=== PATIENT | female | born 1970 | race Caucasian/White ===

== ENCOUNTER 2019-04-02 05:35 | Outpatient (CLI) | payer BC ==
[~2019-04-02] VITALS: Ht 170.2 cm; Wt 60.8 kg
[~2019-04-02 05:35] MED LIST: CEFU500T5 PO; CRB200T PO; CYCL10TA9 PO; DULO20CA PO; DULO60CA6 PO; KETO-22 PO; LSNP20T PO; RIZA10TA23 PO; epitol PO; seasonale PO
[2019-04-02] MEDS ORDERED: CARB200T PO (10:40)
[2019-04-02] MEDS ORDERED: RIZA10TA23 PO (10:40)
[2019-04-02] MEDS ORDERED: DULO60CA59 PO (10:40)
[2019-04-02] MEDS ORDERED: LISI-556 PO (10:40)
== END 2019-04-02 10:47 | disposition home or self-care (01) ==
LOC: PREOP 05:35
PROVIDERS: ATTEND Podiatrist Foot & Ankle Surgery
DX: Z01.818 Encounter for other preprocedural examination (principal)

== ENCOUNTER 2019-04-07 06:29 | Day surgery (SDC) | payer BC ==
[~2019-04-07] VITALS: Ht 170.2 cm; Wt 60.8 kg
[2019-04-07] VITALS (11 sets, daily range): BP systolic 103–123; BP diastolic 61–76
[~2019-04-07 06:29] MED LIST changes: +CARB200T PO; +DULO60CA59 PO; +LISI-556 PO
[2019-04-07] MEDS ORDERED: ONDANSETRON 4 MG/2 ML (SDV) Z0FRAN ONE (06:42)
[2019-04-07] MEDS ORDERED: proPOfol 200 MG/20 ML (DIPRIVAN) VIAL IV ONE (06:42)
[2019-04-07] MEDS ORDERED: SEVOFLURANE (ULTANE) 15 ML INHAL SOLN ONE (06:43)
[2019-04-07] MEDS ORDERED: MIDAZOLAM 2 MG/2 ML (VERSED) VIAL ONE (06:43)
[2019-04-07] MEDS ORDERED: fentaNYL INJECTION 100 MCG/2 ML AMP ONE ×2 (06:43→09:21)
[2019-04-07] MEDS ORDERED: LIDOCAINE PF 2% 5 ML (XYLOCAINE) VIAL ONE (06:43)
[2019-04-07] MEDS ORDERED: ceFAZolin INJECTION 1,000 MG in WATER (STERILE) FOR INJECTION 10 ML IV ONE (06:45)
[2019-04-07] MEDS: LACTATED RINGERS 1,000 ML IV PRN ×2 (07:05→08:09)
[2019-04-07] MEDS ORDERED: BUPIVACAINE 0.5% 30 ML (SENSORCAINE) VIAL ONE (07:08)
--- NOTE | 2019-04-07 07:33 | Progress Note-Pre Operative ---
Pre-Operative Progress Note H&P Reviewed The H&P was reviewed, patient examined and no changes noted. Date Seen by Provider: Apr 07, 2019 Time Seen by Provider: 07:33 Date H&P Reviewed: Apr 07, 2019 Time H&P Reviewed: 07:33 Pre-Operative Diagnosis: Hallux Valgus right BRANDON BOLTON DPM Apr 07, 2019 07:33
[2019-04-07] MEDS ORDERED: PHENYLEPHRINE 100 MCG/ML 10 ML (ANESTHESIA) SYR ONE (08:21)
[2019-04-07] MEDS ORDERED: LACTATED RINGERS 1,000 ML IV SCH (10:43)
--- NOTE | 2019-04-07 10:43 | Progress Note-Post Operative ---
Post-Operative Progess Note Surgeon (s)/Pattern Drum Maker (s) Surgeon BRANDON BOLTON DPM Pattern Drum Maker: none Pre-Operative Diagnosis Hallux Valgus right Post-Operative Diagnosis same plus metatarsal primus varus, DJD to 1st metatarsal phalangeal joint, right Procedure & Operative Findings Date of Procedure 04/07/19 Procedure Performed/Findings Arthrodesis of the right 1st metatarsal-cuneiform joint. Modified Tim bunionectomy. All right foot. Anesthesia Type General Estimated Blood Loss Estimated blood loss (mL): minimal Specimens/Packing Specimens Removed none BRANDON BOLTON DPM Apr 07, 2019 10:42
[2019-04-07] MEDS ORDERED: ONDANSETRON 4 MG/2 ML (SDV) Z0FRAN IVP PRN ×2 (10:45)
[2019-04-07] MEDS ORDERED: morphine INJ 10 MG/ML 1ML (SYR OR VIAL) IVP ONE (10:45)
[2019-04-07] MEDS ORDERED: HYDROcodone/APAP 5 MG/325 MG (LORTAB) TAB PO PRN (10:45)
[2019-04-07] MEDS ORDERED: HYDROmorphone 2 MG/ML VIAL (DILAUDID) IV ONE (10:45)
[2019-04-07] MEDS ORDERED: ACHD5005 PO (10:46)
[2019-04-07] MEDS ORDERED: CEPH500C PO (10:46)
--- NOTE | 2019-04-07 11:00 | Diagnostic Imaging Report ---
Indication: Fluoroscopy during right foot surgery. Fluoroscopy was provided in OR during right foot surgery. 19 seconds of fluoroscopic time was utilized. Images demonstrate a plate and screws transfixing the first tarsometatarsal joint. There has been osteotomy and cerclage wire noted involving the proximal findings of the great toe. Alignment appears anatomic. Impression: Fluoroscopy during right foot surgery. Dictated by: Dictated on workstation # [id number]
--- NOTE | 2019-04-07 12:49 | Anesthesia-General Post-Op ---
General Patient Condition Mental Status/LOC: Same as Preop Cardiovascular: Satisfactory Nausea/Vomiting: Absent Respiratory: Satisfactory Pain: Controlled Complications: Absent Post Op Complications Complications None Follow Up Care/Instructions Patient Instructions None needed. Anesthesia/Patient Condition Patient Condition Patient is doing well, no complaints, stable vital signs, no apparent adverse anesthesia problems. No complications reported per nursing. JERAD JARRETT CRNA Apr 07, 2019 12:49
--- NOTE | 2019-04-07 21:32 | OPERATIVE REPORT ---
DATE OF SERVICE: 04/07/2019 SURGEON: Flakita Nuñez DPM. PREOPERATIVE DIAGNOSIS: Hallux abductovalgus metatarsus primus varus, right foot. POSTOPERATIVE DIAGNOSES: 1. Hallux abductovalgus metatarsus primus varus, right foot. 2. Degenerative joint disease, right first metatarsophalangeal joint. PROCEDURES PERFORMED: 1. Arthrodesis of the right first metatarsal cuneiform joint. 2. Modified Tim bunionectomy, right. WOUND CLASS: Clean. ANESTHESIA: General. HEMOSTASIS: Pneumatic thigh tourniquet at 250 mmHg. INDICATIONS: This 49-year-old female presents complaining of a painful right great toe joint as well as painful mid foot. Conservative therapy is met with unsatisfactory results and the patient is agreeable to surgical intervention after risks and complications were discussed. No guarantees were extended, she is willing to proceed. DESCRIPTION OF PROCEDURE: The patient was brought back to the operating table, placed in secure supine position. Appropriate timeout was performed. General anesthetic was then induced. Utilizing aseptic technique, 10 mL of 0.5% Marcaine was injected in a Porter block to the right foot. The right lower extremity had a tourniquet placed over the thigh with several layers of padding. The right foot was then prepped and draped in normal sterile manner. The right foot was then elevated and allowed to exsanguinate after which the tourniquet was inflated to 250 mmHg. First, attention was then directed to the dorsal aspect of the first metatarsal cuneiform joint where a 5.5 cm longitudinal linear incision was created. The incision was deepened in the same plane with great care to identify and retract all vital neurovascular structures. All the necessary blood vessels were cauterized as encountered. The incision was deepened down to the extensor hallucis longus tendon, which was retracted medially. The capsular tissue was then identified and a medial to lateral capsulotomy was performed as well as a subperiosteal dissection. The joint was evaluated and found to be somewhat loose hypermobile. I then decided that correction of the first intermetatarsal angle as well as reduction of the hypermobility would be best suited with the arthrodesis of the first metatarsal cuneiform joint. This was done utilizing a [employer] system. First the joint was prepped by removing the cartilage to the distal medial cuneiform and base of the first metatarsal. The cut at the distal medial cuneiform was perpendicular to the long axis of the second metatarsal and the cut at the base of the first metatarsal was perpendicular to the long axis of the first metatarsal. The articular cartilage was removed and the remaining bone fenestrated. The wound was flushed with copious amounts of normal saline. Some of the lateral eminence to the base of the first metatarsal was also reduced with a power sagittal saw. Reduction of the first intermetatarsal angle was performed and a K-wire driven from medial to lateral from the first metatarsal to the second and third metatarsals was performed at this time. Next, utilizing standard technique, a right standard Lapidus plate was performed with the [employer] system. The PEEK plate was temporarily applied to the medial cuneiform and base of the first metatarsal after which a screw was driven from dorsal and distal to plantar proximal utilizing the [employer] interfrag screw system. A 3.5 screw of 40 mm in length was driven from dorsal distal to plantar proximal, allowing for excellent compression across the arthrodesis site. This is confirmed with intraoperative x-ray. Next, the 2 proximal locking screws were applied. Both were 3.5 mm, one was 24 and the other was 28 mm. Next, the distal screw was applied in an offset manner to allow for more compression of nonlocking 3.5 x 14 mm length Tuffdeck screw. The final screw was a 3.5 x 16 mm locking Tuffdeck screw. Excellent bony apposition and fixation was appreciated at this time. No instability was appreciated. Intraoperative x-ray confirmed placement of the hardware. Also demonstrated excellent reduction of the first intermetatarsal angle to approximately 0 degrees. The wound was flushed with copious amounts of normal saline. Closure was then performed in layers. Deep closure was performed with 3-0 Vicryl, superficial with 4-0 Vicryl, skin closure with 4-0 Prolene in a horizontal mattress type stitch. Attention was then directed to the first metatarsophalangeal joint where a dorsal incision of approximately 5 mm was performed overlying the first metatarsophalangeal joint. The incision was deepened in the same plane with great care to identify and retract all vital neurovascular structures. The incision was deepened down to the capsule tissue where a longitudinal capsulotomy was performed and the capsular tissue reflected medially and laterally exposing a dorsal eminence of the first metatarsal head and the medial eminence to the first metatarsal. Both of these eminences were reduced with a power sagittal saw. Inspection of the first metatarsal head demonstrated full thickness degeneration of the articular cartilage off in a medial to lateral orientation. There is also full thickness degeneration to the plantar aspect of the medial first metatarsal head associated with the medial sesamoid area. The wound was flushed. The loose cartilage was sharply debrided after which flushed once again and fenestration was then performed with a 0.045 K-wire. Some crepitation was noted prior to this procedure and there was a significantly reduced crepitation noted after debridement of the cartilage. The wound was flushed once again. There remained some lateral deviation to the right hallux and it was then decided to do an Tim type procedure. The reason for this was also to realign the hallux and reduce stress overlying the first metatarsophalangeal joint and the issues associated with the medial sesamoid. Subperiosteal dissection was carried out to the diaphysis of the proximal phalanx of the right hallux. Next, a power sagittal saw was utilized to create the osteotomy from medial to lateral. A wedge of bone was resected allowing for the base of the medial and lateral cortices and the diaphysis of the proximal phalanx to be held intact. Once the wedge was removed, two banquet pilot holes were created at the dorsal medial aspect of the osteotomy. A 28-gauge monofilament wire was then passed through the banquet pilot holes securing the osteotomy in a closed position. Excellent alignment of the hallux was then noted with good alignment of the bone and fixation was appreciated at this time. The wound was flushed with copious amounts of normal saline. Closure was then performed in layers. Deep closure was performed with 3-0 Vicryl, superficial with 4-0 Vicryl, skin closure with 4-0 Prolene in a horizontal mattress type stitch. Postoperative injection consisted of 10 mL of 0.5% Marcaine injected in a local infusion to the surgical site. Postoperative dressing consisted of Betadine soaked Adaptic, sterile 4 x 4, sterile Kerlix all secured with a Coban wrap. The patient tolerated the anesthesia and procedure well, was transported from the operating room to the recovery area with vital signs stable and vascular status intact to all digits of the right foot. The patient is to remain nonweightbearing on the right foot for approximately 4 weeks. She can have partial weightbearing with her Cam walker in about two weeks time. The patient is given a prescription for Keflex and Vicodin. Job ID: [id number] DocumentID: [id number] Dictated Date: 04/07/2019 11:00:02 Railroad Car Inspector Date: 04/07/2019 21:30:33 Dictated By: HARPER FALLON
== END 2019-04-07 13:00 | disposition home or self-care (01) ==
LOC: SDC 06:29
PROVIDERS: ATTEND Podiatrist Foot & Ankle Surgery
DX: M20.11 Hallux valgus (acquired), right foot (principal); M19.071 Primary osteoarthritis, right ankle and foot; J45.909 Unspecified asthma, uncomplicated; I10 Essential (primary) hypertension; G43.909 Migraine, unspecified, not intractable, without status migrainosus; G40.909 Epilepsy, unspecified, not intractable, without status epilepticus; Z79.899 Other long term (current) drug therapy; Z88.1 Allergy status to other antibiotic agents; Z82.49 Family history of ischemic heart disease and other diseases of the circulatory system
CPT/HCPCS: 84703; 87081

== ENCOUNTER → 2019-12-24 | Outpatient (CLI) | payer BC ==
[~2019-12-24] MED LIST changes: +ACHD5005 PO; +CEPH500C PO
--- NOTE | 2019-12-24 10:16 | Diagnostic Imaging Report ---
INDICATION: Routine screening. COMPARISON: No prior mammograms are available for comparison. TECHNIQUE: 2D and 3D bilateral screening mammography was performed with CAD. FINDINGS: There are bilateral breast implants. The implant contours appear to be smooth. The breast parenchyma is heterogeneously dense, limiting the sensitivity of mammography. There are benign calcifications in the left breast. No dominant mass or malignant appearing microcalcifications are seen. The axillae are unremarkable. IMPRESSION: No mammographic features suspicious for malignancy are identified. ACR BI-RADS Category 2: Benign findings. Result letter will be mailed to the patient. Note: At least 10% of breast cancer is not imaged by mammography. Dictated by: Dictated on workstation # [id number]
--- NOTE | 2019-12-24 18:03 | HISTORY AND PHYSICAL ---
DATE OF SERVICE: HISTORY OF PRESENT ILLNESS: The patient is a 49-year-old white female referred by Dr. Alvarado for her first screening colonoscopy. She is deemed to be of average risk as she is not aware of any family history for colon cancer or colon polyps. She denies any problems with bright red blood per rectum, abdominal pain, change in bowel habit or change in weight. PAST MEDICAL HISTORY: Significant for mild hypertension, intermittent migraine headaches, history of seizures, but none for many years. She had admission in 2013 for pyelonephritis with full recovery. PAST SURGICAL HISTORY: She has had cervical fusion from C3-C7 several years ago. She has had surgery for tendonitis left lateral epicondylar on the right side. Has had breast augmentation and bunion surgery with the latter being in the last year and distant past history of therapeutic laparoscopy for treatment of endometriosis. FAMILY HISTORY: Father is still living at the age of 81. History of hypertension with transient ischemic attacks and pacemaker placement. Mother of urinary tract infection with sepsis with a history of multiple sclerosis. Has one living sister here with no health problems. He has one maternal grandmother and aunt with breast cancer and one paternal grandfather with gastric cancer. 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 She has no past smoking history with occasional social alcohol intake. She exercises on a regular basis. REVIEW OF SYSTEMS: CONSTITUTIONAL: She denies night sweats, chills, fever or change in weight. GASTROINTESTINAL: As noted in the HPI. CARDIOVASCULAR: She denies any history of cardiovascular procedures. Denies chest discomfort, dyspnea on exertion, syncope or presyncope. PULMONARY: She denies any trouble with cough, wheezing or dyspnea on exertion. PHYSICAL EXAMINATION: GENERAL: Reveals a white female, appears to be in no acute distress. VITAL SIGNS: Blood pressure 110/74, weight 135 pounds, BMI 23. HEENT: Unremarkable. Mallampati 2 oropharyngeal configuration. Sclerae nonicteric. CHEST: Clear to auscultation. CARDIOVASCULAR: Reveals a regular rate and rhythm without murmur, S3 or S4. ABDOMEN: Soft, supple without mass, organomegaly or tenderness. EXTREMITIES: Reveal no cyanosis, clubbing or edema. ASSESSMENT: The patient's electronic medical record was reviewed. Questions were answered and prep instructions with the Suprep kit were given. I thank you for the referral of this pleasant lady. Job ID: [id number] DocumentID: [id number] Dictated Date: 12/24/2019 17:17:08 Manager Hvac Date: 12/24/2019 18:02:17 Dictated By: AMANDA WEBB MD [facility]
== END ==
LOC: RAD 07:24
PROVIDERS: ATTEND Family Medicine
DX: Z12.31 Encounter for screening mammogram for malignant neoplasm of breast (principal)
CPT/HCPCS: 77063; 77067

== ENCOUNTER 2020-01-06 05:39 | Outpatient (RCR) | payer BC ==
[~2020-01-06] VITALS: Ht 170.2 cm; Wt 61.4 kg
[~2020-01-06 05:39] MED LIST changes: +MELO15TA39 PO
== END 2020-01-06 15:39 | disposition home or self-care (01) ==
LOC: PREOP 05:39
PROVIDERS: ATTEND Internal Medicine
DX: Z01.818 Encounter for other preprocedural examination (principal); Z11.59 Encounter for screening for other viral diseases
CPT/HCPCS: 87635

== ENCOUNTER 2020-01-09 09:25 | Day surgery (SDC) | payer BC ==
[2020-01-09] VITALS (15 sets, daily range): BP systolic 88–126; BP diastolic 48–86
[~2020-01-09] VITALS: Ht 170.2 cm; Wt 61.4 kg
[2020-01-09] MEDS ORDERED: D5 LR IV SOLUTION 1,000 ML IV STA (09:32)
--- OUTSIDE RECORDS SUMMARY | 2020-01-09 09:33 | XMS REPORT | CCD ---
Author Author Chiquita Alvarado D.O. Organization [facility] Address [address] [place] [address] Phone Care Team Providers Care Grip Wrapper Name Role Phone Shaye Al[facility] D.O., PP Unavailable CCM Unavailable Summary Purpose Interface Exchange Insurance Providers Payer name Policy type / Coverage type Covered alliance party ID Effective Begin Date Effective End Date Blue Cross Blue Shield Blue Cross/Blue Shield [id number] Unknown Family history Father Diagnosis Age At Onset No Family Disease Entered N/A Mother Diagnosis Age At Onset No Family Disease Entered N/A Side Diagnosis Age At Onset No Family Disease Entered N/A Social History Social History Element Codes Description Effective Dates Marital status Unknown 08/03/2011 Number of children Unknown 2 08/03/2011 Employment Unknown Currently employed [employer] 08/03/[address]: 835715057 Never smoker 08/03/[address]: 197492 Currently drinks alc ohol socially 08/03/2011 Allergies, Adverse Reactions, Alerts Substance Reaction Codes Entered Date Inactivated Date Status * NO KNOWN FOOD ALLERGIES Unknown 08/03/2011 No Inactiv e Date Active * NO KNOWN ENVIRONMENTAL ALLERGIES Unknown 08/03/2011 N o Inactive Date Active * NO KNOWN DRUG ALLERGIES Unknown 08/03/2011 No Inactiv e Date Active Problems Condition Codes Effective Dates Condition Status Encounter for general adult medical examination withou t abnormal findings ICD-9: V70.0 ICD-10: Z00.00 01/05/2014 Active Essential (primary) hypertension ICD-9: 401.9 ICD-10: I10 01/05/2014 Active Mild intermittent asthma ICD-9: 493.90 ICD-10: J45.20 12/22/2019 Active Right rotator cuff tendonitis ICD-9: 726.10 ICD-10: M75.81 12/22/2019 Active 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 04 ICD-10: M65.4 07/24/2018 Active Anemia, unspecified ICD-9: 285.9 ICD-10: D64.9 05/23/2017 Active Other fatigue ICD-9: 780.79 ICD-10: R53.83 06/21/2018 Active Encounter for gynecological examination (general) (routine) without abnormal findings ICD-9: V72.31 ICD-10: Z01.419 07/05/2017 Active Mild intermittent asthma with (acute) exacerbation ICD -9: 466.0 ICD-10: J45.21 07/05/2017 Active Other cervical disc degeneration, unspecified cervical region ICD-9: 722.4 ICD-10: M50.30 05/15/2017 Active Tension-type headache, unspecified, not intractable IC D-9: 307.81 ICD-10: G44.209 05/15/2017 Active Lateral epicondylitis, right elbow ICD-9: 726.32 ICD-10: M77.11 04/26/2016 Active Dysuria ICD-9: 788.1 ICD-10: R30.0 12/19/2015 Active Hematuria, unspecified ICD-9: 599.70 ICD-10: R31.9 08/03/2015 Active COUGH ICD-9: 786.2 10/30/2014 Active HYPERTENSION ICD-9: 401.9 01/05/2014 Active ROUTINE MEDICAL EXAM ICD-9: V70.0 01/05/2014 Active Seizure ICD-9: 780.39 01/05/2014 Active URI, ACUTE ICD-9: 465.9 11/26/2013 Active Pyelonephritis ICD-9: 590.80 02/19/2013 Active OTITIS MEDIA NOS ICD-9: 382.9 07/23/2012 Active SINUSITIS, ACUTE ICD-9: 461.9 07/23/2012 Active Hypertension Unknown 07/17/2012 Active PHARYNGITIS, ACUTE ICD-9: 462 10/30/2011 Active CERVICAL DISC DEGEN ICD-9: 722.4 08/03/2011 Active Neck pain ICD-9: 723.1 08/03/2011 Active Radiculopathy of arm ICD-9: 723.4 08/03/2011 Active Medications Medication Codes Instructions Start Date Stop Date Status Fill Instructions meloxicam 15 mg tablet RxNorm: 271138 1 Tablet(s) Oral QD for pain 12/22/2019 06/19/2020 Active Tegretol 200 mg tablet RxNorm: 930093 TAKE ONE TABLET BY MOUTH MARGARITO Y 12/15/2019 No Stop Date Active Cymbalta 60 mg capsule,delayed release RxNorm: 776129 T FABIO ONE CAPSULE BY MOUTH DAILY 12/15/2019 No Stop Date Active lisinopril 2.5 mg tablet RxNorm: 999146 TAKE ONE TABLET BY MOUT H DAILY 12/10/2019 No Stop Date Active Maxalt 10 mg tablet RxNorm: 069197 TAKE ONE TABLET BY M OUTH AT ONSET OF HEADACHE, MAY REPEAT ONE TABLET IN 2 HOURS IF NEEDED 11/13/2019 No Stop Date Active Cymbalta 60 mg capsule,delayed release RxNorm: 101352 T FABIO ONE CAPSULE BY MOUTH DAILY 08/28/2019 12/14/2019 Inactive lisinopril 2.5 mg tablet RxNorm: 690229 1 Tablet(s) Oral QD 020 11/20/2019 Inactive Tegretol 200 mg tablet RxNorm: 612472 1 Tablet(s) Oral QD 08/22/2019 11/20/2019 Inactive Maxalt 10 mg tablet RxNorm: 792242 TAKE ONE TABLET BY M OUTH AT ONSET OF HEADACHE, MAY REPEAT ONE TABLET IN 2 HOURS IF NEEDED 08/06/2019 020 Inactive Tegretol 200 mg tablet RxNorm: 025592 TAKE ONE TABLET BY MOUTH MARGARITO Y 05/26/2019 08/21/2019 Inactive Maxalt 10 mg tablet RxNorm: 254035 1 Tablet(s) PO AT ON SET OF HEADACHE; MAY REPEAT ONE TABLET IN 2 HOURS IF NEEDED. 03/25/2019 05/23/2019 Inactive Tegretol 200 mg tablet RxNorm: 267589 TAKE ONE TABLET BY MOUTH MARGARITO Y 02/06/2019 05/06/2019 Inactive Cymbalta 60 mg capsule,delayed release RxNorm: 563278 T FABIO ONE CAPSULE BY MOUTH DAILY 02/06/2019 04/06/2019 Inactive lisinopril 2.5 mg tablet RxNorm: 685405 TAKE ONE TABLET BY MOUT H DAILY 01/27/2019 08/21/2019 Inactive Maxalt 10 mg tablet RxNorm: 259005 1 Tablet(s) PO AT ON SET OF HEADACHE; MAY REPEAT ONE TABLET IN 2 HOURS IF NEEDED. 11/22/2018 01/20/2019 Inactive Maxalt 10 mg tablet RxNorm: 957786 TAKE ONE TABLET BY M OUTH AT ONSET OF HEADACHE; MAY REPEAT ONE TABLET IN 2 HOURS IF NEEDED. 11/19/20182018 Inactive lisinopril 2.5 mg tablet RxNorm: 983786 TAKE ONE TABLET BY MOUT H DAILY 10/14/2018 01/11/2019 Inactive Maxalt 10 mg tablet RxNorm: 024411 TAKE ONE TABLET BY M OUTH AT ONSET OF HEADACHE; MAY REPEAT ONE TABLET IN 2 HOURS IF NEEDED. 09/20/20182018 Inactive Medrol (Francisco) 4 mg tablets in a dose pack RxNorm: 411691 6 Tablet(s) PO QD --then as directed 07/24/2018 07/29/2018 Inactive Mobic 15 mg tablet RxNorm: 717415 1 Tablet(s) PO QD 07/24/20182018 Inactive Tegretol 200 mg tablet RxNorm: 495280 TAKE ONE TABLET BY MOUTH MARGARITO Y 07/03/2018 12/29/2018 Inactive Maxalt 10 mg tablet RxNorm: 865796 TAKE ONE TABLET BY M OUTH AT ONSET OF HEADACHE; MAY REPEAT ONE TABLET IN 2 HOURS IF NEEDED. 07/03/20182018 Inactive Bactrim DS 800 mg-160 mg tablet RxNorm: 493400 1 Tablet(s) PO BID 1 08/25/2017 06/23/2018 Inactive Bactrim DS 800 mg-160 mg tablet RxNorm: 100337 1 Tablet(s) PO BID 1 08/25/2017 06/30/2018 Inactive Maxalt 10 mg tablet RxNorm: 810852 TAKE ONE TABLET BY M OUTH AT ONSET OF HEADACHE; MAY REPEAT ONE TABLET IN 2 HOURS IF NEEDED. 05/09/20182017 Inactive Cymbalta 60 mg capsule,delayed release RxNorm: 926008 T FABIO ONE CAPSULE BY MOUTH DAILY 04/09/2018 07/07/2018 Inactive lisinopril 2.5 mg tablet RxNorm: 318049 Tablet(s) TAKE ONE TABLET BY MOUTH DAILY 03/25/2018 09/20/2018 Inactive Maxalt 10 mg tablet RxNorm: 777400 TAKE ONE TABLET BY M OUTH AT ONSET OF HEADACHE; MAY REPEAT ONE TABLET IN 2 HOURS IF NEEDED. 02/26/20182017 Inactive Tegretol 200 mg tablet RxNorm: 564399 TAKE ONE TABLET BY MOUTH MARGARITO Y 12/04/2017 06/01/2018 Inactive Maxalt 10 mg tablet RxNorm: 226776 1 Tablet(s) PO AT ON SET OF HEADACHE. MAY REPEAT IN 2 HOURS 11/12/2017 12/01/2017 Inactive lisinopril 2.5 mg tablet RxNorm: 375461 TAKE ONE TABLET BY MOUT H DAILY 08/28/2017 03/25/2018 Inactive Tegretol 200 mg tablet RxNorm: 679976 TAKE ONE TABLET BY MOUTH MARGARITO Y 08/28/2017 11/25/2017 Inactive Maxalt 10 mg tablet RxNorm: 604825 1 Tablet(s) PO AT ON SET OF HEADACHE. MAY REPEAT IN 2 HOURS 07/05/2017 11/12/2017 Inactive cyclobenzaprine 10 mg tablet RxNorm: 089870 1 Tablet(s) PO QHS as needed for muscle spasm 05/15/2017 No Stop Date Active diclofenac sodium 75 mg tablet,delayed release RxNorm: 23154 6 1 Tablet(s) PO BID as needed for neck pain 05/15/2017 07/13/2017 Inactive Cymbalta 60 mg capsule,delayed release RxNorm: 284658 C apsule(s) TAKE ONE CAPSULE BY MOUTH DAILY 05/07/2017 08/04/2017 Inactive Maxalt 10 mg tablet RxNorm: 719240 1 Tablet(s) PO AT ON SET OF HEADACHE. MAY REPEAT IN 2 HOURS 04/30/2017 05/09/2017 Inactive Maxalt 10 mg tablet RxNorm: 113376 1 Tablet(s) PO AT ON SET OF HEADACHE. MAY REPEAT IN 2 HOURS 02/22/2017 04/30/2017 Inactive Tegretol 200 mg tablet RxNorm: 745079 Tablet(s) TAKE ONE TABLET BY MOUTH DAILY 01/11/2017 07/09/2017 Inactive Maxalt 10 mg tablet RxNorm: 818041 1 Tablet(s) PO AT ON SET OF HEADACHE. MAY REPEAT IN 2 HOURS 01/11/2017 02/22/2017 Inactive Maxalt 10 mg tablet RxNorm: 113003 1 Tablet(s) PO AT ON SET OF HEADACHE. MAY REPEAT IN 2 HOURS 11/30/2016 01/11/2017 Inactive Maxalt 10 mg tablet RxNorm: 769263 TAKE ONE TABLET BY M OUTH AT ONSET OF HEADACHE. MAY REPEAT IN 2 HOURS 07/26/2016 11/30/2016 Inactive lisinopril 2.5 mg tablet RxNorm: 001043 TAKE ONE TABLET BY MOUT H DAILY 07/24/2016 07/23/2016 Inactive lisinopril 2.5 mg tablet RxNorm: 917523 TAKE ONE TABLET BY MOUT H DAILY 07/24/2016 01/19/2017 Inactive Maxalt 10 mg tablet RxNorm: 167988 TAKE ONE TABLET BY M OUTH AT ONSET OF HEADACHE. MAY REPEAT IN 2 HOURS 06/05/2016 06/14/2016 Inactive Tegretol 200 mg tablet RxNorm: 860118 TAKE ONE TABLET BY MOUTH MARGARITO Y 06/05/2016 01/11/2017 Inactive Cymbalta 60 mg capsule,delayed release RxNorm: 830534 T FABIO ONE CAPSULE BY MOUTH DAILY 05/17/2016 05/07/2017 Inactive Medrol (Francisco) 4 mg tablets in a dose pack RxNorm: 616227 6 Tablet(s) PO QD --then as directed 04/27/2016 05/02/2016 Inactive Mobic 15 mg tablet RxNorm: 692793 1 Tablet(s) PO QD for pain 201505/26/2016 Inactive Maxalt 10 mg tablet RxNorm: 541751 TAKE ONE TABLET BY M OUTH AT ONSET OF HEADACHE. MAY REPEAT IN 2 HOURS 02/28/2016 03/25/2016 Inactive Tegretol 200 mg tablet RxNorm: 193124 TAKE ONE TABLET BY MOUTH MARGARITO Y 02/14/2016 05/13/2016 Inactive Maxalt 10 mg tablet RxNorm: 875644 TAKE ONE TABLET BY M OUTH AT ONSET OF HEADACHE. MAY REPEAT IN 2 HOURS 01/10/2016 01/27/2016 Inactive lisinopril 2.5 mg tablet RxNorm: 551209 TAKE ONE TABLET BY MOUT H DAILY 01/03/2016 06/30/2016 Inactive Macrobid 100 mg capsule RxNorm: 975911 1 Capsule(s) PO BID 12/23/19 16 12/29/2015 Inactive Macrobid 100 mg capsule RxNorm: 329665 1 Capsule(s) PO BID 12/23/19 16 12/22/2015 Inactive Bactrim DS 800 mg-160 mg tablet RxNorm: 244884 1 Tablet(s) PO BID 0 12/21/2015 12/27/2015 Inactive Bactrim DS 800 mg-160 mg tablet RxNorm: 879061 1 Tablet(s) PO BID 0 12/21/2015 12/20/2015 Inactive Tegretol 200 mg tablet RxNorm: 587247 1 Tablet(s) PO QD TAKE ONE TABLET BY MOUTH DAILY 10/18/2015 01/15/2016 Inactive Maxalt 10 mg tablet RxNorm: 651451 Tablet(s) TAKE ONE T ABLET BY MOUTH AT ONSET OF HEADACHE. MAY REPEAT IN 2 HOURS. 10/11/2015 10/25/2015 Inactive Bactrim DS 800 mg-160 mg tablet RxNorm: 404684 1 Tablet(s) PO BID 0 08/05/2015 08/04/2015 Inactive Bactrim DS 800 mg-160 mg tablet RxNorm: 528002 1 Tablet(s) PO BID 0 08/05/2015 08/11/2015 Inactive cyclobenzaprine 10 mg tablet RxNorm: 393776 1 Tablet(s) PO QHS as needed for muscle spasm 07/13/2015 09/10/2015 Inactive lisinopril 2.5 mg tablet RxNorm: 367219 1 Tablet(s) PO QD 07/13/2015 01/02/2016 Inactive Tegretol 200 mg tablet RxNorm: 205404 1 Tablet(s) PO QD 07/05/2015 Inactive Maxalt 10 mg tablet RxNorm: 885616 Tablet(s) TAKE ONE T ABLET BY MOUTH AT ONSET OF HEADACHE. MAY REPEAT IN 2 HOURS. 06/23/2015 10/11/2015 Inactive Cymbalta 60 mg capsule,delayed release RxNorm: 701886 1 Capsule (s) PO QD 05/17/2015 05/10/2016 Inactive [AttnRPh: Saving jason ly/adjudicate RxGRP:SG20 RxBIN:[id number] RxPCN: ID#:[id number]] Maxalt 10 mg tablet RxNorm: 668729 Tablet(s) TAKE ONE T ABLET BY MOUTH AT ONSET OF HEADACHE. MAY REPEAT IN 2 HOURS. 04/01/2015 04/15/2015 Inactive Tegretol 200 mg tablet RxNorm: 805669 1 Tablet(s) PO QD 03/09/2015 Inactive lisinopril 10 mg tablet RxNorm: 183616 1 Tablet(s) PO QD 01/18/2015 1 09/12/2014 Inactive [AttnRPh: Saving apply/adjudicate RxGRP: SG20 RxBIN:[id number] RxPCN: ID#:[id number]] Tegretol 200 mg tablet RxNorm: 643560 1 Tablet(s) PO QD 12/03/2014 Inactive Maxalt 10 mg tablet RxNorm: 354585 TAKE ONE TABLET BY M OUTH AT ONSET OF HEADACHE. MAY REPEAT IN 2 HOURS. 11/18/2014 04/01/2015 Inactive benzonatate 100 mg capsule RxNorm: 356092 1 Capsule(s) PO TID a s needed 10/30/2014 07/12/2015 Inactive prednisone 20 mg tablet RxNorm: 867979 1 Tablet(s) PO BID 10/30/2014 11/03/2014 Inactive Maxalt 10 mg tablet RxNorm: 954624 as needed TAKE 1 TAB LET BY MOUTH AT ONSET OF HEADACHE AND MAY REPEAT IN 2 HOURS 09/02/2014 09/13/2014 Inactive Tegretol 200 mg tablet RxNorm: 358583 1 Tablet(s) PO QD 08/17/2014 Inactive Cymbalta 60 mg capsule,delayed release RxNorm: 761324 1 Capsule (s) PO QD 06/29/2014 05/17/2015 Inactive [AttnRPh: Saving jason ly/adjudicate RxGRP:SG20 RxBIN:[id number] RxPCN: ID#:[id number]] lisinopril 10 mg tablet RxNorm: 631809 1 Tablet(s) PO QD 06/10/2014 0 12/06/2014 Inactive [AttnRPh: Saving apply/adjudicate RxGRP: SG20 RxBIN:[id number] RxPCN: ID#:[id number]] Maxalt 10 mg tablet RxNorm: 902527 TAKE ONE TABLET BY M OUTH AT HEADACHE ONSET AND MAY REPEAT IN 2 HOURS IF HEADACHE REMAINS 04/20/2014 09/02/2014 In active albuterol sulfate HFA 90 mcg/actuation aerosol inhaler RxNor m: 0649921 2 Puff(s) INH Q4H 11/26/2013 No Stop Date Active doxycycline hyclate 100 mg tablet RxNorm: 544449 1 Tablet(s) PO BID 11/26/2013 12/05/2013 Inactive Maxalt 10 mg tablet RxNorm: 717206 Tablet(s) PO Take 1 at headache onset and may repeat in 2 hours if headache remains 11/21/2013 04/19/2014 Inactive [SAVINGS FOR UNINSURED PATIENTS -- BIN:[id number], PCN: [id number], Group: [id number], ID# [id number], Process claim through [employer], for questions: . THIS IS NOT INSURANCE.] Tegretol 200 mg tablet RxNorm: 159228 1 Tablet(s) PO QD 06/10/2013 Inactive lisinopril 10 mg tablet RxNorm: 521473 1 Tablet(s) PO QD 06/10/2013 1 08/10/2013 Inactive Cymbalta 60 mg capsule,delayed release RxNorm: 620851 1 Capsule (s) PO QD 06/10/2013 06/29/2014 Inactive lisinopril 20 mg tablet RxNorm: 992423 1 Tablet(s) PO QAM for BP 06/09/2013 Inactive lisinopril 20 mg tablet RxNorm: 627947 1 Tablet(s) PO QAM for BP 11/07/2012 Inactive cefdinir 300 mg capsule RxNorm: 470948 1 Capsule(s) PO BID 07/23/19 13 08/01/2012 Inactive lisinopril 20 mg tablet RxNorm: 834771 1 Tablet(s) PO QAM for BP 09/09/2012 Inactive doxycycline hyclate 100 mg Tab RxNorm: 002105 1 Tablet(s) PO BID 11/08/2011 Inactive Mirena 20 mcg/24 hr (5 years) intrauterine device RxNorm: 408022 IU No Start Date Active Seasonique 0.15 mg-30 mcg (84)/10 mcg(7) Tabs,3 month dose p ack RxNorm: 845848 1 Tablet(s) PO QD No Start Date 07/12/2015 Inactive Tegretol 200 mg tablet RxNorm: 566035 1 Tablet(s) PO QD No Start Da te 06/09/2013 Inactive lisinopril 20 mg tablet RxNorm: 359738 1 Tablet(s) PO QD No Start D ate 06/09/2013 Inactive Maxalt 10 mg tablet RxNorm: 218672 Tablet(s) PO Take 1 at headache onset and may repeat in 2 hours if headache remains No Start Date 11/20/2013 Inactive Cymbalta 60 mg capsule,delayed release RxNorm: 105402 1 Capsule (s) PO QD No Start Date 06/09/2013 Inactive Medrol (Francisco) 4 mg Tabs in a Dose Pack RxNorm: 147592 Tablet(s) PO as directed No Start Date 07/16/2012 Inactive Medication Administered No Medication Administered data Immunizations No Immunization data Results Observation Observation Code Item Item Code Result Date S ervice Location TEGRETOL 7880455 TEGRETOL 5.2 MG/L 01/07/2014 Unknown COMPREHENSIVE METABOLIC 92425 AST 16 U/L 2013 Unknown COMPREHENSIVE METABOLIC 85896 ALT 10 IU/L 2013 Unknown COMPREHENSIVE METABOLIC 44503 BUN 17 MG/DL 2013 Unknown COMPREHENSIVE METABOLIC 41302 ALBUMIN 4.3 GM/DL 2013 Unknown COMPREHENSIVE METABOLIC 36845 CHLORIDE 105 MMOL/L 01/05 Unknown COMPREHENSIVE METABOLIC 23445 BILI TOT 0.2 MG/DL 2013 Unknown COMPREHENSIVE METABOLIC 96199 ALK PHOS 37 U/L 2013 Unknown COMPREHENSIVE METABOLIC 13888 SODIUM 137 MMOL/L 01/05 Unknown COMPREHENSIVE METABOLIC 91593 CREATININE 0.86 MG/DL 12/15 Unknown COMPREHENSIVE METABOLIC 47555 CALCIUM 9.4 MG/DL 2013 Unknown COMPREHENSIVE METABOLIC 19465 POTASSIUM 5.0 MMOL/L 01/05 Unknown COMPREHENSIVE METABOLIC 77277 PROT TOT 6.3 GM/DL 2013 Unknown COMPREHENSIVE METABOLIC 53153 Glucose 104 MG/DL 2013 Unknown COMPREHENSIVE METABOLIC 91193 BICARB 27 MMOL/L 2013 Unknown COMPREHENSIVE METABOLIC 83952 ANION GAP 5 MEQ/L 2013 Unknown THYROID STIMULATING HORMONE 38500 TSH 0.822 uIU/ML 01/05/2014 Unknown GFR CALC 5718063 GFR AA >60 ML/MIN 01/05/2014 Unknown GFR CALC 1080796 GFR NON-AA >60 ML/MIN 01/05/2014 Unknown COMPLETE BLOOD COUNT 2730362 WBC 5.5 10e9/L 01/06/20 14 Unknown COMPLETE BLOOD COUNT [id number] RBC 4.17 10e12/L 2013 Unknown COMPLETE BLOOD COUNT 6074971 HGB 13.0 g/dL 4 Unknown COMPLETE BLOOD COUNT 2842429 HCT DET 39.0 % 4 Unknown COMPLETE BLOOD COUNT [id number] MCV 93.5 fL 4 Unknown COMPLETE BLOOD COUNT [id number] MCH 31.2 pg 4 Unknown COMPLETE BLOOD COUNT 0833917 MCHC 33.3 g/dL 4 Unknown COMPLETE BLOOD COUNT [id number] PLT 294 10e9/L 01/06/20 14 Unknown COMPLETE BLOOD COUNT [id number] MPV 11.4 fL 4 Unknown COMPLETE BLOOD COUNT [id number] NIKKY % 59.4 % 4 Unknown COMPLETE BLOOD COUNT 3468985 LY % 27.7 % 4 Unknown COMPLETE BLOOD COUNT 3302110 MON % 10.3 % 4 Unknown COMPLETE BLOOD COUNT [id number] EOS % 1.5 % 4 Unknown COMPLETE BLOOD COUNT 6839943 BASO % 1.1 % 4 Unknown COMPLETE BLOOD COUNT 3258964 RDW 12.7 % 4 Unknown COMPLETE BLOOD COUNT [id number] ABS NIKKY 3.27 10e9/L 014 Unknown COMPLETE BLOOD COUNT [id number] ABS LYMPH 1.52 10e9/L 014 Unknown COMPLETE BLOOD COUNT [id number] ABS MONO 0.57 10e9/L 014 Unknown COMPLETE BLOOD COUNT [id number] ABS EOS 0.08 10e9/L 014 Unknown COMPLETE BLOOD COUNT [id number] ABS BASO 0.06 10e9/L 014 Unknown COMPLETE BLOOD COUNT [id number] RDW-SD 42.1 fL 4 Unknown LIPID GROUP 07912 HDL TEST 60 MG/DL 01/05/2014 Unknown LIPID GROUP 41533 TRIG 63 MG/DL 01/05/2014 Unknown LIPID GROUP 23306 TEST LDL 83 MG/DL 01/05/2014 Unknown LIPID GROUP 86022 CHOL 156 MG/DL 01/05/2014 Unknown LIPID GROUP 87582 RCHOL/HDL 2.60 RATIO 01/05/2014 Unknow n FREE T4 63491 FREE T4 0.87 NG/DL 01/05/2014 Unknown Procedures Procedure Codes Date URINALYSIS NONAUTO W/O SCOPE CPT-4: 80004 06/21/2018 URINE TEST CPT-4: 93980 06/21/2018 URINE CULTURE/ COLONY COUNT CPT-4: 69498 06/21/2018 SPECIMEN HANDLING OFFICE-LAB CPT-4: 08234 07/05/2017 DRAIN/INJECT JOINT/BURSA CPT-4: 85532 03/17/2016 URINALYSIS NONAUTO W/O SCOPE CPT-4: 12493 12/20/2015 URINE CULTURE/ COLONY COUNT CPT-4: 11335 12/20/2015 URINALYSIS NONAUTO W/O SCOPE CPT-4: 07248 08/04/2015 URINE CULTURE/ COLONY COUNT CPT-4: 25540 08/04/2015 ROUTINE VENIPUNCTURE CPT-4: 38809 01/05/2014 ASSAY OF FREE THYROXINE CPT-4: 58295 01/05/2014 ASSAY THYROID STIM HORMONE CPT-4: 87103 01/05/2014 COMPREHEN METABOLIC PANEL CPT-4: 88466 01/05/2014 COMPLETE CBC W/AUTO DIFF WBC CPT-4: 45497 01/05/2014 LIPID PANEL CPT-4: 65383 01/05/2014 CEFTRIAXONE SODIUM INJECTION CPT-4: J0696 07/23/2012 THER/PROPH/DIAG INJ SC/IM CPT-4: 28117 07/23/2012 Vital Signs Date Vital 12/22/2019 Blood Pressure 1: 114/80 Code: 8480-6 BMI: 20.7 Code: 00201-2 Heart Rate 1: 68 bpm Height: 5'7" Respiratory Rate: 20 bpm SpO2: 97% Tempera ture: 37.1 (C) / 98.7 (F) Weight: 132 lbs 03/25/2019 Blood Pressure 1: 104/62 Code: 8480-6 Heart Rate 1: 72 bpm Respiratory Rate: 18 bpm SpO2: 97% Temperature: 36.9 (C) / 98.5 (F) We ight: 134 lbs 07/24/2018 Blood Pressure 1: 122/80 Code: 8480-6 BMI: 21.3 Code: 36868-5 Heart Rate 1: 76 bpm Height: 5'7" Respiratory Rate: 20 bpm Temperature: 36 .9 (C) / 98.4 (F) Weight: 136 lbs 06/21/2018 Blood Pressure 1: 100/78 Code: 8480-6 Heart Rate 1: 82 bpm Respiratory Rate: 18 bpm SpO2: 100% Temperature: 36.7 (C) / 98.0 (F) We ight: 130 lbs 07/05/2017 Blood Pressure 1: 94/58 Code: 8480-6 BMI: 20.4 C ode: 96683-3 Heart Rate 1: 72 bpm Height: 5'7" SpO2: 96% Temperature: 37.2 (C) / 99.0 (F) Weight: 130 lbs 05/15/2017 Blood Pressure 1: 104/64 Code: 8480-6 BMI: 20.8 Code: 00765-9 Heart Rate 1: 80 bpm Height: 5'7" Respiratory Rate: 20 bpm Temperature: 36 .7 (C) / 98.1 (F) Weight: 133 lbs 04/27/2016 Blood Pressure 1: 112/70 Code: 8480-6 BMI: 20.8 Code: 94809-6 Heart Rate 1: 80 bpm Height: 5'7" Respiratory Rate: 20 bpm Temperature: 37 .2 (C) / 99.0 (F) Weight: 133 lbs 03/17/2016 Blood Pressure 1: 122/76 Code: 8480-6 He art Rate 1: 80 bpm 07/13/2015 Blood Pressure 1: 98/60 Code: 8480-6 BMI: 20.5 C ode: 68924-0 Heart Rate 1: 76 bpm Height: 5'7" Respiratory Rate: 20 bpm Temperature: 36 .9 (C) / 98.4 (F) Weight: 131 lbs 10/30/2014 Blood Pressure 1: 124/80 Code: 8480-6 BMI: 19.4 Code: 04717-0 Heart Rate 1: 94 bpm Height: 5'7" Respiratory Rate: 24 bpm SpO2: 98% Tempera ture: 36.6 (C) / 97.8 (F) Weight: 124 lbs 01/05/2014 Blood Pressure 1: 98/68 Code: 8480-6 BMI: 19.3 C ode: 88791-3 Heart Rate 1: 76 bpm Height: 5'7" Respiratory Rate: 20 bpm Temperature: 36 .8 (C) / 98.2 (F) Weight: 123 lbs 11/26/2013 Blood Pressure 1: 104/64 Code: 8480-6 BMI: 20.4 Code: 33069-2 Heart Rate 1: 84 bpm Height: 5'7" Respiratory Rate: 18 bpm Temperature: 36 .7 (C) / 98.0 (F) Weight: 130 lbs 06/10/2013 Blood Pressure 1: 132/90 Code: 8480-6 BMI: 19.4 Code: 92132-7 Heart Rate 1: 80 bpm Height: 5'7" Respiratory Rate: 20 bpm Temperature: 36 .6 (C) / 97.8 (F) Weight: 124 lbs 02/19/2013 Blood Pressure 1: 114/80 Code: 8480-6 BMI: 19.7 Code: 44830-7 Heart Rate 1: 84 bpm Height: 5'7" Respiratory Rate: 20 bpm Temperature: 36 .9 (C) / 98.5 (F) Weight: 126 lbs 07/23/2012 Blood Pressure 1: 106/64 Code: 8480-6 BMI: 20.8 Code: 52740-4 Heart Rate 1: 60 bpm Height: 5'7" Temperature: 37.8 (C) / 100.0 (F) Weight : 133 lbs 07/17/2012 Blood Pressure 1: 162/110 Code: 8480-6 BMI: 21.0 Code: 12078-6 Heart Rate 1: 92 bpm Height: 5'7" Respiratory Rate: 20 bpm Temperature: 36 .8 (C) / 98.2 (F) Weight: 134 lbs 10/30/2011 Blood Pressure 1: 138/80 Code: 8480-6 BMI: 21.0 Code: 78992-3 Heart Rate 1: 84 bpm Height: 5'7" Temperature: 37.1 (C) / 98.7 (F) Weight: 134 lbs 08/03/2011 Blood Pressure 1: 114/72 Code: 8480-6 BMI: 21.0 Code: 98302-2 Heart Rate 1: 64 bpm Height: 5'7" Respiratory Rate: 20 bpm Temperature: 36 .9 (C) / 98.4 (F) Weight: 134 lbs Functional Status No Functional Status data Reason For Visit Reason For Visit Effective Dates Notes well woman exam (40-65 years) 12/22/2019 Pre-op Physical 03/25/2019 neck pain 07/24/2018 fatigue 06/21/2018 well woman exam (40-65 years) 07/05/2017 Last sujatha l mammogram was at least 3 years ago neck pain 05/15/2017 Discuss trying anti- inflammatory follow up 04/27/2016 elbow pain 03/17/2016 painful urination 12/20/2015 flank pain 08/04/2015 well woman exam (40-65 years) 07/13/2015 cough 10/30/2014 Annual Checkup 01/05/2014 Wellness Physical--- no complaints sore throat 11/26/2013 high blood pressure 06/10/2013 Discuss lisinopril d ose follow up 02/19/2013 UTI/sepsis, still ta rayo antibiotics otalgia 07/23/2012 high blood pressure 07/17/2012 cough 10/30/2011 ~generic 08/03/2011 Establishing Visit Encounters Encounter Performer Location Codes Date ([id number]) PREV VISIT EST AGE 40-64 Diagnosis: Encounter for general adult medical examination without abnormal findings[ICD10: Z00.00] Diagnosis: Essential (primary) hypertension[ICD10: I10] Diagnosis: Mild intermittent asthma[ICD10: J45.20] Diagnosis: Right rotator cuff tendonitis[ICD10: M75.81] Shaye ALVARADO DO [facility] CPT-4: 16905 12/22/2019 ([id number]) OFFICE/OUTPATIENT VISIT EST Diagnosis: Hallux valgus (acquired), right foot[ICD10: M20.11] Diagnosis: Encounter for other preprocedural examination[ICD10: Z01.818] Shaye MATHUR MiguelWang [facility] CPT-4: 86638 03/25/2019 ([id number]) OFFICE/OUTPATIENT VISIT EST Diagnosis: Radial styloid tenosynovitis [de Quervain][ICD10: M65.4] Shaye MATHUR MiguelWang [facility] CPT-4: 81070 07/24/2018 ([id number]) OFFICE/OUTPATIENT VISIT EST Diagnosis: Other fatigue[ICD10: R53.83] Diagnosis: Anemia, unspecified[ICD10: D64.9] Mara Echevarria INOCENCIA Orozco MiguelWang [facility] CPT-4: 45362 06/21/2018 ([id number]) PREV VISIT EST AGE 40-64 Diagnosis: Mild intermittent asthma with (acute) exacerbation[ICD10: J45.21] Diagnosis: Encounter for general adult medical examination without abnormal findings[ICD10: Z00.00] Diagnosis: Encounter for gynecological examination (general) (routine) without abnormal findings[ICD10: Z01.419] Shaye MATHUR MiguelWang [place] [facility] CPT-4: 95968 07/05/2017 ([id number]) OFFICE/OUTPATIENT VISIT EST Diagnosis: Essential (primary) hypertension[ICD10: I10] Diagnosis: Other cervical disc degeneration, unspecified cervical region[ICD10: M50.30] Diagnosis: Tension-type headache, unspecified, not intractable[ICD10: G44.209] Shaye MATHUR MiguelWang [facility] CPT-4: 59131 05/15/2017 ([id number]) OFFICE/OUTPATIENT VISIT EST Diagnosis: Lateral epicondylitis, right elbow[ICD10: M77.11] Shaye MATHUR MiguelWang [facility] CPT-4: 49486 04/27/2016 ([id number]) OFFICE/OUTPATIENT VISIT EST Diagnosis: Hematuria, unspecified[ICD10: R31.9] Shaye HAMMER MiguelWang 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] Shaye ALVARADO [facility] CPT-4: 15450 07/13/2015 ([id number]) OFFICE/OUTPATIENT VISIT EST Diagnosis: COUGH[ICD9: 786.2] Sarika ALVARADO DO [facility] CPT-4: 10372 10/30/2014 ([id number]) PREV VISIT EST AGE 40-64 Diagnosis: ROUTINE MEDICAL EXAM[ICD9: V70.0] Diagnosis: HYPERTENSION[ICD9: 401.9] Diagnosis: Seizure[ICD9: 780.39] Shaye ALVARADO [facility] CPT-4: 21618 01/05/2014 OFFICE/OUTPATIENT VISIT EST Diagnosis: URI, ACUTE[ICD9: 465.9] Sarika MCDONALD [facility] CPT-4: 95457 11/26/2013 ([id number]) OFFICE/OUTPATIENT VISIT EST Diagnosis: HYPERTENSION[ICD9: 401.9] Diagnosis: SINUSITIS, ACUTE[ICD9: 461.9] Diagnosis: CONVULSIONS[ICD9: 780.39] Shaye MANCINI [facility] CPT-4: 64653 06/10/2013 OFFICE/OUTPATIENT VISIT EST Diagnosis: Pyelonephritis[ICD9: 590.80] Diagnosis: HYPERTENSION[ICD9: 401.9] Shaye RiveraWang JULIO MANCINI [facility] CPT-4: 51184 02/19/2013 OFFICE/OUTPATIENT VISIT EST Diagnosis: OTITIS MEDIA NOS[ICD9: 382.9] Diagnosis: COUGH[ICD9: 786.2] Diagnosis: SINUSITIS, ACUTE[ICD9: 461.9] Shaye RiveraWang [facility] CPT-4: 28926 07/23/2012 ([id number]) OFFICE/OUTPATIENT VISIT EST Diagnosis: HYPERTENSION[ICD9: 401.9] Diagnosis: CONVULSIONS[ICD9: 780.39] Shaye MANCINI [facility] CPT-4: 74437 07/17/2012 OFFICE/OUTPATIENT VISIT EST Diagnosis: COUGH[ICD9: 786.2] Diagnosis: PHARYNGITIS, ACUTE[ICD9: 462] Shaye ALVARADO DO [facility] CPT-4: 60140 10/30/2011 OFFICE/OUTPATIENT VISIT NEW Diagnosis: CERVICAL DISC DEGEN[ICD9: 722.4] Diagnosis: Neck pain[ICD9: 723.1] Diagnosis: Radiculopathy of arm[ICD9: 723.4] Diagnosis: Seizure[ICD9: 780.39] Shaye ALVARADO DO [facility] CPT-4: 27453 08/03/2011 Plan of Care Planned Activity Notes Codes Status Date Visit Diagnosis Plan: Essential (primary) hypertension Discussion: Stable ICD-9 : 401.9 ICD-10 : I10 12/22/2019 Visit Diagnosis Plan: Encounter for [facility] adult medical examination without abnormal findings Discussion: Mediterranean diet Combinati on of cardio and weight bearing exercise Fasting lab done this morning Mammogram ordered Needs screening colonoscopy Due for Pap ICD-9 : V70.0 ICD-10 : Z00.00 12/22/2019 Visit Diagnosis Plan: Right rotator cuff tendonitis Di scussion: Daily stretches for gentle ROM Moist heat Topical muscle rub Mobic Notify if worsening or persists ICD-9 : 726.10 ICD-10 : M75.81 12/22/2019 Patient Education: meloxicam- [employer] Coupon [id number] [email or web address] Completed 12/22/2019 Care Plan: MAMMOGRAM SCREENING LOINC : 2 6347-5 Pending 12/22/2019 Care Plan: Referral Order SNOMED-CT : 30 [id number] Pending 12/22/2019 Care Plan: COMPREHEN METABOLIC PANEL IGGY NC : 11350-4 Pending 12/18/2019 Care Plan: ASSAY THYROID STIM HORMONE Pen ding 12/18/2019 Care Plan: LIPID PANEL LOINC : 88774-0 Pending 12/18/2019 Care Plan: ASSAY OF FREE THYROXINE Pendin g 12/18/2019 Care Plan: COMPLETE CBC W/AUTO DIFF WBC LOINC : 69892-3 Pending 12/18/2019 Visit Diagnosis Plan: Hallux valgus (acquired), right foot Discussion: Update lab for upcoming surgery Okay to proceed with planned surgery by Dr. Nuñez ICD-9 : 735.0 ICD-10 : M20.11 03/25/2019 Appointment: Shaye Alvarado WPtel: [address] [place] [address] US FOLLOW UP 03/25/2019 Visit Diagnosis Plan: Radial styloid tenosynovitis [de Quervain] Discussion: Spica thumb wrist splint Medrol Dose Pack followed by mobic Notify if worsens or persists ICD-9 : 727.04 ICD-10 : M65.4 07/24/2018 Appointment: Shaye Alvarado WPtel: [address] [place] [address] ACUTE ILLNESS 07/24/2018 Patient Education: Medrol (Francisco)- [employer] Coupon [phone] [email or web address]/[email or web address] Completed 07/24/2018 Visit Diagnosis Plan: Other fatigue Discussion: urine test neg. when urine was tested, noted dark, cloudy urine and dipstick was obtained. showed protein and blood in urine so will send off for urine culture. multiple labs or dered to be completed at [facility]. cbc, cmp, tsh, t4, tt3, b12, iron, ferritin obtained. will review labs and culture and order additional meds/labs as needed. ICD-9 : 780.79 ICD-10 : R53.83 06/21/2018 Appointment: Mara Echevarria [address] [place], [place] [id number] ACUTE ILLNESS 06/21/2018 Appointment: Shaye Alvarado WPtel: [address] [place] [address] Scheduled in ERROR 06/10/2018 Visit Diagnosis Plan: Encounter for gyne cological examination (general) (routine) without abnormal findings Discussion: Pap done Mammogram ordered ICD-9 : V72.31 ICD-10 : Z01.419 07/05/2017 Visit Diagnosis Plan: Mild intermittent asthma with (a cute) exacerbation Discussion: Breo 100mcg 1 p daily for 2 weeks Incruse 1 p daily for 1 week Use proair prn Notify if worsening or persists ICD-9 : 466.0 ICD-10 : J45.21 07/05/2017 Appointment: Shaye Alvarado WPtel: [address] [place], [place] [id number] PAP 07/05/2017 Patient Education: Patient Medication Summary Completed 07/05/2017 Care Plan: MAMMOGRAM SCREENING LOINC : 2 6347-5 Pending 07/05/2017 Patient Education: Patient Medication Summary Completed 05/23/2017 Care Plan: ASSAY OF IRON Pending 02/2017 Care Plan: VITAMIN B-12 Pending 02/2017 Visit Diagnosis Plan: Other cervical dis c degeneration, unspecified cervical region Discussion: Daily neck stretches Flexeri l and diclofenac to use prn Discussed routine massage ICD-9 : 722.4 ICD-10 : M50.30 05/15/2017 Visit Diagnosis Plan: Essential (primary) hypertension Discussion: Stable Update lab ICD-9 : 401.9 ICD-10 : I10 05/15/2017 Appointment: Shaye Alvarado WPtel: [address] [place], [place] [phone] ACUTE ILLNESS 05/15/2017 Patient Education: Patient Medication Summary Completed 05/15/2017 Referral: Armin Arzate WPtel: [facility] [id number] Referral Appointment Confirmed 05/10/2016 Visit Plan: Medrol Dose Pack then start mobic Continue brace See Dr. Arzate Discussed iontophoresis May need surgery as has tried all conservative measures at this point 04/27/2016 Appointment: Shaye Alvarado WPtel: [address] [place] [address] 04/26 lm~sl...confirmed-sp FOLLOW UP 04/27 Patient Education: Patient Medication Summary Completed 04/27/2016 Care Plan: Referral Order SNOMED-CT : 30 [id number] Pending 04/27/2016 Visit Plan: Injection as above Howard tuttle Vivlodex 10mg daily Notify if worsens or persists 03/17/2016 Appointment: Shaye Alvarado WPtel: [address] [place] [address] OFFICE SURGERY 03/17/2016 Patient Education: Patient Medication Summary Completed 03/17/2016 Appointment: Yolis Membreno [address] [place] [address] 12/19- patient misunderstood why appointment was scheduled. CANCELED 12/21/2015 Appointment: Shaye Alvarado WPtel: [address] [place] [address] ACUTE ILLNESS 12/20/2015 Patient Education: Patient Medication Summary Completed 12/20/2015 Appointment: Shaye Alvarado WPtel: [address] [place] [address] 08/04/2015 Patient Education: Patient Medication Summary Completed 08/04/2015 Visit Plan: Updated MRI of cervical spin e Decrease lisinopril to 2.5mg daily Update lab Add cyclobenzaprine at 10mg q HS 07/13/2015 Appointment: Shaye Alvarado WPtel: [address] [place] [address] 07/12/15 appt confirmed cn Annual Well Visit Patient Education: Patient Medication Summary Completed 07/13/2015 Patient Education: [facility] - Saving [employer] - Lisinopril - 18-64 - Dynamic Portal ID Completed 07/13/2015 Patient Education: Neck Pain Completed 07/13/2015 Appointment: Sarika Diallo WPtel: [address] [place] [address] ACUTE ILLNESS 10/30/2014 Patient Education: Patient Medication Summary Completed 10/30/2014 Visit Plan: Fasting lab drawn including tegretol level Decrease lisinopril to 5mg daily and observe BP 01/05/2014 Appointment: Shaye Alvarado WPtel: [address] [place] [address] 01/02 Annual Well Visit 01/05/2014 Patient Education: Patient Medication Summary Completed 01/05/2014 Appointment: Sarika Diallo WPtel: [address] [place] [address] ACUTE ILLNESS 11/26/2013 Patient Education: Patient Medication Summary Completed 11/26/2013 Visit Plan: Saline nasal flushes prn. Ty lenol/Motrin prn headache. Notify if persists/symptoms worsening. Decrease Lisinopril to 10mg daily 06/10/2013 Appointment: Shaye Alvarado WPtel: [address] [place] [address] 06/09 FOLLOW UP 06/10/2013 Patient Education: Patient Medication Summary Completed 06/10/2013 Visit Plan: Finish abx and observe Stay off lisinopril and observe 02/19/2013 Appointment: Shaye Alvarado WPtel: [address] [place] [address] Follow Up 02/19/2013 Patient Education: Patient Medication Summary Completed 02/19/2013 Visit Plan: rocephin IM and Cefdinir. Wi ll notify if no improvement. Tylenol #3 #20 dispensed. Pt. has made contact with Dr. Frias's office and has follow up appnt. Pt. will notify if fever continues into tomorrow. 07/23/2012 Appointment: Penelope Golden WPtel: [address] [place] [address] ACUTE ILLNESS 07/23/2012 Patient Education: Patient Medication Summary Completed 07/23/2012 Visit Plan: Check fasting lab Start Belinda nopril Moniter BP 07/17/2012 Appointment: Shaye Alvarado WPtel: [address] [place], [place] [phone] 07/15 Home phone no longer working kandis r; works for [employer] and is off work on break ACUTE ILLNESS 07/17/2012 Patient Education: Patient Medication Summary Completed 07/17/2012 Visit Plan: doxycycline and medrol dose pack. Discussed that could be walking pneumonia. Encouraged fluids and rest. Pt. will notify if symptoms persist or worsen. Note for work. 2-3 days. 10/30/2011 Appointment: Penelope Golden WPtel: [address] [place], [place] [id number] ACUTE ILLNESS 10/30/2011 Patient Education: Patient Medication Summary Completed 10/30/2011 Visit Plan: Proceed with Cervical Spine MRI Percocet 5/500 1 po q HS prn pain--#30 Tramadol 50mg 1-2 po BID prn pain--#60 See Ortho for surgical opinion 08/03/2011 Appointment: Shaye Alvarado WPtel: [address] [place], [place] [id number] NEW PATIENT 08/03/2011 Patient Education: Patient Medication Summary Completed 08/03/2011 Referral: Armin Arzate WPtel: [facility] [address] Referral Appointment Requested Referral: Armin Fajardo WPtel: [address] Referral Appointment Requested Instructions Comment . Medrol Dose Pack then start mobic Continue brace See Dr. Arzate Discussed iontophoresis May need surgery as has tried all conservative measures at this point . Injection as above Tennis elbow strap Vivlodex 10mg daily Notify if worsens or persists . Updated MRI of cervical spine Decrease lisinopril to 2.5mg daily Update lab Add cyclobenzaprine at 10mg q HS . Fasting lab drawn including tegretol l evel Decrease lisinopril to 5mg daily and observe BP . Saline nasal flushes prn. Tylenol/Motr in prn headache. Notify if persists/symptoms worsening. Decrease Lisinopril to 10mg daily . Finish abx and observe Stay off lisinopril and observe . rocephin IM and Cefdinir. Will notify if no improvement. Tylenol #3 #20 dispensed. Pt. has made contact with Dr. Frias's office and has follow up appnt. Pt. will notify if fever continues into tomorrow. . Check fasting lab Start Lisinopril Moniter BP . doxycycline and medrol dose pack. Dis cussed that could be walking pneumonia. Encouraged fluids and rest. Pt. will notify if symptoms persist or worsen. Note for work. 2-3 days. . Proceed with Cervical Spine MRI Percocet 5/500 1 po q HS prn pain--#30 Tramadol 50mg 1-2 po BID prn pain--#60 See Ortho for surgical opinion Medical Equipment No Medical Equipment data Health Concerns Section Health Concerns data not found Goals Section Goals data not found Interventions Section Interventions data not found Health Status Evaluations/Outcomes Section Health Status Evaluations/Outcomes data not found Advance Directives No Advance Directive data
--- OUTSIDE RECORDS SUMMARY | 2020-01-09 09:34 | XMS REPORT | CCD ---
Author Author Chiquita Alvarado D.O. Organization SHAYE ALVARADO DO [facility] Address [address] [place] [address] Phone Care Team Providers Care Percussion Teacher Name Role Phone Shaye Alvarado D.O., PP Unavailable CCM Unavailable Summary Purpose Interface Exchange Insurance Providers Payer name Policy type / Coverage type Covered democrat ID Effective Begin Date Effective End Date Blue Cross Blue Shield Blue Cross/Blue Shield [id number] Unknown Family history Father Diagnosis Age At Onset No Family Disease Entered N/A Mother Diagnosis Age At Onset No Family Disease Entered N/A Side Diagnosis Age At Onset No Family Disease Entered N/A Social History Social History Element Codes Description Effective Dates Marital status Unknown 08/03/2011 Number of children Unknown 2 08/03/2011 Employment Unknown Currently employed [place] 08/03/[address]: 551618532 Never smoker 08/03/[address]: 338146 Currently drinks alc ohol socially 08/03/2011 Allergies, Adverse Reactions, Alerts Substance Reaction Codes Entered Date Inactivated Date Status * NO KNOWN FOOD ALLERGIES Unknown 08/03/2011 No Inactiv e Date Active * NO KNOWN ENVIRONMENTAL ALLERGIES Unknown 08/03/2011 N o Inactive Date Active * NO KNOWN DRUG ALLERGIES Unknown 08/03/2011 No Inactiv e Date Active Problems Condition Codes Effective Dates Condition Status 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 01/05/2014 Active Encounter for general adult medical examination withou t abnormal findings ICD-9: V70.0 ICD-10: Z00.00 01/05/2014 Active Encounter for screening for cardiovascular disorders I CD-9: V81.2 ICD-10: Z13.6 12/18/2019 Active Essential (primary) hypertension ICD-9: 401.9 ICD-10: I10 01/05/2014 Active Encounter for other preprocedural examination ICD-9: [...] Start Date Stop Date Status Fill Instructions Tegretol 200 mg tablet RxNorm: 846837 TAKE ONE TABLET BY MOUTH MARGARITO Y 12/15/2019 No Stop Date Active Cymbalta 60 mg capsule,delayed release RxNorm: 212472 T FABIO ONE CAPSULE BY MOUTH DAILY 12/15/2019 No Stop Date Active lisinopril 2.5 mg tablet RxNorm: 574343 TAKE ONE TABLET BY MOUT H DAILY 12/10/2019 No Stop Date Active Maxalt 10 mg tablet RxNorm: 109791 TAKE ONE TABLET BY M OUTH AT ONSET OF HEADACHE, MAY REPEAT ONE TABLET IN 2 HOURS IF NEEDED 11/13/2019 No Stop Date Active Cymbalta 60 mg capsule,delayed release RxNorm: 785387 T FABIO ONE CAPSULE BY MOUTH DAILY 08/28/2019 12/14/2019 Inactive lisinopril 2.5 mg tablet RxNorm: 895484 1 Tablet(s) Oral QD 020 11/20/2019 Inactive Tegretol 200 mg tablet RxNorm: 086721 1 Tablet(s) Oral QD 08/22/2019 11/20/2019 Inactive Maxalt 10 mg tablet RxNorm: 140166 TAKE ONE TABLET BY M OUTH AT ONSET OF HEADACHE, MAY REPEAT ONE TABLET IN 2 HOURS IF NEEDED 08/06/2019 020 Inactive Tegretol 200 mg tablet RxNorm: 465748 TAKE ONE TABLET BY MOUTH MARGARITO Y 05/26/2019 08/21/2019 Inactive Maxalt 10 mg tablet RxNorm: 284095 1 Tablet(s) PO AT ON SET OF HEADACHE; MAY REPEAT ONE TABLET IN 2 HOURS IF NEEDED. 03/25/2019 05/23/2019 Inactive Tegretol 200 mg tablet RxNorm: 123201 TAKE ONE TABLET BY MOUTH MARGARITO Y 02/06/2019 05/06/2019 Inactive Cymbalta 60 mg capsule,delayed release RxNorm: 823724 T FABIO ONE CAPSULE BY MOUTH DAILY 02/06/2019 04/06/2019 Inactive lisinopril 2.5 mg tablet RxNorm: 949705 TAKE ONE TABLET BY MOUT H DAILY 01/27/2019 08/21/2019 Inactive Maxalt 10 mg tablet RxNorm: 165316 1 Tablet(s) PO AT ON SET OF HEADACHE; MAY REPEAT ONE TABLET IN 2 HOURS IF NEEDED. 11/22/2018 01/20/2019 Inactive Maxalt 10 mg tablet RxNorm: 630947 TAKE ONE TABLET BY M OUTH AT ONSET OF HEADACHE; MAY REPEAT ONE TABLET IN 2 HOURS IF NEEDED. 11/19/20182018 Inactive lisinopril 2.5 mg tablet RxNorm: 641350 TAKE ONE TABLET BY MOUT H DAILY 10/14/2018 01/11/2019 Inactive Maxalt 10 mg tablet RxNorm: 445916 TAKE ONE TABLET BY M OUTH AT ONSET OF HEADACHE; MAY REPEAT ONE TABLET IN 2 HOURS IF NEEDED. 09/20/20182018 Inactive Medrol (Francisco) 4 mg tablets in a dose pack RxNorm: 114884 6 Tablet(s) PO QD --then as directed 07/24/2018 07/29/2018 Inactive Mobic 15 mg tablet RxNorm: 995230 1 Tablet(s) PO QD 07/24/20182018 Inactive Tegretol 200 mg tablet RxNorm: 829500 TAKE ONE TABLET BY MOUTH MARGARITO Y 07/03/2018 12/29/2018 Inactive Maxalt 10 mg tablet RxNorm: 232339 TAKE ONE TABLET BY M OUTH AT ONSET OF HEADACHE; MAY REPEAT ONE TABLET IN 2 HOURS IF NEEDED. 07/03/20182018 Inactive Bactrim DS 800 mg-160 mg tablet RxNorm: 955471 1 Tablet(s) PO BID 1 08/25/2017 06/23/2018 Inactive Bactrim DS 800 mg-160 mg tablet RxNorm: 198269 1 Tablet(s) PO BID 1 08/25/2017 06/30/2018 Inactive Maxalt 10 mg tablet RxNorm: 008167 TAKE ONE TABLET BY M OUTH AT ONSET OF HEADACHE; MAY REPEAT ONE TABLET IN 2 HOURS IF NEEDED. 05/09/20182017 Inactive Cymbalta 60 mg capsule,delayed release RxNorm: 955942 T FABIO ONE CAPSULE BY MOUTH DAILY 04/09/2018 07/07/2018 Inactive lisinopril 2.5 mg tablet RxNorm: 875125 Tablet(s) TAKE ONE TABLET BY MOUTH DAILY 03/25/2018 09/20/2018 Inactive Maxalt 10 mg tablet RxNorm: 124650 TAKE ONE TABLET BY M OUTH AT ONSET OF HEADACHE; MAY REPEAT ONE TABLET IN 2 HOURS IF NEEDED. 02/26/20182017 Inactive Tegretol 200 mg tablet RxNorm: 434595 TAKE ONE TABLET BY MOUTH MARGARITO Y 12/04/2017 06/01/2018 Inactive Maxalt 10 mg tablet RxNorm: 161332 1 Tablet(s) PO AT ON SET OF HEADACHE. MAY REPEAT IN 2 HOURS 11/12/2017 12/01/2017 Inactive lisinopril 2.5 mg tablet RxNorm: 894283 TAKE ONE TABLET BY MOUT H DAILY 08/28/2017 03/25/2018 Inactive Tegretol 200 mg tablet RxNorm: 196841 TAKE ONE TABLET BY MOUTH MARGARITO Y 08/28/2017 11/25/2017 Inactive Maxalt 10 mg tablet RxNorm: 506246 1 Tablet(s) PO AT ON SET OF HEADACHE. MAY REPEAT IN 2 HOURS 07/05/2017 11/12/2017 Inactive cyclobenzaprine 10 mg tablet RxNorm: 513399 1 Tablet(s) PO QHS as needed for muscle spasm 05/15/2017 No Stop Date Active diclofenac sodium 75 mg tablet,delayed release RxNorm: 02282 6 1 Tablet(s) PO BID as needed for neck pain 05/15/2017 07/13/2017 Inactive Cymbalta 60 mg capsule,delayed release RxNorm: 427746 C apsule(s) TAKE ONE CAPSULE BY MOUTH DAILY 05/07/2017 08/04/2017 Inactive Maxalt 10 mg tablet RxNorm: 475247 1 Tablet(s) PO AT ON SET OF HEADACHE. MAY REPEAT IN 2 HOURS 04/30/2017 05/09/2017 Inactive Maxalt 10 mg tablet RxNorm: 575716 1 Tablet(s) PO AT ON SET OF HEADACHE. MAY REPEAT IN 2 HOURS 02/22/2017 04/30/2017 Inactive Tegretol 200 mg tablet RxNorm: 980916 Tablet(s) TAKE ONE TABLET BY MOUTH DAILY 01/11/2017 07/09/2017 Inactive Maxalt 10 mg tablet RxNorm: 620556 1 Tablet(s) PO AT ON SET OF HEADACHE. MAY REPEAT IN 2 HOURS 01/11/2017 02/22/2017 Inactive Maxalt 10 mg tablet RxNorm: 329086 1 Tablet(s) PO AT ON SET OF HEADACHE. MAY REPEAT IN 2 HOURS 11/30/2016 01/11/2017 Inactive Maxalt 10 mg tablet RxNorm: 625670 TAKE ONE TABLET BY M OUTH AT ONSET OF HEADACHE. MAY REPEAT IN 2 HOURS 07/26/2016 11/30/2016 Inactive lisinopril 2.5 mg tablet RxNorm: 818166 TAKE ONE TABLET BY MOUT H DAILY 07/24/2016 07/23/2016 Inactive lisinopril 2.5 mg tablet RxNorm: 833066 TAKE ONE TABLET BY MOUT H DAILY 07/24/2016 01/19/2017 Inactive Maxalt 10 mg tablet RxNorm: 590912 TAKE ONE TABLET BY M OUTH AT ONSET OF HEADACHE. MAY REPEAT IN 2 HOURS 06/05/2016 06/14/2016 Inactive Tegretol 200 mg tablet RxNorm: 677276 TAKE ONE TABLET BY MOUTH MARGARITO Y 06/05/2016 01/11/2017 Inactive Cymbalta 60 mg capsule,delayed release RxNorm: 580562 T FABIO ONE CAPSULE BY MOUTH DAILY 05/17/2016 05/07/2017 Inactive Medrol (Francisco) 4 mg tablets in a dose pack RxNorm: 966742 6 Tablet(s) PO QD --then as directed 04/27/2016 05/02/2016 Inactive Mobic 15 mg tablet RxNorm: 765442 1 Tablet(s) PO QD for pain 201505/26/2016 Inactive Maxalt 10 mg tablet RxNorm: 690123 TAKE ONE TABLET BY M OUTH AT ONSET OF HEADACHE. MAY REPEAT IN 2 HOURS 02/28/2016 03/25/2016 Inactive Tegretol 200 mg tablet RxNorm: 272243 TAKE ONE TABLET BY MOUTH MARGARITO Y 02/14/2016 05/13/2016 Inactive Maxalt 10 mg tablet RxNorm: 303120 TAKE ONE TABLET BY M OUTH AT ONSET OF HEADACHE. MAY REPEAT IN 2 HOURS 01/10/2016 01/27/2016 Inactive lisinopril 2.5 mg tablet RxNorm: 363083 TAKE ONE TABLET BY MOUT H DAILY 01/03/2016 06/30/2016 Inactive Macrobid 100 mg capsule RxNorm: 465098 1 Capsule(s) PO BID 12/23/19 16 12/29/2015 Inactive Macrobid 100 mg capsule RxNorm: 061450 1 Capsule(s) PO BID 12/23/19 16 12/22/2015 Inactive Bactrim DS 800 mg-160 mg tablet RxNorm: 580412 1 Tablet(s) PO BID 0 12/21/2015 12/27/2015 Inactive Bactrim DS 800 mg-160 mg tablet RxNorm: 332112 1 Tablet(s) PO BID 0 12/21/2015 12/20/2015 Inactive Tegretol 200 mg tablet RxNorm: 765835 1 Tablet(s) PO QD TAKE ONE TABLET BY MOUTH DAILY 10/18/2015 01/15/2016 Inactive Maxalt 10 mg tablet RxNorm: 792831 Tablet(s) TAKE ONE T ABLET BY MOUTH AT ONSET OF HEADACHE. MAY REPEAT IN 2 HOURS. 10/11/2015 10/25/2015 Inactive Bactrim DS 800 mg-160 mg tablet RxNorm: 705181 1 Tablet(s) PO BID 0 08/05/2015 08/04/2015 Inactive Bactrim DS 800 mg-160 mg tablet RxNorm: 063268 1 Tablet(s) PO BID 0 08/05/2015 08/11/2015 Inactive cyclobenzaprine 10 mg tablet RxNorm: 413335 1 Tablet(s) PO QHS as needed for muscle spasm 07/13/2015 09/10/2015 Inactive lisinopril 2.5 mg tablet RxNorm: 830902 1 Tablet(s) PO QD 07/13/2015 01/02/2016 Inactive Tegretol 200 mg tablet RxNorm: 988604 1 Tablet(s) PO QD 07/05/2015 Inactive Maxalt 10 mg tablet RxNorm: 404815 Tablet(s) TAKE ONE T ABLET BY MOUTH AT ONSET OF HEADACHE. MAY REPEAT IN 2 HOURS. 06/23/2015 10/11/2015 Inactive Cymbalta 60 mg capsule,delayed release RxNorm: 717118 1 Capsule (s) PO QD 05/17/2015 05/10/2016 Inactive [AttnRPh: Saving jason ly/adjudicate RxGRP:SG20 RxBIN:[id number] RxPCN:HT ID#:[id number]] Maxalt 10 mg tablet RxNorm: 031990 Tablet(s) TAKE ONE T ABLET BY MOUTH AT ONSET OF HEADACHE. MAY REPEAT IN 2 HOURS. 04/01/2015 04/15/2015 Inactive Tegretol 200 mg tablet RxNorm: 199739 1 Tablet(s) PO QD 03/09/2015 Inactive lisinopril 10 mg tablet RxNorm: 004829 1 Tablet(s) PO QD 01/18/2015 1 09/12/2014 Inactive [AttnRPh: Saving apply/adjudicate RxGRP: SG20 RxBIN:[id number] RxPCN:HT ID#:[id number]] Tegretol 200 mg tablet RxNorm: 744482 1 Tablet(s) PO QD 12/03/2014 Inactive Maxalt 10 mg tablet RxNorm: 493276 TAKE ONE TABLET BY M OUTH AT ONSET OF HEADACHE. MAY REPEAT IN 2 HOURS. 11/18/2014 04/01/2015 Inactive benzonatate 100 mg capsule RxNorm: 458777 1 Capsule(s) PO TID a s needed 10/30/2014 07/12/2015 Inactive prednisone 20 mg tablet RxNorm: 335387 1 Tablet(s) PO BID 10/30/2014 11/03/2014 Inactive Maxalt 10 mg tablet RxNorm: 591581 as needed TAKE 1 TAB LET BY MOUTH AT ONSET OF HEADACHE AND MAY REPEAT IN 2 HOURS 09/02/2014 09/13/2014 Inactive Tegretol 200 mg tablet RxNorm: 484230 1 Tablet(s) PO QD 08/17/2014 Inactive Cymbalta 60 mg capsule,delayed release RxNorm: 029499 1 Capsule (s) PO QD 06/29/2014 05/17/2015 Inactive [AttnRPh: Saving jason ly/adjudicate RxGRP:SG20 RxBIN:[id number] RxPCN:HT ID#:[id number]] lisinopril 10 mg tablet RxNorm: 041870 1 Tablet(s) PO QD 06/10/2014 0 12/06/2014 Inactive [AttnRPh: Saving apply/adjudicate RxGRP: SG20 RxBIN:[id number] RxPCN: ID#:[id number]] Maxalt 10 mg tablet RxNorm: 274445 TAKE ONE TABLET BY M OUTH AT HEADACHE ONSET AND MAY REPEAT IN 2 HOURS IF HEADACHE REMAINS 04/20/2014 09/02/2014 In active albuterol sulfate HFA 90 mcg/actuation aerosol inhaler RxNor m: 2447768 2 Puff(s) INH Q4H 11/26/2013 No Stop Date Active doxycycline hyclate 100 mg tablet RxNorm: 017606 1 Tablet(s) PO BID 11/26/2013 12/05/2013 Inactive Maxalt 10 mg tablet RxNorm: 788195 Tablet(s) PO Take 1 at headache onset and may repeat in 2 hours if headache remains 11/21/2013 04/19/2014 Inactive [SAVINGS FOR UNINSURED PATIENTS -- BIN:[id number], PCN: [id number], Group: [id number], ID# [id number], Process claim through [employer], for questions: . THIS IS NOT INSURANCE.] Tegretol 200 mg tablet RxNorm: 878948 1 Tablet(s) PO QD 06/10/2013 Inactive lisinopril 10 mg tablet RxNorm: 185366 1 Tablet(s) PO QD 06/10/2013 1 08/10/2013 Inactive Cymbalta 60 mg capsule,delayed release RxNorm: 081644 1 Capsule (s) PO QD 06/10/2013 06/29/2014 Inactive lisinopril 20 mg tablet RxNorm: 941521 1 Tablet(s) PO QAM for BP 06/09/2013 Inactive lisinopril 20 mg tablet RxNorm: 621919 1 Tablet(s) PO QAM for BP 11/07/2012 Inactive cefdinir 300 mg capsule RxNorm: 220004 1 Capsule(s) PO BID 07/23/19 13 08/01/2012 Inactive lisinopril 20 mg tablet RxNorm: 437582 1 Tablet(s) PO QAM for BP 09/09/2012 Inactive doxycycline hyclate 100 mg Tab RxNorm: 687987 1 Tablet(s) PO BID 11/08/2011 Inactive Mirena 20 mcg/24 hr (5 years) intrauterine device RxNorm: 176364 IU No Start Date Active Seasonique 0.15 mg-30 mcg (84)/10 mcg(7) Tabs,3 month dose p ack RxNorm: 674213 1 Tablet(s) PO QD No Start Date 07/12/2015 Inactive Tegretol 200 mg tablet RxNorm: 333300 1 Tablet(s) PO QD No Start Da te 06/09/2013 Inactive lisinopril 20 mg tablet RxNorm: 453766 1 Tablet(s) PO QD No Start D ate 06/09/2013 Inactive Maxalt 10 mg tablet RxNorm: 077251 Tablet(s) PO Take 1 at headache onset and may repeat in 2 hours if headache remains No Start Date 11/20/2013 Inactive Cymbalta 60 mg capsule,delayed release RxNorm: 388419 1 Capsule (s) PO QD No Start Date 06/09/2013 Inactive Medrol (Francisco) 4 mg Tabs in a Dose Pack RxNorm: 840849 Tablet(s) PO as directed No Start Date 07/16/2012 Inactive Medication Administered No Medication Administered data Immunizations No Immunization data Results Observation Observation Code Item Item Code Result Date S [facility] Location TEGRETOL 4696731 TEGRETOL 5.2 MG/L 01/07/2014 Unknown COMPREHENSIVE METABOLIC 23453 AST 16 U/L 2013 Unknown COMPREHENSIVE METABOLIC 62317 ALT 10 IU/L 2013 Unknown COMPREHENSIVE METABOLIC 60895 BUN 17 MG/DL 2013 Unknown COMPREHENSIVE METABOLIC 82424 ALBUMIN 4.3 GM/DL 2013 Unknown COMPREHENSIVE METABOLIC 00869 CHLORIDE 105 MMOL/L 01/05 Unknown COMPREHENSIVE METABOLIC 63561 BILI TOT 0.2 MG/DL 2013 Unknown COMPREHENSIVE METABOLIC 19770 ALK PHOS 37 U/L 2013 Unknown COMPREHENSIVE METABOLIC 07752 SODIUM 137 MMOL/L 01/05 Unknown COMPREHENSIVE METABOLIC 68930 CREATININE 0.86 MG/DL 12/15 Unknown COMPREHENSIVE METABOLIC 87633 CALCIUM 9.4 MG/DL 2013 Unknown COMPREHENSIVE METABOLIC 67472 POTASSIUM 5.0 MMOL/L 01/05 Unknown COMPREHENSIVE METABOLIC 00798 PROT TOT 6.3 GM/DL 2013 Unknown COMPREHENSIVE METABOLIC 39039 Glucose 104 MG/DL 2013 Unknown COMPREHENSIVE METABOLIC 55161 BICARB 27 MMOL/L 2013 Unknown COMPREHENSIVE METABOLIC 72628 ANION GAP 5 MEQ/L 2013 Unknown THYROID STIMULATING HORMONE 05007 TSH 0.822 uIU/ML 01/05/2014 Unknown GFR CALC 9714716 GFR AA >60 ML/MIN 01/05/2014 Unknown GFR CALC 8840395 GFR NON-AA >60 ML/MIN 01/05/2014 Unknown COMPLETE BLOOD COUNT [id number] WBC 5.5 10e9/L 01/06/20 14 Unknown COMPLETE BLOOD COUNT [id number] RBC 4.17 10e12/L 2013 Unknown COMPLETE BLOOD COUNT 9076765 HGB 13.0 g/dL 4 Unknown COMPLETE BLOOD COUNT 4008403 HCT DET 39.0 % 4 Unknown COMPLETE BLOOD COUNT 3657518 MCV 93.5 fL 4 Unknown COMPLETE BLOOD COUNT [id number] MCH 31.2 pg 4 Unknown COMPLETE BLOOD COUNT 0411821 MCHC 33.3 g/dL 4 Unknown COMPLETE BLOOD COUNT [id number] PLT 294 10e9/L 01/06/20 14 Unknown COMPLETE BLOOD COUNT 5383752 MPV 11.4 fL 4 Unknown COMPLETE BLOOD COUNT [id number] NIKKY % 59.4 % 4 Unknown COMPLETE BLOOD COUNT 4432951 LY % 27.7 % 4 Unknown COMPLETE BLOOD COUNT [id number] MON % 10.3 % 4 Unknown COMPLETE BLOOD COUNT 2786951 EOS % 1.5 % 4 Unknown COMPLETE BLOOD COUNT [id number] BASO % 1.1 % 4 Unknown COMPLETE BLOOD COUNT 5274889 RDW 12.7 % 4 Unknown COMPLETE BLOOD COUNT 1241614 ABS NIKKY 3.27 10e9/L 014 Unknown COMPLETE BLOOD COUNT 1026351 ABS LYMPH 1.52 10e9/L 014 Unknown COMPLETE BLOOD COUNT 5018754 ABS MONO 0.57 10e9/L 014 Unknown COMPLETE BLOOD COUNT [id number] ABS EOS 0.08 10e9/L 014 Unknown COMPLETE BLOOD COUNT [id number] ABS BASO 0.06 10e9/L 014 Unknown COMPLETE BLOOD COUNT [id number] RDW-SD 42.1 fL 4 Unknown LIPID GROUP 19933 HDL TEST 60 MG/DL 01/05/2014 Unknown LIPID GROUP 07222 TRIG 63 MG/DL 01/05/2014 Unknown LIPID GROUP 89490 TEST LDL 83 MG/DL 01/05/2014 Unknown LIPID GROUP 41248 CHOL 156 MG/DL 01/05/2014 Unknown LIPID GROUP 82021 RCHOL/HDL 2.60 RATIO 01/05/2014 Unknow n FREE T4 12973 FREE T4 0.87 NG/DL 01/05/2014 Unknown Procedures Procedure Codes Date URINALYSIS NONAUTO W/O SCOPE CPT-4: 63934 06/21/2018 URINE TEST CPT-4: 67722 06/21/2018 URINE CULTURE/ COLONY COUNT CPT-4: 63343 06/21/2018 SPECIMEN HANDLING OFFICE-LAB CPT-4: 32631 07/05/2017 DRAIN/INJECT JOINT/BURSA CPT-4: 82513 03/17/2016 URINALYSIS NONAUTO W/O SCOPE CPT-4: 48851 12/20/2015 URINE CULTURE/ COLONY COUNT CPT-4: 16325 12/20/2015 URINALYSIS NONAUTO W/O SCOPE CPT-4: 24046 08/04/2015 URINE CULTURE/ COLONY COUNT CPT-4: 27347 08/04/2015 ROUTINE VENIPUNCTURE CPT-4: 72825 01/05/2014 ASSAY OF FREE THYROXINE CPT-4: 33246 01/05/2014 ASSAY THYROID STIM HORMONE CPT-4: 64103 01/05/2014 COMPREHEN METABOLIC PANEL CPT-4: 30831 01/05/2014 COMPLETE CBC W/AUTO DIFF WBC CPT-4: 01721 01/05/2014 LIPID PANEL CPT-4: 01223 01/05/2014 CEFTRIAXONE SODIUM INJECTION CPT-4: J0696 07/23/2012 THER/PROPH/DIAG INJ SC/IM CPT-4: 14000 07/23/2012 Vital Signs Date Vital 03/25/2019 Blood Pressure 1: 104/62 Code: 8480-6 Heart Rate 1: 72 bpm Respiratory Rate: 18 bpm SpO2: 97% Temperature: 36.9 (C) / 98.5 (F) We ight: 134 lbs 07/24/2018 Blood Pressure 1: 122/80 Code: 8480-6 BMI: 21.3 Code: 25709-6 Heart Rate 1: 76 bpm Height: 5'7" Respiratory Rate: 20 bpm Temperature: 36 .9 (C) / 98.4 (F) Weight: 136 lbs 06/21/2018 Blood Pressure 1: 100/78 Code: 8480-6 Heart Rate 1: 82 bpm Respiratory Rate: 18 bpm SpO2: 100% Temperature: 36.7 (C) / 98.0 (F) We ight: 130 lbs 07/05/2017 Blood Pressure 1: 94/58 Code: 8480-6 BMI: 20.4 C ode: 65116-1 Heart Rate 1: 72 bpm Height: 5'7" SpO2: 96% Temperature: 37.2 (C) / 99.0 (F) Weight: 130 lbs 05/15/2017 Blood Pressure 1: 104/64 Code: 8480-6 BMI: 20.8 Code: 29503-3 Heart Rate 1: 80 bpm Height: 5'7" Respiratory Rate: 20 bpm Temperature: 36 .7 (C) / 98.1 (F) Weight: 133 lbs 04/27/2016 Blood Pressure 1: 112/70 Code: 8480-6 BMI: 20.8 Code: 89938-2 Heart Rate 1: 80 bpm Height: 5'7" Respiratory Rate: 20 bpm Temperature: 37 .2 (C) / 99.0 (F) Weight: 133 lbs 03/17/2016 Blood Pressure 1: 122/76 Code: 8480-6 art Rate 1: 80 bpm 07/13/2015 Blood Pressure 1: 98/60 Code: 8480-6 BMI: 20.5 C ode: 66285-5 Heart Rate 1: 76 bpm Height: 5'7" Respiratory Rate: 20 bpm Temperature: 36 .9 (C) / 98.4 (F) Weight: 131 lbs 10/30/2014 Blood Pressure 1: 124/80 Code: 8480-6 BMI: 19.4 Code: 31650-6 Heart Rate 1: 94 bpm Height: 5'7" Respiratory Rate: 24 bpm SpO2: 98% Tempera ture: 36.6 (C) / 97.8 (F) Weight: 124 lbs 01/05/2014 Blood Pressure 1: 98/68 Code: 8480-6 BMI: 19.3 C ode: 65082-3 Heart Rate 1: 76 bpm Height: 5'7" Respiratory Rate: 20 bpm Temperature: 36 .8 (C) / 98.2 (F) Weight: 123 lbs 11/26/2013 Blood Pressure 1: 104/64 Code: 8480-6 BMI: 20.4 Code: 28166-4 Heart Rate 1: 84 bpm Height: 5'7" Respiratory Rate: 18 bpm Temperature: 36 .7 (C) / 98.0 (F) Weight: 130 lbs 06/10/2013 Blood Pressure 1: 132/90 Code: 8480-6 BMI: 19.4 Code: 88384-1 Heart Rate 1: 80 bpm Height: 5'7" Respiratory Rate: 20 bpm Temperature: 36 .6 (C) / 97.8 (F) Weight: 124 lbs 02/19/2013 Blood Pressure 1: 114/80 Code: 8480-6 BMI: 19.7 Code: 53272-2 Heart Rate 1: 84 bpm Height: 5'7" Respiratory Rate: 20 bpm Temperature: 36 .9 (C) / 98.5 (F) Weight: 126 lbs 07/23/2012 Blood Pressure 1: 106/64 Code: 8480-6 BMI: 20.8 Code: 56809-2 Heart Rate 1: 60 bpm Height: 5'7" Temperature: 37.8 (C) / 100.0 (F) Weight : 133 lbs 07/17/2012 Blood Pressure 1: 162/110 Code: 8480-6 BMI: 21.0 Code: 40399-2 Heart Rate 1: 92 bpm Height: 5'7" Respiratory Rate: 20 bpm Temperature: 36 .8 (C) / 98.2 (F) Weight: 134 lbs 10/30/2011 Blood Pressure 1: 138/80 Code: 8480-6 BMI: 21.0 Code: 31020-7 Heart Rate 1: 84 bpm Height: 5'7" Temperature: 37.1 (C) / 98.7 (F) Weight: 134 lbs 08/03/2011 Blood Pressure 1: 114/72 Code: 8480-6 BMI: 21.0 Code: 40714-7 Heart Rate 1: 64 bpm Height: 5'7" Respiratory Rate: 20 bpm Temperature: 36 .9 (C) / 98.4 (F) Weight: 134 lbs Functional Status No Functional Status data Reason For Visit Reason For Visit Effective Dates Notes Pre-op Physical 03/25/2019 neck pain 07/24/2018 fatigue [...] Visit Encounters Encounter Performer Location Codes Date ([id number]) OFFICE/OUTPATIENT VISIT EST Diagnosis: Hallux valgus (acquired), right foot[ICD10: M20.11] Diagnosis: Encounter for other preprocedural examination[ICD10: Z01.818] Shaye MATHUR [facility] [employer] CPT-4: 76063 03/25/2019 ([id number]) OFFICE/OUTPATIENT VISIT EST Diagnosis: Radial styloid tenosynovitis [de Quervain][ICD10: M65.4] Shaye MATHUR [facility] [employer] CPT-4: 91518 07/24/2018 ([id number]) OFFICE/OUTPATIENT VISIT EST Diagnosis: Other fatigue[ICD10: R53.83] Diagnosis: Anemia, unspecified[ICD10: D64.9] Mara Orozco [facility] [employer] CPT-4: 63258 06/21/2018 ([id number]) PREV VISIT EST AGE 40-64 Diagnosis: Mild intermittent asthma with (acute) exacerbation[ICD10: J45.21] Diagnosis: Encounter for general adult medical examination without abnormal findings[ICD10: Z00.00] Diagnosis: Encounter for gynecological examination (general) (routine) without abnormal findings[ICD10: Z01.419] Shaye Swanson [facility] CPT-4: 72905 07/05/2017 ([id number]) OFFICE/OUTPATIENT VISIT EST Diagnosis: Essential (primary) hypertension[ICD10: I10] Diagnosis: Other cervical disc degeneration, unspecified cervical region[ICD10: M50.30] Diagnosis: Tension-type headache, unspecified, not intractable[ICD10: G44.209] Shaye ALVARADO DO [facility] CPT-4: 82293 05/15/2017 ([id number]) OFFICE/OUTPATIENT VISIT EST Diagnosis: Lateral epicondylitis, right elbow[ICD10: M77.11] Shaye ALVARADO DO [facility] CPT-4: 78074 04/27/2016 ([id number]) OFFICE/OUTPATIENT VISIT EST Diagnosis: Hematuria, unspecified[ICD10: R31.9] Shaye ALVARADO DO [facility] CPT-4: 91503 08/04/2015 ([id number]) PREV VISIT EST AGE 40-64 Diagnosis: Encounter for general adult medical examination without abnormal findings[ICD10: Z00.00] Diagnosis: Essential (primary) hypertension[ICD10: I10] Diagnosis: Other cervical disc degeneration, unspecified cervical region[ICD10: M50.30] 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] Shaye ALVARADO DO [facility] CPT-4: 61252 07/13/2015 ([id number]) OFFICE/OUTPATIENT VISIT EST Diagnosis: COUGH[ICD9: 786.2] Sarika ALVARADO DO [facility] CPT-4: 78251 10/30/2014 ([id number]) PREV VISIT EST AGE 40-64 Diagnosis: ROUTINE MEDICAL EXAM[ICD9: V70.0] Diagnosis: HYPERTENSION[ICD9: 401.9] Diagnosis: Seizure[ICD9: 780.39] Shaye ALVARADO DO [facility] CPT-4: 13590 01/05/2014 OFFICE/OUTPATIENT VISIT EST Diagnosis: URI, ACUTE[ICD9: 465.9] Sarika VanBeckeesha KIMND [facility] CPT-4: 53698 11/26/2013 ([id number]) OFFICE/OUTPATIENT VISIT EST Diagnosis: HYPERTENSION[ICD9: 401.9] Diagnosis: SINUSITIS, ACUTE[ICD9: 461.9] Diagnosis: CONVULSIONS[ICD9: 780.39] Shaye KIM NDER [facility] CPT-4: 18008 06/10/2013 OFFICE/OUTPATIENT VISIT EST Diagnosis: Pyelonephritis[ICD9: 590.80] Diagnosis: HYPERTENSION[ICD9: 401.9] Shaye MANCINI [facility] CPT-4: 97066 02/19/2013 OFFICE/OUTPATIENT VISIT EST Diagnosis: OTITIS MEDIA NOS[ICD9: 382.9] Diagnosis: COUGH[ICD9: 786.2] Diagnosis: SINUSITIS, ACUTE[ICD9: 461.9] Shaye ALVARADO [facility] CPT-4: 49898 07/23/2012 ([id number]) OFFICE/OUTPATIENT VISIT EST Diagnosis: HYPERTENSION[ICD9: 401.9] Diagnosis: CONVULSIONS[ICD9: 780.39] Shaye MANCINI [facility] CPT-4: 33717 07/17/2012 OFFICE/OUTPATIENT VISIT EST Diagnosis: COUGH[ICD9: 786.2] Diagnosis: PHARYNGITIS, ACUTE[ICD9: 462] Shaye ALVARADO [facility] CPT-4: 13488 10/30/2011 OFFICE/OUTPATIENT VISIT NEW Diagnosis: CERVICAL DISC DEGEN[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.4] Diagnosis: Neck pain[ICD9: 723.1] Diagnosis: Radiculopathy of arm[ICD9: 723.4] Diagnosis: Seizure[ICD9: 780.39] Shaye ALVARADO [facility] CPT-4: 37055 08/03/2011 Plan of Care Planned Activity Notes Codes Status Date Care Plan: COMPREHEN METABOLIC PANEL IGGY NC : 38101-4 Pending 12/18/2019 Care Plan: ASSAY THYROID STIM HORMONE Pen ding 12/18/2019 Care Plan: LIPID PANEL LOINC : 33888-9 Pending 12/18/2019 Care Plan: ASSAY OF FREE THYROXINE Pendin g 12/18/2019 Care Plan: COMPLETE CBC W/AUTO DIFF WBC LOINC : 41372-2 Pending 12/18/2019 Visit Diagnosis Plan: Hallux valgus (acquired), right foot Discussion: Update lab for upcoming surgery Okay to proceed with planned surgery by Dr. Nuñez ICD-9 : 735.0 ICD-10 : M20.11 03/25/2019 Appointment: Shaye Alvarado WPtel: [address] [place] [address] FOLLOW UP 03/25/2019 Visit Diagnosis Plan: Radial styloid tenosynovitis [de Quervain] Discussion: Spica thumb wrist splint Medrol Dose Pack followed by mobic Notify if worsens or persists ICD-9 : 727.04 ICD-10 : M65.4 07/24/2018 Appointment: Shaye Alvarado WPtel: [address] [place] [address] ACUTE ILLNESS 07/24/2018 Patient Education: Medrol (Francisco)- Optimize[employer] Coupon [phone] [email or web address] Completed 07/24/2018 Visit Diagnosis Plan: Other fatigue Discussion: urine test neg. when urine was tested, noted dark, cloudy urine and dipstick was obtained. showed protein and blood in urine so will send off for urine culture. multiple labs or dered to be completed at [facility]. cbc, cmp, tsh, t4, tt3, b12, iron, ferritin obtained. will review labs and culture and order additional meds/labs as needed. ICD-9 : 780.79 ICD-10 : R53.83 06/21/2018 Appointment: Mara Echevarria [address] [place] [address] ACUTE ILLNESS 06/21/2018 Appointment: Shaye Alvarado WPtel: [address] [place] [address] Scheduled in ERROR 06/10/2018 Visit Diagnosis Plan: [...] : J45.21 07/05/2017 Appointment: Shaye Alvarado WPtel: [address] [place], [place] [id number] PAP 07/05/2017 Patient Education: Patient Medication Summary Completed 07/05/2017 Care Plan: [employer] : 2 6347-5 Pending 07/05/2017 Patient Education: [...] : I10 05/15/2017 Appointment: Shaye Alvarado WPtel: [address] [place], [place] [phone] ACUTE ILLNESS 05/15/2017 Patient Education: Patient Medication Summary Completed 05/15/2017 Referral: Armin Arzate WPtel: [facility] [address] Referral Appointment Confirmed 05/10/2016 Visit Plan: Medrol Dose Pack then start mobic Continue brace See Dr. Arzate Discussed iontophoresis May need surgery as has tried all conservative measures at this point 04/27/2016 Appointment: Shaye Alvarado WPtel: [address] [place], [place] [phone] 04/26 lm~sl...confirmed-sp FOLLOW UP 04/27 Patient Education: Patient Medication Summary Completed 04/27/2016 Care Plan: Referral Order SNOMED-CT : [id number] Pending 04/27/2016 Visit Plan: Injection as above Howard tuttle Vivlodex 10mg daily Notify if worsens or persists 03/17/2016 Appointment: Shaye Alvarado WPtel: [address] [place] [address] OFFICE SURGERY 03/17/2016 Patient Education: Patient Medication Summary Completed 03/17/2016 Appointment: Yolis Membreno [address] [place] [address] 12/19- patient misunderstood why appointment was scheduled. CANCELED 12/21/2015 Appointment: Shaye Alvarado WPtel: [address] [place] [address] ACUTE ILLNESS 12/20/2015 Patient Education: Patient Medication Summary Completed 12/20/2015 Appointment: Shaye Alvarado WPtel: [address] [place], [place] [phone] [place] [address] 08/04/2015 Patient Education: Patient Medication Summary Completed 08/04/2015 Visit Plan: Updated MRI of cervical spin e Decrease lisinopril to 2.5mg daily Update lab Add cyclobenzaprine at 10mg q HS 07/13/2015 Appointment: Shaye Alvarado WPtel: [address] [place], [place] [phone] 07/12/15 appt confirmed cn Annual Well Visit Patient Education: Patient Medication Summary Completed 07/13/2015 Patient Education: [facility] - Saving AutoInj - Lisinopril - 18-64 - Dynamic Portal ID Completed 07/13/2015 Patient Education: Neck Pain Completed 07/13/2015 Appointment: Sarika Diallo WPtel: [address] [place], [place] [phone] ACUTE ILLNESS 10/30/2014 Patient Education: Patient Medication Summary Completed 10/30/2014 Visit Plan: Fasting lab drawn including tegretol level Decrease lisinopril to 5mg daily and observe BP 01/05/2014 Appointment: Shaye Alvarado WPtel: [address] [place], [place] [phone] 01/02 Annual Well Visit 01/05/2014 Patient Education: Patient Medication Summary Completed 01/05/2014 Appointment: Sarika Diallo WPtel: [address] [place] [address] ACUTE ILLNESS 11/26/2013 Patient Education: Patient Medication Summary Completed 11/26/2013 Visit Plan: Saline nasal flushes prn. Ty lenol/Motrin prn headache. Notify if persists/symptoms worsening. Decrease Lisinopril to 10mg daily 06/10/2013 Appointment: Shaye Alvarado WPtel: [address] [place] [address] 06/09 FOLLOW UP 06/10/2013 Patient Education: Patient Medication Summary Completed 06/10/2013 Visit Plan: Finish abx and observe Stay off lisinopril and observe 02/19/2013 Appointment: Shaye Alvarado WPtel: [address] [place] [address] Follow Up 02/19/2013 Patient Education: Patient Medication Summary Completed 02/19/2013 Visit Plan: rocephin IM and Cefdinir. Wi ll notify if no improvement. Tylenol #3 #20 dispensed. Pt. has made contact with Dr. Frias's office and has follow up appnt. Pt. will notify if fever continues into tomorrow. 07/23/2012 Appointment: Penelope Golden WPtel: [address] [place] [address] ACUTE ILLNESS 07/23/2012 Patient Education: Patient Medication Summary Completed 07/23/2012 Visit Plan: Check fasting lab Start Belinda nopril Moniter BP 07/17/2012 Appointment: Shaye Alvarado WPtel: [address] [place] [address] 07/15 Home phone no longer working tanmaye r; works for [employer] and is off work on break ACUTE ILLNESS 07/17/2012 Patient Education: Patient Medication Summary Completed 07/17/2012 Visit Plan: doxycycline and medrol dose pack. Discussed that could be walking pneumonia. Encouraged fluids and rest. Pt. will notify if symptoms persist or worsen. Note for work. 2-3 days. 10/30/2011 Appointment: Penelope Golden WPtel: [address] [facility] ACUTE ILLNESS 10/30/2011 Patient Education: Patient Medication Summary Completed 10/30/2011 Visit Plan: Proceed with Cervical Spine MRI Percocet 5/500 1 po q HS prn pain--#30 Tramadol 50mg 1-2 po BID prn pain--#60 See Ortho for surgical opinion 08/03/2011 Appointment: Shaye Alvarado WPtel: [address] [facility] NEW PATIENT 08/03/2011 Patient Education: Patient Medication Summary Completed 08/03/2011 Referral: Armin Arzate WPtel: [facility] [place] [phone] Referral Appointment Requested Instructions Comment . Medrol [...]
--- OUTSIDE RECORDS SUMMARY | 2020-01-09 09:34 | XMS REPORT | CCD ---
Author Author Chiquita Alvarado D.O. Organization SHAYE ALVARADO DO [facility] Address [address] [place] [address] Phone Care Team Providers Care Java Solutions Architect Name Role Phone Shaye Alvarado D.O., PP Unavailable CCM Unavailable Summary Purpose Interface Exchange Insurance Providers Payer name Policy type / Coverage type Covered libertarian ID Effective Begin Date Effective End Date Blue Cross Blue Shield Blue Cross/Blue Shield [id number] Unknown Family history Father Diagnosis Age At Onset No Family Disease Entered N/A Mother Diagnosis Age At Onset No Family Disease Entered N/A Side Diagnosis Age At Onset No Family Disease Entered N/A Social History Social History Element Codes Description Effective Dates Marital status Unknown 08/03/2011 Number of children Unknown 2 08/03/2011 Employment Unknown Currently employed [employer] 08/03/[address]: 221226195 Never smoker 08/03/[address]: 034140 Currently drinks alc ohol socially 08/03/2011 Allergies, [...] Fill Instructions meloxicam 15 mg tablet RxNorm: 886055 1 Tablet(s) Oral QD for pain 12/22/2019 06/19/2020 Active Tegretol 200 mg tablet RxNorm: 532439 TAKE ONE TABLET BY MOUTH MARGARITO Y 12/15/2019 No Stop Date Active Cymbalta 60 mg capsule,delayed release RxNorm: 410962 T FBAIO ONE CAPSULE BY MOUTH DAILY 12/15/2019 No Stop Date Active lisinopril 2.5 mg tablet RxNorm: 964574 TAKE ONE TABLET BY MOUT H DAILY 12/10/2019 No Stop Date Active Maxalt 10 mg tablet RxNorm: 231323 TAKE ONE TABLET BY M OUTH AT ONSET OF HEADACHE, MAY REPEAT ONE TABLET IN 2 HOURS IF NEEDED 11/13/2019 No Stop Date Active Cymbalta 60 mg capsule,delayed release RxNorm: 311085 T FABIO ONE CAPSULE BY MOUTH DAILY 08/28/2019 12/14/2019 Inactive lisinopril 2.5 mg tablet RxNorm: 964922 1 Tablet(s) Oral QD 020 11/20/2019 Inactive Tegretol 200 mg tablet RxNorm: 032339 1 Tablet(s) Oral QD 08/22/2019 11/20/2019 Inactive Maxalt 10 mg tablet RxNorm: 626262 TAKE ONE TABLET BY M OUTH AT ONSET OF HEADACHE, MAY REPEAT ONE TABLET IN 2 HOURS IF NEEDED 08/06/2019 020 Inactive Tegretol 200 mg tablet RxNorm: 751215 TAKE ONE TABLET BY MOUTH MARGARITO Y 05/26/2019 08/21/2019 Inactive Maxalt 10 mg tablet RxNorm: 080050 1 Tablet(s) PO AT ON SET OF HEADACHE; MAY REPEAT ONE TABLET IN 2 HOURS IF NEEDED. 03/25/2019 05/23/2019 Inactive Tegretol 200 mg tablet RxNorm: 274071 TAKE ONE TABLET BY MOUTH MARGARITO Y 02/06/2019 05/06/2019 Inactive Cymbalta 60 mg capsule,delayed release RxNorm: 313409 T FABIO ONE CAPSULE BY MOUTH DAILY 02/06/2019 04/06/2019 Inactive lisinopril 2.5 mg tablet RxNorm: 264573 TAKE ONE TABLET BY MOUT H DAILY 01/27/2019 08/21/2019 Inactive Maxalt 10 mg tablet RxNorm: 089068 1 Tablet(s) PO AT ON SET OF HEADACHE; MAY REPEAT ONE TABLET IN 2 HOURS IF NEEDED. 11/22/2018 01/20/2019 Inactive Maxalt 10 mg tablet RxNorm: 979145 TAKE ONE TABLET BY M OUTH AT ONSET OF HEADACHE; MAY REPEAT ONE TABLET IN 2 HOURS IF NEEDED. 11/19/20182018 Inactive lisinopril 2.5 mg tablet RxNorm: 936618 TAKE ONE TABLET BY MOUT H DAILY 10/14/2018 01/11/2019 Inactive Maxalt 10 mg tablet RxNorm: 658695 TAKE ONE TABLET BY M OUTH AT ONSET OF HEADACHE; MAY REPEAT ONE TABLET IN 2 HOURS IF NEEDED. 09/20/20182018 Inactive Medrol (Francisco) 4 mg tablets in a dose pack RxNorm: 829677 6 Tablet(s) PO QD --then as directed 07/24/2018 07/29/2018 Inactive Mobic 15 mg tablet RxNorm: 457636 1 Tablet(s) PO QD 07/24/20182018 Inactive Tegretol 200 mg tablet RxNorm: 489742 TAKE ONE TABLET BY MOUTH MARGARITO Y 07/03/2018 12/29/2018 Inactive Maxalt 10 mg tablet RxNorm: 396676 TAKE ONE TABLET BY M OUTH AT ONSET OF HEADACHE; MAY REPEAT ONE TABLET IN 2 HOURS IF NEEDED. 07/03/20182018 Inactive Bactrim DS 800 mg-160 mg tablet RxNorm: 371266 1 Tablet(s) PO BID 1 08/25/2017 06/23/2018 Inactive Bactrim DS 800 mg-160 mg tablet RxNorm: 141496 1 Tablet(s) PO BID 1 08/25/2017 06/30/2018 Inactive Maxalt 10 mg tablet RxNorm: 880178 TAKE ONE TABLET BY M OUTH AT ONSET OF HEADACHE; MAY REPEAT ONE TABLET IN 2 HOURS IF NEEDED. 05/09/20182017 Inactive Cymbalta 60 mg capsule,delayed release RxNorm: 307339 T FABIO ONE CAPSULE BY MOUTH DAILY 04/09/2018 07/07/2018 Inactive lisinopril 2.5 mg tablet RxNorm: 899685 Tablet(s) TAKE ONE TABLET BY MOUTH DAILY 03/25/2018 09/20/2018 Inactive Maxalt 10 mg tablet RxNorm: 422817 TAKE ONE TABLET BY M OUTH AT ONSET OF HEADACHE; MAY REPEAT ONE TABLET IN 2 HOURS IF NEEDED. 02/26/20182017 Inactive Tegretol 200 mg tablet RxNorm: 467107 TAKE ONE TABLET BY MOUTH MARGARITO Y 12/04/2017 06/01/2018 Inactive Maxalt 10 mg tablet RxNorm: 974292 1 Tablet(s) PO AT ON SET OF HEADACHE. MAY REPEAT IN 2 HOURS 11/12/2017 12/01/2017 Inactive lisinopril 2.5 mg tablet RxNorm: 309772 TAKE ONE TABLET BY MOUT H DAILY 08/28/2017 03/25/2018 Inactive Tegretol 200 mg tablet RxNorm: 983120 TAKE ONE TABLET BY MOUTH MARGARITO Y 08/28/2017 11/25/2017 Inactive Maxalt 10 mg tablet RxNorm: 110111 1 Tablet(s) PO AT ON SET OF HEADACHE. MAY REPEAT IN 2 HOURS 07/05/2017 11/12/2017 Inactive cyclobenzaprine 10 mg tablet RxNorm: 439157 1 Tablet(s) PO QHS as needed for muscle spasm 05/15/2017 No Stop Date Active diclofenac sodium 75 mg tablet,delayed release RxNorm: 87372 6 1 Tablet(s) PO BID as needed for neck pain 05/15/2017 07/13/2017 Inactive Cymbalta 60 mg capsule,delayed release RxNorm: 687712 C apsule(s) TAKE ONE CAPSULE BY MOUTH DAILY 05/07/2017 08/04/2017 Inactive Maxalt 10 mg tablet RxNorm: 438133 1 Tablet(s) PO AT ON SET OF HEADACHE. MAY REPEAT IN 2 HOURS 04/30/2017 05/09/2017 Inactive Maxalt 10 mg tablet RxNorm: 401655 1 Tablet(s) PO AT ON SET OF HEADACHE. MAY REPEAT IN 2 HOURS 02/22/2017 04/30/2017 Inactive Tegretol 200 mg tablet RxNorm: 000367 Tablet(s) TAKE ONE TABLET BY MOUTH DAILY 01/11/2017 07/09/2017 Inactive Maxalt 10 mg tablet RxNorm: 143519 1 Tablet(s) PO AT ON SET OF HEADACHE. MAY REPEAT IN 2 HOURS 01/11/2017 02/22/2017 Inactive Maxalt 10 mg tablet RxNorm: 247203 1 Tablet(s) PO AT ON SET OF HEADACHE. MAY REPEAT IN 2 HOURS 11/30/2016 01/11/2017 Inactive Maxalt 10 mg tablet RxNorm: 610024 TAKE ONE TABLET BY M OUTH AT ONSET OF HEADACHE. MAY REPEAT IN 2 HOURS 07/26/2016 11/30/2016 Inactive lisinopril 2.5 mg tablet RxNorm: 621996 TAKE ONE TABLET BY MOUT H DAILY 07/24/2016 07/23/2016 Inactive lisinopril 2.5 mg tablet RxNorm: 834235 TAKE ONE TABLET BY MOUT H DAILY 07/24/2016 01/19/2017 Inactive Maxalt 10 mg tablet RxNorm: 321118 TAKE ONE TABLET BY M OUTH AT ONSET OF HEADACHE. MAY REPEAT IN 2 HOURS 06/05/2016 06/14/2016 Inactive Tegretol 200 mg tablet RxNorm: 723903 TAKE ONE TABLET BY MOUTH MARGARITO Y 06/05/2016 01/11/2017 Inactive Cymbalta 60 mg capsule,delayed release RxNorm: 080998 T FABIO ONE CAPSULE BY MOUTH DAILY 05/17/2016 05/07/2017 Inactive Medrol (Francisco) 4 mg tablets in a dose pack RxNorm: 388321 6 Tablet(s) PO QD --then as directed 04/27/2016 05/02/2016 Inactive Mobic 15 mg tablet RxNorm: 994308 1 Tablet(s) PO QD for pain 201505/26/2016 Inactive Maxalt 10 mg tablet RxNorm: 448180 TAKE ONE TABLET BY M OUTH AT ONSET OF HEADACHE. MAY REPEAT IN 2 HOURS 02/28/2016 03/25/2016 Inactive Tegretol 200 mg tablet RxNorm: 865157 TAKE ONE TABLET BY MOUTH MARGARITO Y 02/14/2016 05/13/2016 Inactive Maxalt 10 mg tablet RxNorm: 006493 TAKE ONE TABLET BY M OUTH AT ONSET OF HEADACHE. MAY REPEAT IN 2 HOURS 01/10/2016 01/27/2016 Inactive lisinopril 2.5 mg tablet RxNorm: 290832 TAKE ONE TABLET BY MOUT H DAILY 01/03/2016 06/30/2016 Inactive Macrobid 100 mg capsule RxNorm: 062638 1 Capsule(s) PO BID 12/23/19 16 12/29/2015 Inactive Macrobid 100 mg capsule RxNorm: 902099 1 Capsule(s) PO BID 12/23/19 16 12/22/2015 Inactive Bactrim DS 800 mg-160 mg tablet RxNorm: 815069 1 Tablet(s) PO BID 0 12/21/2015 12/27/2015 Inactive Bactrim DS 800 mg-160 mg tablet RxNorm: 371091 1 Tablet(s) PO BID 0 12/21/2015 12/20/2015 Inactive Tegretol 200 mg tablet RxNorm: 270265 1 Tablet(s) PO QD TAKE ONE TABLET BY MOUTH DAILY 10/18/2015 01/15/2016 Inactive Maxalt 10 mg tablet RxNorm: 557305 Tablet(s) TAKE ONE T ABLET BY MOUTH AT ONSET OF HEADACHE. MAY REPEAT IN 2 HOURS. 10/11/2015 10/25/2015 Inactive Bactrim DS 800 mg-160 mg tablet RxNorm: 161005 1 Tablet(s) PO BID 0 08/05/2015 08/04/2015 Inactive Bactrim DS 800 mg-160 mg tablet RxNorm: 077642 1 Tablet(s) PO BID 0 08/05/2015 08/11/2015 Inactive cyclobenzaprine 10 mg tablet RxNorm: 591731 1 Tablet(s) PO QHS as needed for muscle spasm 07/13/2015 09/10/2015 Inactive lisinopril 2.5 mg tablet RxNorm: 996243 1 Tablet(s) PO QD 07/13/2015 01/02/2016 Inactive Tegretol 200 mg tablet RxNorm: 997599 1 Tablet(s) PO QD 07/05/2015 Inactive Maxalt 10 mg tablet RxNorm: 298194 Tablet(s) TAKE ONE T ABLET BY MOUTH AT ONSET OF HEADACHE. MAY REPEAT IN 2 HOURS. 06/23/2015 10/11/2015 Inactive Cymbalta 60 mg capsule,delayed release RxNorm: 289431 1 Capsule (s) PO QD 05/17/2015 05/10/2016 Inactive [AttnRPh: Saving jason ly/adjudicate RxGRP:SG20 RxBIN:[id number] RxPCN: ID#:[id number]] Maxalt 10 mg tablet RxNorm: 803169 Tablet(s) TAKE ONE T ABLET BY MOUTH AT ONSET OF HEADACHE. MAY REPEAT IN 2 HOURS. 04/01/2015 04/15/2015 Inactive Tegretol 200 mg tablet RxNorm: 262101 1 Tablet(s) PO QD 03/09/2015 Inactive lisinopril 10 mg tablet RxNorm: 417041 1 Tablet(s) PO QD 01/18/2015 1 09/12/2014 Inactive [AttnRPh: Saving apply/adjudicate RxGRP: SG20 RxBIN:[id number] RxPCN: ID#:[id number]] Tegretol 200 mg tablet RxNorm: 143885 1 Tablet(s) PO QD 12/03/2014 Inactive Maxalt 10 mg tablet RxNorm: 283518 TAKE ONE TABLET BY M OUTH AT ONSET OF HEADACHE. MAY REPEAT IN 2 HOURS. 11/18/2014 04/01/2015 Inactive benzonatate 100 mg capsule RxNorm: 470727 1 Capsule(s) PO TID a s needed 10/30/2014 07/12/2015 Inactive prednisone 20 mg tablet RxNorm: 429911 1 Tablet(s) PO BID 10/30/2014 11/03/2014 Inactive Maxalt 10 mg tablet RxNorm: 366593 as needed TAKE 1 TAB LET BY MOUTH AT ONSET OF HEADACHE AND MAY REPEAT IN 2 HOURS 09/02/2014 09/13/2014 Inactive Tegretol 200 mg tablet RxNorm: 056765 1 Tablet(s) PO QD 08/17/2014 Inactive Cymbalta 60 mg capsule,delayed release RxNorm: 645874 1 Capsule (s) PO QD 06/29/2014 05/17/2015 Inactive [AttnRPh: Saving jason ly/adjudicate RxGRP:SG20 RxBIN:[id number] RxPCN: ID#:[id number]] lisinopril 10 mg tablet RxNorm: 607919 1 Tablet(s) PO QD 06/10/2014 0 12/06/2014 Inactive [AttnRPh: Saving apply/adjudicate RxGRP: SG20 RxBIN:[id number] RxPCN: ID#:[id number]] Maxalt 10 mg tablet RxNorm: 512521 TAKE ONE TABLET BY M OUTH AT HEADACHE ONSET AND MAY REPEAT IN 2 HOURS IF HEADACHE REMAINS 04/20/2014 09/02/2014 In active albuterol sulfate HFA 90 mcg/actuation aerosol inhaler RxNor m: 0827723 2 Puff(s) INH Q4H 11/26/2013 No Stop Date Active doxycycline hyclate 100 mg tablet RxNorm: 602696 1 Tablet(s) PO BID 11/26/2013 12/05/2013 Inactive Maxalt 10 mg tablet RxNorm: 603177 Tablet(s) PO Take 1 at headache onset and may repeat in 2 hours if headache remains 11/21/2013 04/19/2014 Inactive [SAVINGS FOR UNINSURED PATIENTS -- BIN:[id number], PCN: [id number], Group: [id number], ID# [id number], Process claim through [employer], for questions: . THIS IS NOT INSURANCE.] Tegretol 200 mg tablet RxNorm: 592643 1 Tablet(s) PO QD 06/10/2013 Inactive lisinopril 10 mg tablet RxNorm: 093665 1 Tablet(s) PO QD 06/10/2013 1 08/10/2013 Inactive Cymbalta 60 mg capsule,delayed release RxNorm: 228586 1 Capsule (s) PO QD 06/10/2013 06/29/2014 Inactive lisinopril 20 mg tablet RxNorm: 855076 1 Tablet(s) PO QAM for BP 06/09/2013 Inactive lisinopril 20 mg tablet RxNorm: 963565 1 Tablet(s) PO QAM for BP 11/07/2012 Inactive cefdinir 300 mg capsule RxNorm: 719660 1 Capsule(s) PO BID 07/23/19 13 08/01/2012 Inactive lisinopril 20 mg tablet RxNorm: 741210 1 Tablet(s) PO QAM for BP 09/09/2012 Inactive doxycycline hyclate 100 mg Tab RxNorm: 920690 1 Tablet(s) PO BID 11/08/2011 Inactive Mirena 20 mcg/24 hr (5 years) intrauterine device RxNorm: 047165 IU No Start Date Active Seasonique 0.15 mg-30 mcg (84)/10 mcg(7) Tabs,3 month dose p ack RxNorm: 506645 1 Tablet(s) PO QD No Start Date 07/12/2015 Inactive Tegretol 200 mg tablet RxNorm: 803135 1 Tablet(s) PO QD No Start Da te 06/09/2013 Inactive lisinopril 20 mg tablet RxNorm: 262515 1 Tablet(s) PO QD No Start D ate 06/09/2013 Inactive Maxalt 10 mg tablet RxNorm: 140826 Tablet(s) PO Take 1 at headache onset and may repeat in 2 hours if headache remains No Start Date 11/20/2013 Inactive Cymbalta 60 mg capsule,delayed release RxNorm: 724398 1 Capsule (s) PO QD No Start Date 06/09/2013 Inactive Medrol (Francisco) 4 mg Tabs in a Dose Pack RxNorm: 821058 Tablet(s) PO as directed No Start Date 07/16/2012 Inactive Medication Administered No Medication Administered data Immunizations No Immunization data Results Observation Observation Code Item Item Code Result Date S ervice Location TEGRETOL 9117972 TEGRETOL 5.2 MG/L 01/07/2014 Unknown COMPREHENSIVE METABOLIC 83401 AST 16 U/L 2013 Unknown COMPREHENSIVE METABOLIC 05728 ALT 10 IU/L 2013 Unknown COMPREHENSIVE METABOLIC 08117 BUN 17 MG/DL 2013 Unknown COMPREHENSIVE METABOLIC 52193 ALBUMIN 4.3 GM/DL 2013 Unknown COMPREHENSIVE METABOLIC 81715 CHLORIDE 105 MMOL/L 01/05 Unknown COMPREHENSIVE METABOLIC 20158 BILI TOT 0.2 MG/DL 2013 Unknown COMPREHENSIVE METABOLIC 19244 ALK PHOS 37 U/L 2013 Unknown COMPREHENSIVE METABOLIC 85532 SODIUM 137 MMOL/L 01/05 Unknown COMPREHENSIVE METABOLIC 03694 CREATININE 0.86 MG/DL 12/15 Unknown COMPREHENSIVE METABOLIC 87842 CALCIUM 9.4 MG/DL 2013 Unknown COMPREHENSIVE METABOLIC 36396 POTASSIUM 5.0 MMOL/L 01/05 Unknown COMPREHENSIVE METABOLIC 87544 PROT TOT 6.3 GM/DL 2013 Unknown COMPREHENSIVE METABOLIC 24748 Glucose 104 MG/DL 2013 Unknown COMPREHENSIVE METABOLIC 55702 BICARB 27 MMOL/L 2013 Unknown COMPREHENSIVE METABOLIC 98017 ANION GAP 5 MEQ/L 2013 Unknown THYROID STIMULATING HORMONE 97209 TSH 0.822 uIU/ML 01/05/2014 Unknown GFR CALC 3430146 GFR AA >60 ML/MIN 01/05/2014 Unknown GFR CALC 0448500 GFR NON-AA >60 ML/MIN 01/05/2014 Unknown COMPLETE BLOOD COUNT [id number] WBC 5.5 10e9/L 01/06/20 14 Unknown COMPLETE BLOOD COUNT 0157199 RBC 4.17 10e12/L 2013 Unknown COMPLETE BLOOD COUNT 5645686 HGB 13.0 g/dL 4 Unknown COMPLETE BLOOD COUNT 3650332 HCT DET 39.0 % 4 Unknown COMPLETE BLOOD COUNT 3678128 MCV 93.5 fL 4 Unknown COMPLETE BLOOD COUNT 9587400 MCH 31.2 pg 4 Unknown COMPLETE BLOOD COUNT 5461895 MCHC 33.3 g/dL 4 Unknown COMPLETE BLOOD COUNT 9630567 PLT 294 10e9/L 01/06/20 14 Unknown COMPLETE BLOOD COUNT 2693517 MPV 11.4 fL 4 Unknown COMPLETE BLOOD COUNT 1788476 NIKKY % 59.4 % 4 Unknown COMPLETE BLOOD COUNT 4549084 LY % 27.7 % 4 Unknown COMPLETE BLOOD COUNT 5234511 MON % 10.3 % 4 Unknown COMPLETE BLOOD COUNT 4186134 EOS % 1.5 % 4 Unknown COMPLETE BLOOD COUNT 6601950 BASO % 1.1 % 4 Unknown COMPLETE BLOOD COUNT 7400917 RDW 12.7 % 4 Unknown COMPLETE BLOOD COUNT 6857149 ABS NIKKY 3.27 10e9/L 014 Unknown COMPLETE BLOOD COUNT 5998490 ABS LYMPH 1.52 10e9/L 014 Unknown COMPLETE BLOOD COUNT 5849985 ABS MONO 0.57 10e9/L 014 Unknown COMPLETE BLOOD COUNT 5351913 ABS EOS 0.08 10e9/L 014 Unknown COMPLETE BLOOD COUNT [id number] ABS BASO 0.06 10e9/L 014 Unknown COMPLETE BLOOD COUNT 7838893 RDW-SD 42.1 fL 4 Unknown LIPID GROUP 07404 HDL TEST 60 MG/DL 01/05/2014 Unknown LIPID GROUP 36647 TRIG 63 MG/DL 01/05/2014 Unknown LIPID GROUP 21002 TEST LDL 83 MG/DL 01/05/2014 Unknown LIPID GROUP 24484 CHOL 156 MG/DL 01/05/2014 Unknown LIPID GROUP 42378 RCHOL/HDL 2.60 RATIO 01/05/2014 Unknow n FREE T4 53210 FREE T4 0.87 NG/DL 01/05/2014 Unknown Procedures Procedure Codes Date URINALYSIS NONAUTO W/O SCOPE CPT-4: 86058 06/21/2018 URINE TEST CPT-4: 75603 06/21/2018 URINE CULTURE/ COLONY COUNT CPT-4: 75910 06/21/2018 SPECIMEN HANDLING OFFICE-LAB CPT-4: 12992 07/05/2017 DRAIN/INJECT JOINT/BURSA CPT-4: 78158 03/17/2016 URINALYSIS NONAUTO W/O SCOPE CPT-4: 48481 12/20/2015 URINE CULTURE/ COLONY COUNT CPT-4: 73915 12/20/2015 URINALYSIS NONAUTO W/O SCOPE CPT-4: 06280 08/04/2015 URINE CULTURE/ COLONY COUNT CPT-4: 94080 08/04/2015 ROUTINE VENIPUNCTURE CPT-4: 45022 01/05/2014 ASSAY OF FREE THYROXINE CPT-4: 50940 01/05/2014 ASSAY THYROID STIM HORMONE CPT-4: 88003 01/05/2014 COMPREHEN METABOLIC PANEL CPT-4: 59064 01/05/2014 COMPLETE CBC W/AUTO DIFF WBC CPT-4: 08381 01/05/2014 LIPID PANEL CPT-4: 16802 01/05/2014 CEFTRIAXONE SODIUM INJECTION CPT-4: J0696 07/23/2012 THER/PROPH/DIAG INJ SC/IM CPT-4: 92266 07/23/2012 Vital Signs Date Vital 12/22/2019 Blood Pressure 1: 114/80 Code: 8480-6 BMI: 20.7 Code: 32221-9 Heart Rate 1: 68 bpm Height: 5'7" Respiratory Rate: 20 bpm SpO2: 97% Tempera ture: 37.1 (C) / 98.7 (F) Weight: 132 lbs 03/25/2019 Blood Pressure 1: 104/62 Code: 8480-6 Heart Rate 1: 72 bpm Respiratory Rate: 18 bpm SpO2: 97% Temperature: 36.9 (C) / 98.5 (F) We ight: 134 lbs 07/24/2018 Blood Pressure 1: 122/80 Code: 8480-6 BMI: 21.3 Code: 34759-9 Heart Rate 1: 76 bpm Height: 5'7" Respiratory Rate: 20 bpm Temperature: 36 .9 (C) / 98.4 (F) Weight: 136 lbs 06/21/2018 Blood Pressure 1: 100/78 Code: 8480-6 Heart Rate 1: 82 bpm Respiratory Rate: 18 bpm SpO2: 100% Temperature: 36.7 (C) / 98.0 (F) We ight: 130 lbs 07/05/2017 Blood Pressure 1: 94/58 Code: 8480-6 BMI: 20.4 C ode: 68142-7 Heart Rate 1: 72 bpm Height: 5'7" SpO2: 96% Temperature: 37.2 (C) / 99.0 (F) Weight: 130 lbs 05/15/2017 Blood Pressure 1: 104/64 Code: 8480-6 BMI: 20.8 Code: 36993-1 Heart Rate 1: 80 bpm Height: 5'7" Respiratory Rate: 20 bpm Temperature: 36 .7 (C) / 98.1 (F) Weight: 133 lbs 04/27/2016 Blood Pressure 1: 112/70 Code: 8480-6 BMI: 20.8 Code: 72451-1 Heart Rate 1: 80 bpm Height: 5'7" Respiratory Rate: 20 bpm Temperature: 37 .2 (C) / 99.0 (F) Weight: 133 lbs 03/17/2016 Blood Pressure 1: 122/76 Code: 8480-6 He art Rate 1: 80 bpm 07/13/2015 Blood Pressure 1: 98/60 Code: 8480-6 BMI: 20.5 C ode: 68847-6 Heart Rate 1: 76 bpm Height: 5'7" Respiratory Rate: 20 bpm Temperature: 36 .9 (C) / 98.4 (F) Weight: 131 lbs 10/30/2014 Blood Pressure 1: 124/80 Code: 8480-6 BMI: 19.4 Code: 22002-3 Heart Rate 1: 94 bpm Height: 5'7" Respiratory Rate: 24 bpm SpO2: 98% Tempera ture: 36.6 (C) / 97.8 (F) Weight: 124 lbs 01/05/2014 Blood Pressure 1: 98/68 Code: 8480-6 BMI: 19.3 C ode: 90866-5 Heart Rate 1: 76 bpm Height: 5'7" Respiratory Rate: 20 bpm Temperature: 36 .8 (C) / 98.2 (F) Weight: 123 lbs 11/26/2013 Blood Pressure 1: 104/64 Code: 8480-6 BMI: 20.4 Code: 52756-4 Heart Rate 1: 84 bpm Height: 5'7" Respiratory Rate: 18 bpm Temperature: 36 .7 (C) / 98.0 (F) Weight: 130 lbs 06/10/2013 Blood Pressure 1: 132/90 Code: 8480-6 BMI: 19.4 Code: 04338-7 Heart Rate 1: 80 bpm Height: 5'7" Respiratory Rate: 20 bpm Temperature: 36 .6 (C) / 97.8 (F) Weight: 124 lbs 02/19/2013 Blood Pressure 1: 114/80 Code: 8480-6 BMI: 19.7 Code: 13048-5 Heart Rate 1: 84 bpm Height: 5'7" Respiratory Rate: 20 bpm Temperature: 36 .9 (C) / 98.5 (F) Weight: 126 lbs 07/23/2012 Blood Pressure 1: 106/64 Code: 8480-6 BMI: 20.8 Code: 33877-0 Heart Rate 1: 60 bpm Height: 5'7" Temperature: 37.8 (C) / 100.0 (F) Weight : 133 lbs 07/17/2012 Blood Pressure 1: 162/110 Code: 8480-6 BMI: 21.0 Code: 12650-4 Heart Rate 1: 92 bpm Height: 5'7" Respiratory Rate: 20 bpm Temperature: 36 .8 (C) / 98.2 (F) Weight: 134 lbs 10/30/2011 Blood Pressure 1: 138/80 Code: 8480-6 BMI: 21.0 Code: 28509-1 Heart Rate 1: 84 bpm Height: 5'7" Temperature: 37.1 (C) / 98.7 (F) Weight: 134 lbs 08/03/2011 Blood Pressure 1: 114/72 Code: 8480-6 BMI: 21.0 Code: 82877-4 Heart Rate 1: 64 bpm Height: 5'7" [...] Visit Encounters Encounter Performer Location Codes Date ([id number]) PREV VISIT EST AGE 40-64 Diagnosis: Encounter for general adult medical examination without abnormal findings[ICD10: Z00.00] Diagnosis: Essential (primary) hypertension[ICD10: I10] Diagnosis: Mild intermittent asthma[ICD10: J45.20] Diagnosis: Right rotator cuff tendonitis[ICD10: M75.81] Shaye ALVARADO DO [facility] CPT-4: 32964 12/22/2019 ([id number]) OFFICE/OUTPATIENT VISIT EST Diagnosis: Hallux valgus (acquired), right foot[ICD10: M20.11] Diagnosis: Encounter for other preprocedural examination[ICD10: Z01.818] Shaye MATHUR MiguelWang CHAZ HESIODO [facility] CPT-4: 34998 03/25/2019 ([id number]) OFFICE/OUTPATIENT VISIT EST Diagnosis: Radial styloid tenosynovitis [de Quervain][ICD10: M65.4] Shaye MATHUR MiguelWang CHAZ HESIODO [facility] CPT-4: 69834 07/24/2018 ([id number]) OFFICE/OUTPATIENT VISIT EST Diagnosis: Other fatigue[ICD10: R53.83] Diagnosis: Anemia, unspecified[ICD10: D64.9] Mara Echevarria INOCENCIA Orozco MiguelWang CHAZ HESIODO [facility] CPT-4: 79469 06/21/2018 ([id number]) PREV VISIT EST AGE 40-64 Diagnosis: Mild intermittent asthma with (acute) exacerbation[ICD10: J45.21] Diagnosis: Encounter for general adult medical examination without abnormal findings[ICD10: Z00.00] Diagnosis: Encounter for gynecological examination (general) (routine) without abnormal findings[ICD10: Z01.419] Shaye MATHUR MiguelWang [facility] [employer] CPT-4: 68299 07/05/2017 ([id number]) OFFICE/OUTPATIENT VISIT EST Diagnosis: Essential (primary) hypertension[ICD10: I10] Diagnosis: Other cervical disc degeneration, unspecified cervical region[ICD10: M50.30] Diagnosis: Tension-type headache, unspecified, not intractable[ICD10: G44.209] Shaye MATHUR MiguelWang CHAZ HESIODO [facility] CPT-4: 60341 05/15/2017 ([id number]) OFFICE/OUTPATIENT VISIT EST Diagnosis: Lateral epicondylitis, right elbow[ICD10: M77.11] Shaye MATHUR MiguelWang CHAZ HESIODO [facility] CPT-4: 24151 04/27/2016 ([id number]) OFFICE/OUTPATIENT VISIT EST Diagnosis: Hematuria, unspecified[ICD10: R31.9] Shaye HAMMER MiguelWang CHAZ HESIODO [facility] CPT-4: 95071 08/04/2015 ([id number]) PREV VISIT EST AGE 40-64 Diagnosis: Encounter for general adult medical examination without abnormal findings[ICD10: Z00.00] Diagnosis: Essential (primary) hypertension[ICD10: I10] Diagnosis: Other cervical disc degeneration, unspecified cervical region[ICD10: M50.30] 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] Shaye ALVARADO [facility] CPT-4: 47944 07/13/2015 ([id number]) OFFICE/OUTPATIENT VISIT EST Diagnosis: COUGH[ICD9: 786.2] Sarika ALVARADO DO [facility] CPT-4: 18907 10/30/2014 ([id number]) PREV VISIT EST AGE 40-64 Diagnosis: ROUTINE MEDICAL EXAM[ICD9: V70.0] Diagnosis: HYPERTENSION[ICD9: 401.9] Diagnosis: Seizure[ICD9: 780.39] Shaye ALVARADO [facility] CPT-4: 23197 01/05/2014 OFFICE/OUTPATIENT VISIT EST Diagnosis: URI, ACUTE[ICD9: 465.9] Sarika MCDONALD [facility] CPT-4: 07315 11/26/2013 ([id number]) OFFICE/OUTPATIENT VISIT EST Diagnosis: HYPERTENSION[ICD9: 401.9] Diagnosis: SINUSITIS, ACUTE[ICD9: 461.9] Diagnosis: CONVULSIONS[ICD9: 780.39] Shaye MANCINI [facility] CPT-4: 50262 06/10/2013 OFFICE/OUTPATIENT VISIT EST Diagnosis: Pyelonephritis[ICD9: 590.80] Diagnosis: HYPERTENSION[ICD9: 401.9] Shaye RiveraWang JULIO MANCINI [facility] CPT-4: 55488 02/19/2013 OFFICE/OUTPATIENT VISIT EST Diagnosis: OTITIS MEDIA NOS[ICD9: 382.9] Diagnosis: COUGH[ICD9: 786.2] Diagnosis: SINUSITIS, ACUTE[ICD9: 461.9] Shaye RiveraWang [facility] CPT-4: 40192 07/23/2012 ([id number]) OFFICE/OUTPATIENT VISIT EST Diagnosis: HYPERTENSION[ICD9: 401.9] Diagnosis: CONVULSIONS[ICD9: 780.39] Shaye MANCINI [employer] CPT-4: 26318 07/17/2012 OFFICE/OUTPATIENT VISIT EST Diagnosis: COUGH[ICD9: 786.2] Diagnosis: PHARYNGITIS, ACUTE[ICD9: 462] Shaye ALVARADO DO [employer] CPT-4: 40611 10/30/2011 OFFICE/OUTPATIENT VISIT NEW Diagnosis: CERVICAL DISC DEGEN[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.4] Diagnosis: Neck pain[ICD9: 723.1] Diagnosis: Radiculopathy of arm[ICD9: 723.4] Diagnosis: Seizure[ICD9: 780.39] Shaye ALVARADO [employer] CPT-4: 11802 08/03/2011 Plan of Care Planned Activity Notes Codes Status Date Visit Diagnosis Plan: Right rotator cuff tendonitis Di scussion: Daily stretches for gentle ROM Moist heat Topical muscle rub Mobic Notify if worsening or persists ICD-9 : 726.10 ICD-10 : M75.81 12/22/2019 Visit Diagnosis Plan: Essential (primary) hypertension Discussion: Stable ICD-9 : 401.9 ICD-10 : I10 12/22/2019 Visit Diagnosis Plan: Encounter for gene [facility] adult medical examination without abnormal findings Discussion: Mediterranean diet Combinati on of cardio and weight bearing exercise Fasting lab done this morning Mammogram ordered Needs screening colonoscopy Due for Pap ICD-9 : V70.0 ICD-10 : Z00.00 12/22/2019 Patient Education: meloxicam- [employer] Coupon [id number] [email or web address]/samplemd/resources/getResource/[email or web address] Completed 12/22/2019 Care Plan: MAMMOGRAM SCREENING LOINC : 2 6347-5 Pending 12/22/2019 Care Plan: Referral Order SNOMED-CT : 30 [id number] Pending 12/22/2019 Care Plan: COMPREHEN METABOLIC PANEL IGGY NC : 55483-2 Pending 12/18/2019 Care Plan: ASSAY THYROID STIM HORMONE Pen ding 12/18/2019 Care Plan: LIPID PANEL LOINC : 90706-8 Pending 12/18/2019 Care Plan: ASSAY OF FREE THYROXINE Pendin g 12/18/2019 Care Plan: COMPLETE CBC W/AUTO DIFF WBC LOINC : 07219-3 Pending 12/18/2019 Visit Diagnosis Plan: Hallux valgus (acquired), right foot Discussion: Update lab for upcoming surgery Okay to proceed with planned surgery by Dr. Nuñez ICD-9 : 735.0 ICD-10 : M20.11 03/25/2019 Appointment: Shaye Alvarado WPtel: [address] [place] [address] US FOLLOW UP 03/25/2019 Visit Diagnosis Plan: Radial styloid tenosynovitis [de Quervain] Discussion: Spica thumb wrist splint Medrol Dose Pack followed by mobic Notify if worsens or persists ICD-9 : 727.04 ICD-10 : M65.4 07/24/2018 Appointment: Shaye Alvarado WPtel: [address] [place] [address] ACUTE ILLNESS 07/24/2018 Patient Education: Medrol (Francisco)- [employer] Coupon [phone] https://[email or web address]/samplemd/resources/getResource/61/[email or web address] Completed 07/24/2018 Visit Diagnosis Plan: Other fatigue Discussion: urine test neg. when urine was tested, noted dark, cloudy urine and dipstick was obtained. showed protein and blood in urine so will send off for urine culture. multiple labs or dered to be completed at [facility] lab. cbc, cmp, tsh, t4, tt3, b12, iron, ferritin obtained. will review labs and culture and order additional meds/labs as needed. ICD-9 : 780.79 ICD-10 : R53.83 06/21/2018 Appointment: Mara Echevarria [address] [place], [place] [id number] ACUTE ILLNESS 06/21/2018 Appointment: Shaye Alvarado WPtel: [address] [place] [address] Scheduled in ERROR 06/10/2018 Visit Diagnosis Plan: [...] : J45.21 07/05/2017 Appointment: Shaye Alvarado WPtel: [address] [place], [place] [id number] PAP 07/05/2017 Patient Education: Patient Medication Summary [...] : I10 05/15/2017 Appointment: Shaye Alvarado WPtel: [address] [place], [place] [phone] ACUTE ILLNESS 05/15/2017 Patient Education: Patient Medication Summary Completed 05/15/2017 Referral: Armin Arzate WPtel: [facility] [address] Referral Appointment Confirmed 05/10/2016 Visit Plan: Medrol Dose Pack then start mobic Continue brace See Dr. Arzate Discussed iontophoresis May need surgery as has tried all conservative measures at this point 04/27/2016 Appointment: Shaye Alvarado WPtel: [address] [place] [address] 04/26 lm~sl...confirmed-sp FOLLOW UP 04/27 Patient Education: Patient Medication Summary Completed 04/27/2016 Care Plan: Referral Order SNOMED-CT : 30 [id number] Pending 04/27/2016 Visit Plan: Injection as above Howard tuttle Vivlodex 10mg daily Notify if worsens or persists 03/17/2016 Appointment: Shaye Alvarado WPtel: [address] [place] [address] OFFICE SURGERY 03/17/2016 Patient Education: Patient Medication Summary Completed 03/17/2016 Appointment: Yolis Membreno [address] [place] [address] 12/19- patient misunderstood why appointment was scheduled. CANCELED 12/21/2015 Appointment: Shaye Alvarado WPtel: [address] [place] [address] ACUTE ILLNESS 12/20/2015 Patient Education: Patient Medication Summary Completed 12/20/2015 Appointment: Shaye Alvarado WPtel: [address] [place] [address] 08/04/2015 Patient Education: Patient Medication Summary Completed 08/04/2015 Visit Plan: Updated MRI of cervical spin e Decrease lisinopril to 2.5mg daily Update lab Add cyclobenzaprine at 10mg q HS 07/13/2015 Appointment: Shaye Alvarado WPtel: [address] [place] [address] 07/12/15 appt confirmed cn Annual Well Visit Patient Education: Patient Medication Summary Completed 07/13/2015 Patient Education: [facility] - Saving [employer] - Lisinopril - 18-64 - Dynamic Portal ID Completed 07/13/2015 Patient Education: Neck Pain Completed 07/13/2015 Appointment: Sarika Diallo WPtel: [address] [place] [address] ACUTE ILLNESS 10/30/2014 Patient Education: Patient Medication Summary Completed 10/30/2014 Visit Plan: Fasting lab drawn including tegretol level Decrease lisinopril to 5mg daily and observe BP 01/05/2014 Appointment: Shaye Alvarado WPtel: [address] [place] [address] 01/02 Annual Well Visit 01/05/2014 Patient Education: Patient Medication Summary Completed 01/05/2014 Appointment: Sarika Diallo WPtel: [address] [place] [address] ACUTE ILLNESS 11/26/2013 Patient Education: Patient Medication Summary Completed 11/26/2013 Visit Plan: Saline nasal flushes prn. Ty lenol/Motrin prn headache. Notify if persists/symptoms worsening. Decrease Lisinopril to 10mg daily 06/10/2013 Appointment: Shaye Alvarado WPtel: [address] [place] [address] 06/09 FOLLOW UP 06/10/2013 Patient Education: Patient Medication Summary Completed 06/10/2013 Visit Plan: Finish abx and observe Stay off lisinopril and observe 02/19/2013 Appointment: Shaye Alvarado WPtel: [address] [place] [address] Follow Up 02/19/2013 Patient Education: Patient Medication Summary Completed 02/19/2013 Visit Plan: rocephin IM and Cefdinir. Wi ll notify if no improvement. Tylenol #3 #20 dispensed. Pt. has made contact with Dr. Frias's office and has follow up appnt. Pt. will notify if fever continues into tomorrow. 07/23/2012 Appointment: Penelope Golden WPtel: [address] [place] [address] ACUTE ILLNESS 07/23/2012 Patient Education: Patient Medication Summary Completed 07/23/2012 Visit Plan: Check fasting lab Start Belinda nopril Moniter BP 07/17/2012 Appointment: Shaye Alvarado WPtel: [address] [place], [place] [phone] 07/15 Home phone no longer working kandis r; works for [employer] and is off work on break ACUTE ILLNESS 07/17/2012 Patient Education: Patient Medication Summary Completed 07/17/2012 Visit Plan: doxycycline and medrol dose pack. Discussed that could be walking pneumonia. Encouraged fluids and rest. Pt. will notify if symptoms persist or worsen. Note for work. 2-3 days. 10/30/2011 Appointment: Penelope Golden WPtel: [address] [place], [place] [id number] ACUTE ILLNESS 10/30/2011 Patient Education: Patient Medication Summary Completed 10/30/2011 Visit Plan: Proceed with Cervical Spine MRI Percocet 5/500 1 po q HS prn pain--#30 Tramadol 50mg 1-2 po BID prn pain--#60 See Ortho for surgical opinion 08/03/2011 Appointment: Shaye Alvarado WPtel: [address] [place], [place] [phone] NEW PATIENT 08/03/2011 Patient Education: Patient Medication Summary Completed 08/03/2011 Referral: Armin Arzate WPtel: [facility] [address] Referral Appointment Requested Referral: Armin Fajardo WPtel: [address] Referral Appointment Requested Instructions Comment . [...]
--- OUTSIDE RECORDS SUMMARY | 2020-01-09 09:34 | XMS REPORT | CCD ---
Author Author Chiquita Alvarado D.O. Organization SHAYE ALVARADO DO [facility] Address [address] [place] [address] Phone Care Team Providers Care Mobile Equipment Operator Name Role Phone Shaye Alvarado D.O., PP Unavailable CCM Unavailable Summary Purpose Interface Exchange Insurance Providers Payer name Policy type / Coverage type Covered libertarian ID Effective Begin Date Effective End Date Blue Cross Blue Shield Blue Cross/Blue Shield [id number] Unknown Family history Father Diagnosis Age At Onset No Family Disease Entered N/A Mother Diagnosis Age At Onset No Family Disease Entered N/A Side Diagnosis Age At Onset No Family Disease Entered N/A Social History Social History Element Codes Description Effective Dates Marital status Unknown 08/03/2011 Number of children Unknown 2 08/03/2011 Employment Unknown Currently employed [employer] 08/03/[address]: 323208333 Never smoker 08/03/[address]: 649502 Currently drinks alc ohol socially 08/03/2011 Allergies, Adverse Reactions, Alerts Substance Reaction Codes Entered Date Inactivated Date Status * NO KNOWN FOOD ALLERGIES Unknown 08/03/2011 No Inactiv e Date Active * NO KNOWN ENVIRONMENTAL ALLERGIES Unknown 08/03/2011 N o Inactive Date Active * NO KNOWN DRUG ALLERGIES Unknown 08/03/2011 No Inactiv e Date Active Problems Condition Codes Effective Dates Condition Status Encounter for other preprocedural examination ICD-9: V 72.83 ICD-10: Z01.818 03/25/2019 Active Hallux valgus (acquired), right foot ICD-9: 735.0 ICD-10: M20.11 03/25/2019 Active Radial styloid tenosynovitis [de Quervain] ICD-9: 727. 04 ICD-10: M65.4 07/24/2018 Active Anemia, unspecified ICD-9: 285.9 ICD-10: D64.9 05/23/2017 Active Other fatigue ICD-9: 780.79 ICD-10: R53.83 06/21/2018 Active Encounter for general adult medical examination withou t abnormal findings ICD-9: V70.0 ICD-10: Z00.00 01/05/2014 Active Encounter for gynecological examination (general) (routine) without abnormal findings ICD-9: V72.31 ICD-10: Z01.419 07/05/2017 Active Mild intermittent asthma with (acute) exacerbation ICD -9: 466.0 ICD-10: J45.21 07/05/2017 Active Essential (primary) hypertension ICD-9: 401.9 ICD-10: I10 01/05/2014 Active Other cervical disc degeneration, unspecified cervical region ICD-9: 722.4 ICD-10: M50.30 05/15/2017 Active Tension-type headache, unspecified, not intractable IC D-9: 307.81 ICD-10: G44.209 05/15/2017 Active Lateral epicondylitis, right elbow ICD-9: 726.32 ICD-10: M77.11 04/26/2016 Active Dysuria ICD-9: 788.1 ICD-10: R30.0 12/19/2015 Active Hematuria, unspecified ICD-9: 599.70 ICD-10: R31.9 08/03/2015 Active 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 01/05/2014 Active COUGH ICD-9: 786.2 10/30/2014 Active HYPERTENSION [...] Fill Instructions Tegretol 200 mg tablet RxNorm: 277506 TAKE ONE TABLET BY MOUTH MARGARITO Y 12/15/2019 No Stop Date Active Cymbalta 60 mg capsule,delayed release RxNorm: 798256 T FABIO ONE CAPSULE BY MOUTH DAILY 12/15/2019 No Stop Date Active lisinopril 2.5 mg tablet RxNorm: 862974 TAKE ONE TABLET BY MOUT H DAILY 12/10/2019 No Stop Date Active Maxalt 10 mg tablet RxNorm: 906898 TAKE ONE TABLET BY M OUTH AT ONSET OF HEADACHE, MAY REPEAT ONE TABLET IN 2 HOURS IF NEEDED 11/13/2019 No Stop Date Active Cymbalta 60 mg capsule,delayed release RxNorm: 941833 T FABIO ONE CAPSULE BY MOUTH DAILY 08/28/2019 12/14/2019 Inactive lisinopril 2.5 mg tablet RxNorm: 943628 1 Tablet(s) Oral QD 020 11/20/2019 Inactive Tegretol 200 mg tablet RxNorm: 092925 1 Tablet(s) Oral QD 08/22/2019 11/20/2019 Inactive Maxalt 10 mg tablet RxNorm: 434079 TAKE ONE TABLET BY M OUTH AT ONSET OF HEADACHE, MAY REPEAT ONE TABLET IN 2 HOURS IF NEEDED 08/06/2019 020 Inactive Tegretol 200 mg tablet RxNorm: 702737 TAKE ONE TABLET BY MOUTH MARGARITO Y 05/26/2019 08/21/2019 Inactive Maxalt 10 mg tablet RxNorm: 657311 1 Tablet(s) PO AT ON SET OF HEADACHE; MAY REPEAT ONE TABLET IN 2 HOURS IF NEEDED. 03/25/2019 05/23/2019 Inactive Tegretol 200 mg tablet RxNorm: 367832 TAKE ONE TABLET BY MOUTH MARGARITO Y 02/06/2019 05/06/2019 Inactive Cymbalta 60 mg capsule,delayed release RxNorm: 695273 T FABIO ONE CAPSULE BY MOUTH DAILY 02/06/2019 04/06/2019 Inactive lisinopril 2.5 mg tablet RxNorm: 471223 TAKE ONE TABLET BY MOUT H DAILY 01/27/2019 08/21/2019 Inactive Maxalt 10 mg tablet RxNorm: 179644 1 Tablet(s) PO AT ON SET OF HEADACHE; MAY REPEAT ONE TABLET IN 2 HOURS IF NEEDED. 11/22/2018 01/20/2019 Inactive Maxalt 10 mg tablet RxNorm: 213152 TAKE ONE TABLET BY M OUTH AT ONSET OF HEADACHE; MAY REPEAT ONE TABLET IN 2 HOURS IF NEEDED. 11/19/20182018 Inactive lisinopril 2.5 mg tablet RxNorm: 725313 TAKE ONE TABLET BY MOUT H DAILY 10/14/2018 01/11/2019 Inactive Maxalt 10 mg tablet RxNorm: 528589 TAKE ONE TABLET BY M OUTH AT ONSET OF HEADACHE; MAY REPEAT ONE TABLET IN 2 HOURS IF NEEDED. 09/20/20182018 Inactive Medrol (Francisco) 4 mg tablets in a dose pack RxNorm: 964713 6 Tablet(s) PO QD --then as directed 07/24/2018 07/29/2018 Inactive Mobic 15 mg tablet RxNorm: 041514 1 Tablet(s) PO QD 07/24/20182018 Inactive Tegretol 200 mg tablet RxNorm: 612118 TAKE ONE TABLET BY MOUTH MARGARITO Y 07/03/2018 12/29/2018 Inactive Maxalt 10 mg tablet RxNorm: 437974 TAKE ONE TABLET BY M OUTH AT ONSET OF HEADACHE; MAY REPEAT ONE TABLET IN 2 HOURS IF NEEDED. 07/03/20182018 Inactive Bactrim DS 800 mg-160 mg tablet RxNorm: 789318 1 Tablet(s) PO BID 1 08/25/2017 06/23/2018 Inactive Bactrim DS 800 mg-160 mg tablet RxNorm: 618280 1 Tablet(s) PO BID 1 08/25/2017 06/30/2018 Inactive Maxalt 10 mg tablet RxNorm: 679484 TAKE ONE TABLET BY M OUTH AT ONSET OF HEADACHE; MAY REPEAT ONE TABLET IN 2 HOURS IF NEEDED. 05/09/20182017 Inactive Cymbalta 60 mg capsule,delayed release RxNorm: 417478 T FABIO ONE CAPSULE BY MOUTH DAILY 04/09/2018 07/07/2018 Inactive lisinopril 2.5 mg tablet RxNorm: 157480 Tablet(s) TAKE ONE TABLET BY MOUTH DAILY 03/25/2018 09/20/2018 Inactive Maxalt 10 mg tablet RxNorm: 073570 TAKE ONE TABLET BY M OUTH AT ONSET OF HEADACHE; MAY REPEAT ONE TABLET IN 2 HOURS IF NEEDED. 02/26/20182017 Inactive Tegretol 200 mg tablet RxNorm: 220394 TAKE ONE TABLET BY MOUTH MARGARITO Y 12/04/2017 06/01/2018 Inactive Maxalt 10 mg tablet RxNorm: 271542 1 Tablet(s) PO AT ON SET OF HEADACHE. MAY REPEAT IN 2 HOURS 11/12/2017 12/01/2017 Inactive lisinopril 2.5 mg tablet RxNorm: 091323 TAKE ONE TABLET BY MOUT H DAILY 08/28/2017 03/25/2018 Inactive Tegretol 200 mg tablet RxNorm: 717155 TAKE ONE TABLET BY MOUTH MARGARITO Y 08/28/2017 11/25/2017 Inactive Maxalt 10 mg tablet RxNorm: 145735 1 Tablet(s) PO AT ON SET OF HEADACHE. MAY REPEAT IN 2 HOURS 07/05/2017 11/12/2017 Inactive cyclobenzaprine 10 mg tablet RxNorm: 959216 1 Tablet(s) PO QHS as needed for muscle spasm 05/15/2017 No Stop Date Active diclofenac sodium 75 mg tablet,delayed release RxNorm: 47652 6 1 Tablet(s) PO BID as needed for neck pain 05/15/2017 07/13/2017 Inactive Cymbalta 60 mg capsule,delayed release RxNorm: 795108 C apsule(s) TAKE ONE CAPSULE BY MOUTH DAILY 05/07/2017 08/04/2017 Inactive Maxalt 10 mg tablet RxNorm: 762069 1 Tablet(s) PO AT ON SET OF HEADACHE. MAY REPEAT IN 2 HOURS 04/30/2017 05/09/2017 Inactive Maxalt 10 mg tablet RxNorm: 090276 1 Tablet(s) PO AT ON SET OF HEADACHE. MAY REPEAT IN 2 HOURS 02/22/2017 04/30/2017 Inactive Tegretol 200 mg tablet RxNorm: 929195 Tablet(s) TAKE ONE TABLET BY MOUTH DAILY 01/11/2017 07/09/2017 Inactive Maxalt 10 mg tablet RxNorm: 615030 1 Tablet(s) PO AT ON SET OF HEADACHE. MAY REPEAT IN 2 HOURS 01/11/2017 02/22/2017 Inactive Maxalt 10 mg tablet RxNorm: 877635 1 Tablet(s) PO AT ON SET OF HEADACHE. MAY REPEAT IN 2 HOURS 11/30/2016 01/11/2017 Inactive Maxalt 10 mg tablet RxNorm: 501814 TAKE ONE TABLET BY M OUTH AT ONSET OF HEADACHE. MAY REPEAT IN 2 HOURS 07/26/2016 11/30/2016 Inactive lisinopril 2.5 mg tablet RxNorm: 966245 TAKE ONE TABLET BY MOUT H DAILY 07/24/2016 07/23/2016 Inactive lisinopril 2.5 mg tablet RxNorm: 291006 TAKE ONE TABLET BY MOUT H DAILY 07/24/2016 01/19/2017 Inactive Maxalt 10 mg tablet RxNorm: 101231 TAKE ONE TABLET BY M OUTH AT ONSET OF HEADACHE. MAY REPEAT IN 2 HOURS 06/05/2016 06/14/2016 Inactive Tegretol 200 mg tablet RxNorm: 627863 TAKE ONE TABLET BY MOUTH MARGARITO Y 06/05/2016 01/11/2017 Inactive Cymbalta 60 mg capsule,delayed release RxNorm: 154352 T FABIO ONE CAPSULE BY MOUTH DAILY 05/17/2016 05/07/2017 Inactive Medrol (Francisco) 4 mg tablets in a dose pack RxNorm: 153914 6 Tablet(s) PO QD --then as directed 04/27/2016 05/02/2016 Inactive Mobic 15 mg tablet RxNorm: 307500 1 Tablet(s) PO QD for pain 201505/26/2016 Inactive Maxalt 10 mg tablet RxNorm: 885682 TAKE ONE TABLET BY M OUTH AT ONSET OF HEADACHE. MAY REPEAT IN 2 HOURS 02/28/2016 03/25/2016 Inactive Tegretol 200 mg tablet RxNorm: 382343 TAKE ONE TABLET BY MOUTH MARGARITO Y 02/14/2016 05/13/2016 Inactive Maxalt 10 mg tablet RxNorm: 789880 TAKE ONE TABLET BY M OUTH AT ONSET OF HEADACHE. MAY REPEAT IN 2 HOURS 01/10/2016 01/27/2016 Inactive lisinopril 2.5 mg tablet RxNorm: 461095 TAKE ONE TABLET BY MOUT H DAILY 01/03/2016 06/30/2016 Inactive Macrobid 100 mg capsule RxNorm: 982754 1 Capsule(s) PO BID 12/23/19 16 12/29/2015 Inactive Macrobid 100 mg capsule RxNorm: 702925 1 Capsule(s) PO BID 12/23/19 16 12/22/2015 Inactive Bactrim DS 800 mg-160 mg tablet RxNorm: 382769 1 Tablet(s) PO BID 0 12/21/2015 12/27/2015 Inactive Bactrim DS 800 mg-160 mg tablet RxNorm: 428307 1 Tablet(s) PO BID 0 12/21/2015 12/20/2015 Inactive Tegretol 200 mg tablet RxNorm: 502024 1 Tablet(s) PO QD TAKE ONE TABLET BY MOUTH DAILY 10/18/2015 01/15/2016 Inactive Maxalt 10 mg tablet RxNorm: 710277 Tablet(s) TAKE ONE T ABLET BY MOUTH AT ONSET OF HEADACHE. MAY REPEAT IN 2 HOURS. 10/11/2015 10/25/2015 Inactive Bactrim DS 800 mg-160 mg tablet RxNorm: 988141 1 Tablet(s) PO BID 0 08/05/2015 08/04/2015 Inactive Bactrim DS 800 mg-160 mg tablet RxNorm: 558388 1 Tablet(s) PO BID 0 08/05/2015 08/11/2015 Inactive cyclobenzaprine 10 mg tablet RxNorm: 626882 1 Tablet(s) PO QHS as needed for muscle spasm 07/13/2015 09/10/2015 Inactive lisinopril 2.5 mg tablet RxNorm: 769412 1 Tablet(s) PO QD 07/13/2015 01/02/2016 Inactive Tegretol 200 mg tablet RxNorm: 203744 1 Tablet(s) PO QD 07/05/2015 Inactive Maxalt 10 mg tablet RxNorm: 459464 Tablet(s) TAKE ONE T ABLET BY MOUTH AT ONSET OF HEADACHE. MAY REPEAT IN 2 HOURS. 06/23/2015 10/11/2015 Inactive Cymbalta 60 mg capsule,delayed release RxNorm: 706008 1 Capsule (s) PO QD 05/17/2015 05/10/2016 Inactive [AttnRPh: Saving jason ly/adjudicate RxGRP:SG20 RxBIN:[id number] RxPCN:HT ID#:[id number]] Maxalt 10 mg tablet RxNorm: 651392 Tablet(s) TAKE ONE T ABLET BY MOUTH AT ONSET OF HEADACHE. MAY REPEAT IN 2 HOURS. 04/01/2015 04/15/2015 Inactive Tegretol 200 mg tablet RxNorm: 646254 1 Tablet(s) PO QD 03/09/2015 Inactive lisinopril 10 mg tablet RxNorm: 563886 1 Tablet(s) PO QD 01/18/2015 1 09/12/2014 Inactive [AttnRPh: Saving apply/adjudicate RxGRP: SG20 RxBIN:[id number] RxPCN:HT ID#:[id number]] Tegretol 200 mg tablet RxNorm: 068364 1 Tablet(s) PO QD 12/03/2014 Inactive Maxalt 10 mg tablet RxNorm: 970725 TAKE ONE TABLET BY M OUTH AT ONSET OF HEADACHE. MAY REPEAT IN 2 HOURS. 11/18/2014 04/01/2015 Inactive benzonatate 100 mg capsule RxNorm: 161779 1 Capsule(s) PO TID a s needed 10/30/2014 07/12/2015 Inactive prednisone 20 mg tablet RxNorm: 228098 1 Tablet(s) PO BID 10/30/2014 11/03/2014 Inactive Maxalt 10 mg tablet RxNorm: 773192 as needed TAKE 1 TAB LET BY MOUTH AT ONSET OF HEADACHE AND MAY REPEAT IN 2 HOURS 09/02/2014 09/13/2014 Inactive Tegretol 200 mg tablet RxNorm: 195765 1 Tablet(s) PO QD 08/17/2014 Inactive Cymbalta 60 mg capsule,delayed release RxNorm: 521718 1 Capsule (s) PO QD 06/29/2014 05/17/2015 Inactive [AttnRPh: Saving jason ly/adjudicate RxGRP:SG20 RxBIN:[id number] RxPCN:HT ID#:[id number]] lisinopril 10 mg tablet RxNorm: 465777 1 Tablet(s) PO QD 06/10/2014 0 12/06/2014 Inactive [AttnRPh: Saving apply/adjudicate RxGRP: SG20 RxBIN:[id number] RxPCN:HT ID#:[id number]] Maxalt 10 mg tablet RxNorm: 374991 TAKE ONE TABLET BY M OUTH AT HEADACHE ONSET AND MAY REPEAT IN 2 HOURS IF HEADACHE REMAINS 04/20/2014 09/02/2014 In active albuterol sulfate HFA 90 mcg/actuation aerosol inhaler RxNor m: 3288493 2 Puff(s) INH Q4H 11/26/2013 No Stop Date Active doxycycline hyclate 100 mg tablet RxNorm: 044820 1 Tablet(s) PO BID 11/26/2013 12/05/2013 Inactive Maxalt 10 mg tablet RxNorm: 654536 Tablet(s) PO Take 1 at headache onset and may repeat in 2 hours if headache remains 11/21/2013 04/19/2014 Inactive [SAVINGS FOR UNINSURED PATIENTS -- BIN:[id number], PCN: [id number], Group: [id number], ID# [id number], Process claim through [employer], for questions: . THIS IS NOT INSURANCE.] Tegretol 200 mg tablet RxNorm: 298571 1 Tablet(s) PO QD 06/10/2013 Inactive lisinopril 10 mg tablet RxNorm: 385959 1 Tablet(s) PO QD 06/10/2013 1 08/10/2013 Inactive Cymbalta 60 mg capsule,delayed release RxNorm: 606893 1 Capsule (s) PO QD 06/10/2013 06/29/2014 Inactive lisinopril 20 mg tablet RxNorm: 813280 1 Tablet(s) PO QAM for BP 06/09/2013 Inactive lisinopril 20 mg tablet RxNorm: 659144 1 Tablet(s) PO QAM for BP 11/07/2012 Inactive cefdinir 300 mg capsule RxNorm: 234254 1 Capsule(s) PO BID 07/23/19 13 08/01/2012 Inactive lisinopril 20 mg tablet RxNorm: 057168 1 Tablet(s) PO QAM for BP 09/09/2012 Inactive doxycycline hyclate 100 mg Tab RxNorm: 724355 1 Tablet(s) PO BID 11/08/2011 Inactive Mirena 20 mcg/24 hr (5 years) intrauterine device RxNorm: 973900 IU No Start Date Active Seasonique 0.15 mg-30 mcg (84)/10 mcg(7) Tabs,3 month dose p ack RxNorm: 561078 1 Tablet(s) PO QD No Start Date 07/12/2015 Inactive Tegretol 200 mg tablet RxNorm: 046000 1 Tablet(s) PO QD No Start Da te 06/09/2013 Inactive lisinopril 20 mg tablet RxNorm: 943254 1 Tablet(s) PO QD No Start D ate 06/09/2013 Inactive Maxalt 10 mg tablet RxNorm: 435554 Tablet(s) PO Take 1 at headache onset and may repeat in 2 hours if headache remains No Start Date 11/20/2013 Inactive Cymbalta 60 mg capsule,delayed release RxNorm: 679919 1 Capsule (s) PO QD No Start Date 06/09/2013 Inactive Medrol (Francisco) 4 mg Tabs in a Dose Pack RxNorm: 351941 Tablet(s) PO as directed No Start Date 07/16/2012 Inactive Medication Administered No Medication Administered data Immunizations No Immunization data Results Observation Observation Code Item Item Code Result Date S ervice Location TEGRETOL 3692232 TEGRETOL 5.2 MG/L 01/07/2014 Unknown COMPREHENSIVE METABOLIC 41292 AST 16 U/L 2013 Unknown COMPREHENSIVE METABOLIC 97373 ALT 10 IU/L 2013 Unknown COMPREHENSIVE METABOLIC 14759 BUN 17 MG/DL 2013 Unknown COMPREHENSIVE METABOLIC 31888 ALBUMIN 4.3 GM/DL 2013 Unknown COMPREHENSIVE METABOLIC 98917 CHLORIDE 105 MMOL/L 01/05 Unknown COMPREHENSIVE METABOLIC 48802 BILI TOT 0.2 MG/DL 2013 Unknown COMPREHENSIVE METABOLIC 89125 ALK PHOS 37 U/L 2013 Unknown COMPREHENSIVE METABOLIC 67007 SODIUM 137 MMOL/L 01/05 Unknown COMPREHENSIVE METABOLIC 04035 CREATININE 0.86 MG/DL 12/15 Unknown COMPREHENSIVE METABOLIC 37746 CALCIUM 9.4 MG/DL 2013 Unknown COMPREHENSIVE METABOLIC 86423 POTASSIUM 5.0 MMOL/L 01/05 Unknown COMPREHENSIVE METABOLIC 46922 PROT TOT 6.3 GM/DL 2013 Unknown COMPREHENSIVE METABOLIC 63430 Glucose 104 MG/DL 2013 Unknown COMPREHENSIVE METABOLIC 82027 BICARB 27 MMOL/L 2013 Unknown COMPREHENSIVE METABOLIC 78126 ANION GAP 5 MEQ/L 2013 Unknown THYROID STIMULATING HORMONE 96691 TSH 0.822 uIU/ML 01/05/2014 Unknown GFR CALC 9010566 GFR AA >60 ML/MIN 01/05/2014 Unknown GFR CALC 3534236 GFR NON-AA >60 ML/MIN 01/05/2014 Unknown COMPLETE BLOOD COUNT [id number] WBC 5.5 10e9/L 01/06/20 14 Unknown COMPLETE BLOOD COUNT [id number] RBC 4.17 10e12/L 2013 Unknown COMPLETE BLOOD COUNT 2143481 HGB 13.0 g/dL 4 Unknown COMPLETE BLOOD COUNT 8106317 HCT DET 39.0 % 4 Unknown COMPLETE BLOOD COUNT 3712200 MCV 93.5 fL 4 Unknown COMPLETE BLOOD COUNT 4368254 MCH 31.2 pg 4 Unknown COMPLETE BLOOD COUNT 7841424 MCHC 33.3 g/dL 4 Unknown COMPLETE BLOOD COUNT [id number] PLT 294 10e9/L 01/06/20 14 Unknown COMPLETE BLOOD COUNT [id number] MPV 11.4 fL 4 Unknown COMPLETE BLOOD COUNT 0789461 NIKKY % 59.4 % 4 Unknown COMPLETE BLOOD COUNT 9839708 LY % 27.7 % 4 Unknown COMPLETE BLOOD COUNT 5927300 MON % 10.3 % 4 Unknown COMPLETE BLOOD COUNT 5416201 EOS % 1.5 % 4 Unknown COMPLETE BLOOD COUNT 5449678 BASO % 1.1 % 4 Unknown COMPLETE BLOOD COUNT 8006573 RDW 12.7 % 4 Unknown COMPLETE BLOOD COUNT 9630819 ABS NIKKY 3.27 10e9/L 014 Unknown COMPLETE BLOOD COUNT 8726000 ABS LYMPH 1.52 10e9/L 014 Unknown COMPLETE BLOOD COUNT [id number] ABS MONO 0.57 10e9/L 014 Unknown COMPLETE BLOOD COUNT [id number] ABS EOS 0.08 10e9/L 014 Unknown COMPLETE BLOOD COUNT [id number] ABS BASO 0.06 10e9/L 014 Unknown COMPLETE BLOOD COUNT [id number] RDW-SD 42.1 fL 4 Unknown LIPID GROUP 01010 HDL TEST 60 MG/DL 01/05/2014 Unknown LIPID GROUP 83212 TRIG 63 MG/DL 01/05/2014 Unknown LIPID GROUP 01912 TEST LDL 83 MG/DL 01/05/2014 Unknown LIPID GROUP 04620 CHOL 156 MG/DL 01/05/2014 Unknown LIPID GROUP 00759 RCHOL/HDL 2.60 RATIO 01/05/2014 Unknow n FREE T4 44124 FREE T4 0.87 NG/DL 01/05/2014 Unknown Procedures Procedure Codes Date URINALYSIS NONAUTO W/O SCOPE CPT-4: 28663 06/21/2018 URINE TEST CPT-4: 19798 06/21/2018 URINE CULTURE/ COLONY COUNT CPT-4: 91443 06/21/2018 SPECIMEN HANDLING OFFICE-LAB CPT-4: 63404 07/05/2017 DRAIN/INJECT JOINT/BURSA CPT-4: 28036 03/17/2016 URINALYSIS NONAUTO W/O SCOPE CPT-4: 36082 12/20/2015 URINE CULTURE/ COLONY COUNT CPT-4: 40538 12/20/2015 URINALYSIS NONAUTO W/O SCOPE CPT-4: 75925 08/04/2015 URINE CULTURE/ COLONY COUNT CPT-4: 70155 08/04/2015 ROUTINE VENIPUNCTURE CPT-4: 91823 01/05/2014 ASSAY OF FREE THYROXINE CPT-4: 57581 01/05/2014 ASSAY THYROID STIM HORMONE CPT-4: 66321 01/05/2014 COMPREHEN METABOLIC PANEL CPT-4: 18175 01/05/2014 COMPLETE CBC W/AUTO DIFF WBC CPT-4: 03885 01/05/2014 LIPID PANEL CPT-4: 41434 01/05/2014 CEFTRIAXONE SODIUM INJECTION CPT-4: J0696 07/23/2012 THER/PROPH/DIAG INJ SC/IM CPT-4: 42814 07/23/2012 Vital Signs Date Vital 03/25/2019 Blood Pressure 1: 104/62 Code: 8480-6 Heart Rate 1: 72 bpm Respiratory Rate: 18 bpm SpO2: 97% Temperature: 36.9 (C) / 98.5 (F) We ight: 134 lbs 07/24/2018 Blood Pressure 1: 122/80 Code: 8480-6 BMI: 21.3 Code: 50750-8 Heart Rate 1: 76 bpm Height: 5'7" Respiratory Rate: 20 bpm Temperature: 36 .9 (C) / 98.4 (F) Weight: 136 lbs 06/21/2018 Blood Pressure 1: 100/78 Code: 8480-6 Heart Rate 1: 82 bpm Respiratory Rate: 18 bpm SpO2: 100% Temperature: 36.7 (C) / 98.0 (F) We ight: 130 lbs 07/05/2017 Blood Pressure 1: 94/58 Code: 8480-6 BMI: 20.4 C ode: 09464-4 Heart Rate 1: 72 bpm Height: 5'7" SpO2: 96% Temperature: 37.2 (C) / 99.0 (F) Weight: 130 lbs 05/15/2017 Blood Pressure 1: 104/64 Code: 8480-6 BMI: 20.8 Code: 33975-2 Heart Rate 1: 80 bpm Height: 5'7" Respiratory Rate: 20 bpm Temperature: 36 .7 (C) / 98.1 (F) Weight: 133 lbs 04/27/2016 Blood Pressure 1: 112/70 Code: 8480-6 BMI: 20.8 Code: 40491-3 Heart Rate 1: 80 bpm Height: 5'7" Respiratory Rate: 20 bpm Temperature: 37 .2 (C) / 99.0 (F) Weight: 133 lbs 03/17/2016 Blood Pressure 1: 122/76 Code: 8480-6 art Rate 1: 80 bpm 07/13/2015 Blood Pressure 1: 98/60 Code: 8480-6 BMI: 20.5 C ode: 85599-7 Heart Rate 1: 76 bpm Height: 5'7" Respiratory Rate: 20 bpm Temperature: 36 .9 (C) / 98.4 (F) Weight: 131 lbs 10/30/2014 Blood Pressure 1: 124/80 Code: 8480-6 BMI: 19.4 Code: 64364-0 Heart Rate 1: 94 bpm Height: 5'7" Respiratory Rate: 24 bpm SpO2: 98% Tempera ture: 36.6 (C) / 97.8 (F) Weight: 124 lbs 01/05/2014 Blood Pressure 1: 98/68 Code: 8480-6 BMI: 19.3 C ode: 39077-4 Heart Rate 1: 76 bpm Height: 5'7" Respiratory Rate: 20 bpm Temperature: 36 .8 (C) / 98.2 (F) Weight: 123 lbs 11/26/2013 Blood Pressure 1: 104/64 Code: 8480-6 BMI: 20.4 Code: 57622-9 Heart Rate 1: 84 bpm Height: 5'7" Respiratory Rate: 18 bpm Temperature: 36 .7 (C) / 98.0 (F) Weight: 130 lbs 06/10/2013 Blood Pressure 1: 132/90 Code: 8480-6 BMI: 19.4 Code: 16142-9 Heart Rate 1: 80 bpm Height: 5'7" Respiratory Rate: 20 bpm Temperature: 36 .6 (C) / 97.8 (F) Weight: 124 lbs 02/19/2013 Blood Pressure 1: 114/80 Code: 8480-6 BMI: 19.7 Code: 71013-3 Heart Rate 1: 84 bpm Height: 5'7" Respiratory Rate: 20 bpm Temperature: 36 .9 (C) / 98.5 (F) Weight: 126 lbs 07/23/2012 Blood Pressure 1: 106/64 Code: 8480-6 BMI: 20.8 Code: 41387-3 Heart Rate 1: 60 bpm Height: 5'7" Temperature: 37.8 (C) / 100.0 (F) Weight : 133 lbs 07/17/2012 Blood Pressure 1: 162/110 Code: 8480-6 BMI: 21.0 Code: 15161-1 Heart Rate 1: 92 bpm Height: 5'7" Respiratory Rate: 20 bpm Temperature: 36 .8 (C) / 98.2 (F) Weight: 134 lbs 10/30/2011 Blood Pressure 1: 138/80 Code: 8480-6 BMI: 21.0 Code: 06788-6 Heart Rate 1: 84 bpm Height: 5'7" Temperature: 37.1 (C) / 98.7 (F) Weight: 134 lbs 08/03/2011 Blood Pressure 1: 114/72 Code: 8480-6 BMI: 21.0 Code: 75822-9 Heart Rate 1: 64 bpm Height: 5'7" [...] Visit Encounters Encounter Performer Location Codes Date ([id number]) OFFICE/OUTPATIENT VISIT EST Diagnosis: Hallux valgus (acquired), right foot[ICD10: M20.11] Diagnosis: Encounter for other preprocedural examination[ICD10: Z01.818] Shaye ALVARADO [employer] CPT-4: 76951 03/25/2019 ([id number]) OFFICE/OUTPATIENT VISIT EST Diagnosis: Radial styloid tenosynovitis [de Quervain][ICD10: M65.4] Shaye ALVARADO [employer] CPT-4: 47978 07/24/2018 ([id number]) OFFICE/OUTPATIENT VISIT EST Diagnosis: Other fatigue[ICD10: R53.83] Diagnosis: Anemia, unspecified[ICD10: D64.9] Mara Wale ALVARADO [employer] CPT-4: 15959 06/21/2018 ([id number]) PREV VISIT EST AGE 40-64 Diagnosis: Mild intermittent asthma with (acute) exacerbation[ICD10: J45.21] Diagnosis: Encounter for general adult medical examination without abnormal findings[ICD10: Z00.00] Diagnosis: Encounter for gynecological examination (general) (routine) without abnormal findings[ICD10: Z01.419] Shaye BRIGGS [employer] CPT-4: 18365 07/05/2017 ([id number]) OFFICE/OUTPATIENT VISIT EST Diagnosis: Essential (primary) hypertension[ICD10: I10] Diagnosis: Other cervical disc degeneration, unspecified cervical region[ICD10: M50.30] Diagnosis: Tension-type headache, unspecified, not intractable[ICD10: G44.209] Shaye ALVARADO DO [facility] CPT-4: 89396 05/15/2017 ([id number]) OFFICE/OUTPATIENT VISIT EST Diagnosis: Lateral epicondylitis, right elbow[ICD10: M77.11] Shaye ALVARADO DO [facility] CPT-4: 86162 04/27/2016 ([id number]) OFFICE/OUTPATIENT VISIT EST Diagnosis: Hematuria, unspecified[ICD10: R31.9] Shaye ALVARADO DO [facility] CPT-4: 76166 08/04/2015 ([id number]) PREV VISIT EST AGE 40-64 Diagnosis: Encounter for general adult medical examination without abnormal findings[ICD10: Z00.00] Diagnosis: Essential (primary) hypertension[ICD10: I10] Diagnosis: Other cervical disc degeneration, unspecified cervical region[ICD10: M50.30] 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] Shaye ALVARADO DO [facility] CPT-4: 18927 07/13/2015 ([id number]) OFFICE/OUTPATIENT VISIT EST Diagnosis: COUGH[ICD9: 786.2] Sarika ALVARADO DO [facility] CPT-4: 37999 10/30/2014 ([id number]) PREV VISIT EST AGE 40-64 Diagnosis: ROUTINE MEDICAL EXAM[ICD9: V70.0] Diagnosis: HYPERTENSION[ICD9: 401.9] Diagnosis: Seizure[ICD9: 780.39] Shaye ALVARADO DO [facility] CPT-4: 47020 01/05/2014 OFFICE/OUTPATIENT VISIT EST Diagnosis: URI, ACUTE[ICD9: 465.9] Sarika MCDONALD DO [facility] CPT-4: 01924 11/26/2013 ([id number]) OFFICE/OUTPATIENT VISIT EST Diagnosis: HYPERTENSION[ICD9: 401.9] Diagnosis: SINUSITIS, ACUTE[ICD9: 461.9] Diagnosis: CONVULSIONS[ICD9: 780.39] Shaye MANCINI [facility] CPT-4: 34954 06/10/2013 OFFICE/OUTPATIENT VISIT EST Diagnosis: Pyelonephritis[ICD9: 590.80] Diagnosis: HYPERTENSION[ICD9: 401.9] Shaye MANCINI [facility] CPT-4: 20714 02/19/2013 OFFICE/OUTPATIENT VISIT EST Diagnosis: OTITIS MEDIA NOS[ICD9: 382.9] Diagnosis: COUGH[ICD9: 786.2] Diagnosis: SINUSITIS, ACUTE[ICD9: 461.9] Shaye ALVARADO [facility] CPT-4: 78655 07/23/2012 ([id number]) OFFICE/OUTPATIENT VISIT EST Diagnosis: HYPERTENSION[ICD9: 401.9] Diagnosis: CONVULSIONS[ICD9: 780.39] Shaye MANCINI [facility] CPT-4: 46328 07/17/2012 OFFICE/OUTPATIENT VISIT EST Diagnosis: COUGH[ICD9: 786.2] Diagnosis: PHARYNGITIS, ACUTE[ICD9: 462] Shayekaylah BLEDSOELINE MiguelWnag [facility] CPT-4: 17813 10/30/2011 OFFICE/OUTPATIENT VISIT NEW Diagnosis: CERVICAL DISC DEGEN[ICD9: 722.4] Diagnosis: Neck pain[ICD9: 723.1] Diagnosis: Radiculopathy of arm[ICD9: 723.4] Diagnosis: Seizure[ICD9: 780.39] Shaye Christiano ALVARADO DO [facility] CPT-4: 57382 08/03/2011 Plan of Care Planned Activity Notes Codes Status Date Visit Diagnosis Plan: Hallux valgus (acquired), right foot Discussion: Update lab for upcoming surgery Okay to proceed with planned surgery by Dr. Nuñez ICD-9 : 735.0 ICD-10 : M20.11 03/25/2019 Appointment: Shaye Alvarado tel: [phone] FOLLOW UP 03/25/2019 Visit Diagnosis Plan: Radial styloid tenosynovitis [de Quervain] Discussion: Spica thumb wrist splint Medrol Dose Pack followed by deuce Notify if worsens or persists ICD-9 : 727.04 ICD-10 : M65.4 07/24/2018 Appointment: Shaye Alvarado WPtel: [facility] [address] ACUTE ILLNESS 07/24/2018 Patient Education: Medrol (Francisco)- Optimize[employer] Coupon [phone] [email or web address] Completed 07/24/2018 Visit Diagnosis Plan: Other fatigue Discussion: urine test neg. when urine was tested, noted dark, cloudy urine and dipstick was obtained. showed protein and blood in urine so will send off for urine culture. multiple labs or dered to be completed at [facility]. cbc, cmp, tsh, t4, tt3, b12, iron, ferritin obtained. will review labs and culture and order additional meds/labs as needed. ICD-9 : 780.79 ICD-10 : R53.83 06/21/2018 Appointment: Mara Echevarria [address] [place] [address] ACUTE ILLNESS 06/21/2018 Appointment: Shaye Alvarado WPtel: [address] [place] [address] Scheduled in ERROR 06/10/2018 Visit Diagnosis Plan: [...] : J45.21 07/05/2017 Appointment: Shaye Alvarado WPtel: [address] [place], [place] [phone] PAP 07/05/2017 Patient Education: Patient Medication Summary [...] : I10 05/15/2017 Appointment: Shaye Alvarado WPtel: [address] [place], [place] [phone] ACUTE ILLNESS 05/15/2017 Patient Education: Patient Medication Summary Completed 05/15/2017 Referral: Armin Arzate WPtel: [facility] [address] Referral Appointment Confirmed 05/10/2016 Visit Plan: Medrol Dose Pack then start mobic Continue brace See Dr. Arzate Discussed iontophoresis May need surgery as has tried all conservative measures at this point 04/27/2016 Appointment: Shaye Alvarado WPtel: [address] [place], [place] [phone] 04/26 lm~sl...confirmed-sp FOLLOW UP 04/27 Patient Education: Patient Medication Summary Completed 04/27/2016 Care Plan: Referral Order SNOMED-CT : [phone] [id number] Pending 04/27/2016 Visit Plan: Injection as above Tennis el bow strap Vivlodex 10mg daily Notify if worsens or persists 03/17/2016 Appointment: Shaye Alvarado WPtel: [address] [place], [place] [phone] OFFICE SURGERY 03/17/2016 Patient Education: Patient Medication Summary Completed 03/17/2016 Appointment: Yolis Membreno [address] [place], [place] [phone] 12/19- patient misunderstood why appointment was scheduled. CANCELED 12/21/2015 Appointment: Shaye Alvarado WPtel: [address] [place], [place] [phone] ACUTE ILLNESS 12/20/2015 Patient Education: Patient Medication Summary Completed 12/20/2015 Appointment: Shaye Alvarado WPtel: [address] [place], [place] [phone] UA 08/04/2015 Patient Education: Patient Medication Summary Completed 08/04/2015 Visit Plan: Updated MRI of cervical spin e Decrease lisinopril to 2.5mg daily Update lab Add cyclobenzaprine at 10mg q HS 07/13/2015 Appointment: Shaye Avlarado WPtel: [address] [place], [place] [phone] 07/12/15 appt confirmed cn Annual Well Visit Patient Education: Patient Medication Summary Completed 07/13/2015 Patient Education: [facility] - [employer]aving [employer] - Lisinopril - 18-64 - Dynamic Portal ID Completed 07/13/2015 Patient Education: Neck Pain Completed 07/13/2015 Appointment: Sarika Diallo WPtel: [address] [place], [place] [phone] ACUTE ILLNESS 10/30/2014 Patient Education: Patient Medication Summary Completed 10/30/2014 Visit Plan: Fasting lab drawn including tegretol level Decrease lisinopril to 5mg daily and observe BP 01/05/2014 Appointment: Shaye Alvarado WPtel: [address] [place], [place] [phone] 01/02 Annual Well Visit 01/05/2014 Patient Education: Patient Medication Summary Completed 01/05/2014 Appointment: Sarika Diallo WPtel: [address] [place] [address] ACUTE ILLNESS 11/26/2013 Patient Education: Patient Medication Summary Completed 11/26/2013 Visit Plan: Saline nasal flushes prn. Ty lenol/Motrin prn headache. Notify if persists/symptoms worsening. Decrease Lisinopril to 10mg daily 06/10/2013 Appointment: Shaye Alvarado WPtel: [address] [place] [address] 06/09 FOLLOW UP 06/10/2013 Patient Education: Patient Medication Summary Completed 06/10/2013 Visit Plan: Finish abx and observe Stay off lisinopril and observe 02/19/2013 Appointment: Shaye Alvarado WPtel: [address] [place] [address] Follow Up 02/19/2013 Patient Education: Patient Medication Summary Completed 02/19/2013 Visit Plan: rocephin IM and Cefdinir. Wi ll notify if no improvement. Tylenol #3 #20 dispensed. Pt. has made contact with Dr. Frias's office and has follow up appnt. Pt. will notify if fever continues into tomorrow. 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 Discussed that could be walking pneumonia. Encouraged fluids and rest. Pt. will notify if symptoms persist or worsen. Note for work. 2-3 days. 10/30/2011 Appointment: Penelope Golden WPtel: [address] [place] [address] ACUTE ILLNESS 10/30/2011 Patient Education: Patient Medication Summary Completed 10/30/2011 Visit Plan: Proceed with Cervical Spine MRI Percocet 5/500 1 po q HS prn pain--#30 Tramadol 50mg 1-2 po BID prn pain--#60 See Ortho for surgical opinion 08/03/2011 Appointment: Shaye Alvarado WPtel: [address] [id number] NEW PATIENT 08/03/2011 Patient Education: Patient Medication Summary Completed 08/03/2011 Referral: Armin Arzate WPtel: [facility] [address] [place] [address], [address] Referral Appointment Requested Instructions Comment . Medrol [...]
--- OUTSIDE RECORDS SUMMARY | 2020-01-09 09:35 | XMS REPORT | CCD ---
Author Author Chiquita Alvarado D.O. Organization SHAYE ALVARADO DO [facility] Address [address] [place] [address] Phone Care Team Providers Care Bolt Labeler Name Role Phone Shaye Alvarado D.O., PP Unavailable CCM Unavailable Summary Purpose Interface Exchange Insurance Providers Payer name Policy type / Coverage type Covered republican ID Effective Begin Date Effective End Date Blue Cross Blue Shield Blue Cross/Blue Shield [id number] Unknown Family history Father Diagnosis Age At Onset No Family Disease Entered N/A Mother Diagnosis Age At Onset No Family Disease Entered N/A Side Diagnosis Age At Onset No Family Disease Entered N/A Social History Social History Element Codes Description Effective Dates Marital status Unknown 08/03/2011 Number of children Unknown 2 08/03/2011 Employment Unknown Currently employed [employer] 08/03/[address]: 369253483 Never smoker 08/03/[address]: 005105 Currently drinks alc ohol socially 08/03/2011 Allergies, [...] Fill Instructions Tegretol 200 mg tablet RxNorm: 344283 TAKE ONE TABLET BY MOUTH MARGARITO Y 12/15/2019 No Stop Date Active Cymbalta 60 mg capsule,delayed release RxNorm: 619930 T FABIO ONE CAPSULE BY MOUTH DAILY 12/15/2019 No Stop Date Active lisinopril 2.5 mg tablet RxNorm: 141681 TAKE ONE TABLET BY MOUT H DAILY 12/10/2019 No Stop Date Active Maxalt 10 mg tablet RxNorm: 945887 TAKE ONE TABLET BY M OUTH AT ONSET OF HEADACHE, MAY REPEAT ONE TABLET IN 2 HOURS IF NEEDED 11/13/2019 No Stop Date Active Cymbalta 60 mg capsule,delayed release RxNorm: 549671 T FABIO ONE CAPSULE BY MOUTH DAILY 08/28/2019 12/14/2019 Inactive lisinopril 2.5 mg tablet RxNorm: 304659 1 Tablet(s) Oral QD 020 11/20/2019 Inactive Tegretol 200 mg tablet RxNorm: 483100 1 Tablet(s) Oral QD 08/22/2019 11/20/2019 Inactive Maxalt 10 mg tablet RxNorm: 380848 TAKE ONE TABLET BY M OUTH AT ONSET OF HEADACHE, MAY REPEAT ONE TABLET IN 2 HOURS IF NEEDED 08/06/2019 020 Inactive Tegretol 200 mg tablet RxNorm: 918184 TAKE ONE TABLET BY MOUTH MARGARITO Y 05/26/2019 08/21/2019 Inactive Maxalt 10 mg tablet RxNorm: 745173 1 Tablet(s) PO AT ON SET OF HEADACHE; MAY REPEAT ONE TABLET IN 2 HOURS IF NEEDED. 03/25/2019 05/23/2019 Inactive Tegretol 200 mg tablet RxNorm: 480756 TAKE ONE TABLET BY MOUTH MARGARITO Y 02/06/2019 05/06/2019 Inactive Cymbalta 60 mg capsule,delayed release RxNorm: 915394 T FABIO ONE CAPSULE BY MOUTH DAILY 02/06/2019 04/06/2019 Inactive lisinopril 2.5 mg tablet RxNorm: 780078 TAKE ONE TABLET BY MOUT H DAILY 01/27/2019 08/21/2019 Inactive Maxalt 10 mg tablet RxNorm: 358431 1 Tablet(s) PO AT ON SET OF HEADACHE; MAY REPEAT ONE TABLET IN 2 HOURS IF NEEDED. 11/22/2018 01/20/2019 Inactive Maxalt 10 mg tablet RxNorm: 512548 TAKE ONE TABLET BY M OUTH AT ONSET OF HEADACHE; MAY REPEAT ONE TABLET IN 2 HOURS IF NEEDED. 11/19/20182018 Inactive lisinopril 2.5 mg tablet RxNorm: 719280 TAKE ONE TABLET BY MOUT H DAILY 10/14/2018 01/11/2019 Inactive Maxalt 10 mg tablet RxNorm: 546340 TAKE ONE TABLET BY M OUTH AT ONSET OF HEADACHE; MAY REPEAT ONE TABLET IN 2 HOURS IF NEEDED. 09/20/20182018 Inactive Medrol (Francisco) 4 mg tablets in a dose pack RxNorm: 813501 6 Tablet(s) PO QD --then as directed 07/24/2018 07/29/2018 Inactive Mobic 15 mg tablet RxNorm: 314055 1 Tablet(s) PO QD 07/24/20182018 Inactive Tegretol 200 mg tablet RxNorm: 911221 TAKE ONE TABLET BY MOUTH MARGARITO Y 07/03/2018 12/29/2018 Inactive Maxalt 10 mg tablet RxNorm: 038320 TAKE ONE TABLET BY M OUTH AT ONSET OF HEADACHE; MAY REPEAT ONE TABLET IN 2 HOURS IF NEEDED. 07/03/20182018 Inactive Bactrim DS 800 mg-160 mg tablet RxNorm: 356423 1 Tablet(s) PO BID 1 08/25/2017 06/23/2018 Inactive Bactrim DS 800 mg-160 mg tablet RxNorm: 730199 1 Tablet(s) PO BID 1 08/25/2017 06/30/2018 Inactive Maxalt 10 mg tablet RxNorm: 903555 TAKE ONE TABLET BY M OUTH AT ONSET OF HEADACHE; MAY REPEAT ONE TABLET IN 2 HOURS IF NEEDED. 05/09/20182017 Inactive Cymbalta 60 mg capsule,delayed release RxNorm: 098303 T FABIO ONE CAPSULE BY MOUTH DAILY 04/09/2018 07/07/2018 Inactive lisinopril 2.5 mg tablet RxNorm: 644420 Tablet(s) TAKE ONE TABLET BY MOUTH DAILY 03/25/2018 09/20/2018 Inactive Maxalt 10 mg tablet RxNorm: 222966 TAKE ONE TABLET BY M OUTH AT ONSET OF HEADACHE; MAY REPEAT ONE TABLET IN 2 HOURS IF NEEDED. 02/26/20182017 Inactive Tegretol 200 mg tablet RxNorm: 258950 TAKE ONE TABLET BY MOUTH MARGARITO Y 12/04/2017 06/01/2018 Inactive Maxalt 10 mg tablet RxNorm: 998448 1 Tablet(s) PO AT ON SET OF HEADACHE. MAY REPEAT IN 2 HOURS 11/12/2017 12/01/2017 Inactive lisinopril 2.5 mg tablet RxNorm: 276761 TAKE ONE TABLET BY MOUT H DAILY 08/28/2017 03/25/2018 Inactive Tegretol 200 mg tablet RxNorm: 361276 TAKE ONE TABLET BY MOUTH MARGARITO Y 08/28/2017 11/25/2017 Inactive Maxalt 10 mg tablet RxNorm: 186836 1 Tablet(s) PO AT ON SET OF HEADACHE. MAY REPEAT IN 2 HOURS 07/05/2017 11/12/2017 Inactive cyclobenzaprine 10 mg tablet RxNorm: 310646 1 Tablet(s) PO QHS as needed for muscle spasm 05/15/2017 No Stop Date Active diclofenac sodium 75 mg tablet,delayed release RxNorm: 95775 6 1 Tablet(s) PO BID as needed for neck pain 05/15/2017 07/13/2017 Inactive Cymbalta 60 mg capsule,delayed release RxNorm: 521994 C apsule(s) TAKE ONE CAPSULE BY MOUTH DAILY 05/07/2017 08/04/2017 Inactive Maxalt 10 mg tablet RxNorm: 428009 1 Tablet(s) PO AT ON SET OF HEADACHE. MAY REPEAT IN 2 HOURS 04/30/2017 05/09/2017 Inactive Maxalt 10 mg tablet RxNorm: 535767 1 Tablet(s) PO AT ON SET OF HEADACHE. MAY REPEAT IN 2 HOURS 02/22/2017 04/30/2017 Inactive Tegretol 200 mg tablet RxNorm: 153765 Tablet(s) TAKE ONE TABLET BY MOUTH DAILY 01/11/2017 07/09/2017 Inactive Maxalt 10 mg tablet RxNorm: 595885 1 Tablet(s) PO AT ON SET OF HEADACHE. MAY REPEAT IN 2 HOURS 01/11/2017 02/22/2017 Inactive Maxalt 10 mg tablet RxNorm: 033253 1 Tablet(s) PO AT ON SET OF HEADACHE. MAY REPEAT IN 2 HOURS 11/30/2016 01/11/2017 Inactive Maxalt 10 mg tablet RxNorm: 722591 TAKE ONE TABLET BY M OUTH AT ONSET OF HEADACHE. MAY REPEAT IN 2 HOURS 07/26/2016 11/30/2016 Inactive lisinopril 2.5 mg tablet RxNorm: 085213 TAKE ONE TABLET BY MOUT H DAILY 07/24/2016 07/23/2016 Inactive lisinopril 2.5 mg tablet RxNorm: 708871 TAKE ONE TABLET BY MOUT H DAILY 07/24/2016 01/19/2017 Inactive Maxalt 10 mg tablet RxNorm: 073685 TAKE ONE TABLET BY M OUTH AT ONSET OF HEADACHE. MAY REPEAT IN 2 HOURS 06/05/2016 06/14/2016 Inactive Tegretol 200 mg tablet RxNorm: 880518 TAKE ONE TABLET BY MOUTH MARGARITO Y 06/05/2016 01/11/2017 Inactive Cymbalta 60 mg capsule,delayed release RxNorm: 722957 T FABIO ONE CAPSULE BY MOUTH DAILY 05/17/2016 05/07/2017 Inactive Medrol (Francisco) 4 mg tablets in a dose pack RxNorm: 167201 6 Tablet(s) PO QD --then as directed 04/27/2016 05/02/2016 Inactive Mobic 15 mg tablet RxNorm: 893467 1 Tablet(s) PO QD for pain 201505/26/2016 Inactive Maxalt 10 mg tablet RxNorm: 992546 TAKE ONE TABLET BY M OUTH AT ONSET OF HEADACHE. MAY REPEAT IN 2 HOURS 02/28/2016 03/25/2016 Inactive Tegretol 200 mg tablet RxNorm: 271223 TAKE ONE TABLET BY MOUTH MARGARITO Y 02/14/2016 05/13/2016 Inactive Maxalt 10 mg tablet RxNorm: 319248 TAKE ONE TABLET BY M OUTH AT ONSET OF HEADACHE. MAY REPEAT IN 2 HOURS 01/10/2016 01/27/2016 Inactive lisinopril 2.5 mg tablet RxNorm: 716588 TAKE ONE TABLET BY MOUT H DAILY 01/03/2016 06/30/2016 Inactive Macrobid 100 mg capsule RxNorm: 339234 1 Capsule(s) PO BID 12/23/19 16 12/29/2015 Inactive Macrobid 100 mg capsule RxNorm: 844245 1 Capsule(s) PO BID 12/23/19 16 12/22/2015 Inactive Bactrim DS 800 mg-160 mg tablet RxNorm: 908852 1 Tablet(s) PO BID 0 12/21/2015 12/27/2015 Inactive Bactrim DS 800 mg-160 mg tablet RxNorm: 809400 1 Tablet(s) PO BID 0 12/21/2015 12/20/2015 Inactive Tegretol 200 mg tablet RxNorm: 139480 1 Tablet(s) PO QD TAKE ONE TABLET BY MOUTH DAILY 10/18/2015 01/15/2016 Inactive Maxalt 10 mg tablet RxNorm: 502605 Tablet(s) TAKE ONE T ABLET BY MOUTH AT ONSET OF HEADACHE. MAY REPEAT IN 2 HOURS. 10/11/2015 10/25/2015 Inactive Bactrim DS 800 mg-160 mg tablet RxNorm: 503430 1 Tablet(s) PO BID 0 08/05/2015 08/04/2015 Inactive Bactrim DS 800 mg-160 mg tablet RxNorm: 905891 1 Tablet(s) PO BID 0 08/05/2015 08/11/2015 Inactive cyclobenzaprine 10 mg tablet RxNorm: 545665 1 Tablet(s) PO QHS as needed for muscle spasm 07/13/2015 09/10/2015 Inactive lisinopril 2.5 mg tablet RxNorm: 246475 1 Tablet(s) PO QD 07/13/2015 01/02/2016 Inactive Tegretol 200 mg tablet RxNorm: 338541 1 Tablet(s) PO QD 07/05/2015 Inactive Maxalt 10 mg tablet RxNorm: 925120 Tablet(s) TAKE ONE T ABLET BY MOUTH AT ONSET OF HEADACHE. MAY REPEAT IN 2 HOURS. 06/23/2015 10/11/2015 Inactive Cymbalta 60 mg capsule,delayed release RxNorm: 094046 1 Capsule (s) PO QD 05/17/2015 05/10/2016 Inactive [AttnRPh: Saving jason ly/adjudicate RxGRP:SG20 RxBIN:[id number] RxPCN:HT ID#:[id number]] Maxalt 10 mg tablet RxNorm: 273453 Tablet(s) TAKE ONE T ABLET BY MOUTH AT ONSET OF HEADACHE. MAY REPEAT IN 2 HOURS. 04/01/2015 04/15/2015 Inactive Tegretol 200 mg tablet RxNorm: 914327 1 Tablet(s) PO QD 03/09/2015 Inactive lisinopril 10 mg tablet RxNorm: 157382 1 Tablet(s) PO QD 01/18/2015 1 09/12/2014 Inactive [AttnRPh: Saving apply/adjudicate RxGRP: SG20 RxBIN:[id number] RxPCN:HT ID#:[id number]] Tegretol 200 mg tablet RxNorm: 182144 1 Tablet(s) PO QD 12/03/2014 Inactive Maxalt 10 mg tablet RxNorm: 800954 TAKE ONE TABLET BY M OUTH AT ONSET OF HEADACHE. MAY REPEAT IN 2 HOURS. 11/18/2014 04/01/2015 Inactive benzonatate 100 mg capsule RxNorm: 760052 1 Capsule(s) PO TID a s needed 10/30/2014 07/12/2015 Inactive prednisone 20 mg tablet RxNorm: 015168 1 Tablet(s) PO BID 10/30/2014 11/03/2014 Inactive Maxalt 10 mg tablet RxNorm: 064693 as needed TAKE 1 TAB LET BY MOUTH AT ONSET OF HEADACHE AND MAY REPEAT IN 2 HOURS 09/02/2014 09/13/2014 Inactive Tegretol 200 mg tablet RxNorm: 656406 1 Tablet(s) PO QD 08/17/2014 Inactive Cymbalta 60 mg capsule,delayed release RxNorm: 144790 1 Capsule (s) PO QD 06/29/2014 05/17/2015 Inactive [AttnRPh: Saving jason ly/adjudicate RxGRP:SG20 RxBIN:[id number] RxPCN:HT ID#:[id number]] lisinopril 10 mg tablet RxNorm: 863575 1 Tablet(s) PO QD 06/10/2014 0 12/06/2014 Inactive [AttnRPh: Saving apply/adjudicate RxGRP: SG20 RxBIN:[id number] RxPCN:HT ID#:[id number]] Maxalt 10 mg tablet RxNorm: 777665 TAKE ONE TABLET BY M OUTH AT HEADACHE ONSET AND MAY REPEAT IN 2 HOURS IF HEADACHE REMAINS 04/20/2014 09/02/2014 In active albuterol sulfate HFA 90 mcg/actuation aerosol inhaler RxNor m: 3848529 2 Puff(s) INH Q4H 11/26/2013 No Stop Date Active doxycycline hyclate 100 mg tablet RxNorm: 893062 1 Tablet(s) PO BID 11/26/2013 12/05/2013 Inactive Maxalt 10 mg tablet RxNorm: 540580 Tablet(s) PO Take 1 at headache onset and may repeat in 2 hours if headache remains 11/21/2013 04/19/2014 Inactive [SAVINGS FOR UNINSURED PATIENTS -- BIN:[id number], PCN: [id number], Group: [id number], ID# [id number], Process claim through [employer], for questions: . THIS IS NOT INSURANCE.] Tegretol 200 mg tablet RxNorm: 534832 1 Tablet(s) PO QD 06/10/2013 Inactive lisinopril 10 mg tablet RxNorm: 295234 1 Tablet(s) PO QD 06/10/2013 1 08/10/2013 Inactive Cymbalta 60 mg capsule,delayed release RxNorm: 744605 1 Capsule (s) PO QD 06/10/2013 06/29/2014 Inactive lisinopril 20 mg tablet RxNorm: 924508 1 Tablet(s) PO QAM for BP 06/09/2013 Inactive lisinopril 20 mg tablet RxNorm: 352826 1 Tablet(s) PO QAM for BP 11/07/2012 Inactive cefdinir 300 mg capsule RxNorm: 653326 1 Capsule(s) PO BID 07/23/19 13 08/01/2012 Inactive lisinopril 20 mg tablet RxNorm: 589967 1 Tablet(s) PO QAM for BP 09/09/2012 Inactive doxycycline hyclate 100 mg Tab RxNorm: 024887 1 Tablet(s) PO BID 11/08/2011 Inactive Mirena 20 mcg/24 hr (5 years) intrauterine device RxNorm: 185041 IU No Start Date Active Seasonique 0.15 mg-30 mcg (84)/10 mcg(7) Tabs,3 month dose p ack RxNorm: 922077 1 Tablet(s) PO QD No Start Date 07/12/2015 Inactive Tegretol 200 mg tablet RxNorm: 716580 1 Tablet(s) PO QD No Start Da te 06/09/2013 Inactive lisinopril 20 mg tablet RxNorm: 324665 1 Tablet(s) PO QD No Start D ate 06/09/2013 Inactive Maxalt 10 mg tablet RxNorm: 460063 Tablet(s) PO Take 1 at headache onset and may repeat in 2 hours if headache remains No Start Date 11/20/2013 Inactive Cymbalta 60 mg capsule,delayed release RxNorm: 609929 1 Capsule (s) PO QD No Start Date 06/09/2013 Inactive Medrol (Francisco) 4 mg Tabs in a Dose Pack RxNorm: 090484 Tablet(s) PO as directed No Start Date 07/16/2012 Inactive Medication Administered No Medication Administered data Immunizations No Immunization data Results Observation Observation Code Item Item Code Result Date S ervice Location TEGRETOL 4655938 TEGRETOL 5.2 MG/L 01/07/2014 Unknown COMPREHENSIVE METABOLIC 94359 AST 16 U/L 2013 Unknown COMPREHENSIVE METABOLIC 15151 ALT 10 IU/L 2013 Unknown COMPREHENSIVE METABOLIC 36318 BUN 17 MG/DL 2013 Unknown COMPREHENSIVE METABOLIC 28187 ALBUMIN 4.3 GM/DL 2013 Unknown COMPREHENSIVE METABOLIC 09566 CHLORIDE 105 MMOL/L 01/05 Unknown COMPREHENSIVE METABOLIC 32968 BILI TOT 0.2 MG/DL 2013 Unknown COMPREHENSIVE METABOLIC 76614 ALK PHOS 37 U/L 2013 Unknown COMPREHENSIVE METABOLIC 18272 SODIUM 137 MMOL/L 01/05 Unknown COMPREHENSIVE METABOLIC 53191 CREATININE 0.86 MG/DL 12/15 Unknown COMPREHENSIVE METABOLIC 28645 CALCIUM 9.4 MG/DL 2013 Unknown COMPREHENSIVE METABOLIC 06023 POTASSIUM 5.0 MMOL/L 01/05 Unknown COMPREHENSIVE METABOLIC 29109 PROT TOT 6.3 GM/DL 2013 Unknown COMPREHENSIVE METABOLIC 00515 Glucose 104 MG/DL 2013 Unknown COMPREHENSIVE METABOLIC 83388 BICARB 27 MMOL/L 2013 Unknown COMPREHENSIVE METABOLIC 06218 ANION GAP 5 MEQ/L 2013 Unknown THYROID STIMULATING HORMONE 85534 TSH 0.822 uIU/ML 01/05/2014 Unknown GFR CALC 6537614 GFR AA >60 ML/MIN 01/05/2014 Unknown GFR CALC 1195371 GFR NON-AA >60 ML/MIN 01/05/2014 Unknown COMPLETE BLOOD COUNT 0654568 WBC 5.5 10e9/L 01/06/20 14 Unknown COMPLETE BLOOD COUNT [id number] RBC 4.17 10e12/L 2013 Unknown COMPLETE BLOOD COUNT 1195257 HGB 13.0 g/dL 4 Unknown COMPLETE BLOOD COUNT 8950952 HCT DET 39.0 % 4 Unknown COMPLETE BLOOD COUNT 2336692 MCV 93.5 fL 4 Unknown COMPLETE BLOOD COUNT 7147399 MCH 31.2 pg 4 Unknown COMPLETE BLOOD COUNT 7815028 MCHC 33.3 g/dL 4 Unknown COMPLETE BLOOD COUNT 8451880 PLT 294 10e9/L 01/06/20 14 Unknown COMPLETE BLOOD COUNT 7161847 MPV 11.4 fL 4 Unknown COMPLETE BLOOD COUNT 1616098 NIKKY % 59.4 % 4 Unknown COMPLETE BLOOD COUNT 0503031 LY % 27.7 % 4 Unknown COMPLETE BLOOD COUNT 2877181 MON % 10.3 % 4 Unknown COMPLETE BLOOD COUNT 6140774 EOS % 1.5 % 4 Unknown COMPLETE BLOOD COUNT 8412714 BASO % 1.1 % 4 Unknown COMPLETE BLOOD COUNT 4693399 RDW 12.7 % 4 Unknown COMPLETE BLOOD COUNT 1086672 ABS NIKKY 3.27 10e9/L 014 Unknown COMPLETE BLOOD COUNT 9876095 ABS LYMPH 1.52 10e9/L 014 Unknown COMPLETE BLOOD COUNT 7597138 ABS MONO 0.57 10e9/L 014 Unknown COMPLETE BLOOD COUNT 2489255 ABS EOS 0.08 10e9/L 014 Unknown COMPLETE BLOOD COUNT 2200662 ABS BASO 0.06 10e9/L 014 Unknown COMPLETE BLOOD COUNT 1482987 RDW-SD 42.1 fL 4 Unknown LIPID GROUP 99028 HDL TEST 60 MG/DL 01/05/2014 Unknown LIPID GROUP 48614 TRIG 63 MG/DL 01/05/2014 Unknown LIPID GROUP 15560 TEST LDL 83 MG/DL 01/05/2014 Unknown LIPID GROUP 86081 CHOL 156 MG/DL 01/05/2014 Unknown LIPID GROUP 01379 RCHOL/HDL 2.60 RATIO 01/05/2014 Unknow n FREE T4 68450 FREE T4 0.87 NG/DL 01/05/2014 Unknown Procedures Procedure Codes Date URINALYSIS NONAUTO W/O SCOPE CPT-4: 14958 06/21/2018 URINE TEST CPT-4: 59824 06/21/2018 URINE CULTURE/ COLONY COUNT CPT-4: 38444 06/21/2018 SPECIMEN HANDLING OFFICE-LAB CPT-4: 79081 07/05/2017 DRAIN/INJECT JOINT/BURSA CPT-4: 74482 03/17/2016 URINALYSIS NONAUTO W/O SCOPE CPT-4: 84430 12/20/2015 URINE CULTURE/ COLONY COUNT CPT-4: 61016 12/20/2015 URINALYSIS NONAUTO W/O SCOPE CPT-4: 08383 08/04/2015 URINE CULTURE/ COLONY COUNT CPT-4: 47990 08/04/2015 ROUTINE VENIPUNCTURE CPT-4: 55572 01/05/2014 ASSAY OF FREE THYROXINE CPT-4: 43838 01/05/2014 ASSAY THYROID STIM HORMONE CPT-4: 76491 01/05/2014 COMPREHEN METABOLIC PANEL CPT-4: 57623 01/05/2014 COMPLETE CBC W/AUTO DIFF WBC CPT-4: 79438 01/05/2014 LIPID PANEL CPT-4: 55374 01/05/2014 CEFTRIAXONE SODIUM INJECTION CPT-4: J0696 07/23/2012 THER/PROPH/DIAG INJ SC/IM CPT-4: 05517 07/23/2012 Vital Signs Date Vital 03/25/2019 Blood Pressure 1: 104/62 Code: 8480-6 Heart Rate 1: 72 bpm Respiratory Rate: 18 bpm SpO2: 97% Temperature: 36.9 (C) / 98.5 (F) We ight: 134 lbs 07/24/2018 Blood Pressure 1: 122/80 Code: 8480-6 BMI: 21.3 Code: 29598-5 Heart Rate 1: 76 bpm Height: 5'7" Respiratory Rate: 20 bpm Temperature: 36 .9 (C) / 98.4 (F) Weight: 136 lbs 06/21/2018 Blood Pressure 1: 100/78 Code: 8480-6 Heart Rate 1: 82 bpm Respiratory Rate: 18 bpm SpO2: 100% Temperature: 36.7 (C) / 98.0 (F) We ight: 130 lbs 07/05/2017 Blood Pressure 1: 94/58 Code: 8480-6 BMI: 20.4 C ode: 60781-3 Heart Rate 1: 72 bpm Height: 5'7" SpO2: 96% Temperature: 37.2 (C) / 99.0 (F) Weight: 130 lbs 05/15/2017 Blood Pressure 1: 104/64 Code: 8480-6 BMI: 20.8 Code: 07255-8 Heart Rate 1: 80 bpm Height: 5'7" Respiratory Rate: 20 bpm Temperature: 36 .7 (C) / 98.1 (F) Weight: 133 lbs 04/27/2016 Blood Pressure 1: 112/70 Code: 8480-6 BMI: 20.8 Code: 55549-3 Heart Rate 1: 80 bpm Height: 5'7" Respiratory Rate: 20 bpm Temperature: 37 .2 (C) / 99.0 (F) Weight: 133 lbs 03/17/2016 Blood Pressure 1: 122/76 Code: 8480-6 art Rate 1: 80 bpm 07/13/2015 Blood Pressure 1: 98/60 Code: 8480-6 BMI: 20.5 C ode: 09157-6 Heart Rate 1: 76 bpm Height: 5'7" Respiratory Rate: 20 bpm Temperature: 36 .9 (C) / 98.4 (F) Weight: 131 lbs 10/30/2014 Blood Pressure 1: 124/80 Code: 8480-6 BMI: 19.4 Code: 59875-6 Heart Rate 1: 94 bpm Height: 5'7" Respiratory Rate: 24 bpm SpO2: 98% Tempera ture: 36.6 (C) / 97.8 (F) Weight: 124 lbs 01/05/2014 Blood Pressure 1: 98/68 Code: 8480-6 BMI: 19.3 C ode: 11190-5 Heart Rate 1: 76 bpm Height: 5'7" Respiratory Rate: 20 bpm Temperature: 36 .8 (C) / 98.2 (F) Weight: 123 lbs 11/26/2013 Blood Pressure 1: 104/64 Code: 8480-6 BMI: 20.4 Code: 00994-5 Heart Rate 1: 84 bpm Height: 5'7" Respiratory Rate: 18 bpm Temperature: 36 .7 (C) / 98.0 (F) Weight: 130 lbs 06/10/2013 Blood Pressure 1: 132/90 Code: 8480-6 BMI: 19.4 Code: 45915-7 Heart Rate 1: 80 bpm Height: 5'7" Respiratory Rate: 20 bpm Temperature: 36 .6 (C) / 97.8 (F) Weight: 124 lbs 02/19/2013 Blood Pressure 1: 114/80 Code: 8480-6 BMI: 19.7 Code: 04908-2 Heart Rate 1: 84 bpm Height: 5'7" Respiratory Rate: 20 bpm Temperature: 36 .9 (C) / 98.5 (F) Weight: 126 lbs 07/23/2012 Blood Pressure 1: 106/64 Code: 8480-6 BMI: 20.8 Code: 04172-8 Heart Rate 1: 60 bpm Height: 5'7" Temperature: 37.8 (C) / 100.0 (F) Weight : 133 lbs 07/17/2012 Blood Pressure 1: 162/110 Code: 8480-6 BMI: 21.0 Code: 07742-6 Heart Rate 1: 92 bpm Height: 5'7" Respiratory Rate: 20 bpm Temperature: 36 .8 (C) / 98.2 (F) Weight: 134 lbs 10/30/2011 Blood Pressure 1: 138/80 Code: 8480-6 BMI: 21.0 Code: 39976-0 Heart Rate 1: 84 bpm Height: 5'7" Temperature: 37.1 (C) / 98.7 (F) Weight: 134 lbs 08/03/2011 Blood Pressure 1: 114/72 Code: 8480-6 BMI: 21.0 Code: 11845-2 Heart Rate 1: 64 bpm Height: 5'7" [...] Visit Encounters Encounter Performer Location Codes Date ([id number]) OFFICE/OUTPATIENT VISIT EST Diagnosis: Hallux valgus (acquired), right foot[ICD10: M20.11] Diagnosis: Encounter for other preprocedural examination[ICD10: Z01.818] Shaye ALVARADO [facility] CPT-4: 06326 03/25/2019 ([id number]) OFFICE/OUTPATIENT VISIT EST Diagnosis: Radial styloid tenosynovitis [de Quervain][ICD10: M65.4] Shaye ALVARADO [facility] CPT-4: 55875 07/24/2018 ([id number]) OFFICE/OUTPATIENT VISIT EST Diagnosis: Other fatigue[ICD10: R53.83] Diagnosis: Anemia, unspecified[ICD10: D64.9] Mara Wale ALVARADO [facility] CPT-4: 66449 06/21/2018 ([id number]) PREV VISIT EST AGE 40-64 Diagnosis: Mild intermittent asthma with (acute) exacerbation[ICD10: J45.21] Diagnosis: Encounter for general adult medical examination without abnormal findings[ICD10: Z00.00] Diagnosis: Encounter for gynecological examination (general) (routine) without abnormal findings[ICD10: Z01.419] Shaye BRIGGS [facility] CPT-4: 90840 07/05/2017 ([id number]) OFFICE/OUTPATIENT VISIT EST Diagnosis: Essential (primary) hypertension[ICD10: I10] Diagnosis: Other cervical disc degeneration, unspecified cervical region[ICD10: M50.30] Diagnosis: Tension-type headache, unspecified, not intractable[ICD10: G44.209] Shaye ALVARADO DO [facility] CPT-4: 99514 05/15/2017 ([id number]) OFFICE/OUTPATIENT VISIT EST Diagnosis: Lateral epicondylitis, right elbow[ICD10: M77.11] Shaye ALVARADO DO [facility] CPT-4: 24476 04/27/2016 ([id number]) OFFICE/OUTPATIENT VISIT EST Diagnosis: Hematuria, unspecified[ICD10: R31.9] Shaye ALVARADO DO [facility] CPT-4: 92263 08/04/2015 ([id number]) PREV VISIT EST AGE 40-64 Diagnosis: Encounter for general adult medical examination without abnormal findings[ICD10: Z00.00] Diagnosis: Essential (primary) hypertension[ICD10: I10] Diagnosis: Other cervical disc degeneration, unspecified cervical region[ICD10: M50.30] 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] Shaye ALVARADO DO [facility] CPT-4: 59105 07/13/2015 ([id number]) OFFICE/OUTPATIENT VISIT EST Diagnosis: COUGH[ICD9: 786.2] Sarika ALVARADO DO [facility] CPT-4: 99379 10/30/2014 ([id number]) PREV VISIT EST AGE 40-64 Diagnosis: ROUTINE MEDICAL EXAM[ICD9: V70.0] Diagnosis: HYPERTENSION[ICD9: 401.9] Diagnosis: Seizure[ICD9: 780.39] Shaye ALVARADO DO [facility] CPT-4: 15533 01/05/2014 OFFICE/OUTPATIENT VISIT EST Diagnosis: URI, ACUTE[ICD9: 465.9] Sarika MCDONALD DO [facility] CPT-4: 40223 11/26/2013 ([id number]) OFFICE/OUTPATIENT VISIT EST Diagnosis: HYPERTENSION[ICD9: 401.9] Diagnosis: SINUSITIS, ACUTE[ICD9: 461.9] Diagnosis: CONVULSIONS[ICD9: 780.39] Shaye [facility] CPT-4: 25804 06/10/2013 OFFICE/OUTPATIENT VISIT EST Diagnosis: Pyelonephritis[ICD9: 590.80] Diagnosis: HYPERTENSION[ICD9: 401.9] Shaye [facility] CPT-4: 86167 02/19/2013 OFFICE/OUTPATIENT VISIT EST Diagnosis: OTITIS MEDIA NOS[ICD9: 382.9] Diagnosis: COUGH[ICD9: 786.2] Diagnosis: SINUSITIS, ACUTE[ICD9: 461.9] Shaye ALVARADO [facility] CPT-4: 88286 07/23/2012 ([id number]) OFFICE/OUTPATIENT VISIT EST Diagnosis: HYPERTENSION[ICD9: 401.9] Diagnosis: CONVULSIONS[ICD9: 780.39] Shaye [facility] CPT-4: 65463 07/17/2012 OFFICE/OUTPATIENT VISIT EST Diagnosis: COUGH[ICD9: 786.2] Diagnosis: PHARYNGITIS, ACUTE[ICD9: 462] Shayekaylah BLEDSOELINE MiguelWang [facility] CPT-4: 97734 10/30/2011 OFFICE/OUTPATIENT VISIT NEW Diagnosis: CERVICAL DISC DEGEN[ICD9: 722.4] Diagnosis: Neck pain[ICD9: 723.1] Diagnosis: Radiculopathy of arm[ICD9: 723.4] Diagnosis: Seizure[ICD9: 780.39] Shaye Christiano ALVARADO DO [facility] CPT-4: 93384 08/03/2011 Plan of Care Planned Activity Notes Codes Status Date Visit Diagnosis Plan: Hallux valgus (acquired), right foot Discussion: Update lab for upcoming surgery Okay to proceed with planned surgery by Dr. Nuñez ICD-9 : 735.0 ICD-10 : M20.11 03/25/2019 Appointment: Shaye Alvarado tel: [phone] FOLLOW UP 03/25/2019 Visit Diagnosis Plan: Radial styloid tenosynovitis [de Quervain] Discussion: Spica thumb wrist splint Medrol Dose Pack followed by deuce Notify if worsens or persists ICD-9 : 727.04 ICD-10 : M65.4 07/24/2018 Appointment: Shaye Alvarado WPtel: [facility] ACUTE ILLNESS 07/24/2018 Patient Education: Medrol (Franc[place])- OptimizeRX Coupon [phone] [email or web address] Completed 07/24/2018 Visit Diagnosis Plan: Other fatigue Discussion: urine test neg. when urine was tested, noted dark, cloudy urine and dipstick was obtained. showed protein and blood in urine so will send off for urine culture. multiple labs or [place] [facility] [place] [facility] cbc, cmp, tsh, t4, tt3, b12, iron, ferritin obtained. will review labs and culture and order additional meds/labs as needed. ICD-9 : 780.79 ICD-10 : R53.83 06/21/2018 Appointment: Mara Echevarria [address] [place] [address] ACUTE ILLNESS 06/21/2018 Appointment: Shaye Alvarado WPtel: [address] [place] [address] Scheduled in ERROR 06/10/2018 Visit Diagnosis Plan: [...] : J45.21 07/05/2017 Appointment: Shaye Alvarado WPtel: [address] [place], [place] [phone] PAP 07/05/2017 Patient Education: Patient Medication Summary [...] : I10 05/15/2017 Appointment: Shaye Alvarado WPtel: [address] [place], [place] [phone] [place] ACUTE ILLNESS 05/15/2017 Patient Education: Patient Medication Summary Completed 05/15/2017 Referral: Armin Arzate WPtel: [facility] [address] Referral Appointment Confirmed 05/10/2016 Visit Plan: Medrol Dose Pack then start mobic Continue brace See Dr. Arzate Discussed iontophoresis May need surgery as has tried all conservative measures at this point 04/27/2016 Appointment: Shaye Alvarado WPtel: [address] [place], [place] [phone] 04/26 lm~sl...confirmed-sp FOLLOW UP 04/27 Patient Education: Patient Medication Summary Completed 04/27/2016 Care Plan: Referral Order SNOMED-CT : [id number] Pending 04/27/2016 Visit Plan: Injection as above Tennis el bow strap Vivlodex 10mg daily Notify if worsens or persists 03/17/2016 Appointment: Shaye Alvarado WPtel: [address] [place], [place] [phone] OFFICE SURGERY 03/17/2016 Patient Education: Patient Medication Summary Completed 03/17/2016 Appointment: Yolis Membreno [address] [place], [place] [phone] [place] 12/19- patient misunderstood why appointment was scheduled. CANCELED 12/21/2015 Appointment: Shaye Alvarado WPtel: [address] [place], [place] [phone] ACUTE ILLNESS 12/20/2015 Patient Education: Patient Medication Summary Completed 12/20/2015 Appointment: Shaye Alvarado WPtel: [address] [place], [place] [phone] UA 08/04/2015 Patient Education: Patient Medication Summary Completed 08/04/2015 Visit Plan: Updated MRI of cervical spin e Decrease lisinopril to 2.5mg daily Update lab Add cyclobenzaprine at 10mg q HS 07/13/2015 Appointment: Shaye Alvarado WPtel: [address] [place], [place] [phone] [place] 07/12/15 appt confirmed cn Annual Well Visit Patient Education: Patient Medication Summary Completed 07/13/2015 Patient Education: [facility] [employer] - Lisinopril - 18-64 - Dynamic Portal ID Completed 07/13/2015 Patient Education: Neck Pain Completed 07/13/2015 Appointment: Sarika Diallo WPtel: [address] [place], [place] [phone] [place] ACUTE ILLNESS 10/30/2014 Patient Education: Patient Medication Summary Completed 10/30/2014 Visit Plan: Fasting lab drawn including tegretol level Decrease lisinopril to 5mg daily and observe BP 01/05/2014 Appointment: Shaye Alvarado WPtel: [address] [place], [place] [phone] 01/02 Annual Well Visit 01/05/2014 Patient Education: Patient Medication Summary Completed 01/05/2014 Appointment: Sarika Diallo WPtel: [address] [place] [address] ACUTE ILLNESS 11/26/2013 Patient Education: Patient Medication Summary Completed 11/26/2013 Visit Plan: Saline nasal flushes prn. Ty lenol/Motrin prn headache. Notify if persists/symptoms worsening. Decrease Lisinopril to 10mg daily 06/10/2013 Appointment: Shaye Alvarado WPtel: [address] [place] [address] 06/09 FOLLOW UP 06/10/2013 Patient Education: Patient Medication Summary Completed 06/10/2013 Visit Plan: Finish abx and observe Stay off lisinopril and observe 02/19/2013 Appointment: Shaye Alvarado WPtel: [address] [place] [address] Follow Up 02/19/2013 Patient Education: Patient Medication Summary Completed 02/19/2013 Visit Plan: rocephin IM and Cefdinir. Wi ll notify if no improvement. Tylenol #3 #20 dispensed. Pt. has made contact with Dr. Frias's office and has follow up appnt. Pt. will notify if fever continues into tomorrow. 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 Discussed that could be walking pneumonia. Encouraged fluids and rest. Pt. will notify if symptoms persist or worsen. Note for work. 2-3 days. 10/30/2011 Appointment: Penelope Golden WPtel: [address] [place] [address] ACUTE ILLNESS 10/30/2011 Patient Education: Patient Medication Summary Completed 10/30/2011 Visit Plan: Proceed with Cervical Spine MRI Percocet 5/500 1 po q HS prn pain--#30 Tramadol 50mg 1-2 po BID prn pain--#60 See Ortho for surgical opinion 08/03/2011 Appointment: Shaye Alvarado WPtel: [phone] [id number] NEW PATIENT 08/03/2011 Patient Education: Patient Medication Summary Completed 08/03/2011 Referral: Armin Arzate WPtel: [facility] [address] [place] [address], [address] Referral Appointment Requested Instructions Comment . [...]
--- OUTSIDE RECORDS SUMMARY | 2020-01-09 09:35 | XMS REPORT | CCD ---
Author Author Chiquita Alvarado D.O. Organization SHAYE ALVARADO DO [facility] Address [address] [place] [address] Phone Care Team Providers Care Network Contractor Name Role Phone Shaye Alvarado D.O., PP Unavailable CCM Unavailable Summary Purpose Interface Exchange Insurance Providers Payer name Policy type / Coverage type Covered republican ID Effective Begin Date Effective End Date Blue Cross Blue Shield Blue Cross/Blue Shield [id number] Unknown Family history Father Diagnosis Age At Onset No Family Disease Entered N/A Mother Diagnosis Age At Onset No Family Disease Entered N/A Side Diagnosis Age At Onset No Family Disease Entered N/A Social History Social History Element Codes Description Effective Dates Marital status Unknown 08/03/2011 Number of children Unknown 2 08/03/2011 Employment Unknown Currently employed [employer] 08/03/[address]: 257615546 Never smoker 08/03/[address]: 133430 Currently drinks alc ohol socially 08/03/2011 Allergies, [...] Start Date Stop Date Status Fill Instructions lisinopril 2.5 mg tablet RxNorm: 554751 TAKE ONE TABLET BY MOUT H DAILY 12/10/2019 No Stop Date Active Maxalt 10 mg tablet RxNorm: 801825 TAKE ONE TABLET BY M OUTH AT ONSET OF HEADACHE, MAY REPEAT ONE TABLET IN 2 HOURS IF NEEDED 11/13/2019 No Stop Date Active Cymbalta 60 mg capsule,delayed release RxNorm: 226858 T FABIO ONE CAPSULE BY MOUTH DAILY 08/28/2019 No Stop Date Active Tegretol 200 mg tablet RxNorm: 031890 1 Tablet(s) Oral QD 08/22/2019 11/20/2019 Inactive lisinopril 2.5 mg tablet RxNorm: 505704 1 Tablet(s) Oral QD 020 11/20/2019 Inactive Maxalt 10 mg tablet RxNorm: 186103 TAKE ONE TABLET BY M OUTH AT ONSET OF HEADACHE, MAY REPEAT ONE TABLET IN 2 HOURS IF NEEDED 08/06/2019 020 Inactive Tegretol 200 mg tablet RxNorm: 009351 TAKE ONE TABLET BY MOUTH MARGARITO Y 05/26/2019 08/21/2019 Inactive Maxalt 10 mg tablet RxNorm: 139556 1 Tablet(s) PO AT ON SET OF HEADACHE; MAY REPEAT ONE TABLET IN 2 HOURS IF NEEDED. 03/25/2019 05/23/2019 Inactive Tegretol 200 mg tablet RxNorm: 940756 TAKE ONE TABLET BY MOUTH MARGARITO Y 02/06/2019 05/06/2019 Inactive Cymbalta 60 mg capsule,delayed release RxNorm: 786388 T FABIO ONE CAPSULE BY MOUTH DAILY 02/06/2019 04/06/2019 Inactive lisinopril 2.5 mg tablet RxNorm: 868615 TAKE ONE TABLET BY MOUT H DAILY 01/27/2019 08/21/2019 Inactive Maxalt 10 mg tablet RxNorm: 209313 1 Tablet(s) PO AT ON SET OF HEADACHE; MAY REPEAT ONE TABLET IN 2 HOURS IF NEEDED. 11/22/2018 01/20/2019 Inactive Maxalt 10 mg tablet RxNorm: 508372 TAKE ONE TABLET BY M OUTH AT ONSET OF HEADACHE; MAY REPEAT ONE TABLET IN 2 HOURS IF NEEDED. 11/19/20182018 Inactive lisinopril 2.5 mg tablet RxNorm: 337109 TAKE ONE TABLET BY MOUT H DAILY 10/14/2018 01/11/2019 Inactive Maxalt 10 mg tablet RxNorm: 375738 TAKE ONE TABLET BY M OUTH AT ONSET OF HEADACHE; MAY REPEAT ONE TABLET IN 2 HOURS IF NEEDED. 09/20/20182018 Inactive Medrol (Francisco) 4 mg tablets in a dose pack RxNorm: 656693 6 Tablet(s) PO QD --then as directed 07/24/2018 07/29/2018 Inactive Mobic 15 mg tablet RxNorm: 974112 1 Tablet(s) PO QD 07/24/20182018 Inactive Tegretol 200 mg tablet RxNorm: 917978 TAKE ONE TABLET BY MOUTH MARGARITO Y 07/03/2018 12/29/2018 Inactive Maxalt 10 mg tablet RxNorm: 898701 TAKE ONE TABLET BY M OUTH AT ONSET OF HEADACHE; MAY REPEAT ONE TABLET IN 2 HOURS IF NEEDED. 07/03/20182018 Inactive Bactrim DS 800 mg-160 mg tablet RxNorm: 456722 1 Tablet(s) PO BID 1 08/25/2017 06/23/2018 Inactive Bactrim DS 800 mg-160 mg tablet RxNorm: 312926 1 Tablet(s) PO BID 1 08/25/2017 06/30/2018 Inactive Maxalt 10 mg tablet RxNorm: 785343 TAKE ONE TABLET BY M OUTH AT ONSET OF HEADACHE; MAY REPEAT ONE TABLET IN 2 HOURS IF NEEDED. 05/09/20182017 Inactive Cymbalta 60 mg capsule,delayed release RxNorm: 993332 T FABIO ONE CAPSULE BY MOUTH DAILY 04/09/2018 07/07/2018 Inactive lisinopril 2.5 mg tablet RxNorm: 527565 Tablet(s) TAKE ONE TABLET BY MOUTH DAILY 03/25/2018 09/20/2018 Inactive Maxalt 10 mg tablet RxNorm: 802119 TAKE ONE TABLET BY M OUTH AT ONSET OF HEADACHE; MAY REPEAT ONE TABLET IN 2 HOURS IF NEEDED. 02/26/20182017 Inactive Tegretol 200 mg tablet RxNorm: 738181 TAKE ONE TABLET BY MOUTH MARGARITO Y 12/04/2017 06/01/2018 Inactive Maxalt 10 mg tablet RxNorm: 110427 1 Tablet(s) PO AT ON SET OF HEADACHE. MAY REPEAT IN 2 HOURS 11/12/2017 12/01/2017 Inactive lisinopril 2.5 mg tablet RxNorm: 572145 TAKE ONE TABLET BY MOUT H DAILY 08/28/2017 03/25/2018 Inactive Tegretol 200 mg tablet RxNorm: 892311 TAKE ONE TABLET BY MOUTH MARGARITO Y 08/28/2017 11/25/2017 Inactive Maxalt 10 mg tablet RxNorm: 563227 1 Tablet(s) PO AT ON SET OF HEADACHE. MAY REPEAT IN 2 HOURS 07/05/2017 11/12/2017 Inactive cyclobenzaprine 10 mg tablet RxNorm: 770361 1 Tablet(s) PO QHS as needed for muscle spasm 05/15/2017 No Stop Date Active diclofenac sodium 75 mg tablet,delayed release RxNorm: 12680 6 1 Tablet(s) PO BID as needed for neck pain 05/15/2017 07/13/2017 Inactive Cymbalta 60 mg capsule,delayed release RxNorm: 689059 C apsule(s) TAKE ONE CAPSULE BY MOUTH DAILY 05/07/2017 08/04/2017 Inactive Maxalt 10 mg tablet RxNorm: 805987 1 Tablet(s) PO AT ON SET OF HEADACHE. MAY REPEAT IN 2 HOURS 04/30/2017 05/09/2017 Inactive Maxalt 10 mg tablet RxNorm: 733308 1 Tablet(s) PO AT ON SET OF HEADACHE. MAY REPEAT IN 2 HOURS 02/22/2017 04/30/2017 Inactive Tegretol 200 mg tablet RxNorm: 975671 Tablet(s) TAKE ONE TABLET BY MOUTH DAILY 01/11/2017 07/09/2017 Inactive Maxalt 10 mg tablet RxNorm: 464047 1 Tablet(s) PO AT ON SET OF HEADACHE. MAY REPEAT IN 2 HOURS 01/11/2017 02/22/2017 Inactive Maxalt 10 mg tablet RxNorm: 122096 1 Tablet(s) PO AT ON SET OF HEADACHE. MAY REPEAT IN 2 HOURS 11/30/2016 01/11/2017 Inactive Maxalt 10 mg tablet RxNorm: 645100 TAKE ONE TABLET BY M OUTH AT ONSET OF HEADACHE. MAY REPEAT IN 2 HOURS 07/26/2016 11/30/2016 Inactive lisinopril 2.5 mg tablet RxNorm: 155911 TAKE ONE TABLET BY MOUT H DAILY 07/24/2016 07/23/2016 Inactive lisinopril 2.5 mg tablet RxNorm: 743575 TAKE ONE TABLET BY MOUT H DAILY 07/24/2016 01/19/2017 Inactive Maxalt 10 mg tablet RxNorm: 253822 TAKE ONE TABLET BY M OUTH AT ONSET OF HEADACHE. MAY REPEAT IN 2 HOURS 06/05/2016 06/14/2016 Inactive Tegretol 200 mg tablet RxNorm: 006260 TAKE ONE TABLET BY MOUTH MARGARITO Y 06/05/2016 01/11/2017 Inactive Cymbalta 60 mg capsule,delayed release RxNorm: 330856 T FABIO ONE CAPSULE BY MOUTH DAILY 05/17/2016 05/07/2017 Inactive Medrol (Francisco) 4 mg tablets in a dose pack RxNorm: 160268 6 Tablet(s) PO QD --then as directed 04/27/2016 05/02/2016 Inactive Mobic 15 mg tablet RxNorm: 842427 1 Tablet(s) PO QD for pain 201505/26/2016 Inactive Maxalt 10 mg tablet RxNorm: 373059 TAKE ONE TABLET BY M OUTH AT ONSET OF HEADACHE. MAY REPEAT IN 2 HOURS 02/28/2016 03/25/2016 Inactive Tegretol 200 mg tablet RxNorm: 603494 TAKE ONE TABLET BY MOUTH MARGARITO Y 02/14/2016 05/13/2016 Inactive Maxalt 10 mg tablet RxNorm: 430952 TAKE ONE TABLET BY M OUTH AT ONSET OF HEADACHE. MAY REPEAT IN 2 HOURS 01/10/2016 01/27/2016 Inactive lisinopril 2.5 mg tablet RxNorm: 678760 TAKE ONE TABLET BY MOUT H DAILY 01/03/2016 06/30/2016 Inactive Macrobid 100 mg capsule RxNorm: 319197 1 Capsule(s) PO BID 12/23/19 16 12/29/2015 Inactive Macrobid 100 mg capsule RxNorm: 494318 1 Capsule(s) PO BID 12/23/19 16 12/22/2015 Inactive Bactrim DS 800 mg-160 mg tablet RxNorm: 265001 1 Tablet(s) PO BID 0 12/21/2015 12/27/2015 Inactive Bactrim DS 800 mg-160 mg tablet RxNorm: 413955 1 Tablet(s) PO BID 0 12/21/2015 12/20/2015 Inactive Tegretol 200 mg tablet RxNorm: 154156 1 Tablet(s) PO QD TAKE ONE TABLET BY MOUTH DAILY 10/18/2015 01/15/2016 Inactive Maxalt 10 mg tablet RxNorm: 819278 Tablet(s) TAKE ONE T ABLET BY MOUTH AT ONSET OF HEADACHE. MAY REPEAT IN 2 HOURS. 10/11/2015 10/25/2015 Inactive Bactrim DS 800 mg-160 mg tablet RxNorm: 927485 1 Tablet(s) PO BID 0 08/05/2015 08/04/2015 Inactive Bactrim DS 800 mg-160 mg tablet RxNorm: 166714 1 Tablet(s) PO BID 0 08/05/2015 08/11/2015 Inactive cyclobenzaprine 10 mg tablet RxNorm: 113071 1 Tablet(s) PO QHS as needed for muscle spasm 07/13/2015 09/10/2015 Inactive lisinopril 2.5 mg tablet RxNorm: 534966 1 Tablet(s) PO QD 07/13/2015 01/02/2016 Inactive Tegretol 200 mg tablet RxNorm: 147300 1 Tablet(s) PO QD 07/05/2015 Inactive Maxalt 10 mg tablet RxNorm: 489797 Tablet(s) TAKE ONE T ABLET BY MOUTH AT ONSET OF HEADACHE. MAY REPEAT IN 2 HOURS. 06/23/2015 10/11/2015 Inactive Cymbalta 60 mg capsule,delayed release RxNorm: 596605 1 Capsule (s) PO QD 05/17/2015 05/10/2016 Inactive [AttnRPh: Saving jason ly/adjudicate RxGRP:SG20 RxBIN:[id number] RxPCN: ID#:[id number]] Maxalt 10 mg tablet RxNorm: 012698 Tablet(s) TAKE ONE T ABLET BY MOUTH AT ONSET OF HEADACHE. MAY REPEAT IN 2 HOURS. 04/01/2015 04/15/2015 Inactive Tegretol 200 mg tablet RxNorm: 685329 1 Tablet(s) PO QD 03/09/2015 Inactive lisinopril 10 mg tablet RxNorm: 951517 1 Tablet(s) PO QD 01/18/2015 1 09/12/2014 Inactive [AttnRPh: Saving apply/adjudicate RxGRP: SG20 RxBIN:[id number] RxPCN: ID#:[id number]] Tegretol 200 mg tablet RxNorm: 814561 1 Tablet(s) PO QD 12/03/2014 Inactive Maxalt 10 mg tablet RxNorm: 185408 TAKE ONE TABLET BY M OUTH AT ONSET OF HEADACHE. MAY REPEAT IN 2 HOURS. 11/18/2014 04/01/2015 Inactive benzonatate 100 mg capsule RxNorm: 820976 1 Capsule(s) PO TID a s needed 10/30/2014 07/12/2015 Inactive prednisone 20 mg tablet RxNorm: 681693 1 Tablet(s) PO BID 10/30/2014 11/03/2014 Inactive Maxalt 10 mg tablet RxNorm: 109032 as needed TAKE 1 TAB LET BY MOUTH AT ONSET OF HEADACHE AND MAY REPEAT IN 2 HOURS 09/02/2014 09/13/2014 Inactive Tegretol 200 mg tablet RxNorm: 848311 1 Tablet(s) PO QD 08/17/2014 Inactive Cymbalta 60 mg capsule,delayed release RxNorm: 467118 1 Capsule (s) PO QD 06/29/2014 05/17/2015 Inactive [AttnRPh: Saving jason ly/adjudicate RxGRP:SG20 RxBIN:[id number] RxPCN:HT ID#:[id number]] lisinopril 10 mg tablet RxNorm: 052850 1 Tablet(s) PO QD 06/10/2014 0 12/06/2014 Inactive [AttnRPh: Saving apply/adjudicate RxGRP: SG20 RxBIN:[id number] RxPCN:HT ID#:[id number]] Maxalt 10 mg tablet RxNorm: 242653 TAKE ONE TABLET BY M OUTH AT HEADACHE ONSET AND MAY REPEAT IN 2 HOURS IF HEADACHE REMAINS 04/20/2014 09/02/2014 In active albuterol sulfate HFA 90 mcg/actuation aerosol inhaler RxNor m: 4854492 2 Puff(s) INH Q4H 11/26/2013 No Stop Date Active doxycycline hyclate 100 mg tablet RxNorm: 703218 1 Tablet(s) PO BID 11/26/2013 12/05/2013 Inactive Maxalt 10 mg tablet RxNorm: 787910 Tablet(s) PO Take 1 at headache onset and may repeat in 2 hours if headache remains 11/21/2013 04/19/2014 Inactive [SAVINGS FOR UNINSURED PATIENTS -- BIN:[id number], PCN: [id number], Group: [id number], ID# [id number], Process claim through [employer], for questions: . THIS IS NOT INSURANCE.] Tegretol 200 mg tablet RxNorm: 207712 1 Tablet(s) PO QD 06/10/2013 Inactive lisinopril 10 mg tablet RxNorm: 187362 1 Tablet(s) PO QD 06/10/2013 1 08/10/2013 Inactive Cymbalta 60 mg capsule,delayed release RxNorm: 135422 1 Capsule (s) PO QD 06/10/2013 06/29/2014 Inactive lisinopril 20 mg tablet RxNorm: 118354 1 Tablet(s) PO QAM for BP 06/09/2013 Inactive lisinopril 20 mg tablet RxNorm: 716637 1 Tablet(s) PO QAM for BP 11/07/2012 Inactive cefdinir 300 mg capsule RxNorm: 420324 1 Capsule(s) PO BID 07/23/19 13 08/01/2012 Inactive lisinopril 20 mg tablet RxNorm: 082982 1 Tablet(s) PO QAM for BP 09/09/2012 Inactive doxycycline hyclate 100 mg Tab RxNorm: 348707 1 Tablet(s) PO BID 11/08/2011 Inactive Mirena 20 mcg/24 hr (5 years) intrauterine device RxNorm: 673713 IU No Start Date Active Seasonique 0.15 mg-30 mcg (84)/10 mcg(7) Tabs,3 month dose p ack RxNorm: 352352 1 Tablet(s) PO QD No Start Date 07/12/2015 Inactive Tegretol 200 mg tablet RxNorm: 855841 1 Tablet(s) PO QD No Start Da te 06/09/2013 Inactive lisinopril 20 mg tablet RxNorm: 726625 1 Tablet(s) PO QD No Start D ate 06/09/2013 Inactive Maxalt 10 mg tablet RxNorm: 812095 Tablet(s) PO Take 1 at headache onset and may repeat in 2 hours if headache remains No Start Date 11/20/2013 Inactive Cymbalta 60 mg capsule,delayed release RxNorm: 161682 1 Capsule (s) PO QD No Start Date 06/09/2013 Inactive Medrol (Francisco) 4 mg Tabs in a Dose Pack RxNorm: 054146 Tablet(s) PO as directed No Start Date 07/16/2012 Inactive Medication Administered No Medication Administered data Immunizations No Immunization data Results Observation Observation Code Item Item Code Result Date S vice Location TEGRETOL 4032680 TEGRETOL 5.2 MG/L 01/07/2014 Unknown COMPREHENSIVE METABOLIC 28823 AST 16 U/L 2013 Unknown COMPREHENSIVE METABOLIC 98476 ALT 10 IU/L 2013 Unknown COMPREHENSIVE METABOLIC 65702 BUN 17 MG/DL 2013 Unknown COMPREHENSIVE METABOLIC 85883 ALBUMIN 4.3 GM/DL 2013 Unknown COMPREHENSIVE METABOLIC 11639 CHLORIDE 105 MMOL/L 01/05 Unknown COMPREHENSIVE METABOLIC 47682 BILI TOT 0.2 MG/DL 2013 Unknown COMPREHENSIVE METABOLIC 96329 ALK PHOS 37 U/L 2013 Unknown COMPREHENSIVE METABOLIC 97906 SODIUM 137 MMOL/L 01/05 Unknown COMPREHENSIVE METABOLIC 57577 CREATININE 0.86 MG/DL 12/15 Unknown COMPREHENSIVE METABOLIC 91612 CALCIUM 9.4 MG/DL 2013 Unknown COMPREHENSIVE METABOLIC 70847 POTASSIUM 5.0 MMOL/L 01/05 Unknown COMPREHENSIVE METABOLIC 77408 PROT TOT 6.3 GM/DL 2013 Unknown COMPREHENSIVE METABOLIC 33739 Glucose 104 MG/DL 2013 Unknown COMPREHENSIVE METABOLIC 50159 BICARB 27 MMOL/L 2013 Unknown COMPREHENSIVE METABOLIC 08380 ANION GAP 5 MEQ/L 2013 Unknown THYROID STIMULATING HORMONE 68390 TSH 0.822 uIU/ML 01/05/2014 Unknown GFR CALC 8209609 GFR AA >60 ML/MIN 01/05/2014 Unknown GFR CALC 3602103 GFR NON-AA >60 ML/MIN 01/05/2014 Unknown COMPLETE BLOOD COUNT 9715299 WBC 5.5 10e9/L 01/06/20 14 Unknown COMPLETE BLOOD COUNT 1520268 RBC 4.17 10e12/L 2013 Unknown COMPLETE BLOOD COUNT 9044074 HGB 13.0 g/dL 4 Unknown COMPLETE BLOOD COUNT 3789691 HCT DET 39.0 % 4 Unknown COMPLETE BLOOD COUNT 4056750 MCV 93.5 fL 4 Unknown COMPLETE BLOOD COUNT 1075867 MCH 31.2 pg 4 Unknown COMPLETE BLOOD COUNT 9452134 MCHC 33.3 g/dL 4 Unknown COMPLETE BLOOD COUNT 5335611 PLT 294 10e9/L 01/06/20 14 Unknown COMPLETE BLOOD COUNT 9284518 MPV 11.4 fL 4 Unknown COMPLETE BLOOD COUNT 3592331 NIKKY % 59.4 % 4 Unknown COMPLETE BLOOD COUNT 1348761 LY % 27.7 % 4 Unknown COMPLETE BLOOD COUNT 3111580 MON % 10.3 % 4 Unknown COMPLETE BLOOD COUNT 1740178 EOS % 1.5 % 4 Unknown COMPLETE BLOOD COUNT 4939000 BASO % 1.1 % 4 Unknown COMPLETE BLOOD COUNT 6893067 RDW 12.7 % 4 Unknown COMPLETE BLOOD COUNT 1083632 ABS NIKKY 3.27 10e9/L 014 Unknown COMPLETE BLOOD COUNT 7108896 ABS LYMPH 1.52 10e9/L 014 Unknown COMPLETE BLOOD COUNT 0721844 ABS MONO 0.57 10e9/L 014 Unknown COMPLETE BLOOD COUNT 1508595 ABS EOS 0.08 10e9/L 014 Unknown COMPLETE BLOOD COUNT 9324990 ABS BASO 0.06 10e9/L 014 Unknown COMPLETE BLOOD COUNT 6335829 RDW-SD 42.1 fL 4 Unknown LIPID GROUP 04928 HDL TEST 60 MG/DL 01/05/2014 Unknown LIPID GROUP 13357 TRIG 63 MG/DL 01/05/2014 Unknown LIPID GROUP 79002 TEST LDL 83 MG/DL 01/05/2014 Unknown LIPID GROUP 60020 CHOL 156 MG/DL 01/05/2014 Unknown LIPID GROUP 28848 RCHOL/HDL 2.60 RATIO 01/05/2014 Unknow n FREE T4 08274 FREE T4 0.87 NG/DL 01/05/2014 Unknown Procedures Procedure Codes Date URINALYSIS NONAUTO W/O SCOPE CPT-4: 20808 06/21/2018 URINE TEST CPT-4: 08579 06/21/2018 URINE CULTURE/ COLONY COUNT CPT-4: 70401 06/21/2018 SPECIMEN HANDLING OFFICE-LAB CPT-4: 48100 07/05/2017 DRAIN/INJECT JOINT/BURSA CPT-4: 80291 03/17/2016 URINALYSIS NONAUTO W/O SCOPE CPT-4: 64359 12/20/2015 URINE CULTURE/ COLONY COUNT CPT-4: 61863 12/20/2015 URINALYSIS NONAUTO W/O SCOPE CPT-4: 31408 08/04/2015 URINE CULTURE/ COLONY COUNT CPT-4: 51717 08/04/2015 ROUTINE VENIPUNCTURE CPT-4: 36773 01/05/2014 ASSAY OF FREE THYROXINE CPT-4: 31198 01/05/2014 ASSAY THYROID STIM HORMONE CPT-4: 12586 01/05/2014 COMPREHEN METABOLIC PANEL CPT-4: 71536 01/05/2014 COMPLETE CBC W/AUTO DIFF WBC CPT-4: 29399 01/05/2014 LIPID PANEL CPT-4: 86453 01/05/2014 CEFTRIAXONE SODIUM INJECTION CPT-4: J0696 07/23/2012 THER/PROPH/DIAG INJ SC/IM CPT-4: 26077 07/23/2012 Vital Signs Date Vital 03/25/2019 Blood Pressure 1: 104/62 Code: 8480-6 Heart Rate 1: 72 bpm Respiratory Rate: 18 bpm SpO2: 97% Temperature: 36.9 (C) / 98.5 (F) We ight: 134 lbs 07/24/2018 Blood Pressure 1: 122/80 Code: 8480-6 BMI: 21.3 Code: 56707-0 Heart Rate 1: 76 bpm Height: 5'7" Respiratory Rate: 20 bpm Temperature: 36 .9 (C) / 98.4 (F) Weight: 136 lbs 06/21/2018 Blood Pressure 1: 100/78 Code: 8480-6 Heart Rate 1: 82 bpm Respiratory Rate: 18 bpm SpO2: 100% Temperature: 36.7 (C) / 98.0 (F) We ight: 130 lbs 07/05/2017 Blood Pressure 1: 94/58 Code: 8480-6 BMI: 20.4 C ode: 36637-2 Heart Rate 1: 72 bpm Height: 5'7" SpO2: 96% Temperature: 37.2 (C) / 99.0 (F) Weight: 130 lbs 05/15/2017 Blood Pressure 1: 104/64 Code: 8480-6 BMI: 20.8 Code: 92860-7 Heart Rate 1: 80 bpm Height: 5'7" Respiratory Rate: 20 bpm Temperature: 36 .7 (C) / 98.1 (F) Weight: 133 lbs 04/27/2016 Blood Pressure 1: 112/70 Code: 8480-6 BMI: 20.8 Code: 68916-7 Heart Rate 1: 80 bpm Height: 5'7" Respiratory Rate: 20 bpm Temperature: 37 .2 (C) / 99.0 (F) Weight: 133 lbs 03/17/2016 Blood Pressure 1: 122/76 Code: 8480-6 art Rate 1: 80 bpm 07/13/2015 Blood Pressure 1: 98/60 Code: 8480-6 BMI: 20.5 C ode: 07775-7 Heart Rate 1: 76 bpm Height: 5'7" Respiratory Rate: 20 bpm Temperature: 36 .9 (C) / 98.4 (F) Weight: 131 lbs 10/30/2014 Blood Pressure 1: 124/80 Code: 8480-6 BMI: 19.4 Code: 14349-3 Heart Rate 1: 94 bpm Height: 5'7" Respiratory Rate: 24 bpm SpO2: 98% Tempera ture: 36.6 (C) / 97.8 (F) Weight: 124 lbs 01/05/2014 Blood Pressure 1: 98/68 Code: 8480-6 BMI: 19.3 C ode: 09666-7 Heart Rate 1: 76 bpm Height: 5'7" Respiratory Rate: 20 bpm Temperature: 36 .8 (C) / 98.2 (F) Weight: 123 lbs 11/26/2013 Blood Pressure 1: 104/64 Code: 8480-6 BMI: 20.4 Code: 71470-5 Heart Rate 1: 84 bpm Height: 5'7" Respiratory Rate: 18 bpm Temperature: 36 .7 (C) / 98.0 (F) Weight: 130 lbs 06/10/2013 Blood Pressure 1: 132/90 Code: 8480-6 BMI: 19.4 Code: 18181-9 Heart Rate 1: 80 bpm Height: 5'7" Respiratory Rate: 20 bpm Temperature: 36 .6 (C) / 97.8 (F) Weight: 124 lbs 02/19/2013 Blood Pressure 1: 114/80 Code: 8480-6 BMI: 19.7 Code: 25339-0 Heart Rate 1: 84 bpm Height: 5'7" Respiratory Rate: 20 bpm Temperature: 36 .9 (C) / 98.5 (F) Weight: 126 lbs 07/23/2012 Blood Pressure 1: 106/64 Code: 8480-6 BMI: 20.8 Code: 10828-9 Heart Rate 1: 60 bpm Height: 5'7" Temperature: 37.8 (C) / 100.0 (F) Weight : 133 lbs 07/17/2012 Blood Pressure 1: 162/110 Code: 8480-6 BMI: 21.0 Code: 63787-6 Heart Rate 1: 92 bpm Height: 5'7" Respiratory Rate: 20 bpm Temperature: 36 .8 (C) / 98.2 (F) Weight: 134 lbs 10/30/2011 Blood Pressure 1: 138/80 Code: 8480-6 BMI: 21.0 Code: 28988-8 Heart Rate 1: 84 bpm Height: 5'7" Temperature: 37.1 (C) / 98.7 (F) Weight: 134 lbs 08/03/2011 Blood Pressure 1: 114/72 Code: 8480-6 BMI: 21.0 Code: 08592-3 Heart Rate 1: 64 bpm Height: 5'7" [...] Visit Encounters Encounter Performer Location Codes Date (30874) OFFICE/OUTPATIENT VISIT EST Diagnosis: Hallux valgus (acquired), right foot[ICD10: M20.11] Diagnosis: Encounter for other preprocedural examination[ICD10: Z01.818] Shaye ALVARADO [employer] CPT-4: 53475 03/25/2019 ([id number]) OFFICE/OUTPATIENT VISIT EST Diagnosis: Radial styloid tenosynovitis [de Quervain][ICD10: M65.4] Shaye ALVARADO [employer] CPT-4: 55343 07/24/2018 ([id number]) OFFICE/OUTPATIENT VISIT EST Diagnosis: Other fatigue[ICD10: R53.83] Diagnosis: Anemia, unspecified[ICD10: D64.9] Mara Echevarria [facility] CPT-4: 68436 06/21/2018 ([id number]) PREV VISIT EST AGE 40-64 Diagnosis: Mild intermittent asthma with (acute) exacerbation[ICD10: J45.21] Diagnosis: Encounter for general adult medical examination without abnormal findings[ICD10: Z00.00] Diagnosis: Encounter for gynecological examination (general) (routine) without abnormal findings[ICD10: Z01.419] Shaye Edwards [employer] CPT-4: 94174 07/05/2017 ([id number]) OFFICE/OUTPATIENT VISIT EST Diagnosis: Essential (primary) hypertension[ICD10: I10] Diagnosis: Other cervical disc degeneration, unspecified cervical region[ICD10: M50.30] Diagnosis: Tension-type headache, unspecified, not intractable[ICD10: G44.209] Shaye ALVARADO DO [facility] CPT-4: 67431 05/15/2017 ([id number]) OFFICE/OUTPATIENT VISIT EST Diagnosis: Lateral epicondylitis, right elbow[ICD10: M77.11] Shaye ALVARADO DO [facility] CPT-4: 31558 04/27/2016 ([id number]) OFFICE/OUTPATIENT VISIT EST Diagnosis: Hematuria, unspecified[ICD10: R31.9] Shaye ALVARADO DO 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 CPT-4: 59097 07/13/2015 ([id number]) OFFICE/OUTPATIENT VISIT EST Diagnosis: COUGH[ICD9: 786.2] Sarika ALVARADO DO [facility] CPT-4: 08223 10/30/2014 ([id number]) PREV VISIT EST AGE 40-64 Diagnosis: ROUTINE MEDICAL EXAM[ICD9: V70.0] Diagnosis: HYPERTENSION[ICD9: 401.9] Diagnosis: Seizure[ICD9: 780.39] Shaye ALVARADO DO [facility] CPT-4: 90983 01/05/2014 OFFICE/OUTPATIENT VISIT EST Diagnosis: URI, ACUTE[ICD9: 465.9] Sarika MCDONALD DO [facility] CPT-4: 17928 11/26/2013 ([id number]) OFFICE/OUTPATIENT VISIT EST Diagnosis: HYPERTENSION[ICD9: 401.9] Diagnosis: SINUSITIS, ACUTE[ICD9: 461.9] Diagnosis: CONVULSIONS[ICD9: 780.39] Shaye [facility] CPT-4: 00805 06/10/2013 OFFICE/OUTPATIENT VISIT EST Diagnosis: Pyelonephritis[ICD9: 590.80] Diagnosis: HYPERTENSION[ICD9: 401.9] Shaye [facility] CPT-4: 98823 02/19/2013 OFFICE/OUTPATIENT VISIT EST Diagnosis: OTITIS MEDIA NOS[ICD9: 382.9] Diagnosis: COUGH[ICD9: 786.2] Diagnosis: SINUSITIS, ACUTE[ICD9: 461.9] Shaye ALVARADO DO [facility] CPT-4: 05604 07/23/2012 ([id number]) OFFICE/OUTPATIENT VISIT EST Diagnosis: HYPERTENSION[ICD9: 401.9] Diagnosis: CONVULSIONS[ICD9: 780.39] Shaye [facility] CPT-4: 92877 07/17/2012 OFFICE/OUTPATIENT VISIT EST Diagnosis: COUGH[ICD9: 786.2] Diagnosis: PHARYNGITIS, ACUTE[ICD9: 462] Shaye ALVARADO [facility] CPT-4: 41073 10/30/2011 OFFICE/OUTPATIENT VISIT NEW Diagnosis: CERVICAL DISC DEGEN[ICD9: 722.4] Diagnosis: Neck pain[ICD9: 723.1] Diagnosis: Radiculopathy of arm[ICD9: 723.4] Diagnosis: Seizure[ICD9: 780.39] Shaye ALVARADO DO [facility] CPT-4: 24522 08/03/2011 Plan of Care Planned Activity Notes Codes Status Date Visit Diagnosis Plan: Hallux valgus (acquired), right foot Discussion: Update lab for upcoming surgery Okay to proceed with planned surgery by Dr. Nuñez ICD-9 : 735.0 ICD-10 : M20.11 03/25/2019 App[facility]ment: [facility] [phone] [id number] [facility] 03/25/2019 Visit Diagnosis Plan: Radial styloid tenosynovitis [de Quervain] Discussion: Spica thumb wrist splint Medrol Dose Pack followed by mobic Notify if worsens or persists ICD-9 : 727.04 ICD-10 : M65.4 07/24/2018 Appointment: Shaye Alvarado WPtel: [address] [place] [address] ACUTE ILLNESS 07/24/2018 Patient Education: [employer] ([place])- [employer] C[employer] [phone] [email or web address] Completed 07/24/2018 Visit Diagnosis Plan: Other fatigue Discussion: urine test neg. when urine was tested, noted dark, cloudy urine and dipstick was obtained. showed protein and blood in urine so will send off for urine culture. multiple labs or dered to be completed at [facility]. cbc, cmp, tsh, t4, tt3, b12, iron, ferritin obtained. will review labs and culture and order additional meds/labs as needed. ICD-9 : 780.79 ICD-10 : R53.83 06/21/2018 Appointment: Mara Echevarria [address] [place] [address] ACUTE ILLNESS 06/21/2018 Appointment: Shaye Alvarado WPtel: [address] [place] [address] Scheduled in ERROR 06/10/2018 Visit Diagnosis Plan: [...] : J45.21 07/05/2017 Appointment: Shaye Alvarado WPtel: [facility] [address] PAP 07/05/2017 Patient Education: Patient Medication Summary Completed 07/05/2017 Care Plan: MAMMOGRAM SCREENING [facility] : [phone] Pending 07/05/2017 Patient Education: [...] : I10 05/15/2017 Appointment: Shaye Alvarado WPtel: [address] [place], [place] [id number] ACUTE ILLNESS 05/15/2017 Patient Education: Patient Medication Summary Completed 05/15/2017 Referral: Armin Arzate WPtel: [facility] [address] Referral Appointment Confirmed 05/10/2016 Visit Plan: Medrol Dose Pack then start mobic Continue brace See Dr. Arzate Discussed iontophoresis May need surgery as has tried all conservative measures at this point 04/27/2016 Appointment: Shaye Alvarado WPtel: [address] [place], [place] [id number] 04/26 lm~sl...confirmed-sp FOLLOW UP 04/27 Patient Education: Patient Medication Summary Completed 04/27/2016 Care Plan: Referral Order SNOMED-CT : [phone] [id number] Pending 04/27/2016 Visit Plan: Injection as above Howard el prerna strap Vivlodex 10mg daily Notify if worsens or persists 03/17/2016 Appointment: Shaye Alvarado WPtel: [address] [place], [place] [id number] OFFICE SURGERY 03/17/2016 Patient Education: Patient Medication Summary Completed 03/17/2016 Appointment: Yolis Membreno [address] [place], [place] [phone] 12/19- patient misunderstood why appointment was scheduled. CANCELED 12/21/2015 Appointment: Shaye Alvarado WPtel: [address] [place] [address] ACUTE ILLNESS 12/20/2015 Patient Education: Patient Medication Summary Completed 12/20/2015 Appointment: Shaye Alvarado WPtel: [address] [place], [place] [id number] UA 08/04/2015 Patient Education: Patient Medication Summary Completed 08/04/2015 Visit Plan: Updated MRI of cervical spin e Decrease lisinopril to 2.5mg daily Update lab Add cyclobenzaprine at 10mg q HS 07/13/2015 Appointment: Shaye Alvarado WPtel: [address] [place] [address] 07/12/15 appt confirmed cn Annual Well Visit Patient Education: Patient Medication Summary Completed 07/13/2015 Patient Education: [facility] - Saving AutoInj - Lisinopril - 18-64 - Dynamic Portal ID Completed 07/13/2015 Patient Education: Neck Pain Completed 07/13/2015 Appointment: Sarika Diallo WPtel: [address] [place] [address] ACUTE ILLNESS 10/30/2014 Patient Education: Patient Medication Summary Completed 10/30/2014 Visit Plan: Fasting lab drawn including tegretol level Decrease lisinopril to 5mg daily and observe BP 01/05/2014 Appointment: Shaye Alvarado WPtel: [address] [place] [address] 01/02 Annual Well Visit 01/05/2014 Patient Education: Patient Medication Summary Completed 01/05/2014 Appointment: Sarika Diallo WPtel: [address] [place] [address] ACUTE ILLNESS 11/26/2013 Patient Education: Patient Medication Summary Completed 11/26/2013 Visit Plan: Saline nasal flushes prn. Ty lenol/Motrin prn headache. Notify if persists/symptoms worsening. Decrease Lisinopril to 10mg daily 06/10/2013 Appointment: Shaye Alvarado WPtel: [address] [place], [place] [id number] 06/09 FOLLOW UP 06/10/2013 Patient Education: Patient Medication Summary Completed 06/10/2013 Visit Plan: Finish abx and observe Stay off lisinopril and observe 02/19/2013 Appointment: Shaye Alvarado WPtel: [address] [place] [address] Follow Up 02/19/2013 Patient Education: Patient Medication Summary Completed 02/19/2013 Visit Plan: rocephin IM and Cefdinir. Wi ll notify if no improvement. Tylenol #3 #20 dispensed. Pt. has made contact with Dr. Frias's office and has follow up appnt. Pt. will notify if fever continues into tomorrow. 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 Discussed that could be walking pneumonia. Encouraged fluids and rest. Pt. will notify if symptoms persist or worsen. Note for work. 2-3 days. 10/30/2011 Appointment: Penelope Golden WPtel: [address] [place] [address] ACUTE ILLNESS 10/30/2011 Patient Education: Patient Medication Summary Completed 10/30/2011 Visit Plan: Proceed with Cervical Spine MRI Percocet 5/500 1 po q HS prn pain--#30 Tramadol 50mg 1-2 po BID prn pain--#60 See Ortho for surgical opinion 08/03/2011 Appointment: Shaye Alvarado WPtel: [address] [id number] NEW PATIENT 08/03/2011 Patient Education: Patient Medication Summary Completed 08/03/2011 Referral: Armin Arzate WPtel: [facility] [place] [address] [place] [address] Drive, [facility] [id number] Referral Appointment Requested Instructions Comment . Medrol [...]
[2020-01-09] MEDS ORDERED: D5 LR IV SOLUTION 1,000 ML IV ONE (09:36)
--- OUTSIDE RECORDS SUMMARY | 2020-01-09 09:36 | XMS REPORT | CCD ---
Author Author Chiquita Alvarado D.O. Organization SHAYE ALVARDAO DO [facility] Address [address] [place] [address] Phone Care Team Providers Care Auto Body Service Mechanic Name Role Phone Shaye Alvarado D.O., PP Unavailable CCM Unavailable Summary Purpose Interface Exchange Insurance Providers Payer name Policy type / Coverage type Covered green party ID Effective Begin Date Effective End Date Blue Cross Blue Shield Blue Cross/Blue Shield [id number] Unknown Family history Father Diagnosis Age At Onset No Family Disease Entered N/A Mother Diagnosis Age At Onset No Family Disease Entered N/A Side Diagnosis Age At Onset No Family Disease Entered N/A Social History Social History Element Codes Description Effective Dates Marital status Unknown 08/03/2011 Number of children Unknown 2 08/03/2011 Employment Unknown Currently employed [employer] 08/03/[address]: 847147208 Never smoker 08/03/[address]: 541694 Currently drinks alc ohol socially 08/03/2011 Allergies, [...] Start Date Stop Date Status Fill Instructions Cymbalta 60 mg capsule,delayed release RxNorm: 602034 T FABIO ONE CAPSULE BY MOUTH DAILY 08/28/2019 No Stop Date Active lisinopril 2.5 mg tablet RxNorm: 160621 1 Tablet(s) Oral QD 020 11/20/2019 Active Tegretol 200 mg tablet RxNorm: 761058 1 Tablet(s) Oral QD 08/22/2019 11/20/2019 Active Maxalt 10 mg tablet RxNorm: 433699 TAKE ONE TABLET BY M OUTH AT ONSET OF HEADACHE, MAY REPEAT ONE TABLET IN 2 HOURS IF NEEDED 08/06/2019 No Stop Date Active Tegretol 200 mg tablet RxNorm: 529945 TAKE ONE TABLET BY MOUTH MARGARITO Y 05/26/2019 08/21/2019 Inactive Maxalt 10 mg tablet RxNorm: 388676 1 Tablet(s) PO AT ON SET OF HEADACHE; MAY REPEAT ONE TABLET IN 2 HOURS IF NEEDED. 03/25/2019 05/23/2019 Inactive Tegretol 200 mg tablet RxNorm: 601442 TAKE ONE TABLET BY MOUTH MARGARITO Y 02/06/2019 05/06/2019 Inactive Cymbalta 60 mg capsule,delayed release RxNorm: 053082 T FABIO ONE CAPSULE BY MOUTH DAILY 02/06/2019 04/06/2019 Inactive lisinopril 2.5 mg tablet RxNorm: 386743 TAKE ONE TABLET BY MOUT H DAILY 01/27/2019 08/21/2019 Inactive Maxalt 10 mg tablet RxNorm: 085153 1 Tablet(s) PO AT ON SET OF HEADACHE; MAY REPEAT ONE TABLET IN 2 HOURS IF NEEDED. 11/22/2018 01/20/2019 Inactive Maxalt 10 mg tablet RxNorm: 287183 TAKE ONE TABLET BY M OUTH AT ONSET OF HEADACHE; MAY REPEAT ONE TABLET IN 2 HOURS IF NEEDED. 11/19/20182018 Inactive lisinopril 2.5 mg tablet RxNorm: 527804 TAKE ONE TABLET BY MOUT H DAILY 10/14/2018 01/11/2019 Inactive Maxalt 10 mg tablet RxNorm: 521636 TAKE ONE TABLET BY M OUTH AT ONSET OF HEADACHE; MAY REPEAT ONE TABLET IN 2 HOURS IF NEEDED. 09/20/20182018 Inactive Medrol (Francisco) 4 mg tablets in a dose pack RxNorm: 444028 6 Tablet(s) PO QD --then as directed 07/24/2018 07/29/2018 Inactive Mobic 15 mg tablet RxNorm: 619060 1 Tablet(s) PO QD 07/24/20182018 Inactive Tegretol 200 mg tablet RxNorm: 793132 TAKE ONE TABLET BY MOUTH MARGARITO Y 07/03/2018 12/29/2018 Inactive Maxalt 10 mg tablet RxNorm: 062862 TAKE ONE TABLET BY M OUTH AT ONSET OF HEADACHE; MAY REPEAT ONE TABLET IN 2 HOURS IF NEEDED. 07/03/20182018 Inactive Bactrim DS 800 mg-160 mg tablet RxNorm: 066922 1 Tablet(s) PO BID 1 08/25/2017 06/23/2018 Inactive Bactrim DS 800 mg-160 mg tablet RxNorm: 500893 1 Tablet(s) PO BID 1 08/25/2017 06/30/2018 Inactive Maxalt 10 mg tablet RxNorm: 625073 TAKE ONE TABLET BY M OUTH AT ONSET OF HEADACHE; MAY REPEAT ONE TABLET IN 2 HOURS IF NEEDED. 05/09/20182017 Inactive Cymbalta 60 mg capsule,delayed release RxNorm: 067547 T FABIO ONE CAPSULE BY MOUTH DAILY 04/09/2018 07/07/2018 Inactive lisinopril 2.5 mg tablet RxNorm: 486005 Tablet(s) TAKE ONE TABLET BY MOUTH DAILY 03/25/2018 09/20/2018 Inactive Maxalt 10 mg tablet RxNorm: 165539 TAKE ONE TABLET BY M OUTH AT ONSET OF HEADACHE; MAY REPEAT ONE TABLET IN 2 HOURS IF NEEDED. 02/26/20182017 Inactive Tegretol 200 mg tablet RxNorm: 942380 TAKE ONE TABLET BY MOUTH MARGARITO Y 12/04/2017 06/01/2018 Inactive Maxalt 10 mg tablet RxNorm: 286888 1 Tablet(s) PO AT ON SET OF HEADACHE. MAY REPEAT IN 2 HOURS 11/12/2017 12/01/2017 Inactive lisinopril 2.5 mg tablet RxNorm: 677754 TAKE ONE TABLET BY MOUT H DAILY 08/28/2017 03/25/2018 Inactive Tegretol 200 mg tablet RxNorm: 938286 TAKE ONE TABLET BY MOUTH MARGARITO Y 08/28/2017 11/25/2017 Inactive Maxalt 10 mg tablet RxNorm: 726678 1 Tablet(s) PO AT ON SET OF HEADACHE. MAY REPEAT IN 2 HOURS 07/05/2017 11/12/2017 Inactive cyclobenzaprine 10 mg tablet RxNorm: 134523 1 Tablet(s) PO QHS as needed for muscle spasm 05/15/2017 No Stop Date Active diclofenac sodium 75 mg tablet,delayed release RxNorm: 83729 6 1 Tablet(s) PO BID as needed for neck pain 05/15/2017 07/13/2017 Inactive Cymbalta 60 mg capsule,delayed release RxNorm: 365911 C apsule(s) TAKE ONE CAPSULE BY MOUTH DAILY 05/07/2017 08/04/2017 Inactive Maxalt 10 mg tablet RxNorm: 142065 1 Tablet(s) PO AT ON SET OF HEADACHE. MAY REPEAT IN 2 HOURS 04/30/2017 05/09/2017 Inactive Maxalt 10 mg tablet RxNorm: 663030 1 Tablet(s) PO AT ON SET OF HEADACHE. MAY REPEAT IN 2 HOURS 02/22/2017 04/30/2017 Inactive Tegretol 200 mg tablet RxNorm: 988390 Tablet(s) TAKE ONE TABLET BY MOUTH DAILY 01/11/2017 07/09/2017 Inactive Maxalt 10 mg tablet RxNorm: 702228 1 Tablet(s) PO AT ON SET OF HEADACHE. MAY REPEAT IN 2 HOURS 01/11/2017 02/22/2017 Inactive Maxalt 10 mg tablet RxNorm: 812899 1 Tablet(s) PO AT ON SET OF HEADACHE. MAY REPEAT IN 2 HOURS 11/30/2016 01/11/2017 Inactive Maxalt 10 mg tablet RxNorm: 973303 TAKE ONE TABLET BY M OUTH AT ONSET OF HEADACHE. MAY REPEAT IN 2 HOURS 07/26/2016 11/30/2016 Inactive lisinopril 2.5 mg tablet RxNorm: 159429 TAKE ONE TABLET BY MOUT H DAILY 07/24/2016 07/23/2016 Inactive lisinopril 2.5 mg tablet RxNorm: 778224 TAKE ONE TABLET BY MOUT H DAILY 07/24/2016 01/19/2017 Inactive Maxalt 10 mg tablet RxNorm: 566562 TAKE ONE TABLET BY M OUTH AT ONSET OF HEADACHE. MAY REPEAT IN 2 HOURS 06/05/2016 06/14/2016 Inactive Tegretol 200 mg tablet RxNorm: 121743 TAKE ONE TABLET BY MOUTH MARGARITO Y 06/05/2016 01/11/2017 Inactive Cymbalta 60 mg capsule,delayed release RxNorm: 036775 T FABIO ONE CAPSULE BY MOUTH DAILY 05/17/2016 05/07/2017 Inactive Medrol (Francisco) 4 mg tablets in a dose pack RxNorm: 452253 6 Tablet(s) PO QD --then as directed 04/27/2016 05/02/2016 Inactive Mobic 15 mg tablet RxNorm: 462237 1 Tablet(s) PO QD for pain 201505/26/2016 Inactive Maxalt 10 mg tablet RxNorm: 883144 TAKE ONE TABLET BY M OUTH AT ONSET OF HEADACHE. MAY REPEAT IN 2 HOURS 02/28/2016 03/25/2016 Inactive Tegretol 200 mg tablet RxNorm: 967916 TAKE ONE TABLET BY MOUTH MARGARITO Y 02/14/2016 05/13/2016 Inactive Maxalt 10 mg tablet RxNorm: 972455 TAKE ONE TABLET BY M OUTH AT ONSET OF HEADACHE. MAY REPEAT IN 2 HOURS 01/10/2016 01/27/2016 Inactive lisinopril 2.5 mg tablet RxNorm: 092193 TAKE ONE TABLET BY MOUT H DAILY 01/03/2016 06/30/2016 Inactive Macrobid 100 mg capsule RxNorm: 032135 1 Capsule(s) PO BID 12/23/19 16 12/29/2015 Inactive Macrobid 100 mg capsule RxNorm: 774796 1 Capsule(s) PO BID 12/23/19 16 12/22/2015 Inactive Bactrim DS 800 mg-160 mg tablet RxNorm: 788675 1 Tablet(s) PO BID 0 12/21/2015 12/27/2015 Inactive Bactrim DS 800 mg-160 mg tablet RxNorm: 243034 1 Tablet(s) PO BID 0 12/21/2015 12/20/2015 Inactive Tegretol 200 mg tablet RxNorm: 565015 1 Tablet(s) PO QD TAKE ONE TABLET BY MOUTH DAILY 10/18/2015 01/15/2016 Inactive Maxalt 10 mg tablet RxNorm: 921920 Tablet(s) TAKE ONE T ABLET BY MOUTH AT ONSET OF HEADACHE. MAY REPEAT IN 2 HOURS. 10/11/2015 10/25/2015 Inactive Bactrim DS 800 mg-160 mg tablet RxNorm: 250093 1 Tablet(s) PO BID 0 08/05/2015 08/04/2015 Inactive Bactrim DS 800 mg-160 mg tablet RxNorm: 931378 1 Tablet(s) PO BID 0 08/05/2015 08/11/2015 Inactive cyclobenzaprine 10 mg tablet RxNorm: 218643 1 Tablet(s) PO QHS as needed for muscle spasm 07/13/2015 09/10/2015 Inactive lisinopril 2.5 mg tablet RxNorm: 153272 1 Tablet(s) PO QD 07/13/2015 01/02/2016 Inactive Tegretol 200 mg tablet RxNorm: 931286 1 Tablet(s) PO QD 07/05/2015 Inactive Maxalt 10 mg tablet RxNorm: 969005 Tablet(s) TAKE ONE T ABLET BY MOUTH AT ONSET OF HEADACHE. MAY REPEAT IN 2 HOURS. 06/23/2015 10/11/2015 Inactive Cymbalta 60 mg capsule,delayed release RxNorm: 036872 1 Capsule (s) PO QD 05/17/2015 05/10/2016 Inactive [AttnRPh: Saving jason ly/adjudicate RxGRP:SG20 RxBIN:[id number] RxPCN: ID#:[id number]] Maxalt 10 mg tablet RxNorm: 937959 Tablet(s) TAKE ONE T ABLET BY MOUTH AT ONSET OF HEADACHE. MAY REPEAT IN 2 HOURS. 04/01/2015 04/15/2015 Inactive Tegretol 200 mg tablet RxNorm: 735432 1 Tablet(s) PO QD 03/09/2015 Inactive lisinopril 10 mg tablet RxNorm: 074156 1 Tablet(s) PO QD 01/18/2015 1 09/12/2014 Inactive [AttnRPh: Saving apply/adjudicate RxGRP: SG20 RxBIN:[id number] RxPCN: ID#:[id number]] Tegretol 200 mg tablet RxNorm: 821381 1 Tablet(s) PO QD 12/03/2014 Inactive Maxalt 10 mg tablet RxNorm: 510949 TAKE ONE TABLET BY M OUTH AT ONSET OF HEADACHE. MAY REPEAT IN 2 HOURS. 11/18/2014 04/01/2015 Inactive benzonatate 100 mg capsule RxNorm: 853493 1 Capsule(s) PO TID a s needed 10/30/2014 07/12/2015 Inactive prednisone 20 mg tablet RxNorm: 829978 1 Tablet(s) PO BID 10/30/2014 11/03/2014 Inactive Maxalt 10 mg tablet RxNorm: 103766 as needed TAKE 1 TAB LET BY MOUTH AT ONSET OF HEADACHE AND MAY REPEAT IN 2 HOURS 09/02/2014 09/13/2014 Inactive Tegretol 200 mg tablet RxNorm: 068800 1 Tablet(s) PO QD 08/17/2014 Inactive Cymbalta 60 mg capsule,delayed release RxNorm: 192665 1 Capsule (s) PO QD 06/29/2014 05/17/2015 Inactive [AttnRPh: Saving jason ly/adjudicate RxGRP:SG20 RxBIN:[id number] RxPCN: ID#:[id number]] lisinopril 10 mg tablet RxNorm: 840837 1 Tablet(s) PO QD 06/10/2014 0 12/06/2014 Inactive [AttnRPh: Saving apply/adjudicate RxGRP: SG20 RxBIN:[id number] RxPCN: ID#:[id number]] Maxalt 10 mg tablet RxNorm: 930704 TAKE ONE TABLET BY M OUTH AT HEADACHE ONSET AND MAY REPEAT IN 2 HOURS IF HEADACHE REMAINS 04/20/2014 09/02/2014 In active albuterol sulfate HFA 90 mcg/actuation aerosol inhaler RxNor m: 1020124 2 Puff(s) INH Q4H 11/26/2013 No Stop Date Active doxycycline hyclate 100 mg tablet RxNorm: 183212 1 Tablet(s) PO BID 11/26/2013 12/05/2013 Inactive Maxalt 10 mg tablet RxNorm: 148816 Tablet(s) PO Take 1 at headache onset and may repeat in 2 hours if headache remains 11/21/2013 04/19/2014 Inactive [SAVINGS FOR UNINSURED PATIENTS -- BIN:[id number], PCN: [id number], Group: [id number], ID# [id number], Process claim through [employer], for questions: . THIS IS NOT INSURANCE.] Tegretol 200 mg tablet RxNorm: 012492 1 Tablet(s) PO QD 06/10/2013 Inactive lisinopril 10 mg tablet RxNorm: 796028 1 Tablet(s) PO QD 06/10/2013 1 08/10/2013 Inactive Cymbalta 60 mg capsule,delayed release RxNorm: 513633 1 Capsule (s) PO QD 06/10/2013 06/29/2014 Inactive lisinopril 20 mg tablet RxNorm: 430384 1 Tablet(s) PO QAM for BP 06/09/2013 Inactive lisinopril 20 mg tablet RxNorm: 794814 1 Tablet(s) PO QAM for BP 11/07/2012 Inactive cefdinir 300 mg capsule RxNorm: 807634 1 Capsule(s) PO BID 07/23/19 13 08/01/2012 Inactive lisinopril 20 mg tablet RxNorm: 805096 1 Tablet(s) PO QAM for BP 09/09/2012 Inactive doxycycline hyclate 100 mg Tab RxNorm: 206345 1 Tablet(s) PO BID 11/08/2011 Inactive Mirena 20 mcg/24 hr (5 years) intrauterine device RxNorm: 636972 IU No Start Date Active Seasonique 0.15 mg-30 mcg (84)/10 mcg(7) Tabs,3 month dose p ack RxNorm: 980039 1 Tablet(s) PO QD No Start Date 07/12/2015 Inactive Tegretol 200 mg tablet RxNorm: 374360 1 Tablet(s) PO QD No Start Da te 06/09/2013 Inactive lisinopril 20 mg tablet RxNorm: 596978 1 Tablet(s) PO QD No Start D ate 06/09/2013 Inactive Maxalt 10 mg tablet RxNorm: 261309 Tablet(s) PO Take 1 at headache onset and may repeat in 2 hours if headache remains No Start Date 11/20/2013 Inactive Cymbalta 60 mg capsule,delayed release RxNorm: 563080 1 Capsule (s) PO QD No Start Date 06/09/2013 Inactive Medrol (Francisco) 4 mg Tabs in a Dose Pack RxNorm: 147820 Tablet(s) PO as directed No Start Date 07/16/2012 Inactive Medication Administered No Medication Administered data Immunizations No Immunization data Results Observation Observation Code Item Item Code Result Date S ervice Location TEGRETOL 1867903 TEGRETOL 5.2 MG/L 01/07/2014 Unknown COMPREHENSIVE METABOLIC 22749 AST 16 U/L 2013 Unknown COMPREHENSIVE METABOLIC 85633 ALT 10 IU/L 2013 Unknown COMPREHENSIVE METABOLIC 53642 BUN 17 MG/DL 2013 Unknown COMPREHENSIVE METABOLIC 89275 ALBUMIN 4.3 GM/DL 2013 Unknown COMPREHENSIVE METABOLIC 93752 CHLORIDE 105 MMOL/L 01/05 Unknown COMPREHENSIVE METABOLIC 49832 BILI TOT 0.2 MG/DL 2013 Unknown COMPREHENSIVE METABOLIC 34986 ALK PHOS 37 U/L 2013 Unknown COMPREHENSIVE METABOLIC 03668 SODIUM 137 MMOL/L 01/05 Unknown COMPREHENSIVE METABOLIC 76324 CREATININE 0.86 MG/DL 12/15 Unknown COMPREHENSIVE METABOLIC 65186 CALCIUM 9.4 MG/DL 2013 Unknown COMPREHENSIVE METABOLIC 84069 POTASSIUM 5.0 MMOL/L 01/05 Unknown COMPREHENSIVE METABOLIC 07272 PROT TOT 6.3 GM/DL 2013 Unknown COMPREHENSIVE METABOLIC 67514 Glucose 104 MG/DL 2013 Unknown COMPREHENSIVE METABOLIC 23618 BICARB 27 MMOL/L 2013 Unknown COMPREHENSIVE METABOLIC 37358 ANION GAP 5 MEQ/L 2013 Unknown THYROID STIMULATING HORMONE 36372 TSH 0.822 uIU/ML 01/05/2014 Unknown GFR CALC 4987634 GFR AA >60 ML/MIN 01/05/2014 Unknown GFR CALC 5439598 GFR NON-AA >60 ML/MIN 01/05/2014 Unknown COMPLETE BLOOD COUNT [id number] WBC 5.5 10e9/L 01/06/20 14 Unknown COMPLETE BLOOD COUNT 1724192 RBC 4.17 10e12/L 2013 Unknown COMPLETE BLOOD COUNT 1327756 HGB 13.0 g/dL 4 Unknown COMPLETE BLOOD COUNT 3932500 HCT DET 39.0 % 4 Unknown COMPLETE BLOOD COUNT 0921210 MCV 93.5 fL 4 Unknown COMPLETE BLOOD COUNT 1783670 MCH 31.2 pg 4 Unknown COMPLETE BLOOD COUNT 7884178 MCHC 33.3 g/dL 4 Unknown COMPLETE BLOOD COUNT 6450222 PLT 294 10e9/L 01/06/20 14 Unknown COMPLETE BLOOD COUNT 8032165 MPV 11.4 fL 4 Unknown COMPLETE BLOOD COUNT [id number] NIKKY % 59.4 % 4 Unknown COMPLETE BLOOD COUNT 1488078 LY % 27.7 % 4 Unknown COMPLETE BLOOD COUNT 4087917 MON % 10.3 % 4 Unknown COMPLETE BLOOD COUNT 5573126 EOS % 1.5 % 4 Unknown COMPLETE BLOOD COUNT 9297712 BASO % 1.1 % 4 Unknown COMPLETE BLOOD COUNT 8110646 RDW 12.7 % 4 Unknown COMPLETE BLOOD COUNT [id number] ABS NIKKY 3.27 10e9/L 014 Unknown COMPLETE BLOOD COUNT 0859309 ABS LYMPH 1.52 10e9/L 014 Unknown COMPLETE BLOOD COUNT [id number] ABS MONO 0.57 10e9/L 014 Unknown COMPLETE BLOOD COUNT [id number] ABS EOS 0.08 10e9/L 014 Unknown COMPLETE BLOOD COUNT [id number] ABS BASO 0.06 10e9/L 014 Unknown COMPLETE BLOOD COUNT [id number] RDW-SD 42.1 fL 4 Unknown LIPID GROUP 13318 HDL TEST 60 MG/DL 01/05/2014 Unknown LIPID GROUP 61920 TRIG 63 MG/DL 01/05/2014 Unknown LIPID GROUP 82734 TEST LDL 83 MG/DL 01/05/2014 Unknown LIPID GROUP 85882 CHOL 156 MG/DL 01/05/2014 Unknown LIPID GROUP 43810 RCHOL/HDL 2.60 RATIO 01/05/2014 Unknow n FREE T4 43274 FREE T4 0.87 NG/DL 01/05/2014 Unknown Procedures Procedure Codes Date URINALYSIS NONAUTO W/O SCOPE CPT-4: 14245 06/21/2018 URINE TEST CPT-4: 84640 06/21/2018 URINE CULTURE/ COLONY COUNT CPT-4: 33944 06/21/2018 SPECIMEN HANDLING OFFICE-LAB CPT-4: 91168 07/05/2017 DRAIN/INJECT JOINT/BURSA CPT-4: 93432 03/17/2016 URINALYSIS NONAUTO W/O SCOPE CPT-4: 19055 12/20/2015 URINE CULTURE/ COLONY COUNT CPT-4: 21152 12/20/2015 URINALYSIS NONAUTO W/O SCOPE CPT-4: 03461 08/04/2015 URINE CULTURE/ COLONY COUNT CPT-4: 06132 08/04/2015 ROUTINE VENIPUNCTURE CPT-4: 96987 01/05/2014 ASSAY OF FREE THYROXINE CPT-4: 98536 01/05/2014 ASSAY THYROID STIM HORMONE CPT-4: 04553 01/05/2014 COMPREHEN METABOLIC PANEL CPT-4: 00941 01/05/2014 COMPLETE CBC W/AUTO DIFF WBC CPT-4: 60098 01/05/2014 LIPID PANEL CPT-4: 91334 01/05/2014 CEFTRIAXONE SODIUM INJECTION CPT-4: J0696 07/23/2012 THER/PROPH/DIAG INJ SC/IM CPT-4: 87960 07/23/2012 Vital Signs Date Vital 03/25/2019 Blood Pressure 1: 104/62 Code: 8480-6 Heart Rate 1: 72 bpm Respiratory Rate: 18 bpm SpO2: 97% Temperature: 36.9 (C) / 98.5 (F) We ight: 134 lbs 07/24/2018 Blood Pressure 1: 122/80 Code: 8480-6 BMI: 21.3 Code: 36104-7 Heart Rate 1: 76 bpm Height: 5'7" Respiratory Rate: 20 bpm Temperature: 36 .9 (C) / 98.4 (F) Weight: 136 lbs 06/21/2018 Blood Pressure 1: 100/78 Code: 8480-6 Heart Rate 1: 82 bpm Respiratory Rate: 18 bpm SpO2: 100% Temperature: 36.7 (C) / 98.0 (F) We ight: 130 lbs 07/05/2017 Blood Pressure 1: 94/58 Code: 8480-6 BMI: 20.4 C ode: 49800-3 Heart Rate 1: 72 bpm Height: 5'7" SpO2: 96% Temperature: 37.2 (C) / 99.0 (F) Weight: 130 lbs 05/15/2017 Blood Pressure 1: 104/64 Code: 8480-6 BMI: 20.8 Code: 67452-0 Heart Rate 1: 80 bpm Height: 5'7" Respiratory Rate: 20 bpm Temperature: 36 .7 (C) / 98.1 (F) Weight: 133 lbs 04/27/2016 Blood Pressure 1: 112/70 Code: 8480-6 BMI: 20.8 Code: 46942-1 Heart Rate 1: 80 bpm Height: 5'7" Respiratory Rate: 20 bpm Temperature: 37 .2 (C) / 99.0 (F) Weight: 133 lbs 03/17/2016 Blood Pressure 1: 122/76 Code: 8480-6 He art Rate 1: 80 bpm 07/13/2015 Blood Pressure 1: 98/60 Code: 8480-6 BMI: 20.5 C ode: 38123-4 Heart Rate 1: 76 bpm Height: 5'7" Respiratory Rate: 20 bpm Temperature: 36 .9 (C) / 98.4 (F) Weight: 131 lbs 10/30/2014 Blood Pressure 1: 124/80 Code: 8480-6 BMI: 19.4 Code: 31051-4 Heart Rate 1: 94 bpm Height: 5'7" Respiratory Rate: 24 bpm SpO2: 98% Tempera ture: 36.6 (C) / 97.8 (F) Weight: 124 lbs 01/05/2014 Blood Pressure 1: 98/68 Code: 8480-6 BMI: 19.3 C ode: 11708-3 Heart Rate 1: 76 bpm Height: 5'7" Respiratory Rate: 20 bpm Temperature: 36 .8 (C) / 98.2 (F) Weight: 123 lbs 11/26/2013 Blood Pressure 1: 104/64 Code: 8480-6 BMI: 20.4 Code: 23462-5 Heart Rate 1: 84 bpm Height: 5'7" Respiratory Rate: 18 bpm Temperature: 36 .7 (C) / 98.0 (F) Weight: 130 lbs 06/10/2013 Blood Pressure 1: 132/90 Code: 8480-6 BMI: 19.4 Code: 11649-9 Heart Rate 1: 80 bpm Height: 5'7" Respiratory Rate: 20 bpm Temperature: 36 .6 (C) / 97.8 (F) Weight: 124 lbs 02/19/2013 Blood Pressure 1: 114/80 Code: 8480-6 BMI: 19.7 Code: 26623-8 Heart Rate 1: 84 bpm Height: 5'7" Respiratory Rate: 20 bpm Temperature: 36 .9 (C) / 98.5 (F) Weight: 126 lbs 07/23/2012 Blood Pressure 1: 106/64 Code: 8480-6 BMI: 20.8 Code: 66187-2 Heart Rate 1: 60 bpm Height: 5'7" Temperature: 37.8 (C) / 100.0 (F) Weight : 133 lbs 07/17/2012 Blood Pressure 1: 162/110 Code: 8480-6 BMI: 21.0 Code: 68748-7 Heart Rate 1: 92 bpm Height: 5'7" Respiratory Rate: 20 bpm Temperature: 36 .8 (C) / 98.2 (F) Weight: 134 lbs 10/30/2011 Blood Pressure 1: 138/80 Code: 8480-6 BMI: 21.0 Code: 39118-8 Heart Rate 1: 84 bpm Height: 5'7" Temperature: 37.1 (C) / 98.7 (F) Weight: 134 lbs 08/03/2011 Blood Pressure 1: 114/72 Code: 8480-6 BMI: 21.0 Code: 91643-0 Heart Rate 1: 64 bpm Height: 5'7" [...] Visit Encounters Encounter Performer Location Codes Date ([id number]) OFFICE/OUTPATIENT VISIT EST Diagnosis: Hallux valgus (acquired), right foot[ICD10: M20.11] Diagnosis: Encounter for other preprocedural examination[ICD10: Z01.818] Shaye ALVARADO [facility] CPT-4: 51395 03/25/2019 ([id number]) OFFICE/OUTPATIENT VISIT EST Diagnosis: Radial styloid tenosynovitis [de Quervain][ICD10: M65.4] Shaye ALVARADO [facility] CPT-4: 49277 07/24/2018 ([id number]) OFFICE/OUTPATIENT VISIT EST Diagnosis: Other fatigue[ICD10: R53.83] Diagnosis: Anemia, unspecified[ICD10: D64.9] Mara Josueshima ALVARADO [facility] CPT-4: 88175 06/21/2018 ([id number]) PREV VISIT EST AGE 40-64 Diagnosis: Mild intermittent asthma with (acute) exacerbation[ICD10: J45.21] Diagnosis: Encounter for general adult medical examination without abnormal findings[ICD10: Z00.00] Diagnosis: Encounter for gynecological examination (general) (routine) without abnormal findings[ICD10: Z01.419] Shaye Swanson [facility] CPT-4: 44808 07/05/2017 ([id number]) OFFICE/OUTPATIENT VISIT EST Diagnosis: Essential (primary) hypertension[ICD10: I10] Diagnosis: Other cervical disc degeneration, unspecified cervical region[ICD10: M50.30] Diagnosis: Tension-type headache, unspecified, not intractable[ICD10: G44.209] Shaye ALVARADO [facility] CPT-4: 40822 05/15/2017 ([id number]) OFFICE/OUTPATIENT VISIT EST Diagnosis: Lateral epicondylitis, right elbow[ICD10: M77.11] Shaye ALVARADO [employer] [facility] CPT-4: 36536 04/27/2016 ([id number]) OFFICE/OUTPATIENT VISIT EST Diagnosis: Hematuria, unspecified[ICD10: R31.9] Shaye ALVARADO [facility] CPT-4: 28166 08/04/2015 ([id number]) PREV VISIT EST AGE 40-64 Diagnosis: Encounter for general adult medical examination without abnormal findings[ICD10: Z00.00] Diagnosis: Essential (primary) hypertension[ICD10: I10] Diagnosis: Other cervical disc degeneration, unspecified cervical region[ICD10: M50.30] 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9] Diagnosis: SINUSITIS, ACUTE[ICD9: 461.9] Diagnosis: CONVULSIONS[ICD9: 780.39] Shaye DEMARCOR [facility] CPT-4: 37882 06/10/2013 OFFICE/OUTPATIENT VISIT EST Diagnosis: Pyelonephritis[ICD9: 590.80] Diagnosis: HYPERTENSION[ICD9: 401.9] Shaye KIM NDER [facility] CPT-4: 96845 02/19/2013 OFFICE/OUTPATIENT VISIT EST Diagnosis: OTITIS MEDIA NOS[ICD9: 382.9] Diagnosis: COUGH[ICD9: 786.2] Diagnosis: SINUSITIS, ACUTE[ICD9: 461.9] Shaye ALVARADO Pitadela [facility] CPT-4: 16018 07/23/2012 ([id number]) OFFICE/OUTPATIENT VISIT EST Diagnosis: HYPERTENSION[ICD9: 401.9] Diagnosis: CONVULSIONS[ICD9: 780.39] Shaye MANCINI [facility] CPT-4: 30101 07/17/2012 OFFICE/OUTPATIENT VISIT EST Diagnosis: COUGH[ICD9: 786.2] Diagnosis: PHARYNGITIS, ACUTE[ICD9: 462] Shaye ALVARADO [facility] CPT-4: 29490 10/30/2011 OFFICE/OUTPATIENT VISIT NEW Diagnosis: CERVICAL DISC DEGEN[ICD9: 722.4] Diagnosis: Neck pain[ICD9: 723.1] Diagnosis: Radiculopathy of arm[ICD9: 723.4] Diagnosis: Seizure[ICD9: 780.39] Shaye ALVARADO [facility] CPT-4: 91639 08/03/2011 Plan of Care Planned Activity Notes Codes Status Date Visit Diagnosis Plan: Hallux valgus (acquired), right foot Discussion: Update lab for upcoming surgery Okay to proceed with planned surgery by Dr. Nuñez ICD-9 : 735.0 ICD-10 : M20.11 03/25/2019 Appointment: Shaye Alvarado WPtel: [address] [place], [place] [phone] FOLLOW UP 03/25/2019 Visit Diagnosis Plan: Radial styloid tenosynovitis [de Quervain] Discussion: Spica thumb wrist splint Medrol Dose Pack followed by mobic Notify if worsens or persists ICD-9 : 727.04 ICD-10 : M65.4 07/24/2018 Appointment: Shaye Alvarado WPtel: [address] [place], [place] [phone] ACUTE ILLNESS 07/24/2018 Patient Education: Medrol (Franc[place])- [employer] Coupon [phone] [email or web address]://www.samplemd.com/samplemd/resources/[email or web address] Completed 07/24/2018 Visit Diagnosis Plan: Other fatigue Discussion: urine test neg. when urine was tested, noted dark, cloudy urine and dipstick was obtained. showed protein and blood in urine so will send off for urine culture. multiple labs or dered to be completed at [facility]. cbc, cmp, tsh, t4, tt3, b12, iron, ferritin obtained. will review labs and culture and order additional meds/labs as needed. ICD-9 : 780.79 ICD-10 : R53.83 06/21/2018 Appointment: Mara Echevarria [address] [place] [address] ACUTE ILLNESS 06/21/2018 Appointment: Shaye Alvarado WPtel: [address] [place] [address] Scheduled in ERROR 06/10/2018 Visit Diagnosis Plan: [...] : J45.21 07/05/2017 Appointment: Shaye Alvarado WPtel: [facility] PAP 07/05/2017 Patient Education: Patient Medication [...] : I10 05/15/2017 Appointment: Shaye Alvarado WPtel: [address] [place], [place] [phone] ACUTE ILLNESS 05/15/2017 Patient Education: Patient Medication Summary Completed 05/15/2017 Referral: Armin Arzate WPtel: Orthopaedic [facility] [id number] [facility], [id number] [place] Referral Appointment Confirmed 05/10/2016 Visit Plan: Medrol Dose Pack then start mobic Continue brace See Dr. Arzate Discussed iontophoresis May need surgery as has tried all conservative measures at this point 04/27/2016 Appointment: Shaye Alvarado WPtel: [address] [place] [address] 04/26 lm~sl...confirmed-sp FOLLOW UP 04/27 Patient Education: Patient Medication Summary Completed 04/27/2016 Care Plan: Referral Order SNOMED-CT : [id number] Pending 04/27/2016 Visit Plan: Injection as above Howard graff strap Vivlodex 10mg daily Notify if worsens or persists 03/17/2016 Appointment: Shaye Alvarado WPtel: [address] [place], [place] [id number] OFFICE SURGERY 03/17/2016 Patient Education: Patient Medication Summary Completed 03/17/2016 Appointment: Yolis Membreno [address] [place], [place] [id number] 12/19- patient misunderstood why appointment was scheduled. CANCELED 12/21/2015 Appointment: Shaye Alvarado WPtel: [address] [place], [place] [phone] ACUTE ILLNESS 12/20/2015 Patient Education: Patient Medication Summary Completed 12/20/2015 Appointment: Shaye Alvarado WPtel: [address] [place], [place] [phone] UA 08/04/2015 Patient Education: Patient Medication Summary Completed 08/04/2015 Visit Plan: Updated MRI of cervical spin e Decrease lisinopril to 2.5mg daily Update lab Add cyclobenzaprine at 10mg q HS 07/13/2015 Appointment: Shaye Alvarado WPtel: [address] [place] [address] 07/12/15 appt confirmed cn Annual Well Visit Patient Education: Patient Medication Summary Completed 07/13/2015 Patient Education: [facility] - Saving AutoInj - Lisinopril - 18-64 - Dynamic Portal ID Completed 07/13/2015 Patient Education: Neck Pain Completed 07/13/2015 Appointment: Sarika Dialol WPtel: [address] [place] [address] ACUTE ILLNESS 10/30/2014 Patient Education: Patient Medication Summary Completed 10/30/2014 Visit Plan: Fasting lab drawn including tegretol level Decrease lisinopril to 5mg daily and observe BP 01/05/2014 Appointment: Shaye Alvarado WPtel: [address] [place] [address] 01/02 Annual Well Visit 01/05/2014 Patient Education: Patient Medication Summary Completed 01/05/2014 Appointment: Sarika Diallo WPtel: [address] [place] [address] ACUTE ILLNESS 11/26/2013 Patient Education: Patient Medication Summary Completed 11/26/2013 Visit Plan: Saline nasal flushes prn. Ty lenol/Motrin prn headache. Notify if persists/symptoms worsening. Decrease Lisinopril to 10mg daily 06/10/2013 Appointment: Shaye Alvarado WPtel: [address] [place] [address] 06/09 vm FOLLOW UP 06/10/2013 Patient Education: Patient Medication Summary Completed 06/10/2013 Visit Plan: Finish abx and observe Stay off lisinopril and observe 02/19/2013 Appointment: Shaye Alvaradol: [address] [place] [address] Hospital Follow Up 02/19/2013 Patient Education: Patient Medication Summary Completed 02/19/2013 Visit Plan: rocephin IM and Cefdinir. Wi ll notify if no improvement. Tylenol #3 #20 dispensed. Pt. has made contact with Dr. Frias's office and has follow up appnt. Pt. will notify if fever continues into tomorrow. 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 Discussed that could be walking pneumonia. Encouraged fluids and rest. Pt. will notify if symptoms persist or worsen. Note for work. 2-3 days. 10/30/2011 Appointment: Penelope Golden WPtel: [address] [place] [address] ACUTE ILLNESS 10/30/2011 Patient Education: Patient Medication Summary Completed 10/30/2011 Visit Plan: Proceed with Cervical Spine MRI Percocet 5/500 1 po q HS prn pain--#30 Tramadol 50mg 1-2 po BID prn pain--#60 See Ortho for surgical opinion 08/03/2011 Appointment: Shaye Alvarado WPtel: [address] [place] [address] [place] NEW PATIENT 08/03/2011 Patient Education: Patient Medication Summary Completed 08/03/2011 Referral: Armin Arzate WPtel: [facility] [address] [place] [address] Drive, [facility] 1 [id number] [place] Referral Appointment Requested Instructions Comment . Medrol [...]
--- OUTSIDE RECORDS SUMMARY | 2020-01-09 09:36 | XMS REPORT | CCD ---
Author Author Chiquita Alvarado D.O. Organization KEVAN ALVARADO DO [facility] Address [address] [place] [address] Phone Care Team Providers Care Port Traffic Manager Name Role Phone Kevan Alvarado D.O., PP Unavailable CCM Unavailable Summary Purpose Interface Exchange Insurance Providers Payer name Policy type / Coverage type Covered republican ID Effective Begin Date Effective End Date Blue Cross Blue Shield Blue Cross/Blue Shield [id number] Unknown Family history Father Diagnosis Age At Onset No Family Disease Entered N/A Mother Diagnosis Age At Onset No Family Disease Entered N/A Side Diagnosis Age At Onset No Family Disease Entered N/A Social History Social History Element Codes Description Effective Dates Marital status Unknown 08/03/2011 Number of children Unknown 2 08/03/2011 Employment Unknown Currently employed [employer] 08/03/[address]: 813564554 Never smoker 08/03/[address]: 368449 Currently drinks alc ohol socially 08/03/2011 Allergies, [...] Start Date Stop Date Status Fill Instructions Maxalt 10 mg tablet RxNorm: 493935 TAKE ONE TABLET BY M OUTH AT ONSET OF HEADACHE, MAY REPEAT ONE TABLET IN 2 HOURS IF NEEDED 11/13/2019 No Stop Date Active Cymbalta 60 mg capsule,delayed release RxNorm: 245896 T FABIO ONE CAPSULE BY MOUTH DAILY 08/28/2019 No Stop Date Active lisinopril 2.5 mg tablet RxNorm: 944073 1 Tablet(s) Oral QD 020 11/20/2019 Active Tegretol 200 mg tablet RxNorm: 831595 1 Tablet(s) Oral QD 08/22/2019 11/20/2019 Active Maxalt 10 mg tablet RxNorm: 106219 TAKE ONE TABLET BY M OUTH AT ONSET OF HEADACHE, MAY REPEAT ONE TABLET IN 2 HOURS IF NEEDED 08/06/2019 Inactive Tegretol 200 mg tablet RxNorm: 708187 TAKE ONE TABLET BY MOUTH MARGARITO Y 05/26/2019 08/21/2019 Inactive Maxalt 10 mg tablet RxNorm: 355368 1 Tablet(s) PO AT ON SET OF HEADACHE; MAY REPEAT ONE TABLET IN 2 HOURS IF NEEDED. 03/25/2019 05/23/2019 Inactive Tegretol 200 mg tablet RxNorm: 442300 TAKE ONE TABLET BY MOUTH MARGARITO Y 02/06/2019 05/06/2019 Inactive Cymbalta 60 mg capsule,delayed release RxNorm: 091273 T FABIO ONE CAPSULE BY MOUTH DAILY 02/06/2019 04/06/2019 Inactive lisinopril 2.5 mg tablet RxNorm: 711193 TAKE ONE TABLET BY MOUT H DAILY 01/27/2019 08/21/2019 Inactive Maxalt 10 mg tablet RxNorm: 349868 1 Tablet(s) PO AT ON SET OF HEADACHE; MAY REPEAT ONE TABLET IN 2 HOURS IF NEEDED. 11/22/2018 01/20/2019 Inactive Maxalt 10 mg tablet RxNorm: 390460 TAKE ONE TABLET BY M OUTH AT ONSET OF HEADACHE; MAY REPEAT ONE TABLET IN 2 HOURS IF NEEDED. 11/19/20182018 Inactive lisinopril 2.5 mg tablet RxNorm: 705805 TAKE ONE TABLET BY MOUT H DAILY 10/14/2018 01/11/2019 Inactive Maxalt 10 mg tablet RxNorm: 660828 TAKE ONE TABLET BY M OUTH AT ONSET OF HEADACHE; MAY REPEAT ONE TABLET IN 2 HOURS IF NEEDED. 09/20/20182018 Inactive Medrol (Francisco) 4 mg tablets in a dose pack RxNorm: 606644 6 Tablet(s) PO QD --then as directed 07/24/2018 07/29/2018 Inactive Mobic 15 mg tablet RxNorm: 880385 1 Tablet(s) PO QD 07/24/20182018 Inactive Tegretol 200 mg tablet RxNorm: 611583 TAKE ONE TABLET BY MOUTH MARGARITO Y 07/03/2018 12/29/2018 Inactive Maxalt 10 mg tablet RxNorm: 971546 TAKE ONE TABLET BY M OUTH AT ONSET OF HEADACHE; MAY REPEAT ONE TABLET IN 2 HOURS IF NEEDED. 07/03/20182018 Inactive Bactrim DS 800 mg-160 mg tablet RxNorm: 924794 1 Tablet(s) PO BID 1 08/25/2017 06/23/2018 Inactive Bactrim DS 800 mg-160 mg tablet RxNorm: 010097 1 Tablet(s) PO BID 1 08/25/2017 06/30/2018 Inactive Maxalt 10 mg tablet RxNorm: 688572 TAKE ONE TABLET BY M OUTH AT ONSET OF HEADACHE; MAY REPEAT ONE TABLET IN 2 HOURS IF NEEDED. 05/09/20182017 Inactive Cymbalta 60 mg capsule,delayed release RxNorm: 389571 T FABIO ONE CAPSULE BY MOUTH DAILY 04/09/2018 07/07/2018 Inactive lisinopril 2.5 mg tablet RxNorm: 207786 Tablet(s) TAKE ONE TABLET BY MOUTH DAILY 03/25/2018 09/20/2018 Inactive Maxalt 10 mg tablet RxNorm: 470468 TAKE ONE TABLET BY M OUTH AT ONSET OF HEADACHE; MAY REPEAT ONE TABLET IN 2 HOURS IF NEEDED. 02/26/20182017 Inactive Tegretol 200 mg tablet RxNorm: 307374 TAKE ONE TABLET BY MOUTH MARGARITO Y 12/04/2017 06/01/2018 Inactive Maxalt 10 mg tablet RxNorm: 444774 1 Tablet(s) PO AT ON SET OF HEADACHE. MAY REPEAT IN 2 HOURS 11/12/2017 12/01/2017 Inactive lisinopril 2.5 mg tablet RxNorm: 902874 TAKE ONE TABLET BY MOUT H DAILY 08/28/2017 03/25/2018 Inactive Tegretol 200 mg tablet RxNorm: 912059 TAKE ONE TABLET BY MOUTH MARGARITO Y 08/28/2017 11/25/2017 Inactive Maxalt 10 mg tablet RxNorm: 598901 1 Tablet(s) PO AT ON SET OF HEADACHE. MAY REPEAT IN 2 HOURS 07/05/2017 11/12/2017 Inactive cyclobenzaprine 10 mg tablet RxNorm: 795867 1 Tablet(s) PO QHS as needed for muscle spasm 05/15/2017 No Stop Date Active diclofenac sodium 75 mg tablet,delayed release RxNorm: 59458 6 1 Tablet(s) PO BID as needed for neck pain 05/15/2017 07/13/2017 Inactive Cymbalta 60 mg capsule,delayed release RxNorm: 513149 C apsule(s) TAKE ONE CAPSULE BY MOUTH DAILY 05/07/2017 08/04/2017 Inactive Maxalt 10 mg tablet RxNorm: 297316 1 Tablet(s) PO AT ON SET OF HEADACHE. MAY REPEAT IN 2 HOURS 04/30/2017 05/09/2017 Inactive Maxalt 10 mg tablet RxNorm: 691135 1 Tablet(s) PO AT ON SET OF HEADACHE. MAY REPEAT IN 2 HOURS 02/22/2017 04/30/2017 Inactive Tegretol 200 mg tablet RxNorm: 820739 Tablet(s) TAKE ONE TABLET BY MOUTH DAILY 01/11/2017 07/09/2017 Inactive Maxalt 10 mg tablet RxNorm: 112765 1 Tablet(s) PO AT ON SET OF HEADACHE. MAY REPEAT IN 2 HOURS 01/11/2017 02/22/2017 Inactive Maxalt 10 mg tablet RxNorm: 122996 1 Tablet(s) PO AT ON SET OF HEADACHE. MAY REPEAT IN 2 HOURS 11/30/2016 01/11/2017 Inactive Maxalt 10 mg tablet RxNorm: 751586 TAKE ONE TABLET BY M OUTH AT ONSET OF HEADACHE. MAY REPEAT IN 2 HOURS 07/26/2016 11/30/2016 Inactive lisinopril 2.5 mg tablet RxNorm: 178708 TAKE ONE TABLET BY MOUT H DAILY 07/24/2016 07/23/2016 Inactive lisinopril 2.5 mg tablet RxNorm: 465403 TAKE ONE TABLET BY MOUT H DAILY 07/24/2016 01/19/2017 Inactive Maxalt 10 mg tablet RxNorm: 059130 TAKE ONE TABLET BY M OUTH AT ONSET OF HEADACHE. MAY REPEAT IN 2 HOURS 06/05/2016 06/14/2016 Inactive Tegretol 200 mg tablet RxNorm: 437948 TAKE ONE TABLET BY MOUTH MARGARITO Y 06/05/2016 01/11/2017 Inactive Cymbalta 60 mg capsule,delayed release RxNorm: 560487 T FABIO ONE CAPSULE BY MOUTH DAILY 05/17/2016 05/07/2017 Inactive Medrol (Francisco) 4 mg tablets in a dose pack RxNorm: 783654 6 Tablet(s) PO QD --then as directed 04/27/2016 05/02/2016 Inactive Mobic 15 mg tablet RxNorm: 431877 1 Tablet(s) PO QD for pain 201505/26/2016 Inactive Maxalt 10 mg tablet RxNorm: 255343 TAKE ONE TABLET BY M OUTH AT ONSET OF HEADACHE. MAY REPEAT IN 2 HOURS 02/28/2016 03/25/2016 Inactive Tegretol 200 mg tablet RxNorm: 353926 TAKE ONE TABLET BY MOUTH MARGARITO Y 02/14/2016 05/13/2016 Inactive Maxalt 10 mg tablet RxNorm: 569709 TAKE ONE TABLET BY M OUTH AT ONSET OF HEADACHE. MAY REPEAT IN 2 HOURS 01/10/2016 01/27/2016 Inactive lisinopril 2.5 mg tablet RxNorm: 128902 TAKE ONE TABLET BY MOUT H DAILY 01/03/2016 06/30/2016 Inactive Macrobid 100 mg capsule RxNorm: 016899 1 Capsule(s) PO BID 12/23/19 16 12/29/2015 Inactive Macrobid 100 mg capsule RxNorm: 681281 1 Capsule(s) PO BID 12/23/19 16 12/22/2015 Inactive Bactrim DS 800 mg-160 mg tablet RxNorm: 339870 1 Tablet(s) PO BID 0 12/21/2015 12/27/2015 Inactive Bactrim DS 800 mg-160 mg tablet RxNorm: 595567 1 Tablet(s) PO BID 0 12/21/2015 12/20/2015 Inactive Tegretol 200 mg tablet RxNorm: 468681 1 Tablet(s) PO QD TAKE ONE TABLET BY MOUTH DAILY 10/18/2015 01/15/2016 Inactive Maxalt 10 mg tablet RxNorm: 528515 Tablet(s) TAKE ONE T ABLET BY MOUTH AT ONSET OF HEADACHE. MAY REPEAT IN 2 HOURS. 10/11/2015 10/25/2015 Inactive Bactrim DS 800 mg-160 mg tablet RxNorm: 980615 1 Tablet(s) PO BID 0 08/05/2015 08/04/2015 Inactive Bactrim DS 800 mg-160 mg tablet RxNorm: 539498 1 Tablet(s) PO BID 0 08/05/2015 08/11/2015 Inactive cyclobenzaprine 10 mg tablet RxNorm: 292559 1 Tablet(s) PO QHS as needed for muscle spasm 07/13/2015 09/10/2015 Inactive lisinopril 2.5 mg tablet RxNorm: 170037 1 Tablet(s) PO QD 07/13/2015 01/02/2016 Inactive Tegretol 200 mg tablet RxNorm: 537160 1 Tablet(s) PO QD 07/05/2015 Inactive Maxalt 10 mg tablet RxNorm: 052769 Tablet(s) TAKE ONE T ABLET BY MOUTH AT ONSET OF HEADACHE. MAY REPEAT IN 2 HOURS. 06/23/2015 10/11/2015 Inactive Cymbalta 60 mg capsule,delayed release RxNorm: 834627 1 Capsule (s) PO QD 05/17/2015 05/10/2016 Inactive [AttnRPh: Saving jason ly/adjudicate RxGRP:SG20 RxBIN:[id number] RxPCN: ID#:[id number]] Maxalt 10 mg tablet RxNorm: 650243 Tablet(s) TAKE ONE T ABLET BY MOUTH AT ONSET OF HEADACHE. MAY REPEAT IN 2 HOURS. 04/01/2015 04/15/2015 Inactive Tegretol 200 mg tablet RxNorm: 307505 1 Tablet(s) PO QD 03/09/2015 Inactive lisinopril 10 mg tablet RxNorm: 645176 1 Tablet(s) PO QD 01/18/2015 1 09/12/2014 Inactive [AttnRPh: Saving apply/adjudicate RxGRP: SG20 RxBIN:[id number] RxPCN: ID#:[id number]] Tegretol 200 mg tablet RxNorm: 593711 1 Tablet(s) PO QD 12/03/2014 Inactive Maxalt 10 mg tablet RxNorm: 318252 TAKE ONE TABLET BY M OUTH AT ONSET OF HEADACHE. MAY REPEAT IN 2 HOURS. 11/18/2014 04/01/2015 Inactive benzonatate 100 mg capsule RxNorm: 470220 1 Capsule(s) PO TID a s needed 10/30/2014 07/12/2015 Inactive prednisone 20 mg tablet RxNorm: 744502 1 Tablet(s) PO BID 10/30/2014 11/03/2014 Inactive Maxalt 10 mg tablet RxNorm: 747399 as needed TAKE 1 TAB LET BY MOUTH AT ONSET OF HEADACHE AND MAY REPEAT IN 2 HOURS 09/02/2014 09/13/2014 Inactive Tegretol 200 mg tablet RxNorm: 401134 1 Tablet(s) PO QD 08/17/2014 Inactive Cymbalta 60 mg capsule,delayed release RxNorm: 859834 1 Capsule (s) PO QD 06/29/2014 05/17/2015 Inactive [AttnRPh: Saving jason ly/adjudicate RxGRP:SG20 RxBIN:[id number] RxPCN: ID#:[id number]] lisinopril 10 mg tablet RxNorm: 295530 1 Tablet(s) PO QD 06/10/2014 0 12/06/2014 Inactive [AttnRPh: Saving apply/adjudicate RxGRP: SG20 RxBIN:[id number] RxPCN: ID#:[id number]] Maxalt 10 mg tablet RxNorm: 175288 TAKE ONE TABLET BY M OUTH AT HEADACHE ONSET AND MAY REPEAT IN 2 HOURS IF HEADACHE REMAINS 04/20/2014 09/02/2014 In active albuterol sulfate HFA 90 mcg/actuation aerosol inhaler RxNor m: 3559657 2 Puff(s) INH Q4H 11/26/2013 No Stop Date Active doxycycline hyclate 100 mg tablet RxNorm: 648561 1 Tablet(s) PO BID 11/26/2013 12/05/2013 Inactive Maxalt 10 mg tablet RxNorm: 378561 Tablet(s) PO Take 1 at headache onset and may repeat in 2 hours if headache remains 11/21/2013 04/19/2014 Inactive [SAVINGS FOR UNINSURED PATIENTS -- BIN:[id number], PCN: [id number], Group: [id number], ID# [id number], Process claim through [employer], for questions: . THIS IS NOT INSURANCE.] Tegretol 200 mg tablet RxNorm: 501063 1 Tablet(s) PO QD 06/10/2013 Inactive lisinopril 10 mg tablet RxNorm: 388340 1 Tablet(s) PO QD 06/10/2013 1 08/10/2013 Inactive Cymbalta 60 mg capsule,delayed release RxNorm: 906135 1 Capsule (s) PO QD 06/10/2013 06/29/2014 Inactive lisinopril 20 mg tablet RxNorm: 209011 1 Tablet(s) PO QAM for BP 06/09/2013 Inactive lisinopril 20 mg tablet RxNorm: 656657 1 Tablet(s) PO QAM for BP 11/07/2012 Inactive cefdinir 300 mg capsule RxNorm: 818725 1 Capsule(s) PO BID 07/23/19 13 08/01/2012 Inactive lisinopril 20 mg tablet RxNorm: 457492 1 Tablet(s) PO QAM for BP 09/09/2012 Inactive doxycycline hyclate 100 mg Tab RxNorm: 683913 1 Tablet(s) PO BID 11/08/2011 Inactive Mirena 20 mcg/24 hr (5 years) intrauterine device RxNorm: 025530 IU No Start Date Active Seasonique 0.15 mg-30 mcg (84)/10 mcg(7) Tabs,3 month dose p ack RxNorm: 448550 1 Tablet(s) PO QD No Start Date 07/12/2015 Inactive Tegretol 200 mg tablet RxNorm: 050228 1 Tablet(s) PO QD No Start Da te 06/09/2013 Inactive lisinopril 20 mg tablet RxNorm: 625704 1 Tablet(s) PO QD No Start D ate 06/09/2013 Inactive Maxalt 10 mg tablet RxNorm: 400063 Tablet(s) PO Take 1 at headache onset and may repeat in 2 hours if headache remains No Start Date 11/20/2013 Inactive Cymbalta 60 mg capsule,delayed release RxNorm: 038013 1 Capsule (s) PO QD No Start Date 06/09/2013 Inactive Medrol (Francisco) 4 mg Tabs in a Dose Pack RxNorm: 968441 Tablet(s) PO as directed No Start Date 07/16/2012 Inactive Medication Administered No Medication Administered data Immunizations No Immunization data Results Observation Observation Code Item Item Code Result Date S vice Location TEGRETOL 5795256 TEGRETOL 5.2 MG/L 01/07/2014 Unknown COMPREHENSIVE METABOLIC 03377 AST 16 U/L 2013 Unknown COMPREHENSIVE METABOLIC 59440 ALT 10 IU/L 2013 Unknown COMPREHENSIVE METABOLIC 52019 BUN 17 MG/DL 2013 Unknown COMPREHENSIVE METABOLIC 57726 ALBUMIN 4.3 GM/DL 2013 Unknown COMPREHENSIVE METABOLIC 04118 CHLORIDE 105 MMOL/L 01/05 Unknown COMPREHENSIVE METABOLIC 87552 BILI TOT 0.2 MG/DL 2013 Unknown COMPREHENSIVE METABOLIC 71340 ALK PHOS 37 U/L 2013 Unknown COMPREHENSIVE METABOLIC 70796 SODIUM 137 MMOL/L 01/05 Unknown COMPREHENSIVE METABOLIC 81511 CREATININE 0.86 MG/DL 12/15 Unknown COMPREHENSIVE METABOLIC 53194 CALCIUM 9.4 MG/DL 2013 Unknown COMPREHENSIVE METABOLIC 08888 POTASSIUM 5.0 MMOL/L 01/05 Unknown COMPREHENSIVE METABOLIC 80035 PROT TOT 6.3 GM/DL 2013 Unknown COMPREHENSIVE METABOLIC 01762 Glucose 104 MG/DL 2013 Unknown COMPREHENSIVE METABOLIC 70252 BICARB 27 MMOL/L 2013 Unknown COMPREHENSIVE METABOLIC 09429 ANION GAP 5 MEQ/L 2013 Unknown THYROID STIMULATING HORMONE 56580 TSH 0.822 uIU/ML 01/05/2014 Unknown GFR CALC 0487204 GFR AA >60 ML/MIN 01/05/2014 Unknown GFR CALC 6618064 GFR NON-AA >60 ML/MIN 01/05/2014 Unknown COMPLETE BLOOD COUNT 1309384 WBC 5.5 10e9/L 01/06/20 14 Unknown COMPLETE BLOOD COUNT 3615379 RBC 4.17 10e12/L 2013 Unknown COMPLETE BLOOD COUNT 2610662 HGB 13.0 g/dL 4 Unknown COMPLETE BLOOD COUNT 3156112 HCT DET 39.0 % 4 Unknown COMPLETE BLOOD COUNT 7533488 MCV 93.5 fL 4 Unknown COMPLETE BLOOD COUNT 0710975 MCH 31.2 pg 4 Unknown COMPLETE BLOOD COUNT 0217388 MCHC 33.3 g/dL 4 Unknown COMPLETE BLOOD COUNT 7792899 PLT 294 10e9/L 01/06/20 14 Unknown COMPLETE BLOOD COUNT 1759418 MPV 11.4 fL 4 Unknown COMPLETE BLOOD COUNT 8344242 NIKKY % 59.4 % 4 Unknown COMPLETE BLOOD COUNT 3512763 LY % 27.7 % 4 Unknown COMPLETE BLOOD COUNT 6074303 MON % 10.3 % 4 Unknown COMPLETE BLOOD COUNT 0787891 EOS % 1.5 % 4 Unknown COMPLETE BLOOD COUNT 7922023 BASO % 1.1 % 4 Unknown COMPLETE BLOOD COUNT 9997357 RDW 12.7 % 4 Unknown COMPLETE BLOOD COUNT 1269718 ABS NIKKY 3.27 10e9/L 014 Unknown COMPLETE BLOOD COUNT 4281885 ABS LYMPH 1.52 10e9/L 014 Unknown COMPLETE BLOOD COUNT 1628923 ABS MONO 0.57 10e9/L 014 Unknown COMPLETE BLOOD COUNT 3382204 ABS EOS 0.08 10e9/L 014 Unknown COMPLETE BLOOD COUNT 1971701 ABS BASO 0.06 10e9/L 014 Unknown COMPLETE BLOOD COUNT 9835102 RDW-SD 42.1 fL 4 Unknown LIPID GROUP 21412 HDL TEST 60 MG/DL 01/05/2014 Unknown LIPID GROUP 74810 TRIG 63 MG/DL 01/05/2014 Unknown LIPID GROUP 65706 TEST LDL 83 MG/DL 01/05/2014 Unknown LIPID GROUP 93123 CHOL 156 MG/DL 01/05/2014 Unknown LIPID GROUP 79036 RCHOL/HDL 2.60 RATIO 01/05/2014 Unknow n FREE T4 75078 FREE T4 0.87 NG/DL 01/05/2014 Unknown Procedures Procedure Codes Date URINALYSIS NONAUTO W/O SCOPE CPT-4: 97918 06/21/2018 URINE TEST CPT-4: 45421 06/21/2018 URINE CULTURE/ COLONY COUNT CPT-4: 72017 06/21/2018 SPECIMEN HANDLING OFFICE-LAB CPT-4: 55544 07/05/2017 DRAIN/INJECT JOINT/BURSA CPT-4: 08036 03/17/2016 URINALYSIS NONAUTO W/O SCOPE CPT-4: 53339 12/20/2015 URINE CULTURE/ COLONY COUNT CPT-4: 70408 12/20/2015 URINALYSIS NONAUTO W/O SCOPE CPT-4: 21662 08/04/2015 URINE CULTURE/ COLONY COUNT CPT-4: 91205 08/04/2015 ROUTINE VENIPUNCTURE CPT-4: 06895 01/05/2014 ASSAY OF FREE THYROXINE CPT-4: 15951 01/05/2014 ASSAY THYROID STIM HORMONE CPT-4: 01848 01/05/2014 COMPREHEN METABOLIC PANEL CPT-4: 10206 01/05/2014 COMPLETE CBC W/AUTO DIFF WBC CPT-4: 51015 01/05/2014 LIPID PANEL CPT-4: 72969 01/05/2014 CEFTRIAXONE SODIUM INJECTION CPT-4: J0696 07/23/2012 THER/PROPH/DIAG INJ SC/IM CPT-4: 61767 07/23/2012 Vital Signs Date Vital 03/25/2019 Blood Pressure 1: 104/62 Code: 8480-6 Heart Rate 1: 72 bpm Respiratory Rate: 18 bpm SpO2: 97% Temperature: 36.9 (C) / 98.5 (F) We ight: 134 lbs 07/24/2018 Blood Pressure 1: 122/80 Code: 8480-6 BMI: 21.3 Code: 98027-2 Heart Rate 1: 76 bpm Height: 5'7" Respiratory Rate: 20 bpm Temperature: 36 .9 (C) / 98.4 (F) Weight: 136 lbs 06/21/2018 Blood Pressure 1: 100/78 Code: 8480-6 Heart Rate 1: 82 bpm Respiratory Rate: 18 bpm SpO2: 100% Temperature: 36.7 (C) / 98.0 (F) We ight: 130 lbs 07/05/2017 Blood Pressure 1: 94/58 Code: 8480-6 BMI: 20.4 C ode: 77710-8 Heart Rate 1: 72 bpm Height: 5'7" SpO2: 96% Temperature: 37.2 (C) / 99.0 (F) Weight: 130 lbs 05/15/2017 Blood Pressure 1: 104/64 Code: 8480-6 BMI: 20.8 Code: 78034-3 Heart Rate 1: 80 bpm Height: 5'7" Respiratory Rate: 20 bpm Temperature: 36 .7 (C) / 98.1 (F) Weight: 133 lbs 04/27/2016 Blood Pressure 1: 112/70 Code: 8480-6 BMI: 20.8 Code: 06097-4 Heart Rate 1: 80 bpm Height: 5'7" Respiratory Rate: 20 bpm Temperature: 37 .2 (C) / 99.0 (F) Weight: 133 lbs 03/17/2016 Blood Pressure 1: 122/76 Code: 8480-6 He art Rate 1: 80 bpm 07/13/2015 Blood Pressure 1: 98/60 Code: 8480-6 BMI: 20.5 C ode: 90976-0 Heart Rate 1: 76 bpm Height: 5'7" Respiratory Rate: 20 bpm Temperature: 36 .9 (C) / 98.4 (F) Weight: 131 lbs 10/30/2014 Blood Pressure 1: 124/80 Code: 8480-6 BMI: 19.4 Code: 27253-8 Heart Rate 1: 94 bpm Height: 5'7" Respiratory Rate: 24 bpm SpO2: 98% Tempera ture: 36.6 (C) / 97.8 (F) Weight: 124 lbs 01/05/2014 Blood Pressure 1: 98/68 Code: 8480-6 BMI: 19.3 C ode: 37650-8 Heart Rate 1: 76 bpm Height: 5'7" Respiratory Rate: 20 bpm Temperature: 36 .8 (C) / 98.2 (F) Weight: 123 lbs 11/26/2013 Blood Pressure 1: 104/64 Code: 8480-6 BMI: 20.4 Code: 92757-1 Heart Rate 1: 84 bpm Height: 5'7" Respiratory Rate: 18 bpm Temperature: 36 .7 (C) / 98.0 (F) Weight: 130 lbs 06/10/2013 Blood Pressure 1: 132/90 Code: 8480-6 BMI: 19.4 Code: 91816-8 Heart Rate 1: 80 bpm Height: 5'7" Respiratory Rate: 20 bpm Temperature: 36 .6 (C) / 97.8 (F) Weight: 124 lbs 02/19/2013 Blood Pressure 1: 114/80 Code: 8480-6 BMI: 19.7 Code: 29996-0 Heart Rate 1: 84 bpm Height: 5'7" Respiratory Rate: 20 bpm Temperature: 36 .9 (C) / 98.5 (F) Weight: 126 lbs 07/23/2012 Blood Pressure 1: 106/64 Code: 8480-6 BMI: 20.8 Code: 39472-3 Heart Rate 1: 60 bpm Height: 5'7" Temperature: 37.8 (C) / 100.0 (F) Weight : 133 lbs 07/17/2012 Blood Pressure 1: 162/110 Code: 8480-6 BMI: 21.0 Code: 50805-0 Heart Rate 1: 92 bpm Height: 5'7" Respiratory Rate: 20 bpm Temperature: 36 .8 (C) / 98.2 (F) Weight: 134 lbs 10/30/2011 Blood Pressure 1: 138/80 Code: 8480-6 BMI: 21.0 Code: 44911-2 Heart Rate 1: 84 bpm Height: 5'7" Temperature: 37.1 (C) / 98.7 (F) Weight: 134 lbs 08/03/2011 Blood Pressure 1: 114/72 Code: 8480-6 BMI: 21.0 Code: 70532-2 Heart Rate 1: 64 bpm Height: 5'7" [...] Visit Encounters Encounter Performer Location Codes Date ([id number]) OFFICE/OUTPATIENT VISIT EST Diagnosis: Hallux valgus (acquired), right foot[ICD10: M20.11] Diagnosis: Encounter for other preprocedural examination[ICD10: Z01.818] Kevan ALVARADO [facility] CPT-4: 13871 03/25/2019 ([id number]) OFFICE/OUTPATIENT VISIT EST Diagnosis: Radial styloid tenosynovitis [de Quervain][ICD10: M65.4] Kevan ALVARADO [facility] CPT-4: 56854 07/24/2018 ([id number]) OFFICE/OUTPATIENT VISIT EST Diagnosis: Other fatigue[ICD10: R53.83] Diagnosis: Anemia, unspecified[ICD10: D64.9] Mara Josueshima ALVARADO [facility] CPT-4: 32985 06/21/2018 ([id number]) PREV VISIT EST AGE 40-64 Diagnosis: Mild intermittent asthma with (acute) exacerbation[ICD10: J45.21] Diagnosis: Encounter for general adult medical examination without abnormal findings[ICD10: Z00.00] Diagnosis: Encounter for gynecological examination (general) (routine) without abnormal findings[ICD10: Z01.419] Kevan Swanson [facility] CPT-4: 95604 07/05/2017 ([id number]) OFFICE/OUTPATIENT VISIT EST Diagnosis: Essential (primary) hypertension[ICD10: I10] Diagnosis: Other cervical disc degeneration, unspecified cervical region[ICD10: M50.30] Diagnosis: Tension-type headache, unspecified, not intractable[ICD10: G44.209] Kevan ALVARADO [facility] CPT-4: 05017 05/15/2017 ([id number]) OFFICE/OUTPATIENT VISIT EST Diagnosis: Lateral epicondylitis, right elbow[ICD10: M77.11] Kevan ALVARADO DO [facility] CPT-4: 23594 04/27/2016 ([id number]) OFFICE/OUTPATIENT VISIT EST Diagnosis: Hematuria, unspecified[ICD10: R31.9] Kevan ALVARADO DO [facility] CPT-4: 19693 08/04/2015 ([id number]) PREV VISIT EST AGE 40-64 Diagnosis: Encounter for general adult medical examination without abnormal findings[ICD10: Z00.00] Diagnosis: Essential (primary) hypertension[ICD10: I10] Diagnosis: Other cervical disc degeneration, unspecified cervical region[ICD10: M50.30] 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] Kevan ALVARADO DO [facility] CPT-4: 22506 07/13/2015 ([id number]) OFFICE/OUTPATIENT VISIT EST Diagnosis: COUGH[ICD9: 786.2] Sarika ALVARADO DO [facility] CPT-4: 13266 10/30/2014 ([id number]) PREV VISIT EST AGE 40-64 Diagnosis: ROUTINE MEDICAL EXAM[ICD9: V70.0] Diagnosis: HYPERTENSION[ICD9: 401.9] Diagnosis: Seizure[ICD9: 780.39] Kevan ALVARADO DO [facility] CPT-4: 92756 01/05/2014 OFFICE/OUTPATIENT VISIT EST Diagnosis: URI, ACUTE[ICD9: 465.9] Sarika MCDONALD DO [facility] CPT-4: 77913 11/26/2013 ([id number]) OFFICE/OUTPATIENT VISIT EST Diagnosis: HYPERTENSION[ICD9: 401.9] Diagnosis: SINUSITIS, ACUTE[ICD9: 461.9] Diagnosis: CONVULSIONS[ICD9: 780.39] Kevan MANCINI DO [facility] CPT-4: 67230 06/10/2013 OFFICE/OUTPATIENT VISIT EST Diagnosis: Pyelonephritis[ICD9: 590.80] Diagnosis: HYPERTENSION[ICD9: 401.9] Kevan MANCINI DO [facility] CPT-4: 20689 02/19/2013 OFFICE/OUTPATIENT VISIT EST Diagnosis: OTITIS MEDIA NOS[ICD9: 382.9] Diagnosis: COUGH[ICD9: 786.2] Diagnosis: SINUSITIS, ACUTE[ICD9: 461.9] Kevan ALVARADO DO [facility] CPT-4: 04752 07/23/2012 ([id number]) OFFICE/OUTPATIENT VISIT EST Diagnosis: HYPERTENSION[ICD9: 401.9] Diagnosis: CONVULSIONS[ICD9: 780.39] Kevan MANCINI DO [facility] CPT-4: 32726 07/17/2012 OFFICE/OUTPATIENT VISIT EST Diagnosis: COUGH[ICD9: 786.2] Diagnosis: PHARYNGITIS, ACUTE[ICD9: 462] Kevan ALVARADO [facility] CPT-4: 27386 10/30/2011 OFFICE/OUTPATIENT VISIT NEW Diagnosis: CERVICAL DISC DEGEN[ICD9: 722.4] Diagnosis: Neck pain[ICD9: 723.1] Diagnosis: Radiculopathy of arm[ICD9: 723.4] Diagnosis: Seizure[ICD9: 780.39] Kevan ALVARADO [facility] CPT-4: 97715 08/03/2011 Plan of Care Planned Activity Notes Codes Status Date Visit Diagnosis Plan: Hallux valgus (acquired), right foot Discussion: Update lab for upcoming surgery Okay to proceed with planned surgery by Dr. Nuñez ICD-9 : 735.0 ICD-10 : M20.11 03/25/2019 Appointment: Kevan Alvaradotel: [id number] [facility] UP 03/25/2019 Visit Diagnosis Plan: Radial styloid tenosynovitis [de Quervain] Discussion: Spica thumb wrist splint Medrol Dose Pack followed by mobic Notify if worsens or persists ICD-9 : 727.04 ICD-10 : M65.4 07/24/2018 Appointment: Kevan Alvarado WPtel: [address] [place] [address] ACUTE ILLNESS 07/24/2018 Patient Education: Medrol ([place])- Optimize[employer] Coupon [id number] [email or web address] Completed 07/24/2018 Visit Diagnosis Plan: Other fatigue Discussion: urine test neg. when urine was tested, noted dark, cloudy urine and dipstick was obtained. showed protein and blood in urine so will send off for urine culture. multiple labs or dered to be completed at [facility]. cbc, cmp, tsh, t4, tt3, b12, iron, ferritin obtained. will review labs and culture and order additional meds/labs as needed. ICD-9 : 780.79 ICD-10 : R53.83 06/21/2018 Appointment: Mara Echevarria [address] [place] [address] ACUTE ILLNESS 06/21/2018 Appointment: Kevan Alvarado WPtel: [address] [place] [address] Scheduled in ERROR 06/10/2018 Visit Diagnosis Plan: [...] : 466.0 ICD-10 : J45.21 07/05/2017 Appointment: Kevan Alvarado WPtel: [address] [place] [address] PAP 07/05/2017 Patient Education: Patient Medication Summary [...] : 401.9 ICD-10 : I10 05/15/2017 Appointment: Kevan Alvarado WPtel: [address] [place], [place] [phone] ACUTE ILLNESS 05/15/2017 Patient Education: Patient Medication Summary Completed 05/15/2017 Referral: Armin Arzate WPtel: [facility] [address] Referral Appointment Confirmed 05/10/2016 Visit Plan: Medrol Dose Pack then start mobic Continue brace See Dr. Arzate Discussed iontophoresis May need surgery as has tried all conservative measures at this point 04/27/2016 Appointment: Kevan Alvarado WPtel: [address] [place] [address] 04/26 lm~sl...confirmed-sp FOLLOW UP 04/27 Patient Education: Patient Medication Summary Completed 04/27/2016 Care Plan: Referral Order SNOMED-CT : [id number] Pending 04/27/2016 Visit Plan: Injection as above Tennis el bow strap Vivlodex 10mg daily Notify if worsens or persists 03/17/2016 Appointment: Kevan Alvarado WPtel: [address] [place], [place] [phone] OFFICE SURGERY 03/17/2016 Patient Education: Patient Medication Summary Completed 03/17/2016 Appointment: Yolis Membreno [address] [place], [place] [phone] 12/19- patient misunderstood why appointment was scheduled. CANCELED 12/21/2015 Appointment: Kevan Alvarado WPtel: [address] [place], [place] [phone] ACUTE ILLNESS 12/20/2015 Patient Education: Patient Medication Summary Completed 12/20/2015 Appointment: Kevan Alvarado WPtel: [address] [place] [address] 08/04/2015 Patient Education: Patient Medication Summary Completed 08/04/2015 Visit Plan: Updated MRI of cervical spin e Decrease lisinopril to 2.5mg daily Update lab Add cyclobenzaprine at 10mg q HS 07/13/2015 Appointment: Kevan Alvarado WPtel: [address] [place] [address] 07/12/15 appt confirmed cn Annual Well Visit Patient Education: Patient Medication Summary Completed 07/13/2015 Patient Education: [facility] - Saving AutoInj - Lisinopril - 18-64 - Dynamic Portal ID Completed 07/13/2015 Patient Education: Neck Pain Completed 07/13/2015 Appointment: Sarika Diallo WPtel: [address] [place] [address] ACUTE ILLNESS 10/30/2014 Patient Education: Patient Medication Summary Completed 10/30/2014 Visit Plan: Fasting lab drawn including tegretol level Decrease lisinopril to 5mg daily and observe BP 01/05/2014 Appointment: Kevan Alvarado WPtel: [address] [place] [address] 01/02 Annual Well Visit 01/05/2014 Patient Education: Patient Medication Summary Completed 01/05/2014 Appointment: Sarika Diallo WPtel: [address] [place] [address] ACUTE ILLNESS 11/26/2013 Patient Education: Patient Medication Summary Completed 11/26/2013 Visit Plan: Saline nasal flushes prn. Ty lenol/Motrin prn headache. Notify if persists/symptoms worsening. Decrease Lisinopril to 10mg daily 06/10/2013 Appointment: Kevan Alvarado WPtel: [address] [place] [address] 06/09 vm FOLLOW UP 06/10/2013 Patient Education: Patient Medication Summary Completed 06/10/2013 Visit Plan: Finish abx and observe Stay off lisinopril and observe 02/19/2013 Appointment: Kevan Alvarado WPtel: [address] [place], [place] [phone] [address] Follow Up 02/19/2013 Patient Education: Patient Medication Summary Completed 02/19/2013 Visit Plan: rocephin IM and Cefdinir. Wi ll notify if no improvement. Tylenol #3 #20 dispensed. Pt. has made contact with Dr. Frias's office and has follow up appnt. Pt. will notify if fever continues into tomorrow. 07/23/2012 Appointment: Penelope Golden WPtel: [address] [place], [place] [phone] ACUTE ILLNESS 07/23/2012 Patient Education: Patient Medication Summary Completed 07/23/2012 Visit Plan: Check fasting lab Start Belinda nopril Moniter BP 07/17/2012 Appointment: Kevan Alvarado WPtel: [address] [place], [place] [phone] 07/15 Home phone no longer working [facility]; works for [employer] and is off work on break ACUTE ILLNESS 07/17/2012 Patient Education: Patient Medication Summary Completed 07/17/2012 Visit Plan: doxycycline and medrol dose pack. Discussed that could be walking pneumonia. Encouraged fluids and rest. Pt. will notify if symptoms persist or worsen. Note for work. 2-3 days. 10/30/2011 Appointment: Penelope Golden WPtel: [address] [place], [place] [phone] ACUTE ILLNESS 10/30/2011 Patient Education: Patient Medication Summary Completed 10/30/2011 Visit Plan: Proceed with Cervical Spine MRI Percocet 5/500 1 po q HS prn pain--#30 Tramadol 50mg 1-2 po BID prn pain--#60 See Ortho for surgical opinion 08/03/2011 Appointment: Kevan Alvarado WPtel: [address] [place], [place] [phone] NEW PATIENT 08/03/2011 Patient Education: Patient Medication Summary Completed 08/03/2011 Referral: Armin Arzate WPtel: [facility] [address], [facility] 1 [id number] Referral Appointment Requested Instructions Comment . Medrol [...]
--- OUTSIDE RECORDS SUMMARY | 2020-01-09 09:36 | XMS REPORT | CCD ---
Author Author Chiquita Alvarado D.O. Organization SHAYE ALVARADO DO [facility] Address [address] [place] [address] Phone Care Team Providers Care Surveillance Systems Engineer Name Role Phone Shaye Alvarado D.O., PP Unavailable CCM Unavailable Summary Purpose Interface Exchange Insurance Providers Payer name Policy type / Coverage type Covered democrat ID Effective Begin Date Effective End Date Blue Cross Blue Shield Blue Cross/Blue Shield [id number] Unknown Family history Father Diagnosis Age At Onset No Family Disease Entered N/A Mother Diagnosis Age At Onset No Family Disease Entered N/A Side Diagnosis Age At Onset No Family Disease Entered N/A Social History Social History Element Codes Description Effective Dates Marital status Unknown 08/03/2011 Number of children Unknown 2 08/03/2011 Employment Unknown Currently employed [employer] 08/03/[address]: 797387056 Never smoker 08/03/[address]: 671434 Currently drinks alc ohol socially 08/03/2011 Allergies, [...] Fill Instructions lisinopril 2.5 mg tablet RxNorm: 551968 1 Tablet(s) Oral QD 020 11/20/2019 Active Tegretol 200 mg tablet RxNorm: 831075 1 Tablet(s) Oral QD 08/22/2019 11/20/2019 Active Maxalt 10 mg tablet RxNorm: 769086 TAKE ONE TABLET BY M OUTH AT ONSET OF HEADACHE, MAY REPEAT ONE TABLET IN 2 HOURS IF NEEDED 08/06/2019 No Stop Date Active Tegretol 200 mg tablet RxNorm: 949807 TAKE ONE TABLET BY MOUTH MARGARITO Y 05/26/2019 08/21/2019 Inactive Maxalt 10 mg tablet RxNorm: 689313 1 Tablet(s) PO AT ON SET OF HEADACHE; MAY REPEAT ONE TABLET IN 2 HOURS IF NEEDED. 03/25/2019 05/23/2019 Inactive Cymbalta 60 mg capsule,delayed release RxNorm: 215789 T FABIO ONE CAPSULE BY MOUTH DAILY 02/06/2019 04/06/2019 Inactive Tegretol 200 mg tablet RxNorm: 864775 TAKE ONE TABLET BY MOUTH MARGARITO Y 02/06/2019 05/06/2019 Inactive lisinopril 2.5 mg tablet RxNorm: 163701 TAKE ONE TABLET BY MOUT H DAILY 01/27/2019 08/21/2019 Inactive Maxalt 10 mg tablet RxNorm: 186635 1 Tablet(s) PO AT ON SET OF HEADACHE; MAY REPEAT ONE TABLET IN 2 HOURS IF NEEDED. 11/22/2018 01/20/2019 Inactive Maxalt 10 mg tablet RxNorm: 659436 TAKE ONE TABLET BY M OUTH AT ONSET OF HEADACHE; MAY REPEAT ONE TABLET IN 2 HOURS IF NEEDED. 11/19/20182018 Inactive lisinopril 2.5 mg tablet RxNorm: 942677 TAKE ONE TABLET BY MOUT H DAILY 10/14/2018 01/11/2019 Inactive Maxalt 10 mg tablet RxNorm: 561570 TAKE ONE TABLET BY M OUTH AT ONSET OF HEADACHE; MAY REPEAT ONE TABLET IN 2 HOURS IF NEEDED. 09/20/20182018 Inactive Medrol (Francisco) 4 mg tablets in a dose pack RxNorm: 031549 6 Tablet(s) PO QD --then as directed 07/24/2018 07/29/2018 Inactive Mobic 15 mg tablet RxNorm: 878062 1 Tablet(s) PO QD 07/24/20182018 Inactive Tegretol 200 mg tablet RxNorm: 060651 TAKE ONE TABLET BY MOUTH MARGARITO Y 07/03/2018 12/29/2018 Inactive Maxalt 10 mg tablet RxNorm: 355000 TAKE ONE TABLET BY M OUTH AT ONSET OF HEADACHE; MAY REPEAT ONE TABLET IN 2 HOURS IF NEEDED. 07/03/20182018 Inactive Bactrim DS 800 mg-160 mg tablet RxNorm: 595114 1 Tablet(s) PO BID 1 08/25/2017 06/23/2018 Inactive Bactrim DS 800 mg-160 mg tablet RxNorm: 905070 1 Tablet(s) PO BID 1 08/25/2017 06/30/2018 Inactive Maxalt 10 mg tablet RxNorm: 737045 TAKE ONE TABLET BY M OUTH AT ONSET OF HEADACHE; MAY REPEAT ONE TABLET IN 2 HOURS IF NEEDED. 05/09/20182017 Inactive Cymbalta 60 mg capsule,delayed release RxNorm: 680194 T FABIO ONE CAPSULE BY MOUTH DAILY 04/09/2018 07/07/2018 Inactive lisinopril 2.5 mg tablet RxNorm: 985550 Tablet(s) TAKE ONE TABLET BY MOUTH DAILY 03/25/2018 09/20/2018 Inactive Maxalt 10 mg tablet RxNorm: 779676 TAKE ONE TABLET BY M OUTH AT ONSET OF HEADACHE; MAY REPEAT ONE TABLET IN 2 HOURS IF NEEDED. 02/26/20182017 Inactive Tegretol 200 mg tablet RxNorm: 004629 TAKE ONE TABLET BY MOUTH MARGARITO Y 12/04/2017 06/01/2018 Inactive Maxalt 10 mg tablet RxNorm: 543445 1 Tablet(s) PO AT ON SET OF HEADACHE. MAY REPEAT IN 2 HOURS 11/12/2017 12/01/2017 Inactive lisinopril 2.5 mg tablet RxNorm: 340356 TAKE ONE TABLET BY MOUT H DAILY 08/28/2017 03/25/2018 Inactive Tegretol 200 mg tablet RxNorm: 958044 TAKE ONE TABLET BY MOUTH MARGARITO Y 08/28/2017 11/25/2017 Inactive Maxalt 10 mg tablet RxNorm: 863449 1 Tablet(s) PO AT ON SET OF HEADACHE. MAY REPEAT IN 2 HOURS 07/05/2017 11/12/2017 Inactive cyclobenzaprine 10 mg tablet RxNorm: 321968 1 Tablet(s) PO QHS as needed for muscle spasm 05/15/2017 No Stop Date Active diclofenac sodium 75 mg tablet,delayed release RxNorm: 19044 6 1 Tablet(s) PO BID as needed for neck pain 05/15/2017 07/13/2017 Inactive Cymbalta 60 mg capsule,delayed release RxNorm: 908090 C apsule(s) TAKE ONE CAPSULE BY MOUTH DAILY 05/07/2017 08/04/2017 Inactive Maxalt 10 mg tablet RxNorm: 036282 1 Tablet(s) PO AT ON SET OF HEADACHE. MAY REPEAT IN 2 HOURS 04/30/2017 05/09/2017 Inactive Maxalt 10 mg tablet RxNorm: 857452 1 Tablet(s) PO AT ON SET OF HEADACHE. MAY REPEAT IN 2 HOURS 02/22/2017 04/30/2017 Inactive Tegretol 200 mg tablet RxNorm: 322275 Tablet(s) TAKE ONE TABLET BY MOUTH DAILY 01/11/2017 07/09/2017 Inactive Maxalt 10 mg tablet RxNorm: 217039 1 Tablet(s) PO AT ON SET OF HEADACHE. MAY REPEAT IN 2 HOURS 01/11/2017 02/22/2017 Inactive Maxalt 10 mg tablet RxNorm: 217370 1 Tablet(s) PO AT ON SET OF HEADACHE. MAY REPEAT IN 2 HOURS 11/30/2016 01/11/2017 Inactive Maxalt 10 mg tablet RxNorm: 457253 TAKE ONE TABLET BY M OUTH AT ONSET OF HEADACHE. MAY REPEAT IN 2 HOURS 07/26/2016 11/30/2016 Inactive lisinopril 2.5 mg tablet RxNorm: 444178 TAKE ONE TABLET BY MOUT H DAILY 07/24/2016 07/23/2016 Inactive lisinopril 2.5 mg tablet RxNorm: 537830 TAKE ONE TABLET BY MOUT H DAILY 07/24/2016 01/19/2017 Inactive Maxalt 10 mg tablet RxNorm: 615398 TAKE ONE TABLET BY M OUTH AT ONSET OF HEADACHE. MAY REPEAT IN 2 HOURS 06/05/2016 06/14/2016 Inactive Tegretol 200 mg tablet RxNorm: 703085 TAKE ONE TABLET BY MOUTH MARGARITO Y 06/05/2016 01/11/2017 Inactive Cymbalta 60 mg capsule,delayed release RxNorm: 064019 T FABIO ONE CAPSULE BY MOUTH DAILY 05/17/2016 05/07/2017 Inactive Medrol (Francisco) 4 mg tablets in a dose pack RxNorm: 018297 6 Tablet(s) PO QD --then as directed 04/27/2016 05/02/2016 Inactive Mobic 15 mg tablet RxNorm: 746314 1 Tablet(s) PO QD for pain 201505/26/2016 Inactive Maxalt 10 mg tablet RxNorm: 493697 TAKE ONE TABLET BY M OUTH AT ONSET OF HEADACHE. MAY REPEAT IN 2 HOURS 02/28/2016 03/25/2016 Inactive Tegretol 200 mg tablet RxNorm: 747953 TAKE ONE TABLET BY MOUTH MARGARITO Y 02/14/2016 05/13/2016 Inactive Maxalt 10 mg tablet RxNorm: 199352 TAKE ONE TABLET BY M OUTH AT ONSET OF HEADACHE. MAY REPEAT IN 2 HOURS 01/10/2016 01/27/2016 Inactive lisinopril 2.5 mg tablet RxNorm: 718609 TAKE ONE TABLET BY MOUT H DAILY 01/03/2016 06/30/2016 Inactive Macrobid 100 mg capsule RxNorm: 019394 1 Capsule(s) PO BID 12/23/19 16 12/29/2015 Inactive Macrobid 100 mg capsule RxNorm: 323698 1 Capsule(s) PO BID 12/23/19 16 12/22/2015 Inactive Bactrim DS 800 mg-160 mg tablet RxNorm: 644336 1 Tablet(s) PO BID 0 12/21/2015 12/27/2015 Inactive Bactrim DS 800 mg-160 mg tablet RxNorm: 102855 1 Tablet(s) PO BID 0 12/21/2015 12/20/2015 Inactive Tegretol 200 mg tablet RxNorm: 127482 1 Tablet(s) PO QD TAKE ONE TABLET BY MOUTH DAILY 10/18/2015 01/15/2016 Inactive Maxalt 10 mg tablet RxNorm: 256567 Tablet(s) TAKE ONE T ABLET BY MOUTH AT ONSET OF HEADACHE. MAY REPEAT IN 2 HOURS. 10/11/2015 10/25/2015 Inactive Bactrim DS 800 mg-160 mg tablet RxNorm: 578185 1 Tablet(s) PO BID 0 08/05/2015 08/04/2015 Inactive Bactrim DS 800 mg-160 mg tablet RxNorm: 517782 1 Tablet(s) PO BID 0 08/05/2015 08/11/2015 Inactive cyclobenzaprine 10 mg tablet RxNorm: 896022 1 Tablet(s) PO QHS as needed for muscle spasm 07/13/2015 09/10/2015 Inactive lisinopril 2.5 mg tablet RxNorm: 495223 1 Tablet(s) PO QD 07/13/2015 01/02/2016 Inactive Tegretol 200 mg tablet RxNorm: 561458 1 Tablet(s) PO QD 07/05/2015 Inactive Maxalt 10 mg tablet RxNorm: 675477 Tablet(s) TAKE ONE T ABLET BY MOUTH AT ONSET OF HEADACHE. MAY REPEAT IN 2 HOURS. 06/23/2015 10/11/2015 Inactive Cymbalta 60 mg capsule,delayed release RxNorm: 662036 1 Capsule (s) PO QD 05/17/2015 05/10/2016 Inactive [AttnRPh: Saving jason ly/adjudicate RxGRP:SG20 RxBIN:[id number] RxPCN: ID#:[id number]] Maxalt 10 mg tablet RxNorm: 641338 Tablet(s) TAKE ONE T ABLET BY MOUTH AT ONSET OF HEADACHE. MAY REPEAT IN 2 HOURS. 04/01/2015 04/15/2015 Inactive Tegretol 200 mg tablet RxNorm: 880289 1 Tablet(s) PO QD 03/09/2015 Inactive lisinopril 10 mg tablet RxNorm: 752234 1 Tablet(s) PO QD 01/18/2015 1 09/12/2014 Inactive [AttnRPh: Saving apply/adjudicate RxGRP: SG20 RxBIN:[id number] RxPCN: ID#:[id number]] Tegretol 200 mg tablet RxNorm: 298036 1 Tablet(s) PO QD 12/03/2014 Inactive Maxalt 10 mg tablet RxNorm: 445185 TAKE ONE TABLET BY M OUTH AT ONSET OF HEADACHE. MAY REPEAT IN 2 HOURS. 11/18/2014 04/01/2015 Inactive benzonatate 100 mg capsule RxNorm: 525140 1 Capsule(s) PO TID a s needed 10/30/2014 07/12/2015 Inactive prednisone 20 mg tablet RxNorm: 493495 1 Tablet(s) PO BID 10/30/2014 11/03/2014 Inactive Maxalt 10 mg tablet RxNorm: 739103 as needed TAKE 1 TAB LET BY MOUTH AT ONSET OF HEADACHE AND MAY REPEAT IN 2 HOURS 09/02/2014 09/13/2014 Inactive Tegretol 200 mg tablet RxNorm: 530228 1 Tablet(s) PO QD 08/17/2014 Inactive Cymbalta 60 mg capsule,delayed release RxNorm: 290019 1 Capsule (s) PO QD 06/29/2014 05/17/2015 Inactive [AttnRPh: Saving jason ly/adjudicate RxGRP:SG20 RxBIN:[id number] RxPCN: ID#:[id number]] lisinopril 10 mg tablet RxNorm: 515860 1 Tablet(s) PO QD 06/10/2014 0 12/06/2014 Inactive [AttnRPh: Saving apply/adjudicate RxGRP: SG20 RxBIN:[id number] RxPCN:HT ID#:[id number]] Maxalt 10 mg tablet RxNorm: 644521 TAKE ONE TABLET BY M OUTH AT HEADACHE ONSET AND MAY REPEAT IN 2 HOURS IF HEADACHE REMAINS 04/20/2014 09/02/2014 In active albuterol sulfate HFA 90 mcg/actuation aerosol inhaler RxNor m: 2438965 2 Puff(s) INH Q4H 11/26/2013 No Stop Date Active doxycycline hyclate 100 mg tablet RxNorm: 381544 1 Tablet(s) PO BID 11/26/2013 12/05/2013 Inactive Maxalt 10 mg tablet RxNorm: 335156 Tablet(s) PO Take 1 at headache onset and may repeat in 2 hours if headache remains 11/21/2013 04/19/2014 Inactive [SAVINGS FOR UNINSURED PATIENTS -- BIN:[id number], PCN: [id number], Group: [id number], ID# [id number], Process claim through [employer], for questions: . THIS IS NOT INSURANCE.] Tegretol 200 mg tablet RxNorm: 712541 1 Tablet(s) PO QD 06/10/2013 Inactive lisinopril 10 mg tablet RxNorm: 116953 1 Tablet(s) PO QD 06/10/2013 1 08/10/2013 Inactive Cymbalta 60 mg capsule,delayed release RxNorm: 050419 1 Capsule (s) PO QD 06/10/2013 06/29/2014 Inactive lisinopril 20 mg tablet RxNorm: 935760 1 Tablet(s) PO QAM for BP 06/09/2013 Inactive lisinopril 20 mg tablet RxNorm: 534291 1 Tablet(s) PO QAM for BP 11/07/2012 Inactive cefdinir 300 mg capsule RxNorm: 095131 1 Capsule(s) PO BID 07/23/19 13 08/01/2012 Inactive lisinopril 20 mg tablet RxNorm: 295212 1 Tablet(s) PO QAM for BP 09/09/2012 Inactive doxycycline hyclate 100 mg Tab RxNorm: 367991 1 Tablet(s) PO BID 11/08/2011 Inactive Mirena 20 mcg/24 hr (5 years) intrauterine device RxNorm: 399641 IU No Start Date Active Seasonique 0.15 mg-30 mcg (84)/10 mcg(7) Tabs,3 month dose p ack RxNorm: 298060 1 Tablet(s) PO QD No Start Date 07/12/2015 Inactive Tegretol 200 mg tablet RxNorm: 087239 1 Tablet(s) PO QD No Start Da te 06/09/2013 Inactive lisinopril 20 mg tablet RxNorm: 935394 1 Tablet(s) PO QD No Start D ate 06/09/2013 Inactive Maxalt 10 mg tablet RxNorm: 937860 Tablet(s) PO Take 1 at headache onset and may repeat in 2 hours if headache remains No Start Date 11/20/2013 Inactive Cymbalta 60 mg capsule,delayed release RxNorm: 251250 1 Capsule (s) PO QD No Start Date 06/09/2013 Inactive Medrol (Francisco) 4 mg Tabs in a Dose Pack RxNorm: 096574 Tablet(s) PO as directed No Start Date 07/16/2012 Inactive Medication Administered No Medication Administered data Immunizations No Immunization data Results Observation Observation Code Item Item Code Result Date S ervice Location TEGRETOL 6785361 TEGRETOL 5.2 MG/L 01/07/2014 Unknown COMPREHENSIVE METABOLIC 88543 AST 16 U/L 2013 Unknown COMPREHENSIVE METABOLIC 33127 ALT 10 IU/L 2013 Unknown COMPREHENSIVE METABOLIC 55639 BUN 17 MG/DL 2013 Unknown COMPREHENSIVE METABOLIC 21170 ALBUMIN 4.3 GM/DL 2013 Unknown COMPREHENSIVE METABOLIC 29609 CHLORIDE 105 MMOL/L 01/05 Unknown COMPREHENSIVE METABOLIC 68657 BILI TOT 0.2 MG/DL 2013 Unknown COMPREHENSIVE METABOLIC 11222 ALK PHOS 37 U/L 2013 Unknown COMPREHENSIVE METABOLIC 49973 SODIUM 137 MMOL/L 01/05 Unknown COMPREHENSIVE METABOLIC 81089 CREATININE 0.86 MG/DL 12/15 Unknown COMPREHENSIVE METABOLIC 80336 CALCIUM 9.4 MG/DL 2013 Unknown COMPREHENSIVE METABOLIC 80377 POTASSIUM 5.0 MMOL/L 01/05 Unknown COMPREHENSIVE METABOLIC 40980 PROT TOT 6.3 GM/DL 2013 Unknown COMPREHENSIVE METABOLIC 39057 Glucose 104 MG/DL 2013 Unknown COMPREHENSIVE METABOLIC 69375 BICARB 27 MMOL/L 2013 Unknown COMPREHENSIVE METABOLIC 28843 ANION GAP 5 MEQ/L 2013 Unknown THYROID STIMULATING HORMONE 52202 TSH 0.822 uIU/ML 01/05/2014 Unknown GFR CALC 5175846 GFR AA >60 ML/MIN 01/05/2014 Unknown GFR CALC 3848510 GFR NON-AA >60 ML/MIN 01/05/2014 Unknown COMPLETE BLOOD COUNT 8531513 WBC 5.5 10e9/L 01/06/20 14 Unknown COMPLETE BLOOD COUNT 9851787 RBC 4.17 10e12/L 2013 Unknown COMPLETE BLOOD COUNT 9779299 HGB 13.0 g/dL 4 Unknown COMPLETE BLOOD COUNT 6558450 HCT DET 39.0 % 4 Unknown COMPLETE BLOOD COUNT 8538998 MCV 93.5 fL 4 Unknown COMPLETE BLOOD COUNT 5934249 MCH 31.2 pg 4 Unknown COMPLETE BLOOD COUNT 6687614 MCHC 33.3 g/dL 4 Unknown COMPLETE BLOOD COUNT 6282002 PLT 294 10e9/L 01/06/20 14 Unknown COMPLETE BLOOD COUNT 4362280 MPV 11.4 fL 4 Unknown COMPLETE BLOOD COUNT 5171447 NIKKY % 59.4 % 4 Unknown COMPLETE BLOOD COUNT 7889306 LY % 27.7 % 4 Unknown COMPLETE BLOOD COUNT 1070032 MON % 10.3 % 4 Unknown COMPLETE BLOOD COUNT 1056283 EOS % 1.5 % 4 Unknown COMPLETE BLOOD COUNT 6746754 BASO % 1.1 % 4 Unknown COMPLETE BLOOD COUNT 9606921 RDW 12.7 % 4 Unknown COMPLETE BLOOD COUNT [id number] ABS NIKKY 3.27 10e9/L 014 Unknown COMPLETE BLOOD COUNT 3618946 ABS LYMPH 1.52 10e9/L 014 Unknown COMPLETE BLOOD COUNT 7290068 ABS MONO 0.57 10e9/L 014 Unknown COMPLETE BLOOD COUNT 6581319 ABS EOS 0.08 10e9/L 014 Unknown COMPLETE BLOOD COUNT 5456495 ABS BASO 0.06 10e9/L 014 Unknown COMPLETE BLOOD COUNT 6415924 RDW-SD 42.1 fL 4 Unknown LIPID GROUP 54841 HDL TEST 60 MG/DL 01/05/2014 Unknown LIPID GROUP 29023 TRIG 63 MG/DL 01/05/2014 Unknown LIPID GROUP 25150 TEST LDL 83 MG/DL 01/05/2014 Unknown LIPID GROUP 77714 CHOL 156 MG/DL 01/05/2014 Unknown LIPID GROUP 08026 RCHOL/HDL 2.60 RATIO 01/05/2014 Unknow n FREE T4 75635 FREE T4 0.87 NG/DL 01/05/2014 Unknown Procedures Procedure Codes Date URINALYSIS NONAUTO W/O SCOPE CPT-4: 96512 06/21/2018 URINE TEST CPT-4: 37445 06/21/2018 URINE CULTURE/ COLONY COUNT CPT-4: 71458 06/21/2018 SPECIMEN HANDLING OFFICE-LAB CPT-4: 68374 07/05/2017 DRAIN/INJECT JOINT/BURSA CPT-4: 37615 03/17/2016 URINALYSIS NONAUTO W/O SCOPE CPT-4: 18348 12/20/2015 URINE CULTURE/ COLONY COUNT CPT-4: 61233 12/20/2015 URINALYSIS NONAUTO W/O SCOPE CPT-4: 37502 08/04/2015 URINE CULTURE/ COLONY COUNT CPT-4: 16896 08/04/2015 ROUTINE VENIPUNCTURE CPT-4: 35626 01/05/2014 ASSAY OF FREE THYROXINE CPT-4: 02374 01/05/2014 ASSAY THYROID STIM HORMONE CPT-4: 50641 01/05/2014 COMPREHEN METABOLIC PANEL CPT-4: 45504 01/05/2014 COMPLETE CBC W/AUTO DIFF WBC CPT-4: 73660 01/05/2014 LIPID PANEL CPT-4: 81004 01/05/2014 CEFTRIAXONE SODIUM INJECTION CPT-4: J0696 07/23/2012 THER/PROPH/DIAG INJ SC/IM CPT-4: 19922 07/23/2012 Vital Signs Date Vital 03/25/2019 Blood Pressure 1: 104/62 Code: 8480-6 Heart Rate 1: 72 bpm Respiratory Rate: 18 bpm SpO2: 97% Temperature: 36.9 (C) / 98.5 (F) We ight: 134 lbs 07/24/2018 Blood Pressure 1: 122/80 Code: 8480-6 BMI: 21.3 Code: 42664-7 Heart Rate 1: 76 bpm Height: 5'7" Respiratory Rate: 20 bpm Temperature: 36 .9 (C) / 98.4 (F) Weight: 136 lbs 06/21/2018 Blood Pressure 1: 100/78 Code: 8480-6 Heart Rate 1: 82 bpm Respiratory Rate: 18 bpm SpO2: 100% Temperature: 36.7 (C) / 98.0 (F) We ight: 130 lbs 07/05/2017 Blood Pressure 1: 94/58 Code: 8480-6 BMI: 20.4 C ode: 57838-2 Heart Rate 1: 72 bpm Height: 5'7" SpO2: 96% Temperature: 37.2 (C) / 99.0 (F) Weight: 130 lbs 05/15/2017 Blood Pressure 1: 104/64 Code: 8480-6 BMI: 20.8 Code: 41167-7 Heart Rate 1: 80 bpm Height: 5'7" Respiratory Rate: 20 bpm Temperature: 36 .7 (C) / 98.1 (F) Weight: 133 lbs 04/27/2016 Blood Pressure 1: 112/70 Code: 8480-6 BMI: 20.8 Code: 85190-0 Heart Rate 1: 80 bpm Height: 5'7" Respiratory Rate: 20 bpm Temperature: 37 .2 (C) / 99.0 (F) Weight: 133 lbs 03/17/2016 Blood Pressure 1: 122/76 Code: 8480-6 He art Rate 1: 80 bpm 07/13/2015 Blood Pressure 1: 98/60 Code: 8480-6 BMI: 20.5 C ode: 86400-9 Heart Rate 1: 76 bpm Height: 5'7" Respiratory Rate: 20 bpm Temperature: 36 .9 (C) / 98.4 (F) Weight: 131 lbs 10/30/2014 Blood Pressure 1: 124/80 Code: 8480-6 BMI: 19.4 Code: 60167-0 Heart Rate 1: 94 bpm Height: 5'7" Respiratory Rate: 24 bpm SpO2: 98% Tempera ture: 36.6 (C) / 97.8 (F) Weight: 124 lbs 01/05/2014 Blood Pressure 1: 98/68 Code: 8480-6 BMI: 19.3 C ode: 06742-9 Heart Rate 1: 76 bpm Height: 5'7" Respiratory Rate: 20 bpm Temperature: 36 .8 (C) / 98.2 (F) Weight: 123 lbs 11/26/2013 Blood Pressure 1: 104/64 Code: 8480-6 BMI: 20.4 Code: 02471-6 Heart Rate 1: 84 bpm Height: 5'7" Respiratory Rate: 18 bpm Temperature: 36 .7 (C) / 98.0 (F) Weight: 130 lbs 06/10/2013 Blood Pressure 1: 132/90 Code: 8480-6 BMI: 19.4 Code: 65427-1 Heart Rate 1: 80 bpm Height: 5'7" Respiratory Rate: 20 bpm Temperature: 36 .6 (C) / 97.8 (F) Weight: 124 lbs 02/19/2013 Blood Pressure 1: 114/80 Code: 8480-6 BMI: 19.7 Code: 28664-4 Heart Rate 1: 84 bpm Height: 5'7" Respiratory Rate: 20 bpm Temperature: 36 .9 (C) / 98.5 (F) Weight: 126 lbs 07/23/2012 Blood Pressure 1: 106/64 Code: 8480-6 BMI: 20.8 Code: 58204-2 Heart Rate 1: 60 bpm Height: 5'7" Temperature: 37.8 (C) / 100.0 (F) Weight : 133 lbs 07/17/2012 Blood Pressure 1: 162/110 Code: 8480-6 BMI: 21.0 Code: 79361-6 Heart Rate 1: 92 bpm Height: 5'7" Respiratory Rate: 20 bpm Temperature: 36 .8 (C) / 98.2 (F) Weight: 134 lbs 10/30/2011 Blood Pressure 1: 138/80 Code: 8480-6 BMI: 21.0 Code: 19237-6 Heart Rate 1: 84 bpm Height: 5'7" Temperature: 37.1 (C) / 98.7 (F) Weight: 134 lbs 08/03/2011 Blood Pressure 1: 114/72 Code: 8480-6 BMI: 21.0 Code: 27825-5 Heart Rate 1: 64 bpm Height: 5'7" [...] Visit Encounters Encounter Performer Location Codes Date ([id number]) OFFICE/OUTPATIENT VISIT EST Diagnosis: Hallux valgus (acquired), right foot[ICD10: M20.11] Diagnosis: Encounter for other preprocedural examination[ICD10: Z01.818] Shaye MATHUR MiguelWang [facility] CPT-4: 44905 03/25/2019 ([id number]) OFFICE/OUTPATIENT VISIT EST Diagnosis: Radial styloid tenosynovitis [de Quervain][ICD10: M65.4] Shaye MATHUR MiguelWang [facility] CPT-4: 62441 07/24/2018 ([id number]) OFFICE/OUTPATIENT VISIT EST Diagnosis: Other fatigue[ICD10: R53.83] Diagnosis: Anemia, unspecified[ICD10: D64.9] Mara Echevarria INOCENCIA Ernesto RiveraWang [facility] CPT-4: 69681 06/21/2018 ([id number]) PREV VISIT EST AGE 40-64 Diagnosis: Mild intermittent asthma with (acute) exacerbation[ICD10: J45.21] Diagnosis: Encounter for general adult medical examination without abnormal findings[ICD10: Z00.00] Diagnosis: Encounter for gynecological examination (general) (routine) without abnormal findings[ICD10: Z01.419] Shaye MATHUR MiguelWang [place] [facility] CPT-4: 67349 07/05/2017 ([id number]) OFFICE/OUTPATIENT VISIT EST Diagnosis: Essential (primary) hypertension[ICD10: I10] Diagnosis: Other cervical disc degeneration, unspecified cervical region[ICD10: M50.30] Diagnosis: Tension-type headache, unspecified, not intractable[ICD10: G44.209] Shaye MATHUR MiguelWang [facility] CPT-4: 84666 05/15/2017 ([id number]) OFFICE/OUTPATIENT VISIT EST Diagnosis: Lateral epicondylitis, right elbow[ICD10: M77.11] Shaye MATHUR MiguelWang [facility] CPT-4: 12161 04/27/2016 ([id number]) OFFICE/OUTPATIENT VISIT EST Diagnosis: Hematuria, unspecified[ICD10: R31.9] Shaye ALVARADO [facility] CPT-4: 95478 08/04/2015 ([id number]) PREV VISIT EST AGE 40-64 Diagnosis: Encounter for general adult medical examination without abnormal findings[ICD10: Z00.00] Diagnosis: Essential (primary) hypertension[ICD10: I10] Diagnosis: Other cervical disc degeneration, unspecified cervical region[ICD10: M50.30] 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] Shaye ALVARADO [facility] CPT-4: 78792 07/13/2015 ([id number]) OFFICE/OUTPATIENT VISIT EST Diagnosis: COUGH[ICD9: 786.2] Sarika ALVARADO [facility] CPT-4: 21943 10/30/2014 ([id number]) PREV VISIT EST AGE 40-64 Diagnosis: ROUTINE MEDICAL EXAM[ICD9: V70.0] Diagnosis: HYPERTENSION[ICD9: 401.9] Diagnosis: Seizure[ICD9: 780.39] Shaye ALVARADO [facility] CPT-4: 99032 01/05/2014 OFFICE/OUTPATIENT VISIT EST Diagnosis: URI, ACUTE[ICD9: 465.9] Sarika MCDONALD [facility] CPT-4: 06930 11/26/2013 ([id number]) OFFICE/OUTPATIENT VISIT EST Diagnosis: HYPERTENSION[ICD9: 401.9] Diagnosis: SINUSITIS, ACUTE[ICD9: 461.9] Diagnosis: CONVULSIONS[ICD9: 780.39] Shaye MANCINI [facility] CPT-4: 80962 06/10/2013 OFFICE/OUTPATIENT VISIT EST Diagnosis: Pyelonephritis[ICD9: 590.80] Diagnosis: HYPERTENSION[ICD9: 401.9] Shaye MACNINI [facility] CPT-4: 88965 02/19/2013 OFFICE/OUTPATIENT VISIT EST Diagnosis: OTITIS MEDIA NOS[ICD9: 382.9] Diagnosis: COUGH[ICD9: 786.2] Diagnosis: SINUSITIS, ACUTE[ICD9: 461.9] [facility] CPT-4: 53558 07/23/2012 ([id number]) OFFICE/OUTPATIENT VISIT EST Diagnosis: HYPERTENSION[ICD9: 401.9] Diagnosis: CONVULSIONS[ICD9: 780.39] Shaye MANCINI [facility] CPT-4: 54366 07/17/2012 OFFICE/OUTPATIENT VISIT EST Diagnosis: COUGH[ICD9: 786.2] Diagnosis: PHARYNGITIS, ACUTE[ICD9: 462] Shaye ALVARADO [facility] CPT-4: 27066 10/30/2011 OFFICE/OUTPATIENT VISIT NEW Diagnosis: CERVICAL DISC DEGEN[ICD9: 722.4] Diagnosis: Neck pain[ICD9: 723.1] Diagnosis: Radiculopathy of arm[ICD9: 723.4] Diagnosis: Seizure[ICD9: 780.39] Shaye ALVARADO [facility] CPT-4: 31652 08/03/2011 Plan of Care Planned Activity Notes Codes Status Date Visit Diagnosis Plan: Hallux valgus (acquired), right foot Discussion: Update lab for upcoming surgery Okay to proceed with planned surgery by Dr. Nuñez ICD-9 : 735.0 ICD-10 : M20.11 03/25/2019 Appointment: Shaye Alvarado WPtel: [address] [place] [address] FOLLOW UP 03/25/2019 Visit Diagnosis Plan: Radial styloid tenosynovitis [de Quervain] Discussion: Spica thumb wrist splint Medrol Dose Pack followed by deuce Notify if worsens or persists ICD-9 : 727.04 ICD-10 : M65.4 07/24/2018 Appointment: Shaye Alvarado WPtel: [address] [place], [place] [id number] ACUTE ILLNESS 07/24/2018 Patient Education: Medrol (Francisco)- Optimize[employer] Coupon [phone] [email or web address] Completed 07/24/2018 Visit Diagnosis Plan: Other fatigue Discussion: urine test neg. when urine was tested, noted dark, cloudy urine and dipstick was obtained. showed protein and blood in urine so will send off for urine culture. multiple labs or dered to be completed at [facility] [place] [facility]. cbc, cmp, tsh, t4, tt3, b12, iron, ferritin obtained. will review labs and culture and order additional meds/labs as needed. ICD-9 : 780.79 ICD-10 : R53.83 06/21/2018 Appointment: Mara Echevarria [address] [place] [address] ACUTE ILLNESS 06/21/2018 Appointment: Shaye Alvarado WPtel: [address] [place] [address] Scheduled in ERROR 06/10/2018 Visit Diagnosis Plan: [...] : J45.21 07/05/2017 Appointment: Shaye Alvarado WPtel: [facility] [id number] PAP 07/05/2017 Patient Education: Patient Medication [...] I10 05/15/2017 Appointment: Shaye Alvarado WPtel: [address] [place] [address] ACUTE ILLNESS 05/15/2017 Patient Education: Patient Medication Summary Completed 05/15/2017 Referral: Armin Arzate WPtel: Orthopaedic [facility] [place] [id number] [facility], [id number] Referral Appointment Confirmed 05/10/2016 Visit Plan: Medrol Dose Pack then start mobic Continue brace See Dr. Arzate Discussed iontophoresis May need surgery as has tried all conservative measures at this point 04/27/2016 Appointment: Shaye Alvarado WPtel: [address] [place] [address] 04/26 lm~sl...confirmed-sp FOLLOW UP 04/27 Patient Education: Patient Medication Summary Completed 04/27/2016 Care Plan: Referral Order SNOMED-CT : 30 [id number] Pending 04/27/2016 Visit Plan: Injection as above Howard graff strap Vivlodex 10mg daily Notify if worsens or persists 03/17/2016 Appointment: Shaye Alvarado WPtel: [address] [place] [address] OFFICE SURGERY 03/17/2016 Patient Education: Patient Medication Summary Completed 03/17/2016 Appointment: Yolis Membreno [address] [place] [address] 12/19- patient misunderstood why appointment was scheduled. CANCELED 12/21/2015 Appointment: Shaye Alvarado WPtel: [address] [place], [place] [id number] ACUTE ILLNESS 12/20/2015 Patient Education: Patient Medication Summary Completed 12/20/2015 Appointment: Shaye Alvarado WPtel: [address] [place], [place] [id number] UA 08/04/2015 Patient Education: Patient Medication Summary Completed 08/04/2015 Visit Plan: Updated MRI of cervical spin e Decrease lisinopril to 2.5mg daily Update lab Add cyclobenzaprine at 10mg q HS 07/13/2015 Appointment: Shaye Alvarado WPtel: [address] [place] [address] 07/12/15 appt confirmed cn Annual Well Visit Patient Education: Patient Medication Summary Completed 07/13/2015 Patient Education: [facility] - Saving AutoInj - Lisinopril - 18-64 - Dynamic Portal ID Completed 07/13/2015 Patient Education: Neck Pain Completed 07/13/2015 Appointment: Sarika Diallo WPtel: [address] [place] [address] ACUTE ILLNESS 10/30/2014 Patient Education: Patient Medication Summary Completed 10/30/2014 Visit Plan: Fasting lab drawn including tegretol level Decrease lisinopril to 5mg daily and observe BP 01/05/2014 Appointment: Shaye Alvarado WPtel: [address] [place] [address] 01/02 Annual Well Visit 01/05/2014 Patient Education: Patient Medication Summary Completed 01/05/2014 Appointment: Sarika Diallo WPtel: [address] [place] [address] ACUTE ILLNESS 11/26/2013 Patient Education: Patient Medication Summary Completed 11/26/2013 Visit Plan: Saline nasal flushes prn. Ty lenol/Motrin prn headache. Notify if persists/symptoms worsening. Decrease Lisinopril to 10mg daily 06/10/2013 Appointment: Shaye Alvarado WPtel: [address] [place] [address] 06/09 FOLLOW UP 06/10/2013 Patient Education: Patient Medication Summary Completed 06/10/2013 Visit Plan: Finish abx and observe Stay off lisinopril and observe 02/19/2013 Appointment: Shaye Alvarado WPtel: [address] [place] [address] Hospital Follow Up 02/19/2013 Patient Education: Patient Medication Summary Completed 02/19/2013 Visit Plan: rocephin IM and Cefdinir. Wi ll notify if no improvement. Tylenol #3 #20 dispensed. Pt. has made contact with Dr. Frias's office and has follow up appnt. Pt. will notify if fever continues into tomorrow. 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 Discussed that could be walking pneumonia. Encouraged fluids and rest. Pt. will notify if symptoms persist or worsen. Note for work. 2-3 days. 10/30/2011 Appointment: Penelope Golden WPtel: [address] [place] [address] ACUTE ILLNESS 10/30/2011 Patient Education: Patient Medication Summary Completed 10/30/2011 Visit Plan: Proceed with Cervical Spine MRI Percocet 5/500 1 po q HS prn pain--#30 Tramadol 50mg 1-2 po BID prn pain--#60 See Ortho for surgical opinion 08/03/2011 Appointment: Shaye Alvarado WPtel: [address] [place] [address] US NEW PATIENT 08/03/2011 Patient Education: Patient Medication Summary Completed 08/03/2011 Referral: Armin Arzate WPtel: [facility] [address], [id number] Referral Appointment Requested Instructions Comment . Medrol [...]
--- OUTSIDE RECORDS SUMMARY | 2020-01-09 09:37 | XMS REPORT | CCD ---
Author Author Chiquita Alvarado D.O. Organization [facility]AY[facility] ALVARADO [facility] Address [address] [place] [address] Phone Care Team Providers Care Senior Production Planner Name Role Phone Shaye Alvarado D.O., PP Unavailable CCM Unavailable Summary Purpose Interface Exchange Insurance Providers Payer name Policy type / Coverage type Covered libertarian ID Effective Begin Date Effective End Date Blue Cross Blue Shield Blue Cross/Blue Shield [id number] Unknown Family history Father Diagnosis Age At Onset No Family Disease Entered N/A Mother Diagnosis Age At Onset No Family Disease Entered N/A Side Diagnosis Age At Onset No Family Disease Entered N/A Social History Social History Element Codes Description Effective Dates Marital status Unknown 08/03/2011 Number of children Unknown 2 08/03/2011 Employment Unknown Currently employed [employer] 08/03/[address]: 199534340 Never smoker 08/03/[address]: 108338 Currently drinks alc ohol socially 08/03/2011 Allergies, [...] Fill Instructions lisinopril 2.5 mg tablet RxNorm: 052096 1 Tablet(s) Oral QD 020 11/20/2019 Active Tegretol 200 mg tablet RxNorm: 253566 1 Tablet(s) Oral QD 08/22/2019 11/20/2019 Active Maxalt 10 mg tablet RxNorm: 037888 TAKE ONE TABLET BY M OUTH AT ONSET OF HEADACHE, MAY REPEAT ONE TABLET IN 2 HOURS IF NEEDED 08/06/2019 No Stop Date Active Tegretol 200 mg tablet RxNorm: 922322 TAKE ONE TABLET BY MOUTH MARGARITO Y 05/26/2019 08/21/2019 Inactive Maxalt 10 mg tablet RxNorm: 932680 1 Tablet(s) PO AT ON SET OF HEADACHE; MAY REPEAT ONE TABLET IN 2 HOURS IF NEEDED. 03/25/2019 05/23/2019 Inactive Cymbalta 60 mg capsule,delayed release RxNorm: 779349 T FABIO ONE CAPSULE BY MOUTH DAILY 02/06/2019 04/06/2019 Inactive Tegretol 200 mg tablet RxNorm: 756394 TAKE ONE TABLET BY MOUTH MARGARITO Y 02/06/2019 05/06/2019 Inactive lisinopril 2.5 mg tablet RxNorm: 523063 TAKE ONE TABLET BY MOUT H DAILY 01/27/2019 08/21/2019 Inactive Maxalt 10 mg tablet RxNorm: 019849 1 Tablet(s) PO AT ON SET OF HEADACHE; MAY REPEAT ONE TABLET IN 2 HOURS IF NEEDED. 11/22/2018 01/20/2019 Inactive Maxalt 10 mg tablet RxNorm: 612235 TAKE ONE TABLET BY M OUTH AT ONSET OF HEADACHE; MAY REPEAT ONE TABLET IN 2 HOURS IF NEEDED. 11/19/20182018 Inactive lisinopril 2.5 mg tablet RxNorm: 677783 TAKE ONE TABLET BY MOUT H DAILY 10/14/2018 01/11/2019 Inactive Maxalt 10 mg tablet RxNorm: 173439 TAKE ONE TABLET BY M OUTH AT ONSET OF HEADACHE; MAY REPEAT ONE TABLET IN 2 HOURS IF NEEDED. 09/20/20182018 Inactive Medrol (Francisco) 4 mg tablets in a dose pack RxNorm: 494706 6 Tablet(s) PO QD --then as directed 07/24/2018 07/29/2018 Inactive Mobic 15 mg tablet RxNorm: 296551 1 Tablet(s) PO QD 07/24/20182018 Inactive Tegretol 200 mg tablet RxNorm: 617180 TAKE ONE TABLET BY MOUTH MARGARITO Y 07/03/2018 12/29/2018 Inactive Maxalt 10 mg tablet RxNorm: 927976 TAKE ONE TABLET BY M OUTH AT ONSET OF HEADACHE; MAY REPEAT ONE TABLET IN 2 HOURS IF NEEDED. 07/03/20182018 Inactive Bactrim DS 800 mg-160 mg tablet RxNorm: 478804 1 Tablet(s) PO BID 1 08/25/2017 06/23/2018 Inactive Bactrim DS 800 mg-160 mg tablet RxNorm: 798520 1 Tablet(s) PO BID 1 08/25/2017 06/30/2018 Inactive Maxalt 10 mg tablet RxNorm: 107056 TAKE ONE TABLET BY M OUTH AT ONSET OF HEADACHE; MAY REPEAT ONE TABLET IN 2 HOURS IF NEEDED. 05/09/20182017 Inactive Cymbalta 60 mg capsule,delayed release RxNorm: 130201 T FABIO ONE CAPSULE BY MOUTH DAILY 04/09/2018 07/07/2018 Inactive lisinopril 2.5 mg tablet RxNorm: 024090 Tablet(s) TAKE ONE TABLET BY MOUTH DAILY 03/25/2018 09/20/2018 Inactive Maxalt 10 mg tablet RxNorm: 249775 TAKE ONE TABLET BY M OUTH AT ONSET OF HEADACHE; MAY REPEAT ONE TABLET IN 2 HOURS IF NEEDED. 02/26/20182017 Inactive Tegretol 200 mg tablet RxNorm: 126693 TAKE ONE TABLET BY MOUTH MARGARITO Y 12/04/2017 06/01/2018 Inactive Maxalt 10 mg tablet RxNorm: 262955 1 Tablet(s) PO AT ON SET OF HEADACHE. MAY REPEAT IN 2 HOURS 11/12/2017 12/01/2017 Inactive lisinopril 2.5 mg tablet RxNorm: 381328 TAKE ONE TABLET BY MOUT H DAILY 08/28/2017 03/25/2018 Inactive Tegretol 200 mg tablet RxNorm: 615192 TAKE ONE TABLET BY MOUTH MARGARITO Y 08/28/2017 11/25/2017 Inactive Maxalt 10 mg tablet RxNorm: 457346 1 Tablet(s) PO AT ON SET OF HEADACHE. MAY REPEAT IN 2 HOURS 07/05/2017 11/12/2017 Inactive cyclobenzaprine 10 mg tablet RxNorm: 638758 1 Tablet(s) PO QHS as needed for muscle spasm 05/15/2017 No Stop Date Active diclofenac sodium 75 mg tablet,delayed release RxNorm: 76155 6 1 Tablet(s) PO BID as needed for neck pain 05/15/2017 07/13/2017 Inactive Cymbalta 60 mg capsule,delayed release RxNorm: 209845 C apsule(s) TAKE ONE CAPSULE BY MOUTH DAILY 05/07/2017 08/04/2017 Inactive Maxalt 10 mg tablet RxNorm: 243431 1 Tablet(s) PO AT ON SET OF HEADACHE. MAY REPEAT IN 2 HOURS 04/30/2017 05/09/2017 Inactive Maxalt 10 mg tablet RxNorm: 672875 1 Tablet(s) PO AT ON SET OF HEADACHE. MAY REPEAT IN 2 HOURS 02/22/2017 04/30/2017 Inactive Tegretol 200 mg tablet RxNorm: 867208 Tablet(s) TAKE ONE TABLET BY MOUTH DAILY 01/11/2017 07/09/2017 Inactive Maxalt 10 mg tablet RxNorm: 310556 1 Tablet(s) PO AT ON SET OF HEADACHE. MAY REPEAT IN 2 HOURS 01/11/2017 02/22/2017 Inactive Maxalt 10 mg tablet RxNorm: 550525 1 Tablet(s) PO AT ON SET OF HEADACHE. MAY REPEAT IN 2 HOURS 11/30/2016 01/11/2017 Inactive Maxalt 10 mg tablet RxNorm: 701768 TAKE ONE TABLET BY M OUTH AT ONSET OF HEADACHE. MAY REPEAT IN 2 HOURS 07/26/2016 11/30/2016 Inactive lisinopril 2.5 mg tablet RxNorm: 716255 TAKE ONE TABLET BY MOUT H DAILY 07/24/2016 07/23/2016 Inactive lisinopril 2.5 mg tablet RxNorm: 763146 TAKE ONE TABLET BY MOUT H DAILY 07/24/2016 01/19/2017 Inactive Maxalt 10 mg tablet RxNorm: 441150 TAKE ONE TABLET BY M OUTH AT ONSET OF HEADACHE. MAY REPEAT IN 2 HOURS 06/05/2016 06/14/2016 Inactive Tegretol 200 mg tablet RxNorm: 414194 TAKE ONE TABLET BY MOUTH MARGARITO Y 06/05/2016 01/11/2017 Inactive Cymbalta 60 mg capsule,delayed release RxNorm: 066320 T FABIO ONE CAPSULE BY MOUTH DAILY 05/17/2016 05/07/2017 Inactive Medrol (Francisco) 4 mg tablets in a dose pack RxNorm: 255412 6 Tablet(s) PO QD --then as directed 04/27/2016 05/02/2016 Inactive Mobic 15 mg tablet RxNorm: 386709 1 Tablet(s) PO QD for pain 201505/26/2016 Inactive Maxalt 10 mg tablet RxNorm: 179895 TAKE ONE TABLET BY M OUTH AT ONSET OF HEADACHE. MAY REPEAT IN 2 HOURS 02/28/2016 03/25/2016 Inactive Tegretol 200 mg tablet RxNorm: 826277 TAKE ONE TABLET BY MOUTH MARGARITO Y 02/14/2016 05/13/2016 Inactive Maxalt 10 mg tablet RxNorm: 177384 TAKE ONE TABLET BY M OUTH AT ONSET OF HEADACHE. MAY REPEAT IN 2 HOURS 01/10/2016 01/27/2016 Inactive lisinopril 2.5 mg tablet RxNorm: 309427 TAKE ONE TABLET BY MOUT H DAILY 01/03/2016 06/30/2016 Inactive Macrobid 100 mg capsule RxNorm: 653826 1 Capsule(s) PO BID 12/23/19 16 12/29/2015 Inactive Macrobid 100 mg capsule RxNorm: 586345 1 Capsule(s) PO BID 12/23/19 16 12/22/2015 Inactive Bactrim DS 800 mg-160 mg tablet RxNorm: 479659 1 Tablet(s) PO BID 0 12/21/2015 12/27/2015 Inactive Bactrim DS 800 mg-160 mg tablet RxNorm: 900203 1 Tablet(s) PO BID 0 12/21/2015 12/20/2015 Inactive Tegretol 200 mg tablet RxNorm: 147744 1 Tablet(s) PO QD TAKE ONE TABLET BY MOUTH DAILY 10/18/2015 01/15/2016 Inactive Maxalt 10 mg tablet RxNorm: 410571 Tablet(s) TAKE ONE T ABLET BY MOUTH AT ONSET OF HEADACHE. MAY REPEAT IN 2 HOURS. 10/11/2015 10/25/2015 Inactive Bactrim DS 800 mg-160 mg tablet RxNorm: 078564 1 Tablet(s) PO BID 0 08/05/2015 08/04/2015 Inactive Bactrim DS 800 mg-160 mg tablet RxNorm: 438158 1 Tablet(s) PO BID 0 08/05/2015 08/11/2015 Inactive cyclobenzaprine 10 mg tablet RxNorm: 171902 1 Tablet(s) PO QHS as needed for muscle spasm 07/13/2015 09/10/2015 Inactive lisinopril 2.5 mg tablet RxNorm: 588044 1 Tablet(s) PO QD 07/13/2015 01/02/2016 Inactive Tegretol 200 mg tablet RxNorm: 957678 1 Tablet(s) PO QD 07/05/2015 Inactive Maxalt 10 mg tablet RxNorm: 301327 Tablet(s) TAKE ONE T ABLET BY MOUTH AT ONSET OF HEADACHE. MAY REPEAT IN 2 HOURS. 06/23/2015 10/11/2015 Inactive Cymbalta 60 mg capsule,delayed release RxNorm: 114170 1 Capsule (s) PO QD 05/17/2015 05/10/2016 Inactive [AttnRPh: Saving jason ly/adjudicate RxGRP:SG20 RxBIN:[id number] RxPCN: ID#:[id number]] Maxalt 10 mg tablet RxNorm: 407550 Tablet(s) TAKE ONE T ABLET BY MOUTH AT ONSET OF HEADACHE. MAY REPEAT IN 2 HOURS. 04/01/2015 04/15/2015 Inactive Tegretol 200 mg tablet RxNorm: 831100 1 Tablet(s) PO QD 03/09/2015 Inactive lisinopril 10 mg tablet RxNorm: 575514 1 Tablet(s) PO QD 01/18/2015 1 09/12/2014 Inactive [AttnRPh: Saving apply/adjudicate RxGRP: SG20 RxBIN:[id number] RxPCN: ID#:[id number]] Tegretol 200 mg tablet RxNorm: 710294 1 Tablet(s) PO QD 12/03/2014 Inactive Maxalt 10 mg tablet RxNorm: 403831 TAKE ONE TABLET BY M OUTH AT ONSET OF HEADACHE. MAY REPEAT IN 2 HOURS. 11/18/2014 04/01/2015 Inactive benzonatate 100 mg capsule RxNorm: 284892 1 Capsule(s) PO TID a s needed 10/30/2014 07/12/2015 Inactive prednisone 20 mg tablet RxNorm: 063095 1 Tablet(s) PO BID 10/30/2014 11/03/2014 Inactive Maxalt 10 mg tablet RxNorm: 882916 as needed TAKE 1 TAB LET BY MOUTH AT ONSET OF HEADACHE AND MAY REPEAT IN 2 HOURS 09/02/2014 09/13/2014 Inactive Tegretol 200 mg tablet RxNorm: 657167 1 Tablet(s) PO QD 08/17/2014 Inactive Cymbalta 60 mg capsule,delayed release RxNorm: 422825 1 Capsule (s) PO QD 06/29/2014 05/17/2015 Inactive [AttnRPh: Saving jason ly/adjudicate RxGRP:SG20 RxBIN:[id number] RxPCN: ID#:[id number]] lisinopril 10 mg tablet RxNorm: 975068 1 Tablet(s) PO QD 06/10/2014 0 12/06/2014 Inactive [AttnRPh: Saving apply/adjudicate RxGRP: SG20 RxBIN:[id number] RxPCN:HT ID#:[id number]] Maxalt 10 mg tablet RxNorm: 315708 TAKE ONE TABLET BY M OUTH AT HEADACHE ONSET AND MAY REPEAT IN 2 HOURS IF HEADACHE REMAINS 04/20/2014 09/02/2014 In active albuterol sulfate HFA 90 mcg/actuation aerosol inhaler RxNor m: 2041713 2 Puff(s) INH Q4H 11/26/2013 No Stop Date Active doxycycline hyclate 100 mg tablet RxNorm: 433402 1 Tablet(s) PO BID 11/26/2013 12/05/2013 Inactive Maxalt 10 mg tablet RxNorm: 652556 Tablet(s) PO Take 1 at headache onset and may repeat in 2 hours if headache remains 11/21/2013 04/19/2014 Inactive [SAVINGS FOR UNINSURED PATIENTS -- BIN:[id number], PCN: [id number], Group: [id number], ID# [id number], Process claim through [employer], for questions: . THIS IS NOT INSURANCE.] Tegretol 200 mg tablet RxNorm: 747225 1 Tablet(s) PO QD 06/10/2013 Inactive lisinopril 10 mg tablet RxNorm: 665604 1 Tablet(s) PO QD 06/10/2013 1 08/10/2013 Inactive Cymbalta 60 mg capsule,delayed release RxNorm: 788089 1 Capsule (s) PO QD 06/10/2013 06/29/2014 Inactive lisinopril 20 mg tablet RxNorm: 491533 1 Tablet(s) PO QAM for BP 06/09/2013 Inactive lisinopril 20 mg tablet RxNorm: 979902 1 Tablet(s) PO QAM for BP 11/07/2012 Inactive cefdinir 300 mg capsule RxNorm: 098774 1 Capsule(s) PO BID 07/23/19 13 08/01/2012 Inactive lisinopril 20 mg tablet RxNorm: 364806 1 Tablet(s) PO QAM for BP 09/09/2012 Inactive doxycycline hyclate 100 mg Tab RxNorm: 411950 1 Tablet(s) PO BID 11/08/2011 Inactive Mirena 20 mcg/24 hr (5 years) intrauterine device RxNorm: 221461 IU No Start Date Active Seasonique 0.15 mg-30 mcg (84)/10 mcg(7) Tabs,3 month dose p ack RxNorm: 044481 1 Tablet(s) PO QD No Start Date 07/12/2015 Inactive Tegretol 200 mg tablet RxNorm: 940218 1 Tablet(s) PO QD No Start Da te 06/09/2013 Inactive lisinopril 20 mg tablet RxNorm: 958591 1 Tablet(s) PO QD No Start D ate 06/09/2013 Inactive Maxalt 10 mg tablet RxNorm: 080106 Tablet(s) PO Take 1 at headache onset and may repeat in 2 hours if headache remains No Start Date 11/20/2013 Inactive Cymbalta 60 mg capsule,delayed release RxNorm: 395427 1 Capsule (s) PO QD No Start Date 06/09/2013 Inactive Medrol (Francisco) 4 mg Tabs in a Dose Pack RxNorm: 500209 Tablet(s) PO as directed No Start Date 07/16/2012 Inactive Medication Administered No Medication Administered data Immunizations No Immunization data Results Observation Observation Code Item Item Code Result Date S ervice Location TEGRETOL 2416053 TEGRETOL 5.2 MG/L 01/07/2014 Unknown COMPREHENSIVE METABOLIC 75811 AST 16 U/L 2013 Unknown COMPREHENSIVE METABOLIC 77211 ALT 10 IU/L 2013 Unknown COMPREHENSIVE METABOLIC 52353 BUN 17 MG/DL 2013 Unknown COMPREHENSIVE METABOLIC 74422 ALBUMIN 4.3 GM/DL 2013 Unknown COMPREHENSIVE METABOLIC 15807 CHLORIDE 105 MMOL/L 01/05 Unknown COMPREHENSIVE METABOLIC 24781 BILI TOT 0.2 MG/DL 2013 Unknown COMPREHENSIVE METABOLIC 84553 ALK PHOS 37 U/L 2013 Unknown COMPREHENSIVE METABOLIC 85873 SODIUM 137 MMOL/L 01/05 Unknown COMPREHENSIVE METABOLIC 54662 CREATININE 0.86 MG/DL 12/15 Unknown COMPREHENSIVE METABOLIC 23852 CALCIUM 9.4 MG/DL 2013 Unknown COMPREHENSIVE METABOLIC 93268 POTASSIUM 5.0 MMOL/L 01/05 Unknown COMPREHENSIVE METABOLIC 83088 PROT TOT 6.3 GM/DL 2013 Unknown COMPREHENSIVE METABOLIC 80006 Glucose 104 MG/DL 2013 Unknown COMPREHENSIVE METABOLIC 49149 BICARB 27 MMOL/L 2013 Unknown COMPREHENSIVE METABOLIC 29340 ANION GAP 5 MEQ/L 2013 Unknown THYROID STIMULATING HORMONE 77999 TSH 0.822 uIU/ML 01/05/2014 Unknown GFR CALC 2634668 GFR AA >60 ML/MIN 01/05/2014 Unknown GFR CALC 9334317 GFR NON-AA >60 ML/MIN 01/05/2014 Unknown COMPLETE BLOOD COUNT 3067435 WBC 5.5 10e9/L 01/06/20 14 Unknown COMPLETE BLOOD COUNT [id number] RBC 4.17 10e12/L 2013 Unknown COMPLETE BLOOD COUNT 0991678 HGB 13.0 g/dL 4 Unknown COMPLETE BLOOD COUNT 9095807 HCT DET 39.0 % 4 Unknown COMPLETE BLOOD COUNT 0610229 MCV 93.5 fL 4 Unknown COMPLETE BLOOD COUNT [id number] MCH 31.2 pg 4 Unknown COMPLETE BLOOD COUNT 3509129 MCHC 33.3 g/dL 4 Unknown COMPLETE BLOOD COUNT 3396956 PLT 294 10e9/L 01/06/20 14 Unknown COMPLETE BLOOD COUNT 9737703 MPV 11.4 fL 4 Unknown COMPLETE BLOOD COUNT 8692163 NIKKY % 59.4 % 4 Unknown COMPLETE BLOOD COUNT [id number] LY % 27.7 % 4 Unknown COMPLETE BLOOD COUNT [id number] MON % 10.3 % 4 Unknown COMPLETE BLOOD COUNT 3138404 EOS % 1.5 % 4 Unknown COMPLETE BLOOD COUNT 8773075 BASO % 1.1 % 4 Unknown COMPLETE BLOOD COUNT 3670632 RDW 12.7 % 4 Unknown COMPLETE BLOOD COUNT [id number] ABS NIKKY 3.27 10e9/L 014 Unknown COMPLETE BLOOD COUNT [id number] ABS LYMPH 1.52 10e9/L 014 Unknown COMPLETE BLOOD COUNT [id number] ABS MONO 0.57 10e9/L 014 Unknown COMPLETE BLOOD COUNT [id number] ABS EOS 0.08 10e9/L 014 Unknown COMPLETE BLOOD COUNT 1938511 ABS BASO 0.06 10e9/L 014 Unknown COMPLETE BLOOD COUNT [id number] RDW-SD 42.1 fL 4 Unknown LIPID GROUP 54226 HDL TEST 60 MG/DL 01/05/2014 Unknown LIPID GROUP 59749 TRIG 63 MG/DL 01/05/2014 Unknown LIPID GROUP 30801 TEST LDL 83 MG/DL 01/05/2014 Unknown LIPID GROUP 53213 CHOL 156 MG/DL 01/05/2014 Unknown LIPID GROUP 60746 RCHOL/HDL 2.60 RATIO 01/05/2014 Unknow n FREE T4 53311 FREE T4 0.87 NG/DL 01/05/2014 Unknown Procedures Procedure Codes Date URINALYSIS NONAUTO W/O SCOPE CPT-4: 58079 06/21/2018 URINE TEST CPT-4: 83552 06/21/2018 URINE CULTURE/ COLONY COUNT CPT-4: 55985 06/21/2018 SPECIMEN HANDLING OFFICE-LAB CPT-4: 19453 07/05/2017 DRAIN/INJECT JOINT/BURSA CPT-4: 54730 03/17/2016 URINALYSIS NONAUTO W/O SCOPE CPT-4: 36218 12/20/2015 URINE CULTURE/ COLONY COUNT CPT-4: 17918 12/20/2015 URINALYSIS NONAUTO W/O SCOPE CPT-4: 75688 08/04/2015 URINE CULTURE/ COLONY COUNT CPT-4: 31166 08/04/2015 ROUTINE VENIPUNCTURE CPT-4: 23381 01/05/2014 ASSAY OF FREE THYROXINE CPT-4: 28019 01/05/2014 ASSAY THYROID STIM HORMONE CPT-4: 80462 01/05/2014 COMPREHEN METABOLIC PANEL CPT-4: 04502 01/05/2014 COMPLETE CBC W/AUTO DIFF WBC CPT-4: 90518 01/05/2014 LIPID PANEL CPT-4: 11231 01/05/2014 CEFTRIAXONE SODIUM INJECTION CPT-4: J0696 07/23/2012 THER/PROPH/DIAG INJ SC/IM CPT-4: 89344 07/23/2012 Vital Signs Date Vital 03/25/2019 Blood Pressure 1: 104/62 Code: 8480-6 Heart Rate 1: 72 bpm Respiratory Rate: 18 bpm SpO2: 97% Temperature: 36.9 (C) / 98.5 (F) We ight: 134 lbs 07/24/2018 Blood Pressure 1: 122/80 Code: 8480-6 BMI: 21.3 Code: 47328-2 Heart Rate 1: 76 bpm Height: 5'7" Respiratory Rate: 20 bpm Temperature: 36 .9 (C) / 98.4 (F) Weight: 136 lbs 06/21/2018 Blood Pressure 1: 100/78 Code: 8480-6 Heart Rate 1: 82 bpm Respiratory Rate: 18 bpm SpO2: 100% Temperature: 36.7 (C) / 98.0 (F) We ight: 130 lbs 07/05/2017 Blood Pressure 1: 94/58 Code: 8480-6 BMI: 20.4 C ode: 82134-6 Heart Rate 1: 72 bpm Height: 5'7" SpO2: 96% Temperature: 37.2 (C) / 99.0 (F) Weight: 130 lbs 05/15/2017 Blood Pressure 1: 104/64 Code: 8480-6 BMI: 20.8 Code: 34551-2 Heart Rate 1: 80 bpm Height: 5'7" Respiratory Rate: 20 bpm Temperature: 36 .7 (C) / 98.1 (F) Weight: 133 lbs 04/27/2016 Blood Pressure 1: 112/70 Code: 8480-6 BMI: 20.8 Code: 36280-7 Heart Rate 1: 80 bpm Height: 5'7" Respiratory Rate: 20 bpm Temperature: 37 .2 (C) / 99.0 (F) Weight: 133 lbs 03/17/2016 Blood Pressure 1: 122/76 Code: 8480-6 He art Rate 1: 80 bpm 07/13/2015 Blood Pressure 1: 98/60 Code: 8480-6 BMI: 20.5 C ode: 76008-7 Heart Rate 1: 76 bpm Height: 5'7" Respiratory Rate: 20 bpm Temperature: 36 .9 (C) / 98.4 (F) Weight: 131 lbs 10/30/2014 Blood Pressure 1: 124/80 Code: 8480-6 BMI: 19.4 Code: 85560-5 Heart Rate 1: 94 bpm Height: 5'7" Respiratory Rate: 24 bpm SpO2: 98% Tempera ture: 36.6 (C) / 97.8 (F) Weight: 124 lbs 01/05/2014 Blood Pressure 1: 98/68 Code: 8480-6 BMI: 19.3 C ode: 24325-9 Heart Rate 1: 76 bpm Height: 5'7" Respiratory Rate: 20 bpm Temperature: 36 .8 (C) / 98.2 (F) Weight: 123 lbs 11/26/2013 Blood Pressure 1: 104/64 Code: 8480-6 BMI: 20.4 Code: 13482-9 Heart Rate 1: 84 bpm Height: 5'7" Respiratory Rate: 18 bpm Temperature: 36 .7 (C) / 98.0 (F) Weight: 130 lbs 06/10/2013 Blood Pressure 1: 132/90 Code: 8480-6 BMI: 19.4 Code: 77478-5 Heart Rate 1: 80 bpm Height: 5'7" Respiratory Rate: 20 bpm Temperature: 36 .6 (C) / 97.8 (F) Weight: 124 lbs 02/19/2013 Blood Pressure 1: 114/80 Code: 8480-6 BMI: 19.7 Code: 22175-3 Heart Rate 1: 84 bpm Height: 5'7" Respiratory Rate: 20 bpm Temperature: 36 .9 (C) / 98.5 (F) Weight: 126 lbs 07/23/2012 Blood Pressure 1: 106/64 Code: 8480-6 BMI: 20.8 Code: 29554-5 Heart Rate 1: 60 bpm Height: 5'7" Temperature: 37.8 (C) / 100.0 (F) Weight : 133 lbs 07/17/2012 Blood Pressure 1: 162/110 Code: 8480-6 BMI: 21.0 Code: 93918-4 Heart Rate 1: 92 bpm Height: 5'7" Respiratory Rate: 20 bpm Temperature: 36 .8 (C) / 98.2 (F) Weight: 134 lbs 10/30/2011 Blood Pressure 1: 138/80 Code: 8480-6 BMI: 21.0 Code: 27172-0 Heart Rate 1: 84 bpm Height: 5'7" Temperature: 37.1 (C) / 98.7 (F) Weight: 134 lbs 08/03/2011 Blood Pressure 1: 114/72 Code: 8480-6 BMI: 21.0 Code: 30441-0 Heart Rate 1: 64 bpm Height: 5'7" Respiratory Rate: 20 bpm Temperature: 36 .9 (C) / 98.4 (F) Weight: 134 lbs Functional Status No Functional Status data Reason For Visit Reason For Visit Effective Dates Notes Pre-op Physical 03/25/2019 neck pain 07/24/2018 fatigue 06/21/2018 well woman exam (40-65 years) 07/05/2017 Last sujtaha l mammogram was at least 3 years [...] Visit Encounters Encounter Performer Location Codes Date (97823) OFFICE/OUTPATIENT VISIT EST Diagnosis: Hallux valgus (acquired), right foot[ICD10: M20.11] Diagnosis: Encounter for other preprocedural examination[ICD10: Z01.818] Shaye MATHUR MiguelWang [facility] CPT-4: 50711 03/25/2019 ([id number]) OFFICE/OUTPATIENT VISIT EST Diagnosis: Radial styloid tenosynovitis [de Quervain][ICD10: M65.4] Shaye MATHUR MiguelWang [facility] CPT-4: 97862 07/24/2018 ([id number]) OFFICE/OUTPATIENT VISIT EST Diagnosis: Other fatigue[ICD10: R53.83] Diagnosis: Anemia, unspecified[ICD10: D64.9] Mara Echevarria INOCENCIA Ernesto RiveraWang [facility] CPT-4: 72522 06/21/2018 ([id number]) PREV VISIT EST AGE 40-64 Diagnosis: Mild intermittent asthma with (acute) exacerbation[ICD10: J45.21] Diagnosis: Encounter for general adult medical examination without abnormal findings[ICD10: Z00.00] Diagnosis: Encounter for gynecological examination (general) (routine) without abnormal findings[ICD10: Z01.419] Shaye MATHUR MiguelWang [place] [facility] CPT-4: 18756 07/05/2017 ([id number]) OFFICE/OUTPATIENT VISIT EST Diagnosis: Essential (primary) hypertension[ICD10: I10] Diagnosis: Other cervical disc degeneration, unspecified cervical region[ICD10: M50.30] Diagnosis: Tension-type headache, unspecified, not intractable[ICD10: G44.209] Shaye MATHUR MiguelWang [facility] CPT-4: 62742 05/15/2017 ([id number]) OFFICE/OUTPATIENT VISIT EST Diagnosis: Lateral epicondylitis, right elbow[ICD10: M77.11] Shaye MATHUR MiguelWang [facility] CPT-4: 38912 04/27/2016 ([id number]) OFFICE/OUTPATIENT VISIT EST Diagnosis: Hematuria, unspecified[ICD10: R31.9] Shaye ALVARADO [facility] CPT-4: 94676 08/04/2015 ([id number]) PREV VISIT EST AGE 40-64 Diagnosis: Encounter for general adult medical examination without abnormal findings[ICD10: Z00.00] Diagnosis: Essential (primary) hypertension[ICD10: I10] Diagnosis: Other cervical disc degeneration, unspecified cervical region[ICD10: M50.30] 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] Shaye ALVARADO [facility] CPT-4: 86920 07/13/2015 ([id number]) OFFICE/OUTPATIENT VISIT EST Diagnosis: COUGH[ICD9: 786.2] Sarika ALVARADO [facility] CPT-4: 11015 10/30/2014 ([id number]) PREV VISIT EST AGE 40-64 Diagnosis: ROUTINE MEDICAL EXAM[ICD9: V70.0] Diagnosis: HYPERTENSION[ICD9: 401.9] Diagnosis: Seizure[ICD9: 780.39] Shaye ALVARADO [facility] CPT-4: 65300 01/05/2014 OFFICE/OUTPATIENT VISIT EST Diagnosis: URI, ACUTE[ICD9: 465.9] Sarika MCDONALD [facility] CPT-4: 42435 11/26/2013 ([id number]) OFFICE/OUTPATIENT VISIT EST Diagnosis: HYPERTENSION[ICD9: 401.9] Diagnosis: SINUSITIS, ACUTE[ICD9: 461.9] Diagnosis: CONVULSIONS[ICD9: 780.39] Shaye MANCINI [facility] CPT-4: 63108 06/10/2013 OFFICE/OUTPATIENT VISIT EST Diagnosis: Pyelonephritis[ICD9: 590.80] Diagnosis: HYPERTENSION[ICD9: 401.9] Shaye MANCINI [facility] CPT-4: 03264 02/19/2013 OFFICE/OUTPATIENT VISIT EST Diagnosis: OTITIS MEDIA NOS[ICD9: 382.9] Diagnosis: COUGH[ICD9: 786.2] Diagnosis: SINUSITIS, ACUTE[ICD9: 461.9] Shaye [facility] CPT-4: 33281 07/23/2012 ([id number]) OFFICE/OUTPATIENT VISIT EST Diagnosis: HYPERTENSION[ICD9: 401.9] Diagnosis: CONVULSIONS[ICD9: 780.39] Shaye MANCINI [facility] CPT-4: 59839 07/17/2012 OFFICE/OUTPATIENT VISIT EST Diagnosis: COUGH[ICD9: 786.2] Diagnosis: PHARYNGITIS, ACUTE[ICD9: 462] Shaye ALVARADO [facility] CPT-4: 36765 10/30/2011 OFFICE/OUTPATIENT VISIT NEW Diagnosis: CERVICAL DISC DEGEN[ICD9: 722.4] Diagnosis: Neck pain[ICD9: 723.1] Diagnosis: Radiculopathy of arm[ICD9: 723.4] Diagnosis: Seizure[ICD9: 780.39] Shaye ALVARADO [facility] CPT-4: 96519 08/03/2011 Plan of Care Planned Activity Notes Codes Status Date Visit Diagnosis Plan: Hallux valgus (acquired), right foot Discussion: Update lab for upcoming surgery Okay to proceed with planned surgery by Dr. Nuñez ICD-9 : 735.0 ICD-10 : M20.11 03/25/2019 Appointment: Shaye Alvarado WPtel: [address] [place] [address] FOLLOW UP 03/25/2019 Visit Diagnosis Plan: Radial styloid tenosynovitis [de Quervain] Discussion: Spica thumb wrist splint Medrol Dose Pack followed by deuce Notify if worsens or persists ICD-9 : 727.04 ICD-10 : M65.4 07/24/2018 Appointment: Shaye Alvarado WPtel: [address] [place], [place] [id number] ACUTE ILLNESS 07/24/2018 Patient Education: Medrol ([place])- [employer] Coupon [phone] [email or web address] Completed 07/24/2018 Visit Diagnosis Plan: Other fatigue Discussion: urine test neg. when urine was tested, noted dark, cloudy urine and dipstick was obtained. showed protein and blood in urine so will send off for urine culture. multiple labs or dered to be completed at [facility]. cbc, cmp, tsh, t4, tt3, b12, iron, ferritin obtained. will review labs and culture and order additional meds/labs as needed. ICD-9 : 780.79 ICD-10 : R53.83 06/21/2018 Appointment: Mara Echevarria [address] [place] [address] ACUTE ILLNESS 06/21/2018 Appointment: Shaye Alvarado WPtel: [address] [place] [address] Scheduled in ERROR 06/10/2018 Visit Diagnosis Plan: [...] : J45.21 07/05/2017 Appointment: Shaye Alvarado WPtel: [facility] [facility] [place] [id number] PAP 07/05/2017 Patient Education: Patient Medication Summary [...] : I10 05/15/2017 Appointment: Shaye Alvarado WPtel: [address] [place] [address] ACUTE ILLNESS 05/15/2017 Patient Education: Patient Medication Summary Completed 05/15/2017 Referral: Armin Arzate WPtel: [facility] [place] [id number] [facility], [id number] Referral Appointment Confirmed 05/10/2016 Visit Plan: Medrol Dose Pack then start mobic Continue brace See Dr. Arzate Discussed iontophoresis May need surgery as has tried all conservative measures at this point 04/27/2016 Appointment: Shaye Alvarado WPtel: [address] [place] [address] 04/26 lm~sl...confirmed-sp FOLLOW UP 04/27 Patient Education: Patient Medication Summary Completed 04/27/2016 Care Plan: Referral Order SNOMED-CT : 30 [id number] Pending 04/27/2016 Visit Plan: Injection as above Howard graff strap Vivlodex 10mg daily Notify if worsens or persists 03/17/2016 Appointment: Shaye Alvarado WPtel: [address] [place] [address] OFFICE SURGERY 03/17/2016 Patient Education: Patient Medication Summary Completed 03/17/2016 Appointment: Yolis Membreno [address] [place] [address] 12/19- patient misunderstood why appointment was scheduled. CANCELED 12/21/2015 Appointment: Shaye Alvarado WPtel: [address] [place], [place] [id number] ACUTE ILLNESS 12/20/2015 Patient Education: Patient Medication Summary Completed 12/20/2015 Appointment: Shaye Alvarado WPtel: [address] [place], [place] [id number] UA 08/04/2015 Patient Education: Patient Medication Summary Completed 08/04/2015 Visit Plan: Updated MRI of cervical spin e Decrease lisinopril to 2.5mg daily Update lab Add cyclobenzaprine at 10mg q HS 07/13/2015 Appointment: Shaye Alvarado WPtel: [address] [place] [address] 07/12/15 appt confirmed cn Annual Well Visit Patient Education: Patient Medication Summary Completed 07/13/2015 Patient Education: [facility] - Saving [employer] - Lisinopril - 18-64 - Dynamic Portal ID Completed 07/13/2015 Patient Education: Neck Pain Completed 07/13/2015 Appointment: Sarika Diallo WPtel: [address] [place] [address] ACUTE ILLNESS 10/30/2014 Patient Education: Patient Medication Summary Completed 10/30/2014 Visit Plan: Fasting lab drawn including tegretol level Decrease lisinopril to 5mg daily and observe BP 01/05/2014 Appointment: Shaye Alvarado WPtel: [address] [place] [address] 01/02 Annual Well Visit 01/05/2014 Patient Education: Patient Medication Summary Completed 01/05/2014 Appointment: Sarika Diallo WPtel: [address] [place] [address] ACUTE ILLNESS 11/26/2013 Patient Education: Patient Medication Summary Completed 11/26/2013 Visit Plan: Saline nasal flushes prn. Ty lenol/Motrin prn headache. Notify if persists/symptoms worsening. Decrease Lisinopril to 10mg daily 06/10/2013 Appointment: Shaye Alvarado WPtel: [address] [place] [address] 06/09 FOLLOW UP 06/10/2013 Patient Education: Patient Medication Summary Completed 06/10/2013 Visit Plan: Finish abx and observe Stay off lisinopril and observe 02/19/2013 Appointment: Shaye Alvarado WPtel: [address] [place] [address] Hospital Follow Up 02/19/2013 Patient Education: Patient Medication Summary Completed 02/19/2013 Visit Plan: rocephin IM and Cefdinir. Wi ll notify if no improvement. Tylenol #3 #20 dispensed. Pt. has made contact with Dr. Frias's office and has follow up appnt. Pt. will notify if fever continues into tomorrow. 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 Discussed that could be walking pneumonia. Encouraged fluids and rest. Pt. will notify if symptoms persist or worsen. Note for work. 2-3 days. 10/30/2011 Appointment: Penelope Golden WPtel: [address] [place] [address] ACUTE ILLNESS 10/30/2011 Patient Education: Patient Medication Summary Completed 10/30/2011 Visit Plan: Proceed with Cervical Spine MRI Percocet 5/500 1 po q HS prn pain--#30 Tramadol 50mg 1-2 po BID prn pain--#60 See Ortho for surgical opinion 08/03/2011 Appointment: Shaye Alvarado WPtel: [address] [place] [address] US NEW PATIENT 08/03/2011 Patient Education: Patient Medication Summary Completed 08/03/2011 Referral: Armin Arzate WPtel: [facility] [address], [address] Referral Appointment Requested Instructions Comment . Medrol [...]
--- OUTSIDE RECORDS SUMMARY | 2020-01-09 09:37 | XMS REPORT | CCD ---
Author Author Chiquita Alvarado D.O. Organization [facility] Address [address] [place] [address] Phone Care Team Providers Care Security Flex Officer Name Role Phone Shaye Alvarado D.O., PP Unavailable CCM Unavailable Summary Purpose Interface Exchange Insurance Providers Payer name Policy type / Coverage type Covered alliance party ID Effective Begin Date Effective End Date Blue Cross Blue Shield Blue Cross/Blue Shield [id number] Unknown Family history Father Diagnosis Age At Onset No Family Disease Entered N/A Mother Diagnosis Age At Onset No Family Disease Entered N/A Side Diagnosis Age At Onset No Family Disease Entered N/A Social History Social History Element Codes Description Effective Dates Marital status Unknown 08/03/2011 Number of children Unknown 2 08/03/2011 Employment Unknown Currently employed [employer] 08/03/[address]: 090382543 Never smoker 08/03/[address]: 785652 Currently drinks alc ohol socially 08/03/2011 Allergies, [...] Fill Instructions Maxalt 10 mg tablet RxNorm: 568401 TAKE ONE TABLET BY M OUTH AT ONSET OF HEADACHE, MAY REPEAT ONE TABLET IN 2 HOURS IF NEEDED 08/06/2019 No Stop Date Active Tegretol 200 mg tablet RxNorm: 348473 TAKE ONE TABLET BY MOUTH MARGARITO Y 05/26/2019 No Stop Date Active Maxalt 10 mg tablet RxNorm: 598472 1 Tablet(s) PO AT ON SET OF HEADACHE; MAY REPEAT ONE TABLET IN 2 HOURS IF NEEDED. 03/25/2019 05/23/2019 Inactive Cymbalta 60 mg capsule,delayed release RxNorm: 008218 T FABIO ONE CAPSULE BY MOUTH DAILY 02/06/2019 04/06/2019 Inactive Tegretol 200 mg tablet RxNorm: 178460 TAKE ONE TABLET BY MOUTH MARGARITO Y 02/06/2019 05/06/2019 Inactive lisinopril 2.5 mg tablet RxNorm: 726640 TAKE ONE TABLET BY MOUT H DAILY 01/27/2019 07/25/2019 Inactive Maxalt 10 mg tablet RxNorm: 046609 1 Tablet(s) PO AT ON SET OF HEADACHE; MAY REPEAT ONE TABLET IN 2 HOURS IF NEEDED. 11/22/2018 01/20/2019 Inactive Maxalt 10 mg tablet RxNorm: 747094 TAKE ONE TABLET BY M OUTH AT ONSET OF HEADACHE; MAY REPEAT ONE TABLET IN 2 HOURS IF NEEDED. 11/19/20182018 Inactive lisinopril 2.5 mg tablet RxNorm: 161079 TAKE ONE TABLET BY MOUT H DAILY 10/14/2018 01/11/2019 Inactive Maxalt 10 mg tablet RxNorm: 066838 TAKE ONE TABLET BY M OUTH AT ONSET OF HEADACHE; MAY REPEAT ONE TABLET IN 2 HOURS IF NEEDED. 09/20/20182018 Inactive Medrol (Francisco) 4 mg tablets in a dose pack RxNorm: 901001 6 Tablet(s) PO QD --then as directed 07/24/2018 07/29/2018 Inactive Mobic 15 mg tablet RxNorm: 904932 1 Tablet(s) PO QD 07/24/20182018 Inactive Tegretol 200 mg tablet RxNorm: 238378 TAKE ONE TABLET BY MOUTH MARGARITO Y 07/03/2018 12/29/2018 Inactive Maxalt 10 mg tablet RxNorm: 878555 TAKE ONE TABLET BY M OUTH AT ONSET OF HEADACHE; MAY REPEAT ONE TABLET IN 2 HOURS IF NEEDED. 07/03/20182018 Inactive Bactrim DS 800 mg-160 mg tablet RxNorm: 909535 1 Tablet(s) PO BID 1 08/25/2017 06/23/2018 Inactive Bactrim DS 800 mg-160 mg tablet RxNorm: 267609 1 Tablet(s) PO BID 1 08/25/2017 06/30/2018 Inactive Maxalt 10 mg tablet RxNorm: 258931 TAKE ONE TABLET BY M OUTH AT ONSET OF HEADACHE; MAY REPEAT ONE TABLET IN 2 HOURS IF NEEDED. 05/09/20182017 Inactive Cymbalta 60 mg capsule,delayed release RxNorm: 401611 T FABIO ONE CAPSULE BY MOUTH DAILY 04/09/2018 07/07/2018 Inactive lisinopril 2.5 mg tablet RxNorm: 607670 Tablet(s) TAKE ONE TABLET BY MOUTH DAILY 03/25/2018 09/20/2018 Inactive Maxalt 10 mg tablet RxNorm: 099756 TAKE ONE TABLET BY M OUTH AT ONSET OF HEADACHE; MAY REPEAT ONE TABLET IN 2 HOURS IF NEEDED. 02/26/20182017 Inactive Tegretol 200 mg tablet RxNorm: 453047 TAKE ONE TABLET BY MOUTH MARGARITO Y 12/04/2017 06/01/2018 Inactive Maxalt 10 mg tablet RxNorm: 958476 1 Tablet(s) PO AT ON SET OF HEADACHE. MAY REPEAT IN 2 HOURS 11/12/2017 12/01/2017 Inactive lisinopril 2.5 mg tablet RxNorm: 393015 TAKE ONE TABLET BY MOUT H DAILY 08/28/2017 03/25/2018 Inactive Tegretol 200 mg tablet RxNorm: 763221 TAKE ONE TABLET BY MOUTH MARGARITO Y 08/28/2017 11/25/2017 Inactive Maxalt 10 mg tablet RxNorm: 435402 1 Tablet(s) PO AT ON SET OF HEADACHE. MAY REPEAT IN 2 HOURS 07/05/2017 11/12/2017 Inactive cyclobenzaprine 10 mg tablet RxNorm: 167239 1 Tablet(s) PO QHS as needed for muscle spasm 05/15/2017 No Stop Date Active diclofenac sodium 75 mg tablet,delayed release RxNorm: 54591 6 1 Tablet(s) PO BID as needed for neck pain 05/15/2017 07/13/2017 Inactive Cymbalta 60 mg capsule,delayed release RxNorm: 854195 C apsule(s) TAKE ONE CAPSULE BY MOUTH DAILY 05/07/2017 08/04/2017 Inactive Maxalt 10 mg tablet RxNorm: 176918 1 Tablet(s) PO AT ON SET OF HEADACHE. MAY REPEAT IN 2 HOURS 04/30/2017 05/09/2017 Inactive Maxalt 10 mg tablet RxNorm: 306633 1 Tablet(s) PO AT ON SET OF HEADACHE. MAY REPEAT IN 2 HOURS 02/22/2017 04/30/2017 Inactive Tegretol 200 mg tablet RxNorm: 053199 Tablet(s) TAKE ONE TABLET BY MOUTH DAILY 01/11/2017 07/09/2017 Inactive Maxalt 10 mg tablet RxNorm: 053409 1 Tablet(s) PO AT ON SET OF HEADACHE. MAY REPEAT IN 2 HOURS 01/11/2017 02/22/2017 Inactive Maxalt 10 mg tablet RxNorm: 293031 1 Tablet(s) PO AT ON SET OF HEADACHE. MAY REPEAT IN 2 HOURS 11/30/2016 01/11/2017 Inactive Maxalt 10 mg tablet RxNorm: 343630 TAKE ONE TABLET BY M OUTH AT ONSET OF HEADACHE. MAY REPEAT IN 2 HOURS 07/26/2016 11/30/2016 Inactive lisinopril 2.5 mg tablet RxNorm: 876392 TAKE ONE TABLET BY MOUT H DAILY 07/24/2016 07/23/2016 Inactive lisinopril 2.5 mg tablet RxNorm: 844888 TAKE ONE TABLET BY MOUT H DAILY 07/24/2016 01/19/2017 Inactive Maxalt 10 mg tablet RxNorm: 694409 TAKE ONE TABLET BY M OUTH AT ONSET OF HEADACHE. MAY REPEAT IN 2 HOURS 06/05/2016 06/14/2016 Inactive Tegretol 200 mg tablet RxNorm: 727417 TAKE ONE TABLET BY MOUTH MARGARITO Y 06/05/2016 01/11/2017 Inactive Cymbalta 60 mg capsule,delayed release RxNorm: 937343 T FABIO ONE CAPSULE BY MOUTH DAILY 05/17/2016 05/07/2017 Inactive Medrol (Francisco) 4 mg tablets in a dose pack RxNorm: 541492 6 Tablet(s) PO QD --then as directed 04/27/2016 05/02/2016 Inactive Mobic 15 mg tablet RxNorm: 573403 1 Tablet(s) PO QD for pain 201505/26/2016 Inactive Maxalt 10 mg tablet RxNorm: 147574 TAKE ONE TABLET BY M OUTH AT ONSET OF HEADACHE. MAY REPEAT IN 2 HOURS 02/28/2016 03/25/2016 Inactive Tegretol 200 mg tablet RxNorm: 246293 TAKE ONE TABLET BY MOUTH MARGARITO Y 02/14/2016 05/13/2016 Inactive Maxalt 10 mg tablet RxNorm: 583628 TAKE ONE TABLET BY M OUTH AT ONSET OF HEADACHE. MAY REPEAT IN 2 HOURS 01/10/2016 01/27/2016 Inactive lisinopril 2.5 mg tablet RxNorm: 654405 TAKE ONE TABLET BY MOUT H DAILY 01/03/2016 06/30/2016 Inactive Macrobid 100 mg capsule RxNorm: 946620 1 Capsule(s) PO BID 12/23/19 16 12/29/2015 Inactive Macrobid 100 mg capsule RxNorm: 680732 1 Capsule(s) PO BID 12/23/19 16 12/22/2015 Inactive Bactrim DS 800 mg-160 mg tablet RxNorm: 744266 1 Tablet(s) PO BID 0 12/21/2015 12/27/2015 Inactive Bactrim DS 800 mg-160 mg tablet RxNorm: 171760 1 Tablet(s) PO BID 0 12/21/2015 12/20/2015 Inactive Tegretol 200 mg tablet RxNorm: 883688 1 Tablet(s) PO QD TAKE ONE TABLET BY MOUTH DAILY 10/18/2015 01/15/2016 Inactive Maxalt 10 mg tablet RxNorm: 975285 Tablet(s) TAKE ONE T ABLET BY MOUTH AT ONSET OF HEADACHE. MAY REPEAT IN 2 HOURS. 10/11/2015 10/25/2015 Inactive Bactrim DS 800 mg-160 mg tablet RxNorm: 363575 1 Tablet(s) PO BID 0 08/05/2015 08/04/2015 Inactive Bactrim DS 800 mg-160 mg tablet RxNorm: 264974 1 Tablet(s) PO BID 0 08/05/2015 08/11/2015 Inactive cyclobenzaprine 10 mg tablet RxNorm: 356721 1 Tablet(s) PO QHS as needed for muscle spasm 07/13/2015 09/10/2015 Inactive lisinopril 2.5 mg tablet RxNorm: 317520 1 Tablet(s) PO QD 07/13/2015 01/02/2016 Inactive Tegretol 200 mg tablet RxNorm: 446776 1 Tablet(s) PO QD 07/05/2015 Inactive Maxalt 10 mg tablet RxNorm: 668090 Tablet(s) TAKE ONE T ABLET BY MOUTH AT ONSET OF HEADACHE. MAY REPEAT IN 2 HOURS. 06/23/2015 10/11/2015 Inactive Cymbalta 60 mg capsule,delayed release RxNorm: 856335 1 Capsule (s) PO QD 05/17/2015 05/10/2016 Inactive [AttnRPh: Saving jason ly/adjudicate RxGRP:SG20 RxBIN:[id number] RxPCN: ID#:[id number]] Maxalt 10 mg tablet RxNorm: 199873 Tablet(s) TAKE ONE T ABLET BY MOUTH AT ONSET OF HEADACHE. MAY REPEAT IN 2 HOURS. 04/01/2015 04/15/2015 Inactive Tegretol 200 mg tablet RxNorm: 680415 1 Tablet(s) PO QD 03/09/2015 Inactive lisinopril 10 mg tablet RxNorm: 323425 1 Tablet(s) PO QD 01/18/2015 1 09/12/2014 Inactive [AttnRPh: Saving apply/adjudicate RxGRP: SG20 RxBIN:[id number] RxPCN:HT ID#:[id number]] Tegretol 200 mg tablet RxNorm: 496575 1 Tablet(s) PO QD 12/03/2014 Inactive Maxalt 10 mg tablet RxNorm: 555080 TAKE ONE TABLET BY M OUTH AT ONSET OF HEADACHE. MAY REPEAT IN 2 HOURS. 11/18/2014 04/01/2015 Inactive benzonatate 100 mg capsule RxNorm: 418859 1 Capsule(s) PO TID a s needed 10/30/2014 07/12/2015 Inactive prednisone 20 mg tablet RxNorm: 788751 1 Tablet(s) PO BID 10/30/2014 11/03/2014 Inactive Maxalt 10 mg tablet RxNorm: 777546 as needed TAKE 1 TAB LET BY MOUTH AT ONSET OF HEADACHE AND MAY REPEAT IN 2 HOURS 09/02/2014 09/13/2014 Inactive Tegretol 200 mg tablet RxNorm: 381892 1 Tablet(s) PO QD 08/17/2014 Inactive Cymbalta 60 mg capsule,delayed release RxNorm: 662372 1 Capsule (s) PO QD 06/29/2014 05/17/2015 Inactive [AttnRPh: Saving jason ly/adjudicate RxGRP:SG20 RxBIN:[id number] RxPCN: ID#:[id number]] lisinopril 10 mg tablet RxNorm: 543607 1 Tablet(s) PO QD 06/10/2014 0 12/06/2014 Inactive [AttnRPh: Saving apply/adjudicate RxGRP: SG20 RxBIN:[id number] RxPCN: ID#:[id number]] Maxalt 10 mg tablet RxNorm: 657368 TAKE ONE TABLET BY M OUTH AT HEADACHE ONSET AND MAY REPEAT IN 2 HOURS IF HEADACHE REMAINS 04/20/2014 09/02/2014 In active albuterol sulfate HFA 90 mcg/actuation aerosol inhaler RxNor m: 3807886 2 Puff(s) INH Q4H 11/26/2013 No Stop Date Active doxycycline hyclate 100 mg tablet RxNorm: 592277 1 Tablet(s) PO BID 11/26/2013 12/05/2013 Inactive Maxalt 10 mg tablet RxNorm: 580303 Tablet(s) PO Take 1 at headache onset and may repeat in 2 hours if headache remains 11/21/2013 04/19/2014 Inactive [SAVINGS FOR UNINSURED PATIENTS -- BIN:[id number], PCN: [id number], Group: [id number], ID# [id number], Process claim through [employer], for questions: . THIS IS NOT INSURANCE.] Tegretol 200 mg tablet RxNorm: 967009 1 Tablet(s) PO QD 06/10/2013 Inactive lisinopril 10 mg tablet RxNorm: 296334 1 Tablet(s) PO QD 06/10/2013 1 08/10/2013 Inactive Cymbalta 60 mg capsule,delayed release RxNorm: 452794 1 Capsule (s) PO QD 06/10/2013 06/29/2014 Inactive lisinopril 20 mg tablet RxNorm: 170924 1 Tablet(s) PO QAM for BP 06/09/2013 Inactive lisinopril 20 mg tablet RxNorm: 982162 1 Tablet(s) PO QAM for BP 11/07/2012 Inactive cefdinir 300 mg capsule RxNorm: 861324 1 Capsule(s) PO BID 07/23/19 13 08/01/2012 Inactive lisinopril 20 mg tablet RxNorm: 337478 1 Tablet(s) PO QAM for BP 09/09/2012 Inactive doxycycline hyclate 100 mg Tab RxNorm: 528081 1 Tablet(s) PO BID 11/08/2011 Inactive Mirena 20 mcg/24 hr (5 years) intrauterine device RxNorm: 425645 IU No Start Date Active Seasonique 0.15 mg-30 mcg (84)/10 mcg(7) Tabs,3 month dose p ack RxNorm: 620714 1 Tablet(s) PO QD No Start Date 07/12/2015 Inactive Tegretol 200 mg tablet RxNorm: 653059 1 Tablet(s) PO QD No Start Da te 06/09/2013 Inactive lisinopril 20 mg tablet RxNorm: 865899 1 Tablet(s) PO QD No Start D ate 06/09/2013 Inactive Maxalt 10 mg tablet RxNorm: 369036 Tablet(s) PO Take 1 at headache onset and may repeat in 2 hours if headache remains No Start Date 11/20/2013 Inactive Cymbalta 60 mg capsule,delayed release RxNorm: 593818 1 Capsule (s) PO QD No Start Date 06/09/2013 Inactive Medrol (Francisco) 4 mg Tabs in a Dose Pack RxNorm: 432405 Tablet(s) PO as directed No Start Date 07/16/2012 Inactive Medication Administered No Medication Administered data Immunizations No Immunization data Results Observation Observation Code Item Item Code Result Date S ervice Location TEGRETOL 9452095 TEGRETOL 5.2 MG/L 01/07/2014 Unknown COMPREHENSIVE METABOLIC 95868 AST 16 U/L 2013 Unknown COMPREHENSIVE METABOLIC 83600 ALT 10 IU/L 2013 Unknown COMPREHENSIVE METABOLIC 91086 BUN 17 MG/DL 2013 Unknown COMPREHENSIVE METABOLIC 89866 ALBUMIN 4.3 GM/DL 2013 Unknown COMPREHENSIVE METABOLIC 24829 CHLORIDE 105 MMOL/L 01/05 Unknown COMPREHENSIVE METABOLIC 71725 BILI TOT 0.2 MG/DL 2013 Unknown COMPREHENSIVE METABOLIC 70717 ALK PHOS 37 U/L 2013 Unknown COMPREHENSIVE METABOLIC 48802 SODIUM 137 MMOL/L 01/05 Unknown COMPREHENSIVE METABOLIC 29717 CREATININE 0.86 MG/DL 12/15 Unknown COMPREHENSIVE METABOLIC 98450 CALCIUM 9.4 MG/DL 2013 Unknown COMPREHENSIVE METABOLIC 58167 POTASSIUM 5.0 MMOL/L 01/05 Unknown COMPREHENSIVE METABOLIC 18409 PROT TOT 6.3 GM/DL 2013 Unknown COMPREHENSIVE METABOLIC 07612 Glucose 104 MG/DL 2013 Unknown COMPREHENSIVE METABOLIC 55225 BICARB 27 MMOL/L 2013 Unknown COMPREHENSIVE METABOLIC 81365 ANION GAP 5 MEQ/L 2013 Unknown THYROID STIMULATING HORMONE 61450 TSH 0.822 uIU/ML 01/05/2014 Unknown GFR CALC 5615472 GFR AA >60 ML/MIN 01/05/2014 Unknown GFR CALC 7084906 GFR NON-AA >60 ML/MIN 01/05/2014 Unknown COMPLETE BLOOD COUNT 0625702 WBC 5.5 10e9/L 01/06/20 14 Unknown COMPLETE BLOOD COUNT 1754007 RBC 4.17 10e12/L 2013 Unknown COMPLETE BLOOD COUNT 9742755 HGB 13.0 g/dL 4 Unknown COMPLETE BLOOD COUNT 3717896 HCT DET 39.0 % 4 Unknown COMPLETE BLOOD COUNT 9182388 MCV 93.5 fL 4 Unknown COMPLETE BLOOD COUNT 0268274 MCH 31.2 pg 4 Unknown COMPLETE BLOOD COUNT 0998733 MCHC 33.3 g/dL 4 Unknown COMPLETE BLOOD COUNT 7990934 PLT 294 10e9/L 01/06/20 14 Unknown COMPLETE BLOOD COUNT 1840471 MPV 11.4 fL 4 Unknown COMPLETE BLOOD COUNT 9651067 NIKKY % 59.4 % 4 Unknown COMPLETE BLOOD COUNT 0551666 LY % 27.7 % 4 Unknown COMPLETE BLOOD COUNT 3395184 MON % 10.3 % 4 Unknown COMPLETE BLOOD COUNT 9208144 EOS % 1.5 % 4 Unknown COMPLETE BLOOD COUNT 1342867 BASO % 1.1 % 4 Unknown COMPLETE BLOOD COUNT 5850639 RDW 12.7 % 4 Unknown COMPLETE BLOOD COUNT 8873006 ABS NIKKY 3.27 10e9/L 014 Unknown COMPLETE BLOOD COUNT 2610151 ABS LYMPH 1.52 10e9/L 014 Unknown COMPLETE BLOOD COUNT 4156170 ABS MONO 0.57 10e9/L 014 Unknown COMPLETE BLOOD COUNT 4108890 ABS EOS 0.08 10e9/L 014 Unknown COMPLETE BLOOD COUNT 9049293 ABS BASO 0.06 10e9/L 014 Unknown COMPLETE BLOOD COUNT 7121737 RDW-SD 42.1 fL 4 Unknown LIPID GROUP 47789 HDL TEST 60 MG/DL 01/05/2014 Unknown LIPID GROUP 43405 TRIG 63 MG/DL 01/05/2014 Unknown LIPID GROUP 70673 TEST LDL 83 MG/DL 01/05/2014 Unknown LIPID GROUP 06151 CHOL 156 MG/DL 01/05/2014 Unknown LIPID GROUP 61080 RCHOL/HDL 2.60 RATIO 01/05/2014 Unknow n FREE T4 81742 FREE T4 0.87 NG/DL 01/05/2014 Unknown Procedures Procedure Codes Date URINALYSIS NONAUTO W/O SCOPE CPT-4: 71155 06/21/2018 URINE TEST CPT-4: 20153 06/21/2018 URINE CULTURE/ COLONY COUNT CPT-4: 21396 06/21/2018 SPECIMEN HANDLING OFFICE-LAB CPT-4: 93767 07/05/2017 DRAIN/INJECT JOINT/BURSA CPT-4: 09424 03/17/2016 URINALYSIS NONAUTO W/O SCOPE CPT-4: 97889 12/20/2015 URINE CULTURE/ COLONY COUNT CPT-4: 77201 12/20/2015 URINALYSIS NONAUTO W/O SCOPE CPT-4: 65060 08/04/2015 URINE CULTURE/ COLONY COUNT CPT-4: 91340 08/04/2015 ROUTINE VENIPUNCTURE CPT-4: 99951 01/05/2014 ASSAY OF FREE THYROXINE CPT-4: 71427 01/05/2014 ASSAY THYROID STIM HORMONE CPT-4: 39665 01/05/2014 COMPREHEN METABOLIC PANEL CPT-4: 33408 01/05/2014 COMPLETE CBC W/AUTO DIFF WBC CPT-4: 73966 01/05/2014 LIPID PANEL CPT-4: 11153 01/05/2014 CEFTRIAXONE SODIUM INJECTION CPT-4: J0696 07/23/2012 THER/PROPH/DIAG INJ SC/IM CPT-4: 75474 07/23/2012 Vital Signs Date Vital 03/25/2019 Blood Pressure 1: 104/62 Code: 8480-6 Heart Rate 1: 72 bpm Respiratory Rate: 18 bpm SpO2: 97% Temperature: 36.9 (C) / 98.5 (F) We ight: 134 lbs 07/24/2018 Blood Pressure 1: 122/80 Code: 8480-6 BMI: 21.3 Code: 69666-1 Heart Rate 1: 76 bpm Height: 5'7" Respiratory Rate: 20 bpm Temperature: 36 .9 (C) / 98.4 (F) Weight: 136 lbs 06/21/2018 Blood Pressure 1: 100/78 Code: 8480-6 Heart Rate 1: 82 bpm Respiratory Rate: 18 bpm SpO2: 100% Temperature: 36.7 (C) / 98.0 (F) We ight: 130 lbs 07/05/2017 Blood Pressure 1: 94/58 Code: 8480-6 BMI: 20.4 C ode: 82660-7 Heart Rate 1: 72 bpm Height: 5'7" SpO2: 96% Temperature: 37.2 (C) / 99.0 (F) Weight: 130 lbs 05/15/2017 Blood Pressure 1: 104/64 Code: 8480-6 BMI: 20.8 Code: 58150-1 Heart Rate 1: 80 bpm Height: 5'7" Respiratory Rate: 20 bpm Temperature: 36 .7 (C) / 98.1 (F) Weight: 133 lbs 04/27/2016 Blood Pressure 1: 112/70 Code: 8480-6 BMI: 20.8 Code: 57365-7 Heart Rate 1: 80 bpm Height: 5'7" Respiratory Rate: 20 bpm Temperature: 37 .2 (C) / 99.0 (F) Weight: 133 lbs 03/17/2016 Blood Pressure 1: 122/76 Code: 8480-6 He art Rate 1: 80 bpm 07/13/2015 Blood Pressure 1: 98/60 Code: 8480-6 BMI: 20.5 C ode: 43276-6 Heart Rate 1: 76 bpm Height: 5'7" Respiratory Rate: 20 bpm Temperature: 36 .9 (C) / 98.4 (F) Weight: 131 lbs 10/30/2014 Blood Pressure 1: 124/80 Code: 8480-6 BMI: 19.4 Code: 22018-3 Heart Rate 1: 94 bpm Height: 5'7" Respiratory Rate: 24 bpm SpO2: 98% Tempera ture: 36.6 (C) / 97.8 (F) Weight: 124 lbs 01/05/2014 Blood Pressure 1: 98/68 Code: 8480-6 BMI: 19.3 C ode: 19027-5 Heart Rate 1: 76 bpm Height: 5'7" Respiratory Rate: 20 bpm Temperature: 36 .8 (C) / 98.2 (F) Weight: 123 lbs 11/26/2013 Blood Pressure 1: 104/64 Code: 8480-6 BMI: 20.4 Code: 17646-9 Heart Rate 1: 84 bpm Height: 5'7" Respiratory Rate: 18 bpm Temperature: 36 .7 (C) / 98.0 (F) Weight: 130 lbs 06/10/2013 Blood Pressure 1: 132/90 Code: 8480-6 BMI: 19.4 Code: 13891-3 Heart Rate 1: 80 bpm Height: 5'7" Respiratory Rate: 20 bpm Temperature: 36 .6 (C) / 97.8 (F) Weight: 124 lbs 02/19/2013 Blood Pressure 1: 114/80 Code: 8480-6 BMI: 19.7 Code: 08899-2 Heart Rate 1: 84 bpm Height: 5'7" Respiratory Rate: 20 bpm Temperature: 36 .9 (C) / 98.5 (F) Weight: 126 lbs 07/23/2012 Blood Pressure 1: 106/64 Code: 8480-6 BMI: 20.8 Code: 37980-0 Heart Rate 1: 60 bpm Height: 5'7" Temperature: 37.8 (C) / 100.0 (F) Weight : 133 lbs 07/17/2012 Blood Pressure 1: 162/110 Code: 8480-6 BMI: 21.0 Code: 23969-2 Heart Rate 1: 92 bpm Height: 5'7" Respiratory Rate: 20 bpm Temperature: 36 .8 (C) / 98.2 (F) Weight: 134 lbs 10/30/2011 Blood Pressure 1: 138/80 Code: 8480-6 BMI: 21.0 Code: 60248-0 Heart Rate 1: 84 bpm Height: 5'7" Temperature: 37.1 (C) / 98.7 (F) Weight: 134 lbs 08/03/2011 Blood Pressure 1: 114/72 Code: 8480-6 BMI: 21.0 Code: 90789-4 Heart Rate 1: 64 bpm Height: 5'7" [...] Visit Encounters Encounter Performer Location Codes Date (91864) OFFICE/OUTPATIENT VISIT EST Diagnosis: Hallux valgus (acquired), right foot[ICD10: M20.11] Diagnosis: Encounter for other preprocedural examination[ICD10: Z01.818] Shaye [facility] CPT-4: 93356 03/25/2019 ([id number]) OFFICE/OUTPATIENT VISIT EST Diagnosis: Radial styloid tenosynovitis [de Quervain][ICD10: M65.4] Shaye [facility] CPT-4: 92157 07/24/2018 ([id number]) OFFICE/OUTPATIENT VISIT EST Diagnosis: Other fatigue[ICD10: R53.83] Diagnosis: Anemia, unspecified[ICD10: D64.9] Mara [facility] CPT-4: 45409 06/21/2018 ([id number]) PREV VISIT EST AGE 40-64 Diagnosis: Mild intermittent asthma with (acute) exacerbation[ICD10: J45.21] Diagnosis: Encounter for general adult medical examination without abnormal findings[ICD10: Z00.00] Diagnosis: Encounter for gynecological examination (general) (routine) without abnormal findings[ICD10: Z01.419] Shaye BLEDSOELINE Grace [facility] CPT-4: 70132 07/05/2017 ([id number]) OFFICE/OUTPATIENT VISIT EST Diagnosis: Essential (primary) hypertension[ICD10: I10] Diagnosis: Other cervical disc degeneration, unspecified cervical region[ICD10: M50.30] Diagnosis: Tension-type headache, unspecified, not intractable[ICD10: G44.209] Shaye Christiano BLEDSOELINE Grace [facility] CPT-4: 90142 05/15/2017 ([id number]) OFFICE/OUTPATIENT VISIT EST Diagnosis: Lateral epicondylitis, right elbow[ICD10: M77.11] Shaye BLEDSOELINE Grace [facility]VARAD[facility] CPT-4: 77402 04/27/2016 ([id number]) OFFICE/OUTPATIENT VISIT EST Diagnosis: Hematuria, unspecified[ICD10: R31.9] Shaye Pradipivanna LADI JAQUELIN MiguelWang [facility] CPT-4: 66895 08/04/2015 ([id number]) PREV VISIT EST AGE 40-64 Diagnosis: Encounter for general adult medical examination without abnormal findings[ICD10: Z00.00] Diagnosis: Essential (primary) hypertension[ICD10: I10] Diagnosis: Other cervical disc degeneration, unspecified cervical region[ICD10: M50.30] 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] Shaye [facility]VARADO [facility] CPT-4: 53728 07/13/2015 ([id number]) OFFICE/OUTPATIENT VISIT EST Diagnosis: COUGH[ICD9: 786.2] Sarika ALVARADO [facility] CPT-4: 24344 10/30/2014 ([id number]) PREV VISIT EST AGE 40-64 Diagnosis: ROUTINE MEDICAL EXAM[ICD9: V70.0] Diagnosis: HYPERTENSION[ICD9: 401.9] Diagnosis: Seizure[ICD9: 780.39] Shaye ALVARADO [facility] CPT-4: 86400 01/05/2014 OFFICE/OUTPATIENT VISIT EST Diagnosis: URI, ACUTE[ICD9: 465.9] Sarika [facility] CPT-4: 99253 11/26/2013 ([id number]) OFFICE/OUTPATIENT VISIT EST Diagnosis: HYPERTENSION[ICD9: 401.9] Diagnosis: SINUSITIS, ACUTE[ICD9: 461.9] Diagnosis: CONVULSIONS[ICD9: 780.39] Shaye KIM [facility] CPT-4: 12913 06/10/2013 OFFICE/OUTPATIENT VISIT EST Diagnosis: Pyelonephritis[ICD9: 590.80] Diagnosis: HYPERTENSION[ICD9: 401.9] Shaye MANCINI [facility] CPT-4: 30669 02/19/2013 OFFICE/OUTPATIENT VISIT EST Diagnosis: OTITIS MEDIA NOS[ICD9: 382.9] Diagnosis: COUGH[ICD9: 786.2] Diagnosis: SINUSITIS, ACUTE[ICD9: 461.9] [facility] C[facility]: 82130 07/23/2012 ([id number]) OFFICE/OUTPATIENT VISIT EST Diagnosis: HYPERTENSION[ICD9: 401.9] Diagnosis: CONVULSIONS[ICD9: 780.39] Shaye [facility] CPT-4: 93999 07/17/2012 OFFICE/OUTPATIENT VISIT EST Diagnosis: COUGH[ICD9: 786.2] Diagnosis: PHARYNGITIS, ACUTE[ICD9: 462] Shaye [facility] CPT-4: 83405 10/30/2011 OFFICE/OUTPATIENT VISIT NEW Diagnosis: CERVICAL DISC DEGEN[ICD9: 722.4] Diagnosis: Neck pain[ICD9: 723.1] Diagnosis: Radiculopathy of arm[ICD9: 723.4] Diagnosis: Seizure[ICD9: 780.39] Shaye [facility] CPT-4: 33481 08/03/2011 Plan of Care Planned Activity Notes Codes Status Date Visit Diagnosis Plan: Hallux valgus (acquired), right foot Discussion: Update lab for upcoming surgery Okay to proceed with planned surgery by Dr. Nuñez ICD-9 : 735.0 ICD-10 : M20.11 03/25/2019 Appointment: Shaye Alvarado WPtel: [address] [place], [place] [id number] FOLLOW UP 03/25/2019 Visit Diagnosis Plan: Radial styloid tenosynovitis [de Quervain] Discussion: Spica thumb wrist splint Medrol Dose Pack followed by mobic Notify if worsens or persists ICD-9 : 727.04 ICD-10 : M65.4 07/24/2018 Appointment: Shaye Alvarado WPtel: [address] [place], [place] [id number] ACUTE ILLNESS 07/24/2018 Patient Education: Medrol (Franc[place])- Optimize[employer] Coupon [phone] [email or web address] Completed 07/24/2018 Visit Diagnosis Plan: Other fatigue Discussion: urine test neg. when urine was tested, noted dark, cloudy urine and dipstick was obtained. showed protein and blood in urine so will send off for urine culture. multiple labs or dered to be completed at [facility] [place] [facility]. cbc, cmp, tsh, t4, tt3, b12, iron, ferritin obtained. will review labs and culture and order additional meds/labs as needed. ICD-9 : 780.79 ICD-10 : R53.83 06/21/2018 Appointment: Mara Echevarria [address] [place] [address] ACUTE ILLNESS 06/21/2018 Appointment: Shaye Alvarado WPtel: [address] [place] [address] Scheduled in ERROR 06/10/2018 Visit Diagnosis Plan: [...] : J45.21 07/05/2017 Appointment: Shaye Alvarado WPtel: [address] [place] [address] PAP 07/05/2017 Patient Education: Patient Medication Summary [...] : I10 05/15/2017 Appointment: Shaye Alvarado WPtel: [address] [place] [address] ACUTE ILLNESS 05/15/2017 Patient Education: Patient Medication Summary Completed 05/15/2017 Referral: Armin Arzate WPtel: [facility] [address] [facility], [facility] 1 [id number] Referral Appointment Confirmed 05/10/2016 Visit Plan: Medrol Dose Pack then start mobic Continue brace See Dr. Arzate Discussed iontophoresis May need surgery as has tried all conservative measures at this point 04/27/2016 Appointment: Shaye Alvarado WPtel: [address] [place], [place] [phone] 04/26 lm~sl...confirmed-sp FOLLOW UP 04/27 Patient Education: Patient Medication Summary Completed 04/27/2016 Care Plan: Referral Order SNOMED-CT : 30 [id number] Pending 04/27/2016 Visit Plan: Injection as above Howard graff strap Vivlodex 10mg daily Notify if worsens or persists 03/17/2016 Appointment: Shaye Alvarado WPtel: [address] [place], [place] [phone] OFFICE SURGERY 03/17/2016 Patient Education: Patient Medication Summary Completed 03/17/2016 Appointment: Yolis Membreno [address] [place], [place] [phone] 12/19- patient misunderstood why appointment was scheduled. CANCELED 12/21/2015 Appointment: Shaye Alvarado WPtel: [address] [place], [place] [phone] ACUTE ILLNESS 12/20/2015 Patient Education: Patient Medication Summary Completed 12/20/2015 Appointment: Shaye Alvarado WPtel: [address] [place], [place] [phone] UA 08/04/2015 Patient Education: Patient Medication Summary Completed 08/04/2015 Visit Plan: Updated MRI of cervical spin e Decrease lisinopril to 2.5mg daily Update lab Add cyclobenzaprine at 10mg q HS 07/13/2015 Appointment: Shaye Alvarado WPtel: [address] [place], [place] [phone] 07/12/15 appt confirmed cn Annual Well Visit Patient Education: Patient Medication Summary Completed 07/13/2015 Patient Education: [facility] - Saving AutoInj - Lisinopril - 18-64 - Dynamic Portal ID Completed 07/13/2015 Patient Education: Neck Pain Completed 07/13/2015 Appointment: Sarika Diallo WPtel: [address] [place] [phone] ACUTE ILLNESS 10/30/2014 Patient Education: Patient Medication Summary Completed 10/30/2014 Visit Plan: Fasting lab drawn including tegretol level Decrease lisinopril to 5mg daily and observe BP 01/05/2014 Appointment: Shaye Alvarado WPtel: [address] [place] [address] 01/02 Annual Well Visit 01/05/2014 Patient Education: Patient Medication Summary Completed 01/05/2014 Appointment: Sarika Diallo WPtel: [address] [place] [phone] ACUTE ILLNESS 11/26/2013 Patient Education: Patient Medication Summary Completed 11/26/2013 Visit Plan: Saline nasal flushes prn. Ty lenol/Motrin prn headache. Notify if persists/symptoms worsening. Decrease Lisinopril to 10mg daily 06/10/2013 Appointment: Shaye Alvarado WPtel: [address] [place] [address] 06/09 FOLLOW UP 06/10/2013 Patient Education: Patient Medication Summary Completed 06/10/2013 Visit Plan: Finish abx and observe Stay off lisinopril and observe 02/19/2013 Appointment: Shaye Alvarado WPtel: [address] [place] [address] Follow Up 02/19/2013 Patient Education: Patient Medication Summary Completed 02/19/2013 Visit Plan: rocephin IM and Cefdinir. Wi ll notify if no improvement. Tylenol #3 #20 dispensed. Pt. has made contact with Dr. Frias's office and has follow up appnt. Pt. will notify if fever continues into tomorrow. 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 Discussed that could be walking pneumonia. Encouraged fluids and rest. Pt. will notify if symptoms persist or worsen. Note for work. 2-3 days. 10/30/2011 Appointment: Penelope Golden WPtel: [address] [place], [place] [phone] ACUTE ILLNESS 10/30/2011 Patient Education: Patient Medication Summary Completed 10/30/2011 Visit Plan: Proceed with Cervical Spine MRI Percocet 5/500 1 po q HS prn pain--#30 Tramadol 50mg 1-2 po BID prn pain--#60 See Ortho for surgical opinion 08/03/2011 Appointment: Shaye Alvarado WPtel: [address] [place], [place] [phone] US NEW PATIENT 08/03/2011 Patient Education: Patient Medication Summary Completed 08/03/2011 Referral: Armin Arzate WPtel: [facility] [address], [address] Referral Appointment Requested Instructions Comment . [...]
--- OUTSIDE RECORDS SUMMARY | 2020-01-09 09:38 | XMS REPORT | CCD ---
Author Author Chiquita Alvarado D.O. Organization [facility] Address [address] [place] [address] Phone Care Team Providers Care Intermediate Card Tender Name Role Phone Shaye Avlarado D.O., PP Unavailable CCM Unavailable Summary Purpose Interface Exchange Insurance Providers Payer name Policy type / Coverage type Covered green party ID Effective Begin Date Effective End Date Blue Cross Blue Shield Blue Cross/Bl ue Shield [id number] Un known Family history Father Diagnosis Age At Onset No Family Disease Entered N/A Mother Diagnosis Age At Onset No Family Disease Entered N/A Side Diagnosis Age At Onset No Family Disease Entered N/A Social History Social History Element Codes Description Effective Dates Marital status Unknown D ivorced 08/03/2011 Number of children Unknown 2 08/03/2011 Employment Unknown Curre ntly employed [employer] 08/03/[address]: 084663672 Never smoker 08/03/[address]: 200218 Currently drinks alcohol socially 08/03/2011 Allergies, Adverse Reactions, Alerts Substance Reaction Codes Entered Date Inactivated Date Status * NO KNOWN FOOD THERESA RGIES Unknown 08/03/2011 No Inactive Date Active * NO KNOWN ENVIRONME NTAL ALLERGIES Unknown 08/03/2011 No Inactive Date Active * NO KNOWN DRUG THERESA RGIES Unknown 08/03/2011 No Inactive Date Active Past Medical History Illness Codes Condition Status Onset Date Resolved Date Encounter for other preprocedural examination ICD-9: V72.83 ICD-10: Z01.818 Active 03/25/2019 Unknown Hallux valgus (acqui red), right foot ICD-9: 735.0 ICD-10: M20.11 Active 03/25/2019 Unknown Radial styloid tenos ynovitis [de Quervain] ICD-9: 727.04 ICD-10: M65.4 Active 07/24/2018 Unknown Anemia, unspecified ICD- 9: 285.9 ICD-10: D64.9 Active 05/23/2017 Unknown Other fatigue ICD-9: 780.79 ICD-10: R53.83 Active 06/21/2018 Unknown Encounter for genera l adult medical examination without abnormal findings ICD-9: V70.0 ICD-10: Z00.00 Active 01/05/2014 Unknown Encounter for gyneco logical examination (general) (routine) without abnormal findings ICD-9: V72.31 ICD-10: Z01.419 Active 07/05/2017 Unknown Mild intermittent as thma with (acute) exacerbation ICD-9: 466.0 ICD-10: J45.21 Active 07/05/2017 Unknown Essential (primary) hypertension ICD-9: 401.9 ICD-10: I10 Active 01/05/2014 Unknown Other cervical disc degeneration, unspecified cervical region ICD-9: 722.4 ICD-10: M50.30 Active 05/15/2017 Unknown Tension-type headach e, unspecified, not intractable ICD-9: 307.81 ICD-10: G44.209 Active 05/15/2017 Unknown Lateral epicondyliti s, right elbow ICD-9: 726.32 ICD-10: M77.11 Active 04/26/2016 Unknown Dysuria ICD-9: 788.1 ICD-10: R30.0 Active 12/19/2015 Unknown Hematuria, unspecified ICD-9: 599.70 ICD-10: R31.9 Active 08/03/2015 Unknown 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 Active 01/05/2014 Unknown COUGH ICD-9: 786.2 Active 10/30/2014 Unknow n HYPERTENSION ICD-9: 401.9 Active 01/05/2014 Unknown ROUTINE MEDICAL EXAM ICD-9: V70.0 Active 01/05/2014 Unknown Seizure ICD-9: 780.39 Active 01/05/2014 Unknow n URI, ACUTE ICD-9: 465.9 Active 11/26/2013 Unknow n Pyelonephritis ICD-9: 590.80 Active 02/19/2013 Unknown OTITIS MEDIA NOS ICD-9: 382.9 Active 07/23/2012 Unknown SINUSITIS, ACUTE ICD-9: 461.9 Active 07/23/2012 Unknown Hypertension Unknown Active 07/17/2012 Unknow n PHARYNGITIS, ACUTE ICD- 9: 462 Active 10/30/2011 Unknown CERVICAL DISC DEGEN ICD- 9: 722.4 Active 08/03/2011 Unknown Neck pain ICD-9: 723.1 Active 08/03/2011 Unknow n Radiculopathy of arm ICD-9: 723.4 Active 08/03/2011 Unknown Problems Condition Codes Effectiv e Dates Condition Status Encounter for other preprocedural examination ICD-9: V72.83 ICD-10: Z01.818 03/25/2019 Active Hallux valgus (acqui red), right foot ICD-9: 735.0 ICD-10: M20.11 03/25/2019 Active Radial styloid tenos ynovitis [de Quervain] ICD-9: 727.04 ICD-10: M65.4 07/24/2018 Active Anemia, unspecified ICD- 9: 285.9 ICD-10: D64.9 05/23/2017 Active Other fatigue ICD-9: 780.79 ICD-10: R53.83 06/21/2018 Active Encounter for genera l adult medical examination without abnormal findings ICD-9: V70.0 ICD-10: Z00.00 01/05/2014 Active Encounter for gyneco logical examination (general) (routine) without abnormal findings ICD-9: V72.31 ICD-10: Z01.419 07/05/2017 Active Mild intermittent as thma with (acute) exacerbation ICD-9: 466.0 ICD-10: J45.21 07/05/2017 Active Essential (primary) hypertension ICD-9: 401.9 ICD-10: I10 01/05/2014 Active Other cervical disc degeneration, unspecified cervical region ICD-9: 722.4 ICD-10: M50.30 05/15/2017 Active Tension-type headach e, unspecified, not intractable ICD-9: 307.81 ICD-10: G44.209 05/15/2017 Active Lateral epicondyliti s, right elbow ICD-9: 726.32 ICD-10: M77.11 04/26/2016 Active Dysuria ICD-9: 788.1 ICD-10: R30.0 12/19/2015 Active Hematuria, unspecified ICD-9: 599.70 ICD-10: R31.9 08/03/2015 Active 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 01/05/2014 Active COUGH ICD-9: 786.2 10/30/2014 Active HYPERTENSION ICD-9: 401.9 01/05/2014 Active ROUTINE MEDICAL EXAM ICD-9: V70.0 01/05/2014 Active Seizure ICD-9: 780.39 01/05/2014 Active URI, ACUTE ICD-9: 465.9 11/26/2013 Active Pyelonephritis ICD-9: 590.80 02/19/2013 Active OTITIS MEDIA NOS ICD-9: 382.9 07/23/2012 Active SINUSITIS, ACUTE ICD-9: 461.9 07/23/2012 Active Hypertension Unknown 07/17/2012 Active PHARYNGITIS, ACUTE ICD- 9: 462 10/30/2011 Active CERVICAL DISC DEGEN ICD- 9: 722.4 08/03/2011 Active Neck pain ICD-9: 723.1 08/03/2011 Active Radiculopathy of arm ICD-9: 723.4 08/03/2011 Active Medications Medication Codes Instruc tions Start Date Stop Date Sta tus Fill Instructions Maxalt 10 mg tablet RxNorm: 570664 1 Tablet(s) PO AT ONSET OF HEADACHE; MAY REPEAT ONE TABLET IN 2 HOURS IF NEEDED. 03/25/2019 05/23/2019 Active Tegretol 200 mg tablet RxNorm: 998234 TAKE ONE TABLET BY MOUTH DAILY 02/06/2019 05/06/2019 Ac tive Cymbalta 60 mg capsu le,delayed release RxNorm: 304268 TAKE ONE CAPSULE BY M OUTH DAILY 02/06/2019 04/06/2019 Ac tive lisinopril 2.5 mg ta blet RxNorm: 888748 TAKE ONE TABLET BY MO UTH DAILY 01/27/2019 07/25/2019 Ac tive Maxalt 10 mg tablet RxNorm: 568351 1 Tablet(s) PO AT ONSET OF HEADACHE; MAY REPEAT ONE TABLET IN 2 HOURS IF NEEDED. 11/22/2018 01/20/2019 Inactive Maxalt 10 mg tablet RxNorm: 637465 TAKE ONE TABLET BY MOUTH AT ONSET OF HEA DACHE; MAY REPEAT ONE TABLET IN 2 HOURS IF NEEDED. 11/19/2018 11/21/2018 Inactive lisinopril 2.5 mg ta blet RxNorm: 903191 TAKE ONE TABLET BY MO UTH DAILY 10/14/2018 01/11/2019 In active Maxalt 10 mg tablet RxNorm: 228579 TAKE ONE TABLET BY MOUTH AT ONSET OF HEA DACHE; MAY REPEAT ONE TABLET IN 2 HOURS IF NEEDED. 09/20/2018 10/16/2018 Inactive Medrol (Francisco) 4 mg ta blets in a dose pack RxNorm: 776448 6 Tablet(s) PO QD --t hen as directed 07/24/2018 07/29/2018 Inactive Mobic 15 mg tablet RxNorm: 180498 1 Tablet(s) PO QD 07/24/2018 08/22/2018 Inactive Tegretol 200 mg tablet RxNorm: 225241 TAKE ONE TABLET BY MOUTH DAILY 07/03/2018 12/29/2018 In active Maxalt 10 mg tablet RxNorm: 963132 TAKE ONE TABLET BY MOUTH AT ONSET OF HEA DACHE; MAY REPEAT ONE TABLET IN 2 HOURS IF NEEDED. 07/03/2018 07/20/2018 Inactive Bactrim DS 800 mg-16 0 mg tablet RxNorm: 475755 1 Tablet(s) PO BID 06/24/2018 06/23/2018 Inactive Bactrim DS 800 mg-16 0 mg tablet RxNorm: 094144 1 Tablet(s) PO BID 06/24/2018 06/30/2018 Inactive Maxalt 10 mg tablet RxNorm: 944198 TAKE ONE TABLET BY MOUTH AT ONSET OF HEA DACHE; MAY REPEAT ONE TABLET IN 2 HOURS IF NEEDED. 05/09/2018 05/26/2018 Inactive Cymbalta 60 mg capsu le,delayed release RxNorm: 998030 TAKE ONE CAPSULE BY M OUTH DAILY 04/09/2018 07/07/2018 Inactive lisinopril 2.5 mg ta blet RxNorm: 581974 Tablet(s) TAKE ONE TA BLET BY MOUTH DAILY 03/25/2018 09/20/2018 In active Maxalt 10 mg tablet RxNorm: 952086 TAKE ONE TABLET BY MOUTH AT ONSET OF HEA DACHE; MAY REPEAT ONE TABLET IN 2 HOURS IF NEEDED. 02/26/2018 03/24/2018 Inactive Tegretol 200 mg tablet RxNorm: 936873 TAKE ONE TABLET BY MOUTH DAILY 12/04/2017 06/01/2018 In active Maxalt 10 mg tablet RxNorm: 574413 1 Tablet(s) PO AT ONSET OF HEADACHE. MAY REPEAT IN 2 HOURS 11/12/2017 12/01/2017 Inactive lisinopril 2.5 mg ta blet RxNorm: 685295 TAKE ONE TABLET BY MO UTH DAILY 08/28/2017 03/25/2018 In active Tegretol 200 mg tablet RxNorm: 449810 TAKE ONE TABLET BY MOUTH DAILY 08/28/2017 11/25/2017 In active Maxalt 10 mg tablet RxNorm: 348448 1 Tablet(s) PO AT ONSET OF HEADACHE. MAY REPEAT IN 2 HOURS 07/05/2017 11/12/2017 Inactive cyclobenzaprine 10 m g tablet RxNorm: 337169 1 Tablet(s) PO QHS as needed for muscle spasm 05/15/2017 No Stop Date Active diclofenac sodium 75 mg tablet,delayed release RxNorm: 937197 1 Tablet(s) PO BID as needed for neck pain 05/15/2017 07/13/2017 Inactive Cymbalta 60 mg capsu le,delayed release RxNorm: 775639 Capsule(s) TAKE ONE C APSULE BY MOUTH DAILY 05/07/2017 08/04/2017 Inactive Maxalt 10 mg tablet RxNorm: 332610 1 Tablet(s) PO AT ONSET OF HEADACHE. MAY REPEAT IN 2 HOURS 04/30/2017 05/09/2017 Inactive Maxalt 10 mg tablet RxNorm: 578113 1 Tablet(s) PO AT ONSET OF HEADACHE. MAY REPEAT IN 2 HOURS 02/22/2017 04/30/2017 Inactive Tegretol 200 mg tablet RxNorm: 510719 Tablet(s) TAKE ONE TABLET BY MOUTH DAILY 01/11/2017 07/09/2017 In active Maxalt 10 mg tablet RxNorm: 705956 1 Tablet(s) PO AT ONSET OF HEADACHE. MAY REPEAT IN 2 HOURS 01/11/2017 02/22/2017 Inactive Maxalt 10 mg tablet RxNorm: 207971 1 Tablet(s) PO AT ONSET OF HEADACHE. MAY REPEAT IN 2 HOURS 11/30/2016 01/11/2017 Inactive Maxalt 10 mg tablet RxNorm: 512553 TAKE ONE TABLET BY MOUTH AT ONSET OF HEA DACHE. MAY REPEAT IN 2 HOURS 07/26/2016 11/30/2016 Inactive lisinopril 2.5 mg ta blet RxNorm: 154536 TAKE ONE TABLET BY MO UTH DAILY 07/24/2016 07/23/2016 In active lisinopril 2.5 mg ta blet RxNorm: 117542 TAKE ONE TABLET BY MO UTH DAILY 07/24/2016 01/19/2017 In active Maxalt 10 mg tablet RxNorm: 278043 TAKE ONE TABLET BY MOUTH AT ONSET OF HEA DACHE. MAY REPEAT IN 2 HOURS 06/05/2016 06/14/2016 Inactive Tegretol 200 mg tablet RxNorm: 690536 TAKE ONE TABLET BY MOUTH DAILY 06/05/2016 01/11/2017 In active Cymbalta 60 mg capsu le,delayed release RxNorm: 528366 TAKE ONE CAPSULE BY M OUTH DAILY 05/17/2016 05/07/2017 Inactive Medrol (Francisco) 4 mg ta blets in a dose pack RxNorm: 161312 6 Tablet(s) PO QD --t hen as directed 04/27/2016 05/02/2016 Inactive Mobic 15 mg tablet RxNorm: 933388 1 Tablet(s) PO QD for pain 04/27/2016 05/26/2016 Inactive Maxalt 10 mg tablet RxNorm: 091443 TAKE ONE TABLET BY MOUTH AT ONSET OF HEA DACHE. MAY REPEAT IN 2 HOURS 02/28/2016 03/25/2016 Inactive Tegretol 200 mg tablet RxNorm: 090650 TAKE ONE TABLET BY MOUTH DAILY 02/14/2016 05/13/2016 In active Maxalt 10 mg tablet RxNorm: 519468 TAKE ONE TABLET BY MOUTH AT ONSET OF HEA DACHE. MAY REPEAT IN 2 HOURS 01/10/2016 01/27/2016 Inactive lisinopril 2.5 mg ta blet RxNorm: 660618 TAKE ONE TABLET BY MO UTH DAILY 01/03/2016 06/30/2016 In active Macrobid 100 mg capsule RxNorm: 260603 1 Capsule(s) PO BID 12/23/2015 12/29/2015 Inactive Macrobid 100 mg capsule RxNorm: 694919 1 Capsule(s) PO BID 12/23/2015 12/22/2015 Inactive Bactrim DS 800 mg-16 0 mg tablet RxNorm: 399477 1 Tablet(s) PO BID 12/21/2015 12/27/2015 Inactive Bactrim DS 800 mg-16 0 mg tablet RxNorm: 756043 1 Tablet(s) PO BID 12/21/2015 12/20/2015 Inactive Tegretol 200 mg tablet RxNorm: 276352 1 Tablet(s) PO QD TAKE ONE TABLET BY GASTON TH DAILY 10/18/2015 01/15/2016 Inactive Maxalt 10 mg tablet RxNorm: 283146 Tablet(s) TAKE ONE TABLET BY MOUTH AT ON SET OF HEADACHE. MAY REPEAT IN 2 HOURS. 10/11/2015 10/25/2015 Inactive Bactrim DS 800 mg-16 0 mg tablet RxNorm: 832330 1 Tablet(s) PO BID 08/05/2015 08/04/2015 Inactive Bactrim DS 800 mg-16 0 mg tablet RxNorm: 294547 1 Tablet(s) PO BID 08/05/2015 08/11/2015 Inactive cyclobenzaprine 10 m g tablet RxNorm: 606643 1 Tablet(s) PO QHS as needed for muscle spasm 07/13/2015 09/10/2015 Inactive lisinopril 2.5 mg ta blet RxNorm: 809563 1 Tablet(s) PO QD 07/13/2015 01/02/2016 Inactive Tegretol 200 mg tablet RxNorm: 781542 1 Tablet(s) PO QD 07/05/2015 10/18/2015 Inactive Maxalt 10 mg tablet RxNorm: 624451 Tablet(s) TAKE ONE TABLET BY MOUTH AT ON SET OF HEADACHE. MAY REPEAT IN 2 HOURS. 06/23/2015 10/11/2015 Inactive Cymbalta 60 mg capsu le,delayed release RxNorm: 680552 1 Capsule(s) PO QD 05/17/2015 05/10/2016 In active [AttnRPh: Saving apply/adjudicate RxGRP: SG20 RxBIN:[id number] RxPCN: ID#:[id number]] Maxalt 10 mg tablet RxNorm: 004011 Tablet(s) TAKE ONE TABLET BY MOUTH AT ON SET OF HEADACHE. MAY REPEAT IN 2 HOURS. 04/01/2015 04/15/2015 Inactive Tegretol 200 mg tablet RxNorm: 800052 1 Tablet(s) PO QD 03/09/2015 07/05/2015 Inactive lisinopril 10 mg tablet RxNorm: 181049 1 Tablet(s) PO QD 01/18/2015 07/12/2015 Inactive [AttnRPh: Saving apply/adjudicate RxGRP:SG20 RxBIN:[id number] RxPCN: ID#:[id number]] Tegretol 200 mg tablet RxNorm: 852026 1 Tablet(s) PO QD 12/03/2014 03/09/2015 Inactive Maxalt 10 mg tablet RxNorm: 565213 TAKE ONE TABLET BY MOUTH AT ONSET OF HEA DACHE. MAY REPEAT IN 2 HOURS. 11/18/2014 04/01/2015 Inactive benzonatate 100 mg c apsule RxNorm: 726494 1 Capsule(s) PO TID a s needed 10/30/2014 07/12/2015 In active prednisone 20 mg tablet RxNorm: 095852 1 Tablet(s) PO BID 10/30/2014 11/03/2014 Inactive Maxalt 10 mg tablet RxNorm: 513433 as needed TAKE 1 TABLET BY MOUTH AT ONSE T OF HEADACHE AND MAY REPEAT IN 2 HOURS 09/02/2014 09/13/2014 Inactive Tegretol 200 mg tablet RxNorm: 280618 1 Tablet(s) PO QD 08/17/2014 12/03/2014 Inactive Cymbalta 60 mg capsu le,delayed release RxNorm: 302808 1 Capsule(s) PO QD 06/29/2014 05/17/2015 In active [AttnRPh: Saving apply/adjudicate RxGRP: SG20 RxBIN:[id number] RxPCN:HT ID#:[id number]] lisinopril 10 mg tablet RxNorm: 001529 1 Tablet(s) PO QD 06/10/2014 12/06/2014 Inactive [AttnRPh: Saving apply/adjudicate RxGRP:SG20 RxBIN:[id number] RxPCN:HT ID#:[id number]] Maxalt 10 mg tablet RxNorm: 848796 TAKE ONE TABLET BY MOUTH AT HEADACHE ONS ET AND MAY REPEAT IN 2 HOURS IF HEADACHE REMAINS 04/20/2014 09/02/2014 Inactive albuterol sulfate HF A 90 mcg/actuation aerosol inhaler RxNorm: 2702960 2 Puff(s) INH Q4H 11/26/2013 No Stop Date Active doxycycline hyclate 100 mg tablet RxNorm: 755210 1 Tablet(s) PO BID 11/26/2013 12/05/2013 Inactive Maxalt 10 mg tablet RxNorm: 876239 Tablet(s) PO Take 1 at headache onset an d may repeat in 2 hours if headache remains 11/21/2013 04/19/2014 Inactive [QUENTIN INGS FOR UNINSURED PATIENTS -- BIN:[id number], PCN: [id number], Group: [id number], ID# [id number], Process claim through [employer], for questions: . THIS IS NOT INSURANCE.] Tegretol 200 mg tablet RxNorm: 456154 1 Tablet(s) PO QD 06/10/2013 08/17/2014 Inactive lisinopril 10 mg tablet RxNorm: 923057 1 Tablet(s) PO QD 06/10/2013 06/10/2014 Inactive Cymbalta 60 mg capsu le,delayed release RxNorm: 559720 1 Capsule(s) PO QD 06/10/2013 06/29/2014 In active lisinopril 20 mg tablet RxNorm: 410250 1 Tablet(s) PO QAM for BP 02/24/2013 06/09/2013 Inactive lisinopril 20 mg tablet RxNorm: 461865 1 Tablet(s) PO QAM for BP 09/09/2012 11/07/2012 Inactive cefdinir 300 mg capsule RxNorm: 525129 1 Capsule(s) PO BID 07/23/2012 08/01/2012 Inactive lisinopril 20 mg tablet RxNorm: 507631 1 Tablet(s) PO QAM for BP 07/17/2012 09/09/2012 Inactive doxycycline hyclate 100 mg Tab RxNorm: 668951 1 Tablet(s) PO BID 10/30/2011 11/08/2011 Inactive Mirena 20 mcg/24 hr (5 years) intrauterine device RxNorm: 889457 IU No Start Date Active Seasonique 0.15 mg-3 0 mcg (84)/10 mcg(7) Tabs,3 month dose pack RxNorm: 271539 1 Tablet(s) PO QD No Start Date 07/12/2015 Inactive Tegretol 200 mg tablet RxNorm: 121961 1 Tablet(s) PO QD No Start Date 06/09/2013 Inactive lisinopril 20 mg tablet RxNorm: 680142 1 Tablet(s) PO QD No Start Date 06/09/2013 Inactive Maxalt 10 mg tablet RxNorm: 375886 Tablet(s) PO Take 1 at headache onset an d may repeat in 2 hours if headache remains No Start Date 11/20/2013 Inactive Cymbalta 60 mg capsu le,delayed release RxNorm: 273543 1 Capsule(s) PO QD No Start Date 06/09/2013 Inactive Medrol (Francisco) 4 mg Ta bs in a Dose Pack RxNorm: 757462 Tablet(s) PO as direc humaira No Start Date 07/16/2012 Inactive Medication Administered No Medication Administered data Immunizations No Immunization data Assessments Condition Codes Effectiv e Dates Encounter for other preprocedural examination ICD-10: Z01.818 ICD-9: V72.83 03/25/2019 Hallux valgus (acquired), right foot ICD-10: M20.11 ICD-9: 735.0 03/25/2019 Radial styloid tenosynovitis [de Quervain] ICD-10: M65.4 ICD-9: 727.04 07/24/2018 Anemia, unspecified ICD-10: D64.9 ICD-9: 285.9 06/21/2018 Other fatigue ICD-10: R53.83 ICD-9: 780.79 06/21/2018 Encounter for gynecological examination (general) (routine) without abnormal findings ICD-10: Z01.419 ICD-9: V72.31 07/05/2017 Encounter for general adult medical exam ination without abnormal findings ICD-10: Z00.00 ICD-9: V70.0 07/05/2017 Mild intermittent asthma with (acute) exacerbation ICD-10: J45.21 ICD-9: 466.0 07/05/2017 Other cervical disc degeneration, unspecified cervical region ICD-10: M50.30 ICD-9: 722.4 05/15/2017 Tension-type headache, unspecified, not intractable ICD-10: G44.209 ICD-9: 307.81 05/15/2017 Essential (primary) hypertension ICD -10: I10 ICD-9: 401.9 05/15/2017 Lateral epicondylitis, right elbow I CD-10: M77.11 ICD-9: 726.32 04/27/2016 Dysuria ICD-10: R30.0 ICD-9: 788.1 12/20/2015 Hematuria, unspecified ICD-10: R31.9 ICD-9: 599.70 08/04/2015 Conversion disorder with seizures or convulsions ICD-10: F44.5 ICD-9: 780.39 07/13/2015 COUGH ICD-9: 786.2 10/30 ROUTINE MEDICAL EXAM ICD-9: V70.0 01/05/2014 HYPERTENSION ICD-9: 401.9 01/05/2014 Seizure ICD-9: 780.39 URI, ACUTE ICD-9: 465.9 11/26/2013 SINUSITIS, ACUTE ICD-9: 461.9 06/10/2013 Pyelonephritis ICD-9: 590.80 02/19/2013 OTITIS MEDIA NOS ICD-9: 382.9 07/23/2012 PHARYNGITIS, ACUTE ICD-9: 462 10/30/2011 CERVICAL DISC DEGEN ICD-9: 722.4 08/03/2011 Neck pain ICD-9: 723.1 0 08/03/2011 Radiculopathy of arm ICD-9: 723.4 08/03/2011 Reason For Visit Reason For Visit Effective Dates Notes Pre-op Physical 03/25/2019 neck pain 07/24/2018 fatigue 06/21/2018 well woman exam (40-65 years) 07/05/2017 Last normal mammogram was at least 3 years ago neck pain 05/15/2017 Dis cuss trying anti- inflammatory follow up 04/27/2016 elbow pain 03/17/2016 painful urination 12/20/2015 flank pain 08/04/2015 well woman exam (40-65 years) 07/13/2015 cough 10/30/2014 Annual Checkup 01/05/2014 Wellness Physical---no complaints sore throat 11/26/2013 high blood pressure 06/10/2013 Discuss lisinopril dose follow up 02/19/2013 UTI /sepsis, still taking antibiotics otalgia 07/23/2012 high blood pressure 07/17/2012 cough 10/30/2011 ~generic 08/03/2011 Clarisse powers Visit Results Observation Observation Code Item Item Code Result Date TEGRETOL 4853949 TEGRETOL 5.2 MG/L 01/07/2014 COMPREHENSIVE METABOLIC 25734 AST 16 U/L 01/05/2014 COMPREHENSIVE METABOLIC 18027 ALT 10 IU/L 01/05/2014 COMPREHENSIVE METABOLIC 25929 BUN 17 MG/DL 01/05/2014 COMPREHENSIVE METABOLIC 30476 ALBUMIN 4.3 GM/DL 01/05/2014 COMPREHENSIVE METABOLIC 85850 CHLORIDE 105 MMOL/L 01/05/2014 COMPREHENSIVE METABOLIC 36835 BILI TOT 0.2 MG/DL 01/05/2014 COMPREHENSIVE METABOLIC 07236 ALK PHOS 37 U/L 01/05/2014 COMPREHENSIVE METABOLIC 59816 SODIUM 137 MMOL/L 01/05/2014 COMPREHENSIVE METABOLIC 10974 CREATININE 0.86 MG/DL 01/05/2014 COMPREHENSIVE METABOLIC 09404 CALCIUM 9.4 MG/DL 01/05/2014 COMPREHENSIVE METABOLIC 36453 POTASSIUM 5.0 MMOL/L 01/05/2014 COMPREHENSIVE METABOLIC 86469 PROT TOT 6.3 GM/DL 01/05/2014 COMPREHENSIVE METABOLIC 59652 Glucose 104 MG/DL 01/05/2014 COMPREHENSIVE METABOLIC 93268 BICARB 27 MMOL/L 01/05/2014 COMPREHENSIVE METABOLIC 02364 ANION GAP 5 MEQ/L 01/05/2014 THYROID STIMULATING HORMONE 00452 TSH 0.822 uIU/ML 4 GFR CALC 1581696 GFR AA >60 ML/MIN 01/05/2014 GFR CALC 4421693 GFR NON -AA >60 ML/MIN 01/05/2014 COMPLETE BLOOD COUNT 3171280 WBC 5.5 10e9/L 01/05/2014 COMPLETE BLOOD COUNT 5512132 RBC 4.17 10e12/L 4 COMPLETE BLOOD COUNT 0933135 HGB 13.0 g/dL 01/05/2014 COMPLETE BLOOD COUNT 3241470 HCT DET 39.0 % 01/05/2014 COMPLETE BLOOD COUNT 2387443 MCV 93.5 fL 01/05/2014 COMPLETE BLOOD COUNT 0047122 MCH 31.2 pg 01/05/2014 COMPLETE BLOOD COUNT 5741617 MCHC 33.3 g/dL 01/05/2014 COMPLETE BLOOD COUNT 2595239 PLT 294 10e9/L 01/05/2014 COMPLETE BLOOD COUNT 9444666 MPV 11.4 fL 01/05/2014 COMPLETE BLOOD COUNT 8097027 NIKKY % 59.4 % 01/05/2014 COMPLETE BLOOD COUNT 6093298 LY % 27.7 % 01/05/2014 COMPLETE BLOOD COUNT 5132964 MON % 10.3 % 01/05/2014 COMPLETE BLOOD COUNT 5046150 EOS % 1.5 % 01/05/2014 COMPLETE BLOOD COUNT 8894411 BASO % 1.1 % 01/05/2014 COMPLETE BLOOD COUNT [id number] RDW 12.7 % 01/05/2014 COMPLETE BLOOD COUNT 8994564 ABS NIKKY 3.27 10e9/L 01/05/2014 COMPLETE BLOOD COUNT 7360539 ABS LYMPH 1.52 10e9/L 01/05/2014 COMPLETE BLOOD COUNT 9133273 ABS MONO 0.57 10e9/L 01/05/2014 COMPLETE BLOOD COUNT 3424941 ABS EOS 0.08 10e9/L 01/05/2014 COMPLETE BLOOD COUNT 7727855 ABS BASO 0.06 10e9/L 01/05/2014 COMPLETE BLOOD COUNT [id number] RDW-SD 42.1 fL 01/05/2014 LIPID GROUP [id number] 60 MG/DL 01/05/2014 LIPID GROUP 31786 TRIG 63 MG/DL 01/05/2014 LIPID GROUP 54844 TEST L DL 83 MG/DL 01/05/2014 LIPID GROUP [id number] CHOL 156 MG/DL 01/05/2014 LIPID GROUP 04391 RCHOL/ HDL 2.60 RATIO 01/05/2014 FREE T4 79092 FREE T4 0.87 NG/DL 01/05/2014 Review of Systems System Result Effective Dates Constitutional No night sweats 03/25/2019 Constitutional No fatigue 03/25/2019 Constitutional No fever 03/25/2019 Constitutional No insomnia 03/25/2019 Constitutional No weight loss 03/25/2019 Eyes No eye pain 019 Eyes No photophobia 03/16 Eyes No vision change Eyes No visual disturbance 03/25/2019 Ears/Nose/Throat/Neck No hearing loss 03/25/2019 Ears/Nose/Throat/Neck No nasal discharge 03/25/2019 Ears/Nose/Throat/Neck No sinus congestion 03/25/2019 Ears/Nose/Throat/Neck No sore throat 03/25/2019 Cardiovascular No arrhythmia 03/25/2019 Cardiovascular No chest pain/pressure 03/25/2019 Cardiovascular No edema 03/25/2019 Cardiovascular No exercise intolerance 03/25/2019 Cardiovascular No orthopnea 03/25/2019 Cardiovascular No palpitations 03/25/2019 Respiratory No asthma Respiratory No cough 04/2019 Respiratory No dyspnea 0 03/25/2019 Respiratory No pleuritic pain 03/25/2019 Respiratory No productive sputum 03/25/2019 Respiratory No wheezing 03/25/2019 Gastrointestinal No hemorrhoids 03/25/2019 Gastrointestinal No hepatitis 03/25/2019 Gastrointestinal No abdominal pain 03/25/2019 Gastrointestinal No constipation 03/25/2019 Gastrointestinal No diarrhea 03/25/2019 Gastrointestinal No gastroesophageal reflu x 03/25/2019 Gastrointestinal No melena 03/25/2019 Gastrointestinal No nausea 03/25/2019 Gastrointestinal No vomiting 03/25/2019 Genitourinary/Nephrology No dysuria 03/25/2019 Genitourinary/Nephrology No nocturia 03/25/2019 Genitourinary/Nephrology No urinary incontinence 03/25/2019 Musculoskeletal No muscle weakness 03/25/2019 Musculoskeletal No myalgias 03/25/2019 Musculoskeletal No stiffness 03/25/2019 Musculoskeletal No swelling 03/25/2019 Dermatologic No rash 04/2019 Dermatologic No scar 04/2019 Neurologic No dizziness 03/25/2019 Neurologic No headache 0 03/25/2019 Neurologic No neck pain 03/25/2019 Neurologic No syncope Psychiatric No anxiety 0 03/25/2019 Psychiatric No depression 03/25/2019 Endocrine No goiter 03/16 Endocrine No hyperglycemia 03/25/2019 Endocrine No hypoglycemia 03/25/2019 Hematologic/Lymphatic No abnormal ec chymoses 03/25/2019 Hematologic/Lymphatic No petechiae 03/25/2019 Hematologic/Lymphatic No abnormal bl eeding and bruising 03/25/2019 Hematologic/Lymphatic No anemia 03/25/2019 Hematologic/Lymphatic No lymph node enlargement/mass 03/25/2019 Allergy/Immunology No food allergy 03/25/2019 Cardiovascular hypertension 03/25/2019 Neurologic No dizziness 07/24/2018 Neurologic No headache 0 07/24/2018 Neurologic No neck pain 07/24/2018 Neurologic No syncope Musculoskeletal joint complaint 07/24/2018 Constitutional fatigue 1 08/22/2017 Constitutional No fever 06/21/2018 Constitutional No chills 06/21/2018 Respiratory No cough 01/2018 Gastrointestinal No abdominal pain 06/21/2018 Gastrointestinal No constipation 06/21/2018 Gastrointestinal No diarrhea 06/21/2018 Gastrointestinal No nausea 06/21/2018 Ears/Nose/Throat/Neck No dizziness 06/21/2018 Ears/Nose/Throat/Neck No nasal discharge 06/21/2018 Dermatologic No rash 01/2018 Neurologic headache 1201/2018 Genitourinary/Nephrology No menstrua l irregularity 06/21/2018 Psychiatric depression 1 08/22/2017 Constitutional fatigue 1 09/05/2016 Constitutional No fever 07/05/2017 Ears/Nose/Throat/Neck postnasal drip 07/05/2017 Ears/Nose/Throat/Neck sinus congestion 07/05/2017 Respiratory No broncholiths 07/05/2017 Respiratory chest congestion 07/05/2017 Respiratory cough 2016 Respiratory dyspnea 06/16 Respiratory dyspnea on exertion 07/05/2017 Respiratory wheezing Musculoskeletal neck pain 05/15/2017 Neurologic headache 04/17 Cardiovascular No arrhythmia 05/15/2017 Cardiovascular No chest pain/pressure 05/15/2017 Cardiovascular No edema 05/15/2017 Cardiovascular No exercise intolerance 05/15/2017 Cardiovascular No orthopnea 05/15/2017 Cardiovascular No palpitations 05/15/2017 Cardiovascular hypertension 05/15/2017 Respiratory No asthma Respiratory No cough Respiratory No dyspnea 1 Respiratory No pleuritic pain 05/15/2017 Respiratory No productive sputum 05/15/2017 Respiratory No wheezing 05/15/2017 Gastrointestinal No hemorrhoids 05/15/2017 Gastrointestinal No hepatitis 05/15/2017 Gastrointestinal No abdominal pain 05/15/2017 Gastrointestinal No constipation 05/15/2017 Gastrointestinal No diarrhea 05/15/2017 Gastrointestinal No gastroesophageal reflu x 05/15/2017 Gastrointestinal No melena 05/15/2017 Gastrointestinal No nausea 05/15/2017 Gastrointestinal No vomiting 05/15/2017 Genitourinary/Nephrology No dysuria 05/15/2017 Genitourinary/Nephrology No nocturia 05/15/2017 Genitourinary/Nephrology No urinary incontinence 05/15/2017 Psychiatric No anxiety 1 Psychiatric No depression 05/15/2017 Endocrine No goiter 04/17 Endocrine No hyperglycemia 05/15/2017 Endocrine No hypoglycemia 05/15/2017 Neurologic No dizziness 05/15/2017 Neurologic No neck pain 05/15/2017 Neurologic No syncope Musculoskeletal joint complaint 04/27/2016 Neurologic pain, limb Musculoskeletal joint complaint 03/17/2016 Constitutional No night sweats 07/13/2015 Constitutional No fatigue 07/13/2015 Constitutional No fever 07/13/2015 Constitutional No insomnia 07/13/2015 Constitutional No weight loss 07/13/2015 Eyes No eye pain 015 Eyes No photophobia 06/16 Eyes No vision change Eyes No visual disturbance 07/13/2015 Ears/Nose/Throat/Neck No hearing loss 07/13/2015 Ears/Nose/Throat/Neck No nasal discharge 07/13/2015 Ears/Nose/Throat/Neck No sinus congestion 07/13/2015 Ears/Nose/Throat/Neck No sore throat 07/13/2015 Cardiovascular No arrhythmia 07/13/2015 Cardiovascular No chest pain/pressure 07/13/2015 Cardiovascular No edema 07/13/2015 Cardiovascular No exercise intolerance 07/13/2015 Cardiovascular No orthopnea 07/13/2015 Cardiovascular No palpitations 07/13/2015 Respiratory No asthma Respiratory No cough Respiratory No dyspnea 1 Respiratory No pleuritic pain 07/13/2015 Respiratory No productive sputum 07/13/2015 Respiratory No wheezing 07/13/2015 Gastrointestinal No hemorrhoids 07/13/2015 Gastrointestinal No hepatitis 07/13/2015 Gastrointestinal No abdominal pain 07/13/2015 Gastrointestinal No constipation 07/13/2015 Gastrointestinal No diarrhea 07/13/2015 Gastrointestinal No gastroesophageal reflu x 07/13/2015 Gastrointestinal No melena 07/13/2015 Gastrointestinal No nausea 07/13/2015 Gastrointestinal No vomiting 07/13/2015 Genitourinary/Nephrology No dysuria 07/13/2015 Genitourinary/Nephrology No nocturia 07/13/2015 Genitourinary/Nephrology No urinary incontinence 07/13/2015 Musculoskeletal No muscle weakness 07/13/2015 Musculoskeletal No myalgias 07/13/2015 Musculoskeletal No stiffness 07/13/2015 Musculoskeletal No swelling 07/13/2015 Dermatologic No rash Dermatologic No scar Neurologic No dizziness 07/13/2015 Neurologic No headache 1 Neurologic No neck pain 07/13/2015 Neurologic No syncope Psychiatric No anxiety 1 Psychiatric No depression 07/13/2015 Endocrine No goiter 06/16 Endocrine No hyperglycemia 07/13/2015 Endocrine No hypoglycemia 07/13/2015 Hematologic/Lymphatic No abnormal ec chymoses 07/13/2015 Hematologic/Lymphatic No petechiae 07/13/2015 Hematologic/Lymphatic No abnormal bl eeding and bruising 07/13/2015 Hematologic/Lymphatic No anemia 07/13/2015 Hematologic/Lymphatic No lymph node enlargement/mass 07/13/2015 Allergy/Immunology No food allergy 07/13/2015 Cardiovascular hypertension 07/13/2015 Constitutional No night sweats 10/30/2014 Constitutional No recent illness 10/30/2014 Constitutional No fatigue 10/30/2014 Constitutional No fever 10/30/2014 Constitutional No insomnia 10/30/2014 Constitutional No weight loss 10/30/2014 Eyes No eye pain 015 Eyes No photophobia 10/14 Eyes No vision change Eyes No visual disturbance 10/30/2014 Ears/Nose/Throat/Neck sore throat 10/30/2014 Cardiovascular No arrhythmia 10/30/2014 Cardiovascular No chest pain/pressure 10/30/2014 Cardiovascular No edema 10/30/2014 Cardiovascular No exercise intolerance 10/30/2014 Cardiovascular No orthopnea 10/30/2014 Cardiovascular No palpitations 10/30/2014 Respiratory cough 2014 Gastrointestinal No hemorrhoids 10/30/2014 Gastrointestinal No hepatitis 10/30/2014 Gastrointestinal No abdominal pain 10/30/2014 Gastrointestinal No constipation 10/30/2014 Gastrointestinal No diarrhea 10/30/2014 Gastrointestinal No gastroesophageal reflu x 10/30/2014 Gastrointestinal No melena 10/30/2014 Gastrointestinal No nausea 10/30/2014 Gastrointestinal No vomiting 10/30/2014 Genitourinary/Nephrology No dysuria 10/30/2014 Genitourinary/Nephrology No nocturia 10/30/2014 Genitourinary/Nephrology No urinary incontinence 10/30/2014 Musculoskeletal No stiffness 10/30/2014 Musculoskeletal No swelling 10/30/2014 Musculoskeletal No muscle weakness 10/30/2014 Musculoskeletal No myalgias 10/30/2014 Dermatologic No rash Dermatologic No scar Psychiatric No anxiety 0 10/30/2014 Psychiatric No depression 10/30/2014 Neurologic No dizziness 10/30/2014 Neurologic No headache 0 10/30/2014 Neurologic No neck pain 10/30/2014 Neurologic No syncope Endocrine No goiter 10/14 Endocrine No hyperglycemia 10/30/2014 Endocrine No hypoglycemia 10/30/2014 Hematologic/Lymphatic No abnormal ec chymoses 10/30/2014 Hematologic/Lymphatic No petechiae 10/30/2014 Hematologic/Lymphatic No abnormal bl eeding and bruising 10/30/2014 Hematologic/Lymphatic No anemia 10/30/2014 Hematologic/Lymphatic No lymph node enlargement/mass 10/30/2014 Allergy/Immunology No food allergy 10/30/2014 Constitutional No night sweats 01/05/2014 Constitutional No fatigue 01/05/2014 Constitutional No fever 01/05/2014 Constitutional No insomnia 01/05/2014 Constitutional No weight loss 01/05/2014 Eyes No eye pain 014 Eyes No photophobia 12/15 Eyes No vision change Eyes No visual disturbance 01/05/2014 Ears/Nose/Throat/Neck No hearing loss 01/05/2014 Ears/Nose/Throat/Neck No nasal discharge 01/05/2014 Ears/Nose/Throat/Neck No sinus congestion 01/05/2014 Ears/Nose/Throat/Neck No sore throat 01/05/2014 Cardiovascular No arrhythmia 01/05/2014 Cardiovascular No chest pain/pressure 01/05/2014 Cardiovascular No edema 01/05/2014 Cardiovascular No exercise intolerance 01/05/2014 Cardiovascular No orthopnea 01/05/2014 Cardiovascular No palpitations 01/05/2014 Respiratory No asthma Respiratory No cough Respiratory No dyspnea 0 01/05/2014 Respiratory No pleuritic pain 01/05/2014 Respiratory No productive sputum 01/05/2014 Respiratory No wheezing 01/05/2014 Gastrointestinal No hemorrhoids 01/05/2014 Gastrointestinal No hepatitis 01/05/2014 Gastrointestinal No abdominal pain 01/05/2014 Gastrointestinal No constipation 01/05/2014 Gastrointestinal No diarrhea 01/05/2014 Gastrointestinal No gastroesophageal reflu x 01/05/2014 Gastrointestinal No melena 01/05/2014 Gastrointestinal No nausea 01/05/2014 Gastrointestinal No vomiting 01/05/2014 Genitourinary/Nephrology No dysuria 01/05/2014 Genitourinary/Nephrology No nocturia 01/05/2014 Genitourinary/Nephrology No urinary incontinence 01/05/2014 Musculoskeletal No muscle weakness 01/05/2014 Musculoskeletal No myalgias 01/05/2014 Musculoskeletal No stiffness 01/05/2014 Musculoskeletal No swelling 01/05/2014 Dermatologic No rash Dermatologic No scar Neurologic No dizziness 01/05/2014 Neurologic No headache 0 01/05/2014 Neurologic No neck pain 01/05/2014 Neurologic No syncope Psychiatric No anxiety 0 01/05/2014 Psychiatric No depression 01/05/2014 Endocrine No goiter 12/15 Endocrine No hyperglycemia 01/05/2014 Endocrine No hypoglycemia 01/05/2014 Hematologic/Lymphatic No abnormal ec chymoses 01/05/2014 Hematologic/Lymphatic No petechiae 01/05/2014 Hematologic/Lymphatic No abnormal bl eeding and bruising 01/05/2014 Hematologic/Lymphatic No anemia 01/05/2014 Hematologic/Lymphatic No lymph node enlargement/mass 01/05/2014 Allergy/Immunology No food allergy 01/05/2014 Cardiovascular hypertension 01/05/2014 Neurologic seizure 01/05 Endocrine hyperlipidemia 01/05/2014 Respiratory cough 2013 Ears/Nose/Throat/Neck sore throat 11/26/2013 Constitutional No night sweats 06/10/2013 Constitutional No fatigue 06/10/2013 Constitutional No fever 06/10/2013 Constitutional No insomnia 06/10/2013 Constitutional No weight loss 06/10/2013 Cardiovascular hypertension 06/10/2013 Ears/Nose/Throat/Neck sinus congestion 06/10/2013 Respiratory No asthma Respiratory No cough Respiratory No dyspnea 1 08/10/2012 Respiratory No pleuritic pain 06/10/2013 Respiratory No productive sputum 06/10/2013 Respiratory No wheezing 06/10/2013 Neurologic No dizziness 06/10/2013 Neurologic No headache 1 08/10/2012 Neurologic No neck pain 06/10/2013 Neurologic No syncope Psychiatric No anxiety 1 08/10/2012 Psychiatric No depression 06/10/2013 Gastrointestinal No hemorrhoids 02/19/2013 Gastrointestinal No hepatitis 02/19/2013 Gastrointestinal No abdominal pain 02/19/2013 Gastrointestinal No constipation 02/19/2013 Gastrointestinal No diarrhea 02/19/2013 Gastrointestinal No gastroesophageal reflu x 02/19/2013 Gastrointestinal No melena 02/19/2013 Gastrointestinal No nausea 02/19/2013 Gastrointestinal No vomiting 02/19/2013 Genitourinary/Nephrology No dysuria 02/19/2013 Genitourinary/Nephrology No nocturia 02/19/2013 Genitourinary/Nephrology No urinary incontinence 02/19/2013 Constitutional fever 02/2013 Ears/Nose/Throat/Neck otalgia 07/23/2012 Ears/Nose/Throat/Neck nasal discharge 07/23/2012 Ears/Nose/Throat/Neck sinus congestion 07/23/2012 Ears/Nose/Throat/Neck sore throat 07/23/2012 Respiratory cough 2012 Respiratory No cigarette smoking 07/23/2012 Gastrointestinal No abdominal pain 07/23/2012 Gastrointestinal No diarrhea 07/23/2012 Gastrointestinal No nausea 07/23/2012 Gastrointestinal No vomiting 07/23/2012 Genitourinary/Nephrology No 07/23/2012 Dermatologic No rash 02/2013 Dermatologic No sores Cardiovascular hypertension 07/17/2012 Constitutional No fever 10/30/2011 Ears/Nose/Throat/Neck nasal discharge 10/30/2011 Ears/Nose/Throat/Neck No nasal allergies 10/30/2011 Ears/Nose/Throat/Neck otalgia 10/30/2011 Ears/Nose/Throat/Neck sore throat 10/30/2011 Respiratory cough 2011 Gastrointestinal No diarrhea 10/30/2011 Gastrointestinal No constipation 10/30/2011 Gastrointestinal No vomiting 10/30/2011 Gastrointestinal No nausea 10/30/2011 Genitourinary/Nephrology No 10/30/2011 Dermatologic No rash Dermatologic No sores Hematologic/Lymphatic No petechiae 08/03/2011 Hematologic/Lymphatic No abnormal bl eeding and bruising 08/03/2011 Hematologic/Lymphatic No anemia 08/03/2011 Hematologic/Lymphatic No lymph node enlargement/mass 08/03/2011 Neurologic seizure 08/03 Respiratory No productive sputum 08/03/2011 Respiratory No cough Respiratory No dyspnea 0 08/03/2011 Respiratory No wheezing 08/03/2011 Gastrointestinal No hemorrhoids 08/03/2011 Gastrointestinal No hepatitis 08/03/2011 Gastrointestinal No abdominal pain 08/03/2011 Gastrointestinal No constipation 08/03/2011 Gastrointestinal No diarrhea 08/03/2011 Gastrointestinal No gastroesophageal reflu x 08/03/2011 Gastrointestinal No melena 08/03/2011 Gastrointestinal No nausea 08/03/2011 Gastrointestinal No vomiting 08/03/2011 Genitourinary/Nephrology No dysuria 08/03/2011 Genitourinary/Nephrology No nocturia 08/03/2011 Genitourinary/Nephrology No urinary incontinence 08/03/2011 Musculoskeletal neck pain 08/03/2011 Dermatologic No rash Dermatologic No scar Neurologic pain, limb Neurologic neck pain Psychiatric No anxiety 0 08/03/2011 Psychiatric No depression 08/03/2011 Endocrine No goiter 07/16 Endocrine No hyperglycemia 08/03/2011 Endocrine No hypoglycemia 08/03/2011 Hematologic/Lymphatic No abnormal ec chymoses 08/03/2011 Constitutional No night sweats 08/03/2011 Constitutional No fatigue 08/03/2011 Constitutional No fever 08/03/2011 Constitutional No insomnia 08/03/2011 Constitutional No weight loss 08/03/2011 Ears/Nose/Throat/Neck No hearing loss 08/03/2011 Ears/Nose/Throat/Neck No nasal discharge 08/03/2011 Ears/Nose/Throat/Neck No sinus congestion 08/03/2011 Ears/Nose/Throat/Neck No sore throat 08/03/2011 Cardiovascular No arrhythmia 08/03/2011 Cardiovascular No chest pain/pressure 08/03/2011 Cardiovascular No edema 08/03/2011 Cardiovascular No exercise intolerance 08/03/2011 Cardiovascular No orthopnea 08/03/2011 Cardiovascular No palpitations 08/03/2011 Respiratory No asthma Respiratory No pleuritic pain 08/03/2011 Physical Exam Exam Name System Name It em Name Status Result Effective Dates Notes Full Exam - General Constitutional general appearance Overall: well nourished 03/25/2019 None Full Exam - General Constitutional general appearance Overall: well developed 03/25/2019 None Full Exam - General Constitutional general appearance Overall: in no acute distress 03/25/2019 None Full Exam - General Neurologic mental status Overall: alert 9 None Full Exam - General Neurologic mental status Overall: oriented 03/25/2019 None Full Exam - General Psychiatric mood and affect Overall: normal mood and affect 03/25/2019 None Full Exam - General Respiratory auscultation Overall: breath sounds clear bilater ally 03/25/2019 None Full Exam - General Cardiovascular auscultation of heart Overall: regular rate 03/25/2019 None Full Exam - General Cardiovascular auscultation of heart Overall: normal heart sounds 03/25/2019 None Full Exam - General Cardiovascular auscultation of heart Overall: no murmurs 03/25/2019 None Full Exam - General Cardiovascular extremities Overall: no clubbing 03/25/2019 None Full Exam - General Cardiovascular extremities Overall: No edema 03/25/2019 None Full Exam - General Cardiovascular extremities Overall: No cyanosis 03/25/2019 None Full Exam - General Abdomen abdominal exam Overall: no masses 03/25/2019 None Full Exam - General Abdomen abdominal exam Overall: no tenderness 03/25/2019 None Full Exam - General Abdomen abdominal exam Overall: normal bowel sounds 03/25/2019 None Full Exam - General Musculoskeletal gait and station Overall: normal gait 03/25/2019 None Full Exam - General Musculoskeletal gait and station Overall: normal station 03/25/2019 None Full Exam - General Constitutional general appearance Overall: well nourished 07/24/2018 None Full Exam - General Constitutional general appearance Overall: well developed 07/24/2018 None Full Exam - General Constitutional general appearance Overall: in no acute distress 07/24/2018 None Full Exam - General Neurologic mental status Overall: alert 9 None Full Exam - General Neurologic mental status Overall: oriented 07/24/2018 None Full Exam - General Psychiatric mood and affect Overall: normal mood and affect 07/24/2018 None Full Exam - General Musculoskeletal right upper extremity Palpation - right metacarpales: tenderness over the first metacarpale 07/24/2018 with positive Claudia's test Full Exam - General Constitutional general appearance Overall: well nourished 06/21/2018 None Full Exam - General Constitutional general appearance Overall: in no acute distress 06/21/2018 None Full Exam - General Respiratory respiratory effort/rhythm Overall: no retractions 06/21/2018 None Full Exam - General Respiratory respiratory effort/rhythm Overall: normal rate 06/21/2018 None Full Exam - General Respiratory auscultation Overall: breath sounds clear bilater ally 06/21/2018 None Full Exam - General Cardiovascular auscultation of heart Overall: regular rate 06/21/2018 None Full Exam - General Cardiovascular auscultation of heart Overall: no murmurs 06/21/2018 None Full Exam - General Psychiatric orientation/consciousness Overall: oriented to person, place and time 06/21/2018 None Full Exam - General Psychiatric behavior/psychomotor activity Overall: no tics, normal psychomotor activity 06/21/2018 None Full Exam - General Psychiatric mood and affect Overall: normal mood and affect 06/21/2018 None Full Exam - General Psychiatric appearance Overall: well-groomed, good eye cont act 06/21/2018 None Full Exam - General Constitutional general appearance Overall: well nourished 07/05/2017 None Full Exam - General Constitutional general appearance Overall: well developed 07/05/2017 None Full Exam - General Constitutional general appearance Overall: in no acute distress 07/05/2017 None Full Exam - General Ears/Nose/Throat otoscopic exam Overall: external auditory canals clear 07/05/2017 None Full Exam - General Ears/Nose/Throat otoscopic exam Left tympanic membrane: air- fluid level 07/05/2017 None Full Exam - General Ears/Nose/Throat otoscopic exam Right tympanic membrane: air- fluid level 07/05/2017 None Full Exam - General Ears/Nose/Throat internal nose Turbinates: hypertrophy 07/05/2017 None Full Exam - General Ears/Nose/Throat internal nose Drainage: clear 07/05/2017 None Full Exam - General Ears/Nose/Throat oral cavity/pharynx/larynx Oropharynx: erythema 07/05/2017 None Full Exam - General Respiratory auscultation Basilar: diminished 07/05/2017 None Full Exam - General Respiratory auscultation Basilar: wheezes 07/05/2017 None Full Exam - General Respiratory auscultation Apical: diminished 07/05/2017 None Full Exam - General Cardiovascular auscultation of heart Overall: regular rate 07/05/2017 None Full Exam - General Cardiovascular auscultation of heart Overall: normal heart sounds 07/05/2017 None Full Exam - General Cardiovascular auscultation of heart Murmur: previously known murmur unchanged 07/05/2017 None Full Exam - General Neurologic mental status Overall: alert 7 None Full Exam - General Neurologic mental status Overall: oriented 07/05/2017 None Full Exam - General Psychiatric mood and affect Overall: normal mood and affect 07/05/2017 None Full Exam - General Chest/Breast breast and axillae palpation Overall: breasts non- tender 07/05/2017 None Full Exam - General Chest/Breast breast and axillae palpation Overall: no masses 07/05/2017 None Full Exam - General Chest/Breast breast and axillae palpation Overall: axillae non- tender 07/05/2017 None Full Exam - General Chest/Breast breast and axillae palpation Overall: no nipple discharge 07/05/2017 None Full Exam - General Abdomen abdominal exam Overall: no masses 07/05/2017 None Full Exam - General Abdomen abdominal exam Overall: no tenderness 07/05/2017 None Full Exam - General Abdomen abdominal exam Overall: normal bowel sounds 07/05/2017 None Full Exam - General Abdomen abdominal exam Overall: soft 07/05/2017 None Full Exam - General Genitourinary uterus Overall: normal size 07/05/2017 None Full Exam - General Genitourinary cervix Inspection: no lesions 07/05/2017 IUDstrings Full Exam - General Genitourinary cervix Cervical discharge: white 07/05/2017 None Full Exam - General Genitourinary cervix Motion tenderness: absent 07/05/2017 None Full Exam - General Genitourinary labia and vagina Overall: normal hair distribution 07/05/2017 None Full Exam - General Genitourinary labia and vagina Overall: no lesions 07/05/2017 None Full Exam - General Genitourinary adnexa/parametria Overall: no tenderness 07/05/2017 None Full Exam - General Constitutional general appearance Overall: well nourished 05/15/2017 None Full Exam - General Constitutional general appearance Overall: well developed 05/15/2017 None Full Exam - General Constitutional general appearance Overall: in no acute distress 05/15/2017 None Full Exam - General Neurologic mental status Overall: alert 7 None Full Exam - General Neurologic mental status Overall: oriented 05/15/2017 None Full Exam - General Psychiatric mood and affect Overall: normal mood and affect 05/15/2017 None Full Exam - General Respiratory auscultation Overall: breath sounds clear bilater ally 05/15/2017 None Full Exam - General Cardiovascular auscultation of heart Overall: regular rate 05/15/2017 None Full Exam - General Cardiovascular auscultation of heart Overall: normal heart sounds 05/15/2017 None Full Exam - General Cardiovascular auscultation of heart Overall: no murmurs 05/15/2017 None Full Exam - General Musculoskeletal spine, ribs and pelvis Spine: tender @ cervical spine 05/15/2017 None Full Exam - General Constitutional general appearance Overall: well nourished 04/27/2016 None Full Exam - General Constitutional general appearance Overall: well developed 04/27/2016 None Full Exam - General Constitutional general appearance Overall: in no acute distress 04/27/2016 None Full Exam - General Neurologic mental status Overall: alert 6 None Full Exam - General Neurologic mental status Overall: oriented 04/27/2016 None Full Exam - General Psychiatric mood and affect Overall: normal mood and affect 04/27/2016 None Full Exam - General Musculoskeletal right upper extremity Palpation - right elbow: tender lateral epicondyle 04/27/2016 None Full Exam - General Musculoskeletal right upper extremity Palpation - right elbow: pain with resisted wrist flexion 04/27/2016 None Full Exam - General Musculoskeletal right upper extremity Palpation - right elbow: pain with resisted wrist extension 04/27/2016 None Full Exam - General Musculoskeletal right upper extremity ROM - right elbow: a normal exam 04/27/2016 None Full Exam - General Musculoskeletal right upper extremity Inspection - right elbow: a normal exam 04/27/2016 None Full Exam - General Musculoskeletal right upper extremity Stability - right elbow: a normal exam 04/27/2016 None Full Exam - General Constitutional general appearance Overall: well nourished 03/17/2016 None Full Exam - General Constitutional general appearance Overall: well developed 03/17/2016 None Full Exam - General Constitutional general appearance Overall: in no acute distress 03/17/2016 None Full Exam - General Neurologic mental status Overall: alert 6 None Full Exam - General Neurologic mental status Overall: oriented 03/17/2016 None Full Exam - General Psychiatric mood and affect Overall: normal mood and affect 03/17/2016 None Full Exam - General Musculoskeletal right upper extremity Inspection - right elbow: a normal exam 03/17/2016 None Full Exam - General Musculoskeletal right upper extremity Palpation - right elbow: tender lateral epicondyle 03/17/2016 None Full Exam - General Musculoskeletal right upper extremity ROM - right elbow: pain with pronation 03/17/2016 None Full Exam - General Musculoskeletal right upper extremity ROM - right elbow: pain with supination 03/17/2016 None Full Exam - General Constitutional general appearance Overall: well nourished 07/13/2015 None Full Exam - General Constitutional general appearance Overall: well developed 07/13/2015 None Full Exam - General Constitutional general appearance Overall: in no acute distress 07/13/2015 None Full Exam - General Neurologic mental status Overall: alert 5 None Full Exam - General Neurologic mental status Overall: oriented 07/13/2015 None Full Exam - General Psychiatric mood and affect Overall: normal mood and affect 07/13/2015 None Full Exam - General Respiratory auscultation Overall: breath sounds clear bilater ally 07/13/2015 None Full Exam - General Cardiovascular auscultation of heart Overall: regular rate 07/13/2015 None Full Exam - General Cardiovascular auscultation of heart Overall: normal heart sounds 07/13/2015 None Full Exam - General Cardiovascular auscultation of heart Overall: no murmurs 07/13/2015 None Full Exam - General Neck inspection of neck Overall: normal size 07/13/2015 None Full Exam - General Neck inspection of neck Overall: no masses 07/13/2015 None Full Exam - General Musculoskeletal gait and station Overall: normal gait 07/13/2015 None Full Exam - General Musculoskeletal gait and station Station: straight spine 07/13/2015 None Full Exam - General Musculoskeletal spine, ribs and pelvis Spine: tender @ cervical spine 07/13/2015 None Full Exam - General Musculoskeletal spine, ribs and pelvis Spine: tender @ thoracic spine 07/13/2015 upper/trapezius Full Exam - General Abdomen abdominal exam Overall: no masses 07/13/2015 None Full Exam - General Abdomen abdominal exam Overall: no tenderness 07/13/2015 None Full Exam - General Abdomen abdominal exam Overall: normal bowel sounds 07/13/2015 None Full Exam - General Abdomen abdominal exam Overall: soft 07/13/2015 None Full Exam - General Abdomen hernia exam Abdominal hernia present: reducible 07/13/2015 small umbilical to left Full Exam - General Cardiovascular extremities Overall: no clubbing 07/13/2015 None Full Exam - General Cardiovascular extremities Overall: No edema 07/13/2015 None Full Exam - General Cardiovascular extremities Overall: No cyanosis 07/13/2015 None Full Exam - General Ears/Nose/Throat otoscopic exam Overall: external auditory canals clear 07/13/2015 None Full Exam - General Ears/Nose/Throat otoscopic exam Overall: tympanic membranes clear 07/13/2015 None Full Exam - General Ears/Nose/Throat internal nose Turbinates: hypertrophy 07/13/2015 None Full Exam - General Ears/Nose/Throat oral cavity/pharynx/larynx Overall: oral mucosa clear 07/13/2015 None Full Exam - General Constitutional general appearance Overall: well nourished 10/30/2014 None Full Exam - General Constitutional general appearance Overall: well developed 10/30/2014 None Full Exam - General Constitutional general appearance Overall: in no acute distress 10/30/2014 None Full Exam - General Ears/Nose/Throat otoscopic exam Left tympanic membrane: bulging 10/30/2014 None Full Exam - General Ears/Nose/Throat otoscopic exam Right tympanic membrane: bulging 10/30/2014 None Full Exam - General Ears/Nose/Throat internal nose Turbinates: erythema 10/30/2014 None Full Exam - General Ears/Nose/Throat oral cavity/pharynx/larynx Oropharynx: erythema 10/30/2014 None Full Exam - General Respiratory auscultation Overall: breath sounds clear bilater ally 10/30/2014 None Full Exam - General Respiratory respiratory effort/rhythm Overall: normal rate 10/30/2014 None Full Exam - General Respiratory respiratory effort/rhythm Overall: no retractions 10/30/2014 None Full Exam - General Cardiovascular auscultation of heart Overall: regular rate 10/30/2014 None Full Exam - General Cardiovascular auscultation of heart Overall: normal heart sounds 10/30/2014 None Full Exam - General Cardiovascular auscultation of heart Overall: no murmurs 10/30/2014 None Full Exam - General Cardiovascular extremities Overall: No cyanosis 10/30/2014 None Full Exam - General Neurologic mental status Overall: alert 5 None Full Exam - General Neurologic mental status Overall: oriented 10/30/2014 None Full Exam - General Psychiatric mood and affect Overall: normal mood and affect 10/30/2014 None Full Exam - General Constitutional general appearance Overall: well nourished 01/05/2014 None Full Exam - General Constitutional general appearance Overall: well developed 01/05/2014 None Full Exam - General Constitutional general appearance Overall: in no acute distress 01/05/2014 None Full Exam - General Neurologic mental status Overall: alert 4 None Full Exam - General Neurologic mental status Overall: oriented 01/05/2014 None Full Exam - General Respiratory auscultation Overall: breath sounds clear bilater ally 01/05/2014 None Full Exam - General Cardiovascular auscultation of heart Overall: regular rate 01/05/2014 None Full Exam - General Cardiovascular auscultation of heart Overall: normal heart sounds 01/05/2014 None Full Exam - General Cardiovascular auscultation of heart Overall: no murmurs 01/05/2014 None Full Exam - General Cardiovascular extremities Overall: no clubbing 01/05/2014 None Full Exam - General Cardiovascular extremities Overall: No edema 01/05/2014 None Full Exam - General Cardiovascular extremities Overall: No cyanosis 01/05/2014 None Full Exam - General Neck inspection of neck Overall: normal size 01/05/2014 None Full Exam - General Neck inspection of neck Overall: no masses 01/05/2014 None Full Exam - General Ears/Nose/Throat otoscopic exam Overall: external auditory canals clear 01/05/2014 None Full Exam - General Ears/Nose/Throat otoscopic exam Overall: tympanic membranes clear 01/05/2014 None Full Exam - General Ears/Nose/Throat internal nose Overall: bilateral nasal cavities clear 01/05/2014 None Full Exam - General Ears/Nose/Throat oral cavity/pharynx/larynx Overall: oral mucosa clear 01/05/2014 None Full Exam - General Abdomen abdominal exam Overall: no masses 01/05/2014 None Full Exam - General Abdomen abdominal exam Overall: no tenderness 01/05/2014 None Full Exam - General Abdomen abdominal exam Overall: normal bowel sounds 01/05/2014 None Full Exam - General Abdomen abdominal exam Overall: soft 01/05/2014 None Full Exam - General Psychiatric mood and affect Overall: normal mood and affect 01/05/2014 None Full Exam - General Musculoskeletal gait and station Overall: normal gait 01/05/2014 None Full Exam - General Musculoskeletal gait and station Overall: normal station 01/05/2014 None Full Exam - General Constitutional general appearance Overall: well nourished 11/26/2013 None Full Exam - General Constitutional general appearance Overall: well developed 11/26/2013 None Full Exam - General Constitutional general appearance Overall: in no acute distress 11/26/2013 None Full Exam - General Ears/Nose/Throat otoscopic exam Left tympanic membrane: a normal exam 11/26/2013 None Full Exam - General Ears/Nose/Throat otoscopic exam Right tympanic membrane: a normal exam 11/26/2013 None Full Exam - General Ears/Nose/Throat oral cavity/pharynx/larynx Oropharynx: erythema 11/26/2013 None Full Exam - General Psychiatric orientation/consciousness Overall: oriented to person, place and time 11/26/2013 None Full Exam - General Respiratory auscultation Overall: breath sounds clear bilater ally 11/26/2013 None Full Exam - General Cardiovascular auscultation of heart Overall: regular rate 11/26/2013 None Full Exam - General Cardiovascular auscultation of heart Overall: normal heart sounds 11/26/2013 None Full Exam - General Constitutional general appearance Overall: well nourished 06/10/2013 None Full Exam - General Constitutional general appearance Overall: well developed 06/10/2013 None Full Exam - General Constitutional general appearance Overall: in no acute distress 06/10/2013 None Full Exam - General Neurologic mental status Overall: alert 3 None Full Exam - General Neurologic mental status Overall: oriented 06/10/2013 None Full Exam - General Psychiatric mood and affect Overall: normal mood and affect 06/10/2013 None Full Exam - General Respiratory auscultation Overall: breath sounds clear bilater ally 06/10/2013 None Full Exam - General Cardiovascular auscultation of heart Overall: regular rate 06/10/2013 None Full Exam - General Cardiovascular auscultation of heart Overall: normal heart sounds 06/10/2013 None Full Exam - General Cardiovascular auscultation of heart S3 (ventricular gallop): present 06/10/2013 None Full Exam - General Ears/Nose/Throat otoscopic exam Overall: external auditory canals clear 06/10/2013 None Full Exam - General Ears/Nose/Throat otoscopic exam Overall: tympanic membranes clear 06/10/2013 None Full Exam - General Ears/Nose/Throat internal nose Turbinates: hypertrophy 06/10/2013 None Full Exam - General Ears/Nose/Throat oral cavity/pharynx/larynx Overall: oral mucosa clear 06/10/2013 None Full Exam - General Cardiovascular extremities Overall: no clubbing 06/10/2013 None Full Exam - General Cardiovascular extremities Overall: No edema 06/10/2013 None Full Exam - General Cardiovascular extremities Overall: No cyanosis 06/10/2013 None Full Exam - General Abdomen abdominal exam Overall: no masses 06/10/2013 None Full Exam - General Abdomen abdominal exam Overall: no tenderness 06/10/2013 None Full Exam - General Abdomen abdominal exam Overall: normal bowel sounds 06/10/2013 None Full Exam - General Abdomen abdominal exam Overall: soft 06/10/2013 None Full Exam - General Constitutional general appearance Overall: well nourished 02/19/2013 None Full Exam - General Constitutional general appearance Overall: in no acute distress 02/19/2013 None Full Exam - General Constitutional general appearance Overall: well developed 02/19/2013 None Full Exam - General Neurologic mental status Overall: alert 3 None Full Exam - General Neurologic mental status Overall: oriented 02/19/2013 None Full Exam - General Psychiatric mood and affect Overall: normal mood and affect 02/19/2013 None Full Exam - General Abdomen abdominal exam Overall: no masses 02/19/2013 None Full Exam - General Abdomen abdominal exam Overall: no tenderness 02/19/2013 None Full Exam - General Abdomen abdominal exam Overall: normal bowel sounds 02/19/2013 None Full Exam - General Abdomen abdominal exam Overall: soft 02/19/2013 None Full Exam - General Constitutional general appearance Overall: well nourished 07/23/2012 None Full Exam - General Constitutional general appearance Overall: well developed 07/23/2012 None Full Exam - General Constitutional general appearance Overall: in no acute distress 07/23/2012 None Full Exam - General Ears/Nose/Throat otoscopic exam Left tympanic membrane: erythematous 07/23/2012 None Full Exam - General Ears/Nose/Throat otoscopic exam Left tympanic membrane: bulging 07/23/2012 None Full Exam - General Ears/Nose/Throat lips/teeth/gingiva Overall: normal dentition 07/23/2012 None Full Exam - General Ears/Nose/Throat lips/teeth/gingiva Overall: benign lips 07/23/2012 None Full Exam - General Ears/Nose/Throat lips/teeth/gingiva Overall: benign gingiva 07/23/2012 None Full Exam - General Ears/Nose/Throat oral cavity/pharynx/larynx Oropharynx: erythema 07/23/2012 None Full Exam - General Respiratory auscultation Overall: breath sounds clear bilater ally 07/23/2012 None Full Exam - General Respiratory respiratory effort/rhythm Overall: no retractions 07/23/2012 None Full Exam - General Respiratory respiratory effort/rhythm Overall: normal rate 07/23/2012 None Full Exam - General Cardiovascular auscultation of heart Overall: regular rate 07/23/2012 None Full Exam - General Cardiovascular auscultation of heart Overall: normal heart sounds 07/23/2012 None Full Exam - General Lymphatic neck nodes Overall: anterior cervical chain denita ign 07/23/2012 None Full Exam - General Lymphatic neck nodes Overall: posterior cervical chain be nign 07/23/2012 None Full Exam - General Psychiatric orientation/consciousness Overall: oriented to person, place and time 07/23/2012 None Full Exam - General Constitutional general appearance Overall: well nourished 07/17/2012 None Full Exam - General Constitutional general appearance Overall: well developed 07/17/2012 None Full Exam - General Constitutional general appearance Overall: in no acute distress 07/17/2012 None Full Exam - General Neurologic mental status Overall: alert 3 None Full Exam - General Neurologic mental status Overall: oriented 07/17/2012 None Full Exam - General Psychiatric mood and affect Overall: normal mood and affect 07/17/2012 None Full Exam - General Respiratory auscultation Overall: breath sounds clear bilater ally 07/17/2012 None Full Exam - General Cardiovascular auscultation of heart Overall: regular rate 07/17/2012 None Full Exam - General Cardiovascular auscultation of heart Overall: normal heart sounds 07/17/2012 None Full Exam - General Cardiovascular auscultation of heart S3 (ventricular gallop): present 07/17/2012 None Full Exam - General Constitutional general appearance Overall: well nourished 10/30/2011 None Full Exam - General Constitutional general appearance Overall: well developed 10/30/2011 None Full Exam - General Constitutional general appearance Overall: in no acute distress 10/30/2011 None Full Exam - General Ears/Nose/Throat otoscopic exam Overall: external auditory canals clear 10/30/2011 None Full Exam - General Ears/Nose/Throat otoscopic exam Overall: tympanic membranes clear 10/30/2011 None Full Exam - General Ears/Nose/Throat lips/teeth/gingiva Overall: benign lips 10/30/2011 None Full Exam - General Ears/Nose/Throat lips/teeth/gingiva Overall: normal dentition 10/30/2011 None Full Exam - General Ears/Nose/Throat lips/teeth/gingiva Overall: benign gingiva 10/30/2011 None Full Exam - General Ears/Nose/Throat oral cavity/pharynx/larynx Oropharynx: erythema 10/30/2011 very mild Full Exam - General Respiratory auscultation Overall: breath sounds clear bilater ally 10/30/2011 None Full Exam - General Respiratory respiratory effort/rhythm Overall: no retractions 10/30/2011 None Full Exam - General Respiratory respiratory effort/rhythm Overall: normal rate 10/30/2011 frequent cough Full Exam - General Cardiovascular auscultation of heart Overall: regular rate 10/30/2011 None Full Exam - General Cardiovascular auscultation of heart Overall: normal heart sounds 10/30/2011 None Full Exam - General Lymphatic neck nodes Overall: anterior cervical chain denita ign 10/30/2011 None Full Exam - General Lymphatic neck nodes Overall: posterior cervical chain be nign 10/30/2011 None Full Exam - General Psychiatric orientation/consciousness Overall: oriented to person, place and time 10/30/2011 None Full Exam - General Constitutional general appearance Overall: well developed 08/03/2011 None Full Exam - General Constitutional general appearance Overall: well nourished 08/03/2011 None Full Exam - General Neurologic mental status Overall: alert 2 None Full Exam - General Neurologic mental status Overall: oriented 08/03/2011 None Full Exam - General Psychiatric mood and affect Overall: normal mood and affect 08/03/2011 None Full Exam - General Respiratory auscultation Right upper lung field: a normal exa m 08/03/2011 None Full Exam - General Respiratory auscultation Right middle lung field: a normal ex am 08/03/2011 None Full Exam - General Respiratory auscultation Right lower lung field: a normal exa m 08/03/2011 None Full Exam - General Respiratory auscultation Left lower lung field: a normal exam 08/03/2011 None Full Exam - General Respiratory auscultation Overall: breath sounds clear bilater ally 08/03/2011 None Full Exam - General Respiratory auscultation Left upper lung field: a normal exam 08/03/2011 None Full Exam - General Respiratory auscultation Diffuse: a normal exam 08/03/2011 None Full Exam - General Cardiovascular auscultation of heart Overall: no murmurs 08/03/2011 None Full Exam - General Cardiovascular auscultation of heart Overall: regular rate 08/03/2011 None Full Exam - General Cardiovascular auscultation of heart Overall: normal heart sounds 08/03/2011 None Full Exam - General Constitutional general appearance Overall: in no acute distress 08/03/2011 None Full Exam - General Cardiovascular auscultation of heart S1: a normal exam 08/03/2011 None Full Exam - General Cardiovascular auscultation of heart S2: a normal exam 08/03/2011 None Full Exam - General Cardiovascular auscultation of heart Rhythm: regular rhythm 08/03/2011 None Full Exam - General Cardiovascular auscultation of heart Rate: regular rate 08/03/2011 None Full Exam - General Neck inspection of neck Overall: normal size 08/03/2011 None Full Exam - General Neck inspection of neck Overall: no masses 08/03/2011 None Full Exam - General Abdomen abdominal exam Overall: no masses 08/03/2011 None Full Exam - General Abdomen abdominal exam Overall: no tenderness 08/03/2011 None Full Exam - General Abdomen abdominal exam Overall: normal bowel sounds 08/03/2011 None Full Exam - General Abdomen abdominal exam Overall: soft 08/03/2011 None Full Exam - General Musculoskeletal spine, ribs and pelvis Spine: tender @ cervical spine 08/03/2011 None Full Exam - General Musculoskeletal spine, ribs and pelvis Spine: tender @ thoracic spine 08/03/2011 None Full Exam - General Ears/Nose/Throat otoscopic exam Overall: external auditory canals clear 08/03/2011 None Full Exam - General Ears/Nose/Throat otoscopic exam Overall: tympanic membranes clear 08/03/2011 None Full Exam - General Ears/Nose/Throat internal nose Overall: bilateral nasal cavities clear 08/03/2011 None Full Exam - General Ears/Nose/Throat oral cavity/pharynx/larynx Overall: oral mucosa clear 08/03/2011 None Procedures Procedure Codes Date URINALYSIS NONAUTO W /O SCOPE CPT-4: 50077 06/21/2018 URINE TEST CPT-4: 25803 06/21/2018 URINE CULTURE/ COLON Y COUNT CPT-4: 24062 06/21/2018 SPECIMEN HANDLING OF FICE-LAB CPT-4: 01987 07/05/2017 DRAIN/INJECT JOINT/B URSA CPT-4: 56728 03/17/2016 URINALYSIS NONAUTO W /O SCOPE CPT-4: 58099 12/20/2015 URINE CULTURE/ COLON Y COUNT CPT-4: 04994 12/20/2015 URINALYSIS NONAUTO W /O SCOPE CPT-4: 43349 08/04/2015 URINE CULTURE/ COLON Y COUNT CPT-4: 37557 08/04/2015 ROUTINE VENIPUNCTURE CPT-4: 77210 01/05/2014 ASSAY OF FREE THYROXINE CPT-4: 36029 01/05/2014 ASSAY THYROID STIM H ORMONE CPT-4: 75678 01/05/2014 COMPREHEN METABOLIC PANEL CPT-4: 53468 01/05/2014 COMPLETE CBC W/AUTO DIFF WBC CPT-4: 81464 01/05/2014 LIPID PANEL CPT-4: 64394 01/05/2014 CEFTRIAXONE SODIUM I NJECTION CPT-4: J0696 07/23/2012 THER/PROPH/DIAG INJ SC/IM CPT-4: 75148 07/23/2012 Vital Signs Date Vital 03/25/2019 Blood Pressure 1: 104/62 Code: 8480-6 Heart Rate 1: 72 bpm Respiratory Rate: 18 bpm SpO2: 97% Temperature: 36.9 (C ) / 98.5 (F) Weight: 134 lbs 07/24/2018 Blood Pressure 1: 122/80 Code: 8480-6 BMI: 21.3 Code: 56307-7 Heart Rate 1: 76 bpm Height: 5'7" Respiratory Rate: 20 bpm Temperature: 36.9 (C ) / 98.4 (F) Weight: 136 lbs 06/21/2018 Blood Pressure 1: 100/78 Code: 8480-6 Heart Rate 1: 82 bpm Respiratory Rate: 18 bpm SpO2: 100% Temperature: 36.7 (C ) / 98.0 (F) Weight: 130 lbs 07/05/2017 Blood Pressure 1: 94/58 Code: 8480-6 BMI: 20.4 Code: 66876-0 Heart Rate 1: 72 bpm Height: 5'7" SpO2: 96% Temperature: 37.2 (C ) / 99.0 (F) Weight: 130 lbs 05/15/2017 Blood Pressure 1: 104/64 Code: 8480-6 BMI: 20.8 Code: 85433-6 Heart Rate 1: 80 bpm Height: 5'7" Respiratory Rate: 20 bpm Temperature: 36.7 (C ) / 98.1 (F) Weight: 133 lbs 04/27/2016 Blood Pressure 1: 112/70 Code: 8480-6 BMI: 20.8 Code: 70562-4 Heart Rate 1: 80 bpm Height: 5'7" Respiratory Rate: 20 bpm Temperature: 37.2 (C ) / 99.0 (F) Weight: 133 lbs 03/17/2016 Blood Pressure 1: 122/76 Code: 8480-6 Heart Rate 1: 80 bpm 07/13/2015 Blood Pressure 1: 98/60 Code: 8480-6 BMI: 20.5 Code: 53889-3 Heart Rate 1: 76 bpm Height: 5'7" Respiratory Rate: 20 bpm Temperature: 36.9 (C ) / 98.4 (F) Weight: 131 lbs 10/30/2014 Blood Pressure 1: 124/80 Code: 8480-6 BMI: 19.4 Code: 84229-0 Heart Rate 1: 94 bpm Height: 5'7" Respiratory Rate: 24 bpm SpO2: 98% Temperature: 36.6 (C ) / 97.8 (F) Weight: 124 lbs 01/05/2014 Blood Pressure 1: 98/68 Code: 8480-6 BMI: 19.3 Code: 22536-6 Heart Rate 1: 76 bpm Height: 5'7" Respiratory Rate: 20 bpm Temperature: 36.8 (C ) / 98.2 (F) Weight: 123 lbs 11/26/2013 Blood Pressure 1: 104/64 Code: 8480-6 BMI: 20.4 Code: 52017-2 Heart Rate 1: 84 bpm Height: 5'7" Respiratory Rate: 18 bpm Temperature: 36.7 (C ) / 98.0 (F) Weight: 130 lbs 06/10/2013 Blood Pressure 1: 132/90 Code: 8480-6 BMI: 19.4 Code: 23177-7 Heart Rate 1: 80 bpm Height: 5'7" Respiratory Rate: 20 bpm Temperature: 36.6 (C ) / 97.8 (F) Weight: 124 lbs 02/19/2013 Blood Pressure 1: 114/80 Code: 8480-6 BMI: 19.7 Code: 58298-1 Heart Rate 1: 84 bpm Height: 5'7" Respiratory Rate: 20 bpm Temperature: 36.9 (C ) / 98.5 (F) Weight: 126 lbs 07/23/2012 Blood Pressure 1: 106/64 Code: 8480-6 BMI: 20.8 Code: 13088-8 Heart Rate 1: 60 bpm Height: 5'7" Temperature: 37.8 (C ) / 100.0 (F) Weight: 133 lbs 07/17/2012 Blood Pressure 1: 162/110 Code: 8480-6 BMI: 21.0 Code: 88695-8 Heart Rate 1: 92 bpm Height: 5'7" Respiratory Rate: 20 bpm Temperature: 36.8 (C ) / 98.2 (F) Weight: 134 lbs 10/30/2011 Blood Pressure 1: 138/80 Code: 8480-6 BMI: 21.0 Code: 96486-0 Heart Rate 1: 84 bpm Height: 5'7" Temperature: 37.1 (C ) / 98.7 (F) Weight: 134 lbs 08/03/2011 Blood Pressure 1: 114/72 Code: 8480-6 BMI: 21.0 Code: 16688-8 Heart Rate 1: 64 bpm Height: 5'7" Respiratory Rate: 20 bpm Temperature: 36.9 (C ) / 98.4 (F) Weight: 134 lbs Functional Status No Functional Status data History of Present Illness Symptom Name Status Resu lt Effective Date Notes Location on the right 03/25/2019 None Quality chronic. 03/25/2019 Dr Nuñez is removing bunion on 04/07/19 a nd needed medical clearance Quality chronic 03/25/2019 None Quality stable 03/25/2019 None Location in the area mechanic ior area 07/24/2018 None Quality chronic 07/24/2018 None Quality discomfort 07/24/2018 None Location on both sides 07/24/2018 None Onset of Symptom 2 wee ks ago 07/24/2018 None Onset of Symptom 1 mon ths ago 07/24/2018 None Location in the right thumb 07/24/2018 None fatigue Onset of Symptom 2 months ago 06/21/2018 None well woman exam (40-65 years) Pap Smear 3 years ago 07/05/[address] Dorantes. 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 07/05/2017 Refill maxalt chest tightness Location in the substernal area 07/05/2017 None chest tightness Quality dull 07/05/2017 None chest tightness Onset and Resolution ongoing. 07/05/2017 Patient recently treated for bronchitis and given antibiotics/symbicort sinus pain Location diff usely 07/05/2017 None sinus pain Quality press ure 07/05/2017 None sinus pain Onset and Resolution ongoing 07/05/2017 None cough Location in the th roat 07/05/2017 None cough Quality acute 07/05/2017 None cough Quality hacking 07/05/2017 None cough Quality productive 07/05/2017 None cough Onset and Resolution ongoing 07/05/2017 None cough Onset of Symptom _ weeks ago 07/05/2017 None shortness of breath Quality acute 07/05/2017 None shortness of breath Quality breathlessness 07/05/2017 None shortness of breath Quality chest tightness 07/05/2017 None shortness of breath Quality fatigued respiratory muscles 07/05/2017 None shortness of breath Quality labored breathing 07/05/2017 None shortness of breath Onset and Resolution ongoing 07/05/2017 None sinusitis Location diffu sely 07/05/2017 None sinusitis Quality acute 07/05/2017 None sinusitis Quality clear 07/05/2017 None sinusitis Quality fullne ss 07/05/2017 None sinusitis Quality pain 07/05/2017 None sinusitis Onset and Resolution ongoing 07/05/2017 None wheezing Location diffus whit 07/05/2017 None wheezing Quality acute 07/05/2017 None wheezing Quality expirat ory only 07/05/2017 None wheezing Onset and Resolution ongoing 07/05/2017 None neck pain Location in th e posterior area 05/15/2017 None neck pain Quality aching 05/15/2017 None neck pain Quality recurr ent 05/15/2017 None neck pain Quality stiffn ess 05/15/2017 None neck pain Onset and Resolution ongoing 05/15/2017 None headache Location in the posterior area 05/15/2017 None headache Quality tension 05/15/2017 None headache Quality sharp 05/15/2017 None headache Quality worseni ng 05/15/2017 None pain, limb Location on t he right arm 04/27/2016 None pain, limb Onset and Resolution ongoing 04/27/2016 None pain, limb Quality aching 04/27/2016 None pain, limb Quality dull 04/27/2016 None pain, limb Quality sharp 04/27/2016 None elbow pain Location on t he right 04/27/2016 None elbow pain Quality const ant 04/27/2016 None elbow pain Quality worse bud 04/27/2016 None elbow pain Location on t he right 03/17/2016 None elbow pain Quality aching 03/17/2016 None elbow pain Quality throb villa 03/17/2016 None elbow pain Onset and Resolution ongoing. 03/17/2016 Patient requests elbow keith int injection dysuria Quality burning 12/20/2015 None flank pain Location on b oth sides 08/04/2015 None flank pain Radiating the back 08/04/2015 None flank pain Quality acute 08/04/2015 None flank pain Quality aching 08/04/2015 None flank pain Onset and Resolution ongoing 08/04/2015 None well woman exam (40-65 years) Pap Smear 1 years ago. 07/13/2015 Has had history of dysplasia with Dr Dorantes neck pain Quality chronic 07/13/2015 Had cervical fusion C3-C6 a few years ag o. Seems to be having increasing problems with ROM hypertension Quality sta ble. 07/13/2015 Currently taking lisinopr il 10mg 1/2 tablet daily neck pain Quality worsen ing 07/13/2015 None cough Location in the th roat 10/30/2014 None cough Quality acute 10/30/2014 None cough Quality productive 10/30/2014 None cough Onset of Symptom 2 days ago 10/30/2014 None sinus congestion Location on both sides 10/30/2014 None sinus congestion Quality acute 10/30/2014 None sinus congestion Quality fullness 10/30/2014 None sinus congestion Quality pain 10/30/2014 None sinus congestion Quality pressure 10/30/2014 None sinus congestion Onset of Symptom 2 days ago 10/30/2014 None sore throat Location dif fusely 10/30/2014 None sore throat Quality achi ng 10/30/2014 None sore throat Onset of Symptom 2 days ago 10/30/2014 None chest congestion Quality acute 10/30/2014 None chest congestion Onset of Symptom 2 days ago 10/30/2014 None wheezing Location diffus whit 10/30/2014 None wheezing Quality acute 10/30/2014 None wheezing Quality expirat ory only 10/30/2014 None wheezing Onset of Symptom 2 days ago 10/30/2014 None sore throat Location dif fusely 11/26/2013 None sore throat Quality achi ng 11/26/2013 None sore throat Quality scra tchy 11/26/2013 None sore throat Onset of Symptom 6 days ago 11/26/2013 None chest congestion Quality acute 11/26/2013 None chest congestion Quality painful 11/26/2013 None chest congestion Onset of Symptom 6 days ago 11/26/2013 None cough Location in the th roat 11/26/2013 None cough Quality acute 11/26/2013 None cough Quality dry 11/26/2013 None cough Onset of Symptom 6 days ago 11/26/2013 None sinus congestion Location on both sides 06/10/2013 None sinus congestion Onset of Symptom 4 days ago 06/10/2013 None hypertension Quality sta ble 06/10/2013 None hypertension Onset and Resolution ongoing 06/10/2013 None hypertension Onset of Symptom during adulthood 06/10/2013 None dysuria Quality acute 02/19/2013 None low blood pressure Onset and Resolution ongoing 02/19/2013 None otalgia Location on the left 07/23/2012 None otalgia Quality constant 07/23/2012 None otalgia Quality throbbing 07/23/2012 None otalgia Onset and Resolution sudden in onset 07/23/2012 None otalgia Onset of Symptom 4 days ago 07/23/2012 None otalgia Severity moderate 07/23/2012 None otalgia Frequency of Episodes increasing 07/23/2012 None hypertension Onset and Resolution ongoing the last year 07/17/2012 None hypertension Blood Pressure Values running 160-180/90-110's 07/17/2012 None cough Location in the steve ng 07/17/2012 None cough Quality improving 07/17/2012 None cough Location in the th roat 10/30/2011 None cough Quality constant 10/30/2011 None cough Onset and Resolution sudden in onset 10/30/2011 None cough Onset of Symptom 5 days ago 10/30/2011 None sore throat Location on both sides 10/30/2011 None sore throat Quality sharp 10/30/2011 None sore throat Quality achi ng 10/30/2011 None sore throat Onset and Resolution sudden in onset 10/30/2011 None sore throat Onset of Symptom 5 days ago 10/30/2011 None chest congestion Quality constant 10/30/2011 None chest congestion Quality painful 10/30/2011 None chest congestion Quality thick secretions 10/30/2011 None chest congestion Onset and Resolution sudden in onset 10/30/2011 None chest congestion Onset of Symptom 5 days ago 10/30/2011 None seizure Quality stable 08/03/2011 None neck pain Quality worsen ing 08/03/2011 has been told by quentin collazo needs fusion, but has been doing epidurals and trying to put off surgery pain, limb Location on t he right arm 08/03/2011 chronic pain, limb Location on t he left arm 08/03/2011 now starting on left arm Advance Directives No Advance Directive data Encounters Encounter Performer Loca tion Codes Date ([id number]) OFFICE/OUTPA TIENT VISIT EST Diagnosis: Hallux valgus (acquired), right foot[ICD10: M20.11] Diagnosis: Encounter for other preprocedural examination[ICD10: Z01.818] Shaye MATHUR MiguelWang CHAZ Trippin In CPT-4: 71376 03/25/2019 ([id number]) OFFICE/OUTPA TIENT VISIT EST Diagnosis: Radial styloid tenosynovitis [de Quervain][ICD10: M65.4] Shaye MATHUR MiguelWang PRADIPLAZAROHARRY Trippin In CPT-4: 95748 07/24/2018 ([id number]) OFFICE/OUTPA TIENT VISIT EST Diagnosis: Other fatigue[ICD10: R53.83] Diagnosis: Anemia, unspecified[ICD10: D64.9] Mara Echevarria SHAYE MiguelWang CINDY MCDONALD Trippin In CPT-4: 60221 06/21/2018 ([id number]) PREV VISIT E ST AGE 40-64 Diagnosis: Mild intermittent asthma with (acute) exacerbation[ICD10: J45.21] Diagnosis: Encounter for general adult medical examination without abnormal findings[ICD10: Z00.00] Diagnosis: Encounter for gynecological examination (general) (routine) without abnormal findings[ICD10: Z01.419] Shaye Pradiplazaroharry SHAYE MiguelWang CHAZ Trippin In CPT-4: 25792 07/05/2017 ([id number]) OFFICE/OUTPA TIENT VISIT EST Diagnosis: Essential (primary) hypertension[ICD10: I10] Diagnosis: Other cervical disc degeneration, unspecified cervical region[ICD10: M50.30] Diagnosis: Tension-type headache, unspecified, not intractable[ICD10: G44.209] Shaye MATHUR MiguelWang CHAZ Trippin In CPT-4: 36435 05/15/2017 ([id number]) OFFICE/OUTPA TIENT VISIT EST Diagnosis: Lateral epicondylitis, right elbow[ICD10: M77.11] Shaye MANCINI DO [facility] CPT-4: 58600 04/27/2016 ([id number]) OFFICE/OUTPA TIENT VISIT EST Diagnosis: Hematuria, unspecified[ICD10: R31.9] Shaye MANCINI DO [facility] CPT-4: 40597 08/04/2015 ([id number]) PREV VISIT E ST AGE 40-64 Diagnosis: Encounter for general adult medical examination without abnormal findings[ICD10: Z00.00] Diagnosis: Essential (primary) hypertension[ICD10: I10] Diagnosis: Other cervical disc degeneration, unspecified cervical region[ICD10: M50.30] 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] Shaye ALVARADO DO [facility] CPT-4: 81718 07/13/2015 ([id number]) OFFICE/OUTPA TIENT VISIT EST Diagnosis: COUGH[ICD9: 786.2] Sarika ALVARADO DO [facility] CPT-4: 70300 10/30/2014 ([id number]) PREV VISIT E ST AGE 40-64 Diagnosis: ROUTINE MEDICAL EXAM[ICD9: V70.0] Diagnosis: HYPERTENSION[ICD9: 401.9] Diagnosis: Seizure[ICD9: 780.39] Shaye ALVARADO DO [facility] CPT-4: 73491 01/05/2014 OFFICE/OUTPATIENT SIT EST Diagnosis: URI, ACUTE[ICD9: 465.9] Sarika ALVARADO DO [facility] CPT-4: 40702 11/26/2013 ([id number]) OFFICE/OUTPA TIENT VISIT EST Diagnosis: HYPERTENSION[ICD9: 401.9] Diagnosis: SINUSITIS, ACUTE[ICD9: 461.9] Diagnosis: CONVULSIONS[ICD9: 780.39] Shaye ALVARADO DO [facility] CPT-4: 55038 06/10/2013 OFFICE/OUTPATIENT SIT EST Diagnosis: Pyelonephritis[ICD9: 590.80] Diagnosis: HYPERTENSION[ICD9: 401.9] Shaye ALVARADO [facility] CPT-4: 33242 02/19/2013 OFFICE/OUTPATIENT SIT EST Diagnosis: OTITIS MEDIA NOS[ICD9: 382.9] Diagnosis: COUGH[ICD9: 786.2] Diagnosis: SINUSITIS, ACUTE[ICD9: 461.9] Shaye ALVARADO [employer] [facility] CPT-4: 28960 07/23/2012 ([id number]) OFFICE/OUTPA TIENT VISIT EST Diagnosis: HYPERTENSION[ICD9: 401.9] Diagnosis: CONVULSIONS[ICD9: 780.39] Shaye ALVARADO [employer] [facility] CPT-4: 64953 07/17/2012 OFFICE/OUTPATIENT SIT EST Diagnosis: COUGH[ICD9: 786.2] Diagnosis: PHARYNGITIS, ACUTE[ICD9: 462] Shayekaylah ALVARADO Trippin In CPT-4: 61154 10/30/2011 OFFICE/OUTPATIENT SIT NEW Diagnosis: CERVICAL DISC DEGEN[ICD9: 722.4] Diagnosis: Neck pain[ICD9: 723.1] Diagnosis: Radiculopathy of arm[ICD9: 723.4] Diagnosis: Seizure[ICD9: 780.39] Shaye ALVARADO [employer] [facility] CPT-4: 33948 08/03/2011 Plan of Care Planned Activity Notes C odes Status Date Visit Diagnosis Plan: Hallux valgus (acquired), right foot Discussion: Update lab for upcoming surgery Okay to proceed with planned surgery by Dr. Nuñez ICD-9 : 735.0 ICD-10 : M20.11 03/25/2019 Visit Diagnosis Plan: Radial styloid ten osynovitis [de Quervain] Discussion: Spica thumb wrist splint Med rol Dose Pack followed by mobic Notify if worsens or persists ICD-9 : 727.04 ICD-10 : M65.4 07/24/2018 Appointment: Shaye [facility]varado [facility] [phone] [id number] [facility] 07/24/2018 Patient Education: Medrol (Francisco)- Opt[employer] Coupon [phone] [email or web address] Completed 07/24/2018 Visit Diagnosis Plan: Other fatigue Discussion: urine test neg. when urine was tested, noted dark, cloudy urine and dipstick was obtained. showed protein and blood in urine so will send off for urine culture. multiple labs ordered [place] [facility]. cbc, cmp, tsh, t4, tt3, b12, iron, ferritin obtained. will review labs and culture and order additional meds/labs as needed. ICD-9 : 780.79 ICD-10 : R53.83 06/21/2018 Appointment: Mara Echevarria [address] [place] [address] ACUTE ILLNESS 06/21/2018 Appointment: Shaye Alvarado WPtel: [address] [place] [address] Scheduled in ERROR 06/10/2018 Visit Diagnosis Plan: Encounter for gyne cological examination (general) (routine) without abnormal findings Discussion: Pap done Mammogram ordered ICD-9 : V72.31 ICD-10 : Z01.419 07/05/2017 Visit Diagnosis Plan: Mild intermittent asthma with (acute) exacerbation Discussion: Breo 100mcg 1 p daily for 2 weeks Incruse 1 p daily for 1 week Use proair prn Notify if worsening or persists ICD-9 : 466.0 ICD-10 : J45.21 07/05/2017 Appointment: Shaye Alvarado WPtel: [address] [place] [address] PAP 07/05/2017 Patient Education: Patient Medication Summary Completed 07/05/2017 Care Plan: MAMMOGRAM SCREENING LOINC : 63101-5 Pending 07/05/2017 Patient Education: Patient Medication Summary Completed 05/23/2017 Care Plan: ASSAY OF IRON Pending 05/23/2017 Care Plan: VITAMIN B-12 Pending 05/23/2017 Visit Diagnosis Plan: Essential (primary) hypertension Discussion: Stable Update lab ICD-9 : 401.9 ICD-10 : I10 05/15/2017 Visit Diagnosis Plan: Other cervical dis c degeneration, unspecified cervical region Discussion: Daily neck stretches Flexeri l and diclofenac to use prn Discussed routine massage ICD-9 : 722.4 ICD-10 : M50.30 05/15/2017 Appointment: Shaye Alvarado WPtel: [address] [place] [address] ACUTE ILLNESS 05/15/2017 Patient Education: Patient Medication Summary Completed 05/15/2017 Referral: Armin Arzate WPtel: [facility] [address], [id number] Referral Appointment Confirmed 05/10/2016 Visit Plan: Medrol Dose Pack then s tart mobic Continue brace See Dr. Arzate Discussed iontophoresis May need surgery as has tried all conservative measures at this point 04/27/2016 Appointment: Shaye Alvarado WPtel: [address] [place] [address] 04/26 lm~sl...confirmed-sp FOLLOW UP 04/27/2016 Patient Education: Patient Medication Summary Completed 04/27/2016 Care Plan: Referral Order SNOMED-CT : [id number] Pending 04/27/2016 Visit Plan: Injection as above Tenn is elbow strap Vivlodex 10mg daily Notify if worsens or persists 03/17/2016 Appointment: Shaye Alvarado WPtel: [address] [place] [address] OFFICE SURGERY 03/17/2016 Patient Education: Patient Medication Summary Completed 03/17/2016 Appointment: Yolis Membreno [address] [place] [address] 12/19- patient misunderstood why appoint ent was scheduled. CANCELED 12/21/2015 Appointment: Shaye Alvarado WPtel: [address] [place] [address] ACUTE ILLNESS 12/20/2015 Patient Education: Patient Medication Summary Completed 12/20/2015 Appointment: Shaye Alvarado WPtel: [address] [place] [address] UA 08/04/2015 Patient Education: Patient Medication Summary Completed 08/04/2015 Visit Plan: Updated MRI of cervical spine Decrease lisinopril to 2.5mg daily Update lab Add cyclobenzaprine at 10mg q HS 07/13/2015 Appointment: Shaye Alvarado WPtel: [address] [place] [address] 07/12/15 appt confirmed cn Annual Well Visit 07/13/2015 Patient Education: Patient Medication Summary Completed 07/13/2015 Patient Education: [facility] - Saving [employer] - Lisinopril - 18-64 - Dynamic Portal ID Completed 07/13/2015 Patient Education: Neck Pain Completed 07/13/2015 Visit Plan: Take albuterol inhaler BID to TID Prednisone 20mg po BID x 5 days Tessalon 100mg po TID PRN benadryl PRN flonase OTC 2 sprays qHS notify if no improvement or worsening of symptoms 10/30/2014 Appointment: Sarika Diallo WPtel: [address] [place] [address] ACUTE ILLNESS 10/30/2014 Patient Education: Patient Medication Summary Completed 10/30/2014 Visit Plan: Fasting lab drawn Decre ase lisinopril to 5mg daily and observe BP 01/05/2014 Visit Plan: Fasting lab drawn inclu ding tegretol level Decrease lisinopril to 5mg daily and observe BP 01/05/2014 Appointment: Shaye Alvarado WPtel: [address] [place] [address] 01/02 Annual Well Visit 01/05/2014 Patient Education: Patient Medication Summary Completed 01/05/2014 Visit Plan: Start mucinex, november cont inue delsym and benadryl Albuterol inh every 4 hours as needed Doxy 100mg BID x 10 days Follow up for worsening symptoms 11/26/2013 Appointment: Sarika Diallo WPtel: [address] [place] [address] ACUTE ILLNESS 11/26/2013 Patient Education: Patient Medication Summary Completed 11/26/2013 Visit Plan: Saline nasal flushes pr n. Tylenol/Motrin prn headache. Notify if persists/symptoms worsening. Decrease Lisinopril to 10mg daily 06/10/2013 Appointment: Shaye Alvarado WPtel: [address] [place] [address] 06/09 FOLLOW UP 06/10/2013 Patient Education: Patient Medication Summary Completed 06/10/2013 Visit Plan: Finish abx and observe Stay off lisinopril and observe 02/19/2013 Appointment: Shaye Alvarado WPtel: [address] [place] [address] Hospital Follow Up 02/19/2013 Patient Education: Patient Medication Summary Completed 02/19/2013 Visit Plan: rocephin IM and Cefdini r. Will notify if no improvement. Tylenol #3 #20 dispensed. Pt. has made contact with Dr. Frias's office and has follow up appnt. Pt. will notify if fever continues into tomorr ow. 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 Discussed that could be walking pneumonia. Encouraged fluids and rest. Pt. will notify if symptoms persist or worsen. Note for work. 2-3 days. 10/30/2011 Appointment: Penelope Golden WPtel: [address] [place] [address] ACUTE ILLNESS 10/30/2011 Patient Education: Patient Medication Summary Completed 10/30/2011 Visit Plan: Proceed with Cervical S pine MRI Percocet 5/500 1 po q HS prn pain--#30 Tramadol 50mg 1-2 po BID prn pain--#60 See Ortho for surgical opinion 08/03/2011 Appointment: Shaye Alvarado WPtel: [phone] [id number] NEW PATIENT 08/03/2011 Patient Education: Patient Medication Summary Completed 08/03/2011 Referral: Armin Arzate WPtel: [facility] [place] [address] [place] [address], [id number] Referral Appointment Requested Instructions Comment . rocephin IM and Ce fdinir. Will notify if no improvement. Tylenol #3 #20 dispensed. Pt. has made contact with Dr. Frias's office and has follow up appnt. Pt. will notify if fever continues into tomorrow. . Updated MRI of cer vical spine Decrease lisinopril to 2.5mg daily Update lab Add cyclobenzaprine at 10mg q HS . Injection as above Tennis elbow strap Vivlodex 10mg daily Notify if worsens or persists . Check fasting lab Start Lisinopril Moniter BP . Proceed with Cervi mike Spine MRI Percocet 5/500 1 po q HS prn pain--#30 Tramadol 50mg 1-2 po BID prn pain--#60 See Ortho for surgical opinion . Take albuterol inh aler BID to TID Prednisone 20mg po BID x 5 days Tessalon 100mg po TID PRN benadryl PRN flonase OTC 2 sprays qHS notify if no improvement or worsening of symptoms . Fasting lab drawn Decrease lisinopril to 5mg daily and observe BP . Fasting lab drawn including tegretol level Decrease lisinopril to 5mg daily and observe BP . Finish abx and obs erve Stay off lisinopril and observe . Medrol Dose Pack t hen start mobic Continue brace See Dr. Arzate Discussed iontophoresis May need surgery as has tried all conservative measures at this point . Saline nasal flush es prn. Tylenol/Motrin prn headache. Notify if persists/symptoms worsening. Decrease Lisinopril to 10mg daily . Start mucinex, may continue delsym and benadryl Albuterol inh every 4 hours as needed Doxy 100mg BID x 10 days Follow up for worsening symptoms . doxycycline and me drol dose pack. Discussed that could be walking pneumonia. Encouraged fluids and rest. Pt. will notify if symptoms persist or worsen. Note for work. 2-3 days.
--- OUTSIDE RECORDS SUMMARY | 2020-01-09 09:39 | XMS REPORT ---
Author Author Chiquita Borja [facility] Address [address] [place] [address] Care Team Providers Care [employer] Equipment Tender Name Role Phone DINA Borja Unavailable PROBLEMS Unknown Problems ALLERGIES No Information ENCOUNTERS Encounter Location Date Diagnosis [facility] [address] [id number] [address] [place] [phone] Oct, [facility] [address] [id number] [address] [place] [phone] Oct, [facility] [address] [id number] [address] [place] [phone] Mar, [facility] [address] [id number] [address] [place] [phone] Feb, [facility] [address] [id number] [address] [place] [phone] Feb, [facility] [address] [id number] [address] [place] [phone] Oct, [facility] [address] [id number] [address] [place] [phone] Aug, [facility] [address] [id number] [address] [place] [phone] Jul, [facility] [address] [id number] [address] [place] [phone] Jun, [facility] [address] [id number] [address] [place] [phone] Jun, [facility] [address] [id number] [address] [place] [phone] May, [facility] [address] [id number] [address] [place] [address], [place] [phone] May, [facility] [address] [id number] [address] [place] [address], [place] [address] Apr, [facility] [address] [id number] [address] [place] [address], [place] [address] Apr, [facility] [address] [id number] [address] [place] [address], [place] [address] Mar, [facility] [address] [id number] [address] [place] [address], [place] [address] Mar, [facility] [address] [id number] [address] [place] [address], [place] [address] Feb, [facility] [address] [id number] [address] [place] [address], [place] [address] Feb, [facility] [address] [id number] [address] [place] [address], [place] [address] Feb, [facility] [address] [id number] [address] [place] [address], [place] [address] Feb, [facility] [address] [id number] [address] [place] [address], [place] [address] Feb, [facility] [address] [id number] [address] [place] [address], [place] [address] Feb, [facility] [address] [id number] [address] [place] [address], [place] [address] November, [facility] [address] [id number] [address] [place] [address], [place] [address] Oct, [facility] [address] [id number] [address] [place] [address], [place] [address] Aug, [facility] [address] [id number] [address] [place] [address], [place] [address] Feb, [facility] [address] [id number] [address] [place] [address], [place] [address] Jun, [facility] [address] [facility] [id number] [address] [place] [phone] Jun, [facility] [address] [facility] [id number] [address] [place] [phone] May, [facility] [address] [facility] [id number] [address] [place] [phone] Apr, IMMUNIZATIONS No Known Immunizations SOCIAL HISTORY Never Assessed REASON FOR VISIT PLAN OF CARE VITAL SIGNS MEDICATIONS Unknown Medications RESULTS No Results PROCEDURES No Known procedures INSTRUCTIONS MEDICATIONS ADMINISTERED No Known Medications
--- OUTSIDE RECORDS SUMMARY | 2020-01-09 09:39 | XMS REPORT ---
Author Author Chiquita Borja [facility] Address [address] [place] [address] Care Team Providers Care Rfid Analyst Name Role Phone DINA Borja Unavailable PROBLEMS Unknown Problems ALLERGIES No Information ENCOUNTERS Encounter Location Date Diagnosis [facility] [address] [id number] [address] [place] [id number] Oct, [facility] [address] [id number] [address] [place] [phone] Oct, [facility] [address] [id number] [address] [place] [phone] Mar, [facility] [address] [id number] [address] [place] [phone] Feb, [facility] [address] [id number] [address] [place] [phone] Feb, [facility] [address] [id number] [address] [place] [phone] Oct, [facility] [address] [id number] [address] [place] [phone] Aug, [facility] [address] [id number] [address] [place] [phone] Jul, [facility] [address] [id number] [address] [place] [id number] Jun, [facility] [address] [id number] [address] [place] [id number] Jun, [facility] [address] [id number] [address] [place] [id number] May, [facility] [address] [id number] [address] [place] [address], [place] [id number] May, [facility] [address] [id number] [address] [place] [address], [place] [id number] Apr, [facility] [address] [id number] [address] [place] [address], [place] [id number] Apr, [facility] [address] [id number] [address] [place] [address], [place] [id number] Mar, [facility] [address] [id number] [address] [place] [address], [place] [id number] Mar, [facility] [address] [id number] [address] [place] [address], [place] [id number] Feb, [facility] [address] [id number] [address] [place] [address], [place] [id number] Feb, [facility] [address] [id number] [address] [place] [address], [place] [id number] Feb, [facility] [address] [id number] [address] [place] [address], [place] [id number] Feb, [facility] [address] [id number] [address] [place] [address], [place] [id number] Feb, [facility] [address] [id number] [address] [place] [address], [place] [id number] Feb, [facility] [address] [id number] [address] [place] [address], [place] [id number] November, [facility] [address] [id number] [address] [place] [address], [place] [id number] Oct, [facility] [address] [id number] [address] [place] [address], [place] [id number] Aug, [facility] [address] [id number] [address] [place] [address], [place] [id number] Feb, [facility] [address] [id number] [address] [place] [address], [place] [id number] Jun, [facility] [address] [facility] [id number] [address] [place] [id number] Jun, [facility] [address] [facility] [id number] [address] [place] [phone] May, [facility] [address] [facility] [id number] [address] [place] [phone] Apr, IMMUNIZATIONS No Known Immunizations SOCIAL HISTORY Never Assessed REASON FOR VISIT PLAN OF CARE VITAL SIGNS Height 66.7 in 2013-03-04 Weight 131 lbs 2013-03-04 Temperature 98 degrees Fahrenheit 2013-03-04 Heart Rate 88 bpm 2013-03-04 Respiratory Rate 22 2013-03-04 Blood pressure systolic 128 mmHg 2013-03-04 Blood pressure diastolic 98 mmHg 2013-03-04 MEDICATIONS Unknown Medications RESULTS No Results PROCEDURES No Known procedures INSTRUCTIONS MEDICATIONS ADMINISTERED No Known Medications
--- OUTSIDE RECORDS SUMMARY | 2020-01-09 09:39 | XMS REPORT | CCD ---
Author Author Chiquita Alvarado D.O. Organization SHAYE ALVARADO DO [facility] Address [address] [place] [address] Phone Care Team Providers Care Compliance Project Manager Name Role Phone Shaye Alvarado D.O., PP Unavailable CCM Unavailable Summary Purpose Interface Exchange Insurance Providers Payer name Policy type / Coverage type Covered constitution party ID Effective Begin Date Effective End Date Blue Cross Blue Shield Blue Cross/Bl ue Shield [id number] Un known Family history Father Diagnosis Age At Onset No Family Disease Entered N/A Mother Diagnosis Age At Onset No Family Disease Entered N/A Side Diagnosis Age At Onset No Family Disease Entered N/A Social History Social History Element Codes Description Effective Dates Marital status Unknown D ivorced 08/03/2011 Number of children Unknown 2 08/03/2011 Employment Unknown Curre ntly employed [employer] 08/03/[address]: 732555768 Never smoker 08/03/[address]: 099289 Currently drinks alcohol socially 08/03/2011 Allergies, Adverse [...] Codes Condition Status Onset Date Resolved Date Radial styloid tenos ynovitis [de Quervain] ICD-9: [...] Condition Codes Effectiv e Dates Condition Status Radial styloid tenos ynovitis [de Quervain] ICD-9: [...] Date Stop Date Sta tus Fill Instructions Tegretol 200 mg tablet RxNorm: 247895 TAKE ONE TABLET BY MOUTH DAILY 02/06/2019 05/06/2019 Ac tive Cymbalta 60 mg capsu le,delayed release RxNorm: 153760 TAKE ONE CAPSULE BY [facility] DAILY 02/06/2019 04/06/2019 Ac tive lisinopril 2.5 mg ta blet RxNorm: 910846 TAKE ONE TABLET BY [facility] DAILY 01/27/2019 07/25/2019 Ac tive Maxalt 10 mg tablet RxNorm: 359903 1 Tablet(s) PO AT ONSET OF HEADACHE; MAY REPEAT ONE TABLET IN 2 HOURS IF NEEDED. 11/22/2018 01/20/2019 Inactive Maxalt 10 mg tablet RxNorm: 260142 TAKE ONE TABLET BY MOUTH AT ONSET OF HEA DACHE; MAY REPEAT ONE TABLET IN 2 HOURS IF NEEDED. 11/19/2018 11/21/2018 Inactive lisinopril 2.5 mg ta blet RxNorm: 057432 TAKE ONE TABLET BY [facility] DAILY 10/14/2018 01/11/2019 In active Maxalt 10 mg tablet RxNorm: 939708 TAKE ONE TABLET BY MOUTH AT ONSET OF HEA DACHE; MAY REPEAT ONE TABLET IN 2 HOURS IF NEEDED. 09/20/2018 10/16/2018 Inactive Medrol (Francisco) 4 mg ta blets in a dose pack RxNorm: 124578 6 Tablet(s) PO QD --t hen as directed 07/24/2018 07/29/2018 Inactive Mobic 15 mg tablet RxNorm: 256523 1 Tablet(s) PO QD 07/24/2018 08/22/2018 Inactive Tegretol 200 mg tablet RxNorm: 749340 TAKE ONE TABLET BY MOUTH DAILY 07/03/2018 12/29/2018 In active Maxalt 10 mg tablet RxNorm: 376360 TAKE ONE TABLET BY MOUTH AT ONSET OF HEA DACHE; MAY REPEAT ONE TABLET IN 2 HOURS IF NEEDED. 07/03/2018 07/20/2018 Inactive Bactrim DS 800 mg-16 0 mg tablet RxNorm: 046939 1 Tablet(s) PO BID 06/24/2018 06/23/2018 Inactive Bactrim DS 800 mg-16 0 mg tablet RxNorm: 053868 1 Tablet(s) PO BID 06/24/2018 06/30/2018 Inactive Maxalt 10 mg tablet RxNorm: 186550 TAKE ONE TABLET BY MOUTH AT ONSET OF HEA DACHE; MAY REPEAT ONE TABLET IN 2 HOURS IF NEEDED. 05/09/2018 05/26/2018 Inactive Cymbalta 60 mg capsu le,delayed release RxNorm: 177427 TAKE ONE CAPSULE BY [facility] DAILY 04/09/2018 07/07/2018 Inactive lisinopril 2.5 mg ta blet RxNorm: 858357 Tablet(s) TAKE ONE TA BLET BY MOUTH DAILY 03/25/2018 09/20/2018 In active Maxalt 10 mg tablet RxNorm: 159886 TAKE ONE TABLET BY MOUTH AT ONSET OF HEA DACHE; MAY REPEAT ONE TABLET IN 2 HOURS IF NEEDED. 02/26/2018 03/24/2018 Inactive Tegretol 200 mg tablet RxNorm: 660307 TAKE ONE TABLET BY MOUTH DAILY 12/04/2017 06/01/2018 In active Maxalt 10 mg tablet RxNorm: 998506 1 Tablet(s) PO AT ONSET OF HEADACHE. MAY REPEAT IN 2 HOURS 11/12/2017 12/01/2017 Inactive lisinopril 2.5 mg ta blet RxNorm: 599806 TAKE ONE TABLET BY [facility] DAILY 08/28/2017 03/25/2018 In active Tegretol 200 mg tablet RxNorm: 340292 TAKE ONE TABLET BY MOUTH DAILY 08/28/2017 11/25/2017 In active Maxalt 10 mg tablet RxNorm: 487400 1 Tablet(s) PO AT ONSET OF HEADACHE. MAY REPEAT IN 2 HOURS 07/05/2017 11/12/2017 Inactive cyclobenzaprine 10 m g tablet RxNorm: 189702 1 Tablet(s) PO QHS as needed for muscle spasm 05/15/2017 No Stop Date Active diclofenac sodium 75 mg tablet,delayed release RxNorm: 874512 1 Tablet(s) PO BID as needed for neck pain 05/15/2017 07/13/2017 Inactive Cymbalta 60 mg capsu le,delayed release RxNorm: 508745 Capsule(s) TAKE ONE C APSULE BY MOUTH DAILY 05/07/2017 08/04/2017 Inactive Maxalt 10 mg tablet RxNorm: 619566 1 Tablet(s) PO AT ONSET OF HEADACHE. MAY REPEAT IN 2 HOURS 04/30/2017 05/09/2017 Inactive Maxalt 10 mg tablet RxNorm: 490458 1 Tablet(s) PO AT ONSET OF HEADACHE. MAY REPEAT IN 2 HOURS 02/22/2017 04/30/2017 Inactive Tegretol 200 mg tablet RxNorm: 879639 Tablet(s) TAKE ONE TABLET BY MOUTH DAILY 01/11/2017 07/09/2017 In active Maxalt 10 mg tablet RxNorm: 204252 1 Tablet(s) PO AT ONSET OF HEADACHE. MAY REPEAT IN 2 HOURS 01/11/2017 02/22/2017 Inactive Maxalt 10 mg tablet RxNorm: 320754 1 Tablet(s) PO AT ONSET OF HEADACHE. MAY REPEAT IN 2 HOURS 11/30/2016 01/11/2017 Inactive Maxalt 10 mg tablet RxNorm: 750483 TAKE ONE TABLET BY MOUTH AT ONSET OF HEA DACHE. MAY REPEAT IN 2 HOURS 07/26/2016 11/30/2016 Inactive lisinopril 2.5 mg ta blet RxNorm: 121342 TAKE ONE TABLET BY [facility] DAILY 07/24/2016 07/23/2016 In active lisinopril 2.5 mg ta blet RxNorm: 397728 TAKE ONE TABLET BY [facility] DAILY 07/24/2016 01/19/2017 In active Maxalt 10 mg tablet RxNorm: 319048 TAKE ONE TABLET BY MOUTH AT ONSET OF HEA DACHE. MAY REPEAT IN 2 HOURS 06/05/2016 06/14/2016 Inactive Tegretol 200 mg tablet RxNorm: 293008 TAKE ONE TABLET BY MOUTH DAILY 06/05/2016 01/11/2017 In active Cymbalta 60 mg capsu le,delayed release RxNorm: 956588 TAKE ONE CAPSULE BY [facility] DAILY 05/17/2016 05/07/2017 Inactive Medrol (Francisco) 4 mg ta blets in a dose pack RxNorm: 206394 6 Tablet(s) PO QD --t hen as directed 04/27/2016 05/02/2016 Inactive Mobic 15 mg tablet RxNorm: 292084 1 Tablet(s) PO QD for pain 04/27/2016 05/26/2016 Inactive Maxalt 10 mg tablet RxNorm: 728591 TAKE ONE TABLET BY MOUTH AT ONSET OF HEA DACHE. MAY REPEAT IN 2 HOURS 02/28/2016 03/25/2016 Inactive Tegretol 200 mg tablet RxNorm: 431447 TAKE ONE TABLET BY MOUTH DAILY 02/14/2016 05/13/2016 In active Maxalt 10 mg tablet RxNorm: 224849 TAKE ONE TABLET BY MOUTH AT ONSET OF HEA DACHE. MAY REPEAT IN 2 HOURS 01/10/2016 01/27/2016 Inactive lisinopril 2.5 mg ta blet RxNorm: 061024 TAKE ONE TABLET BY [facility] DAILY 01/03/2016 06/30/2016 In active Macrobid 100 mg capsule RxNorm: 164564 1 Capsule(s) PO BID 12/23/2015 12/29/2015 Inactive Macrobid 100 mg capsule RxNorm: 598187 1 Capsule(s) PO BID 12/23/2015 12/22/2015 Inactive Bactrim DS 800 mg-16 0 mg tablet RxNorm: 885060 1 Tablet(s) PO BID 12/21/2015 12/27/2015 Inactive Bactrim DS 800 mg-16 0 mg tablet RxNorm: 172037 1 Tablet(s) PO BID 12/21/2015 12/20/2015 Inactive Tegretol 200 mg tablet RxNorm: 494513 1 Tablet(s) PO QD TAKE ONE TABLET BY [facility] DAILY 10/18/2015 01/15/2016 Inactive Maxalt 10 mg tablet RxNorm: 784410 Tablet(s) TAKE ONE TABLET BY MOUTH AT ON SET OF HEADACHE. MAY REPEAT IN 2 HOURS. 10/11/2015 10/25/2015 Inactive Bactrim DS 800 mg-16 0 mg tablet RxNorm: 378254 1 Tablet(s) PO BID 08/05/2015 08/04/2015 Inactive Bactrim DS 800 mg-16 0 mg tablet RxNorm: 714009 1 Tablet(s) PO BID 08/05/2015 08/11/2015 Inactive cyclobenzaprine 10 m g tablet RxNorm: 946535 1 Tablet(s) PO QHS as needed for muscle spasm 07/13/2015 09/10/2015 Inactive lisinopril 2.5 mg ta blet RxNorm: 302467 1 Tablet(s) PO QD 07/13/2015 01/02/2016 Inactive Tegretol 200 mg tablet RxNorm: 862536 1 Tablet(s) PO QD 07/05/2015 10/18/2015 Inactive Maxalt 10 mg tablet RxNorm: 759693 Tablet(s) TAKE ONE TABLET BY MOUTH AT ON SET OF HEADACHE. MAY REPEAT IN 2 HOURS. 06/23/2015 10/11/2015 Inactive Cymbalta 60 mg capsu le,delayed release RxNorm: 580009 1 Capsule(s) PO QD 05/17/2015 05/10/2016 In active [AttnRPh: Saving apply/adjudicate RxGRP: SG20 RxBIN:[id number] RxPCN: ID#:[id number]] Maxalt 10 mg tablet RxNorm: 605647 Tablet(s) TAKE ONE TABLET BY MOUTH AT ON SET OF HEADACHE. MAY REPEAT IN 2 HOURS. 04/01/2015 04/15/2015 Inactive Tegretol 200 mg tablet RxNorm: 040969 1 Tablet(s) PO QD 03/09/2015 07/05/2015 Inactive lisinopril 10 mg tablet RxNorm: 233826 1 Tablet(s) PO QD 01/18/2015 07/12/2015 Inactive [AttnRPh: Saving apply/adjudicate RxGRP:SG20 RxBIN:[id number] RxPCN: ID#:[id number]] Tegretol 200 mg tablet RxNorm: 355097 1 Tablet(s) PO QD 12/03/2014 03/09/2015 Inactive Maxalt 10 mg tablet RxNorm: 959532 TAKE ONE TABLET BY MOUTH AT ONSET OF HEA DACHE. MAY REPEAT IN 2 HOURS. 11/18/2014 04/01/2015 Inactive benzonatate 100 mg c apsule RxNorm: 463272 1 Capsule(s) PO TID a s needed 10/30/2014 07/12/2015 In active prednisone 20 mg tablet RxNorm: 402895 1 Tablet(s) PO BID 10/30/2014 11/03/2014 Inactive Maxalt 10 mg tablet RxNorm: 505479 as needed TAKE 1 TABLET BY MOUTH AT ONSE T OF HEADACHE AND MAY REPEAT IN 2 HOURS 09/02/2014 09/13/2014 Inactive Tegretol 200 mg tablet RxNorm: 350991 1 Tablet(s) PO QD 08/17/2014 12/03/2014 Inactive Cymbalta 60 mg capsu le,delayed release RxNorm: 437746 1 Capsule(s) PO QD 06/29/2014 05/17/2015 In active [AttnRPh: Saving apply/adjudicate RxGRP: SG20 RxBIN:[id number] RxPCN: ID#:[id number]] lisinopril 10 mg tablet RxNorm: 749674 1 Tablet(s) PO QD 06/10/2014 12/06/2014 Inactive [AttnRPh: Saving apply/adjudicate RxGRP:SG20 RxBIN:[id number] RxPCN: ID#:[id number]] Maxalt 10 mg tablet RxNorm: 690105 TAKE ONE TABLET BY MOUTH AT HEADACHE ONS ET AND MAY REPEAT IN 2 HOURS IF HEADACHE REMAINS 04/20/2014 09/02/2014 Inactive albuterol sulfate HF A 90 mcg/actuation aerosol inhaler RxNorm: 6089014 2 Puff(s) INH Q4H 11/26/2013 No Stop Date Active doxycycline hyclate 100 mg tablet RxNorm: 166087 1 Tablet(s) PO BID 11/26/2013 12/05/2013 Inactive Maxalt 10 mg tablet RxNorm: 705975 Tablet(s) PO Take 1 at headache onset an d may repeat in 2 hours if headache remains 11/21/2013 04/19/2014 Inactive [QUENTIN INGS FOR UNINSURED PATIENTS -- BIN:[id number], PCN: [id number], Group: [id number], ID# [id number], Process claim through [id number], for questions: . THIS IS NOT INSURANCE.] Tegretol 200 mg tablet RxNorm: 954061 1 Tablet(s) PO QD 06/10/2013 08/17/2014 Inactive lisinopril 10 mg tablet RxNorm: 790732 1 Tablet(s) PO QD 06/10/2013 06/10/2014 Inactive Cymbalta 60 mg capsu le,delayed release RxNorm: 606314 1 Capsule(s) PO QD 06/10/2013 06/29/2014 In active lisinopril 20 mg tablet RxNorm: 140712 1 Tablet(s) PO QAM for BP 02/24/2013 06/09/2013 Inactive lisinopril 20 mg tablet RxNorm: 979934 1 Tablet(s) PO QAM for BP 09/09/2012 11/07/2012 Inactive cefdinir 300 mg capsule RxNorm: 033671 1 Capsule(s) PO BID 07/23/2012 08/01/2012 Inactive lisinopril 20 mg tablet RxNorm: 752533 1 Tablet(s) PO QAM for BP 07/17/2012 09/09/2012 Inactive doxycycline hyclate 100 mg Tab RxNorm: 946415 1 Tablet(s) PO BID 10/30/2011 11/08/2011 Inactive Mirena 20 mcg/24 hr (5 years) intrauterine device RxNorm: 384471 IU No Start Date Active Seasonique 0.15 mg-3 0 mcg (84)/10 mcg(7) Tabs,3 month dose pack RxNorm: 587753 1 Tablet(s) PO QD No Start Date 07/12/2015 Inactive Tegretol 200 mg tablet RxNorm: 854786 1 Tablet(s) PO QD No Start Date 06/09/2013 Inactive lisinopril 20 mg tablet RxNorm: 773993 1 Tablet(s) PO QD No Start Date 06/09/2013 Inactive Maxalt 10 mg tablet RxNorm: 306575 Tablet(s) PO Take 1 at headache onset an d may repeat in 2 hours if headache remains No Start Date 11/20/2013 Inactive Cymbalta 60 mg capsu le,delayed release RxNorm: 687432 1 Capsule(s) PO QD No Start Date 06/09/2013 Inactive Medrol (Francisco) 4 mg Ta bs in a Dose Pack RxNorm: 181763 Tablet(s) PO as direc humaira No Start Date 07/16/2012 Inactive Medication Administered No Medication Administered data Immunizations No Immunization data Assessments Condition Codes Effectiv e Dates Radial styloid tenosynovitis [de Quervain] ICD-10: M65.4 [...] Visit Reason For Visit Effective Dates Notes neck pain 07/24/2018 fatigue 06/21/2018 well woman [...] blood pressure 07/17/2012 cough 10/30/2011 ~generic 08/03/2011 Esta blishing Visit Results Observation Observation Code Item Item Code Result Date TEGRETOL 0875637 TEGRETOL 5.2 MG/L 01/07/2014 COMPREHENSIVE METABOLIC 41073 AST 16 U/L 01/05/2014 COMPREHENSIVE METABOLIC 59979 ALT 10 IU/L 01/05/2014 COMPREHENSIVE METABOLIC 59847 BUN 17 MG/DL 01/05/2014 COMPREHENSIVE METABOLIC 56827 ALBUMIN 4.3 GM/DL 01/05/2014 COMPREHENSIVE METABOLIC 44065 CHLORIDE 105 MMOL/L 01/05/2014 COMPREHENSIVE METABOLIC 89991 BILI TOT 0.2 MG/DL 01/05/2014 COMPREHENSIVE METABOLIC 66971 ALK PHOS 37 U/L 01/05/2014 COMPREHENSIVE METABOLIC 82076 SODIUM 137 MMOL/L 01/05/2014 COMPREHENSIVE METABOLIC 66359 CREATININE 0.86 MG/DL 01/05/2014 COMPREHENSIVE METABOLIC 51867 CALCIUM 9.4 MG/DL 01/05/2014 COMPREHENSIVE METABOLIC 87169 POTASSIUM 5.0 MMOL/L 01/05/2014 COMPREHENSIVE METABOLIC 71209 PROT TOT 6.3 GM/DL 01/05/2014 COMPREHENSIVE METABOLIC 28138 Glucose 104 MG/DL 01/05/2014 COMPREHENSIVE METABOLIC 73211 BICARB 27 MMOL/L 01/05/2014 COMPREHENSIVE METABOLIC 66226 ANION GAP 5 MEQ/L 01/05/2014 THYROID STIMULATING HORMONE 24553 TSH 0.822 uIU/ML 4 GFR CALC 8436754 GFR AA >60 ML/MIN 01/05/2014 GFR CALC 7535444 GFR NON -AA >60 ML/MIN 01/05/2014 COMPLETE BLOOD COUNT 5622220 WBC 5.5 10e9/L 01/05/2014 COMPLETE BLOOD COUNT 7850951 RBC 4.17 10e12/L 4 COMPLETE BLOOD COUNT 7337019 HGB 13.0 g/dL 01/05/2014 COMPLETE BLOOD COUNT 2052841 HCT DET 39.0 % 01/05/2014 COMPLETE BLOOD COUNT 9368128 MCV 93.5 fL 01/05/2014 COMPLETE BLOOD COUNT 2554900 MCH 31.2 pg 01/05/2014 COMPLETE BLOOD COUNT 8590982 MCHC 33.3 g/dL 01/05/2014 COMPLETE BLOOD COUNT 7818942 PLT 294 10e9/L 01/05/2014 COMPLETE BLOOD COUNT 4532792 MPV 11.4 fL 01/05/2014 COMPLETE BLOOD COUNT 9817696 NIKKY % 59.4 % 01/05/2014 COMPLETE BLOOD COUNT 7516939 LY % 27.7 % 01/05/2014 COMPLETE BLOOD COUNT 7121224 MON % 10.3 % 01/05/2014 COMPLETE BLOOD COUNT 4283879 EOS % 1.5 % 01/05/2014 COMPLETE BLOOD COUNT 9739036 BASO % 1.1 % 01/05/2014 COMPLETE BLOOD COUNT 5431158 RDW 12.7 % 01/05/2014 COMPLETE BLOOD COUNT 4505667 ABS NIKKY 3.27 10e9/L 01/05/2014 COMPLETE BLOOD COUNT 6130241 ABS LYMPH 1.52 10e9/L 01/05/2014 COMPLETE BLOOD COUNT 0060762 ABS MONO 0.57 10e9/L 01/05/2014 COMPLETE BLOOD COUNT 2563779 ABS EOS 0.08 10e9/L 01/05/2014 COMPLETE BLOOD COUNT 8380147 ABS BASO 0.06 10e9/L 01/05/2014 COMPLETE BLOOD COUNT 2572150 RDW-SD 42.1 fL 01/05/2014 LIPID GROUP [address] 60 MG/DL 01/05/2014 LIPID GROUP 62447 TRIG 63 MG/DL 01/05/2014 LIPID GROUP 74360 TEST L DL 83 MG/DL 01/05/2014 LIPID GROUP 99254 CHOL 156 MG/DL 01/05/2014 LIPID GROUP 54709 RCHOL/ HDL 2.60 RATIO 01/05/2014 FREE T4 61172 FREE T4 0.87 NG/DL 01/05/2014 Review of Systems System Result Effective Dates Neurologic No dizziness 07/24/2018 Neurologic No headache [...] 06/21/2018 Dermatologic No rash 01/2018 Neurologic headache 12/0 01/2018 Genitourinary/Nephrology No menstrua l irregularity 06/21/2018 Psychiatric [...] Lymphatic neck nodes Overall: anterior cervical chain ednita ign 07/23/2012 None Full Exam - General [...] Date URINALYSIS NONAUTO W /O SCOPE CPT-4: 98534 06/21/2018 URINE TEST CPT-4: 16608 06/21/2018 URINE CULTURE/ COLON Y COUNT CPT-4: 03881 06/21/2018 SPECIMEN HANDLING OF FICE-LAB CPT-4: 59084 07/05/2017 DRAIN/INJECT JOINT/B URSA CPT-4: 14059 03/17/2016 URINALYSIS NONAUTO W /O SCOPE CPT-4: 67783 12/20/2015 URINE CULTURE/ COLON Y COUNT CPT-4: 18148 12/20/2015 URINALYSIS NONAUTO W /O SCOPE CPT-4: 47376 08/04/2015 URINE CULTURE/ COLON Y COUNT CPT-4: 53642 08/04/2015 ROUTINE VENIPUNCTURE CPT-4: 88492 01/05/2014 ASSAY OF FREE THYROXINE CPT-4: 12337 01/05/2014 ASSAY THYROID STIM H ORMONE CPT-4: 02488 01/05/2014 COMPREHEN METABOLIC PANEL CPT-4: 49617 01/05/2014 COMPLETE CBC W/AUTO DIFF WBC CPT-4: 31973 01/05/2014 LIPID PANEL CPT-4: 45361 01/05/2014 CEFTRIAXONE SODIUM I NJECTION CPT-4: J0696 07/23/2012 THER/PROPH/DIAG INJ SC/IM CPT-4: 13490 07/23/2012 Vital Signs Date Vital 07/24/2018 Blood Pressure 1: 122/80 Code: 8480-6 BMI: 21.3 Code: 77390-2 Heart Rate 1: 76 bpm Height: 5'7" Respiratory Rate: 20 bpm Temperature: 36.9 (C ) / 98.4 (F) Weight: 136 lbs 06/21/2018 Blood Pressure 1: 100/78 Code: 8480-6 Heart Rate 1: 82 bpm Respiratory Rate: 18 bpm SpO2: 100% Temperature: 36.7 (C ) / 98.0 (F) Weight: 130 lbs 07/05/2017 Blood Pressure 1: 94/58 Code: 8480-6 BMI: 20.4 Code: 37688-7 Heart Rate 1: 72 bpm Height: 5'7" SpO2: 96% Temperature: 37.2 (C ) / 99.0 (F) Weight: 130 lbs 05/15/2017 Blood Pressure 1: 104/64 Code: 8480-6 BMI: 20.8 Code: 05872-3 Heart Rate 1: 80 bpm Height: 5'7" Respiratory Rate: 20 bpm Temperature: 36.7 (C ) / 98.1 (F) Weight: 133 lbs 04/27/2016 Blood Pressure 1: 112/70 Code: 8480-6 BMI: 20.8 Code: 52341-8 Heart Rate 1: 80 bpm Height: 5'7" Respiratory Rate: 20 bpm Temperature: 37.2 (C ) / 99.0 (F) Weight: 133 lbs 03/17/2016 Blood Pressure 1: 122/76 Code: 8480-6 Heart Rate 1: 80 bpm 07/13/2015 Blood Pressure 1: 98/60 Code: 8480-6 BMI: 20.5 Code: 07710-5 Heart Rate 1: 76 bpm Height: 5'7" Respiratory Rate: 20 bpm Temperature: 36.9 (C ) / 98.4 (F) Weight: 131 lbs 10/30/2014 Blood Pressure 1: 124/80 Code: 8480-6 BMI: 19.4 Code: 05222-5 Heart Rate 1: 94 bpm Height: 5'7" Respiratory Rate: 24 bpm SpO2: 98% Temperature: 36.6 (C ) / 97.8 (F) Weight: 124 lbs 01/05/2014 Blood Pressure 1: 98/68 Code: 8480-6 BMI: 19.3 Code: 99095-8 Heart Rate 1: 76 bpm Height: 5'7" Respiratory Rate: 20 bpm Temperature: 36.8 (C ) / 98.2 (F) Weight: 123 lbs 11/26/2013 Blood Pressure 1: 104/64 Code: 8480-6 BMI: 20.4 Code: 05113-6 Heart Rate 1: 84 bpm Height: 5'7" Respiratory Rate: 18 bpm Temperature: 36.7 (C ) / 98.0 (F) Weight: 130 lbs 06/10/2013 Blood Pressure 1: 132/90 Code: 8480-6 BMI: 19.4 Code: 29512-5 Heart Rate 1: 80 bpm Height: 5'7" Respiratory Rate: 20 bpm Temperature: 36.6 (C ) / 97.8 (F) Weight: 124 lbs 02/19/2013 Blood Pressure 1: 114/80 Code: 8480-6 BMI: 19.7 Code: 73627-0 Heart Rate 1: 84 bpm Height: 5'7" Respiratory Rate: 20 bpm Temperature: 36.9 (C ) / 98.5 (F) Weight: 126 lbs 07/23/2012 Blood Pressure 1: 106/64 Code: 8480-6 BMI: 20.8 Code: 86564-6 Heart Rate 1: 60 bpm Height: 5'7" Temperature: 37.8 (C ) / 100.0 (F) Weight: 133 lbs 07/17/2012 Blood Pressure 1: 162/110 Code: 8480-6 BMI: 21.0 Code: 72671-8 Heart Rate 1: 92 bpm Height: 5'7" Respiratory Rate: 20 bpm Temperature: 36.8 (C ) / 98.2 (F) Weight: 134 lbs 10/30/2011 Blood Pressure 1: 138/80 Code: 8480-6 BMI: 21.0 Code: 59805-3 Heart Rate 1: 84 bpm Height: 5'7" Temperature: 37.1 (C ) / 98.7 (F) Weight: 134 lbs 08/03/2011 Blood Pressure 1: 114/72 Code: 8480-6 BMI: 21.0 Code: 07030-6 Heart Rate 1: 64 bpm Height: 5'7" Respiratory Rate: 20 bpm Temperature: 36.9 (C ) / 98.4 (F) Weight: 134 lbs Functional Status No Functional Status data History of Present Illness Symptom Name Status Resu lt Effective Date Notes Location in the clinical evaluator ior area 07/24/2018 None Quality chronic 07/24/2018 [...] Encounters Encounter Performer Loca tion Codes Date ([id number]) OFFICE/OUTPA TIENT VISIT EST Diagnosis: Radial styloid tenosynovitis [de Quervain][ICD10: M65.4] Shaye Edwards [id number] CPT-4: 41110 07/24/2018 ([id number]) OFFICE/OUTPA TIENT VISIT EST Diagnosis: Other fatigue[ICD10: R53.83] Diagnosis: Anemia, unspecified[ICD10: D64.9] Mara Echevarria SHAYE MCDONALD TRA CPT-4: 28503 06/21/2018 ([id number]) PREV VISIT E ST AGE 40-64 Diagnosis: Mild intermittent asthma with (acute) exacerbation[ICD10: J45.21] Diagnosis: Encounter for general adult medical examination without abnormal findings[ICD10: Z00.00] Diagnosis: Encounter for gynecological examination (general) (routine) without abnormal findings[ICD10: Z01.419] Shaye ALVARADO TRA CPT-4: 91086 07/05/2017 ([id number]) OFFICE/OUTPA TIENT VISIT EST Diagnosis: Essential (primary) hypertension[ICD10: I10] Diagnosis: Other cervical disc degeneration, unspecified cervical region[ICD10: M50.30] Diagnosis: Tension-type headache, unspecified, not intractable[ICD10: G44.209] Shaye ALVARADO DO [facility] CPT-4: 75866 05/15/2017 ([id number]) OFFICE/OUTPA TIENT VISIT EST Diagnosis: Lateral epicondylitis, right elbow[ICD10: M77.11] Shaye MANCINI DO [employer] CPT-4: 90700 04/27/2016 ([id number]) OFFICE/OUTPA TIENT VISIT EST Diagnosis: Hematuria, unspecified[ICD10: R31.9] Shaye MANCINI DO [employer] CPT-4: 47456 08/04/2015 ([id number]) PREV VISIT E ST AGE 40-64 Diagnosis: Encounter for general adult medical examination without abnormal findings[ICD10: Z00.00] Diagnosis: Essential (primary) hypertension[ICD10: I10] Diagnosis: Other cervical disc degeneration, unspecified cervical region[ICD10: M50.30] 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] Shaye ALVARADO DO [facility] CPT-4: 58192 07/13/2015 ([id number]) OFFICE/OUTPA TIENT VISIT EST Diagnosis: COUGH[ICD9: 786.2] Sarika ALVARADO DO [facility] CPT-4: 20713 10/30/2014 ([id number]) PREV VISIT E ST AGE 40-64 Diagnosis: ROUTINE MEDICAL EXAM[ICD9: V70.0] Diagnosis: HYPERTENSION[ICD9: 401.9] Diagnosis: Seizure[ICD9: 780.39] Shaye ALVARADO DO [facility] CPT-4: 28697 01/05/2014 OFFICE/OUTPATIENT SIT EST Diagnosis: URI, ACUTE[ICD9: 465.9] Sarika ALVARADO DO [facility] CPT-4: 26026 11/26/2013 ([id number]) OFFICE/OUTPA TIENT VISIT EST Diagnosis: HYPERTENSION[ICD9: 401.9] Diagnosis: SINUSITIS, ACUTE[ICD9: 461.9] Diagnosis: CONVULSIONS[ICD9: 780.39] Shaye ALVARADO DO [facility] CPT-4: 89467 06/10/2013 OFFICE/OUTPATIENT SIT EST Diagnosis: Pyelonephritis[ICD9: 590.80] Diagnosis: HYPERTENSION[ICD9: 401.9] Shaye ALVARADO [facility] CPT-4: 96268 02/19/2013 OFFICE/OUTPATIENT SIT EST Diagnosis: OTITIS MEDIA NOS[ICD9: 382.9] Diagnosis: COUGH[ICD9: 786.2] Diagnosis: SINUSITIS, ACUTE[ICD9: 461.9] Shaye ALVARADO DO [facility] CPT-4: 21670 07/23/2012 ([id number]) OFFICE/OUTPA TIENT VISIT EST Diagnosis: HYPERTENSION[ICD9: 401.9] Diagnosis: CONVULSIONS[ICD9: 780.39] Shaye ALVARADO [facility] CPT-4: 09576 07/17/2012 OFFICE/OUTPATIENT SIT EST Diagnosis: COUGH[ICD9: 786.2] Diagnosis: PHARYNGITIS, ACUTE[ICD9: 462] Shaye ALVARADO DO [facility] CPT-4: 77391 10/30/2011 OFFICE/OUTPATIENT SIT NEW Diagnosis: CERVICAL DISC DEGEN[ICD9: 722.4] Diagnosis: Neck pain[ICD9: 723.1] Diagnosis: Radiculopathy of arm[ICD9: 723.4] Diagnosis: Seizure[ICD9: 780.39] Shaye ALVARADO [facility] CPT-4: 24754 08/03/2011 Plan of Care Planned Activity Notes C odes Status Date Visit Diagnosis Plan: Radial styloid ten osynovitis [de Quervain] Discussion: Spica thumb wrist splint Med rol Dose Pack followed by mobic Notify if worsens or persists ICD-9 : 727.04 ICD-10 : M65.4 07/24/2018 Appointment: Shaye Alvarado WPtel: [address] [place] [address] ACUTE ILLNESS 07/24/2018 Patient Education: [employer])- [employer] [phone] [email or web address] Completed 07/24/2018 Visit Diagnosis Plan: Other fatigue Discussion: urine test neg. when urine was tested, noted dark, cloudy urine and dipstick was obtained. showed protein and blood in urine so will send off for urine culture. multiple labs ordered [place] [facility] [place] [facility] cbc, cmp, tsh, t4, tt3, b12, iron, ferritin obtained. will review labs and culture and order additional meds/labs as needed. ICD-9 : 780.79 ICD-10 : R53.83 06/21/2018 Appointment: Mara Echevarria [address] [place] [address] ACUTE ILLNESS 06/21/2018 Appointment: Shaye Alvarado WPtel: [address] [place] [address] Scheduled in ERROR 06/10/2018 Visit Diagnosis Plan: [...] : J45.21 07/05/2017 Appointment: Shaye Alvarado WPtel: [address] [place] [address] [place] PAP 07/05/2017 Patient Education: Patient Medication Summary Completed 07/05/2017 Care Plan: [employer] : [id number] Pending 07/05/2017 Patient Education: Patient Medication Summary [...] : M50.30 05/15/2017 Appointment: Shaye Alvarado WPtel: [address] [place], [place] [id number] 05/15/2017 Patient Education: Patient Medication Summary Completed 05/15/2017 Referral: Armin Arzate WPtel: [facility] [address] [place] Referral Appointment Confirmed 05/10/2016 Visit Plan: Medrol Dose Pack then s tart mobic Continue brace See Dr. Arzate Discussed iontophoresis May need surgery as has tried all conservative measures at this point 04/27/2016 Appointment: Shaye Alvarado WPtel: [address] [place] [address] 04/26 lm~sl...confirmed-sp FOLLOW UP 04/27/2016 Patient Education: Patient Medication Summary Completed 04/27/2016 Care Plan: Referral Order SNOMED-CT : [id number] Pending 04/27/2016 Visit Plan: Injection as above Tenn is elbow strap Vivlodex 10mg daily Notify if worsens or persists 03/17/2016 Appointment: Shaye Alvarado WPtel: [address] [place], [place] [id number] OFFICE SURGERY 03/17/2016 Patient Education: Patient Medication Summary Completed 03/17/2016 Appointment: Yolis Membreno [address] [place], [place] [id number] patient misunderstood why appointm ent was scheduled. CANCELED 12/21/2015 Appointment: Shaye Alvarado WPtel: [address] [place], [place] [id number] ACUTE ILLNESS 12/20/2015 Patient Education: Patient Medication Summary Completed 12/20/2015 Appointment: Shaye Alvarado WPtel: [address] [place] [address] UA 08/04/2015 Patient Education: Patient Medication Summary Completed 08/04/2015 Visit Plan: Updated MRI of cervical spine Decrease lisinopril to 2.5mg daily Update lab Add cyclobenzaprine at 10mg q HS 07/13/2015 Appointment: Shaye Alvarado WPtel: [address] [place] [address] 07/12/15 appt confirmed cn Annual Well Visit 07/13/2015 Patient Education: Patient Medication Summary Completed 07/13/2015 Patient Education: [facility] Saving [employer] - Lisinopril - 18-64 - Dynamic Portal ID Completed 07/13/2015 Patient Education: Neck Pain Completed 07/13/2015 Visit Plan: Take albuterol inhaler BID to TID Prednisone 20mg po BID x 5 days Tessalon 100mg po TID PRN benadryl PRN flonase OTC 2 sprays qHS notify if no improvement or worsening of symptoms 10/30/2014 Appointment: Sarika Diallo WPtel: [address] [place] [address] ACUTE ILLNESS 10/30/2014 Patient Education: Patient Medication Summary Completed 10/30/2014 Visit Plan: Fasting lab drawn Decre ase lisinopril to 5mg daily and observe BP 01/05/2014 Visit Plan: Fasting lab drawn inclu ding tegretol level Decrease lisinopril to 5mg daily and observe BP 01/05/2014 Appointment: Shaye Alvarado WPtel: [address] [place] [address] 01/02 Annual Well Visit 01/05/2014 Patient Education: Patient Medication Summary Completed 01/05/2014 Visit Plan: Start mucinex, may cont inue delsym and benadryl Albuterol inh every 4 hours as needed Doxy 100mg BID x 10 days Follow up for worsening symptoms 11/26/2013 Appointment: Yoel Sarika M WPtel: [address] [place] [address] ACUTE ILLNESS 11/26/2013 Patient Education: Patient Medication Summary Completed 11/26/2013 Visit Plan: Saline nasal flushes pr n. Tylenol/Motrin prn headache. Notify if persists/symptoms worsening. Decrease Lisinopril to 10mg daily 06/10/2013 Appointment: Shaye Alvarado WPtel: [address] [place] [address] 06/09 FOLLOW UP 06/10/2013 Patient Education: Patient Medication Summary Completed 06/10/2013 Visit Plan: Finish abx and observe Stay off lisinopril and observe 02/19/2013 Appointment: Shaye Alvarado WPtel: [address] [place] [address] Follow Up 02/19/2013 Patient Education: Patient Medication Summary Completed 02/19/2013 Visit Plan: rocephin IM and Cefdini r. Will notify if no improvement. Tylenol #3 #20 dispensed. Pt. has made contact with Dr. Frias's office and has follow up appnt. Pt. will notify if fever continues into tomorr ow. 07/23/2012 Appointment: Penelope Goldne WPtel: [address] [place] [address] ACUTE ILLNESS 07/23/2012 Patient Education: Patient Medication Summary Completed 07/23/2012 Visit Plan: Check fasting lab Start Lisinopril Moniter BP 07/17/2012 Appointment: Shaye Alvarado WPtel: [address] [place] [address] 07/15 Home phone no longer working kandis r; works for [employer] and is off work on break ACUTE ILLNESS 07/17/2012 Patient Education: Patient Medication Summary Completed 07/17/2012 Visit Plan: doxycycline and medrol dose pack. Discussed that could be walking pneumonia. Encouraged fluids and rest. Pt. will notify if symptoms persist or worsen. Note for work. 2-3 days. 10/30/2011 Appointment: Penelope Golden WPtel: [address] [facility] ACUTE ILLNESS 10/30/2011 Patient Education: Patient Medication Summary Completed 10/30/2011 Visit Plan: Proceed with Cervical S pine MRI Percocet 5/500 1 po q HS prn pain--#30 Tramadol 50mg 1-2 po BID prn pain--#60 See Ortho for surgical opinion 08/03/2011 Appointment: Shaye Alvarado WPtel: [address] [facility] [address] NEW PATIENT 08/03/2011 Patient Education: Patient Medication Summary Completed 08/03/2011 Referral: Armin Arzate WPtel: [facility] [address] Referral Appointment Requested Instructions Comment . rocephin [...]
--- OUTSIDE RECORDS SUMMARY | 2020-01-09 09:40 | XMS REPORT ---
Author Author Chiquita Cook Doctor Organization [facility] Address Unknown Phone Unavailable Care Team Providers Care Extrusion Press Supervisor Name Role Phone Migration, Doctor Unavailable Unavailable PROBLEMS Unknown Problems ALLERGIES No Information ENCOUNTERS Encounter Location Date Diagnosis [facility] [address] [id number] [address] [place] [phone] Oct, [facility] [address] [id number] [address] [place] [phone] Oct, [facility] [address] [id number] [address] [place] [id number] Mar, [facility] [address] [id number] [address] [place] [phone] Feb, [facility] [address] [id number] [address] [place] [phone] Feb, [facility] [address] [id number] [address] [place] [phone] Oct, [facility] [address] [id number] [address] [place] [phone] Aug, [facility] [address] [id number] [address] [place] [phone] Jul, [facility] [address] [id number] [address] [place] [phone] Jun, [facility] [address] [id number] [address] [place] [phone] Jun, [facility] [address] [id number] [address] [place] [phone] May, [facility] [address] [id number] [address] [place] [phone] May, [facility] [address] [id number] [address] [place] [address], [place] [address] Apr, [facility] [address] [id number] [address] [place] [address], [place] [address] Apr, [facility] [address] [id number] [address] [place] [address], [place] [address] 17 Mar, 2012 [facility] [address] [id number] [address] [place] [address], [place] [address] Mar, [facility] [address] [id number] [address] [place] [address], [place] [address] Feb, [facility] [address] [id number] [address] [place] [address], [place] [address] Feb, [facility] [address] [id number] [address] [place] [address], [place] [address] Feb, [facility] [address] [id number] [address] [place] [address], [place] [address] Feb, [facility] [address] [id number] [address] [place] [address], [place] [address] Feb, [facility] [address] [id number] [address] [place] [address], [place] [address] Feb, [facility] [address] [id number] [address] [place] [address], [place] [address] November, [facility] [address] [id number] [address] [place] [address], [place] [address] Oct, [facility] [address] [id number] [address] [place] [address], [place] [address] Aug, [facility] [address] [id number] [address] [place] [address], [place] [address] Feb, [facility] [address] [id number] [address] [place] [address], [place] [address] Jun, [facility] [address] [id number] [address] [place] [address], [place] [address] Jun, [facility] [address] [facility] [id number] [address] [place] [phone] May, [facility] [address] [facility] [id number] [address] [place] [phone] Apr, IMMUNIZATIONS No Known Immunizations SOCIAL HISTORY Never Assessed [place] FOR V[place]IT [place] [place] VITAL SIGNS MEDICATIONS Unknown Medications RESULTS No Results PROCEDURES No Known procedures INSTRUCTIONS MEDICATIONS ADMINISTERED No Known Medications
--- OUTSIDE RECORDS SUMMARY | 2020-01-09 09:40 | XMS REPORT ---
Author Author Chiquita Cook Doctor Organization [facility] Address Unknown Phone Unavailable Care Team Providers Care Supervisor Shuttle Preparation Name Role Phone Migration, Doctor Unavailable Unavailable PROBLEMS Unknown Problems ALLERGIES No Information ENCOUNTERS Encounter Location Date Diagnosis [facility] [address] [id number] [address] [place] [phone] Oct, [facility] [address] [id number] [address] [place] [phone] Oct, [facility] [address] [id number] [address] [place] [phone] Mar, [facility] [address] [id number] [address] [place] [phone] Feb, [facility] [address] [id number] [address] [place] [phone] Feb, [facility] [address] [id number] [address] [place] [phone] Oct, [facility] [address] [id number] [address] [place] [phone] Aug, [facility] [address] [id number] [address] [place] [phone] Jul, [facility] [address] [id number] [address] [place] [phone] Jun, [facility] [address] [id number] [address] [place] [phone] Jun, [facility] [address] [id number] [address] [place] [phone] May, [facility] [address] [id number] [address] [place] [phone] May, [facility] [address] [id number] [address] [place] [address], [place] [address] Apr, [facility] [address] [id number] [address] [place] [address], [place] [address] Apr, [facility] [address] [id number] [address] [place] [address], [place] [address] 17 Mar, 2012 [facility] [address] [id number] [address] [place] [address], [place] [address] Mar, [facility] [address] [id number] [address] [place] [address], [place] [address] Feb, [facility] [address] [id number] [address] [place] [address], [place] [address] Feb, [facility] [address] [id number] [address] [place] [address], [place] [address] Feb, [facility] [address] [id number] [address] [place] [address], [place] [address] Feb, [facility] [address] [id number] [address] [place] [address], [place] [address] Feb, [facility] [address] [id number] [address] [place] [address], [place] [address] Feb, [facility] [address] [id number] [address] [place] [address], [place] [address] November, [facility] [address] [id number] [address] [place] [address], [place] [address] Oct, [facility] [address] [id number] [address] [place] [address], [place] [address] Aug, [facility] [address] [id number] [address] [place] [address], [place] [address] Feb, [facility] [address] [id number] [address] [place] [address], [place] [address] Jun, [facility] [address] [id number] [address] [place] [address], [place] [address] Jun, [facility] [address] [facility] [id number] [address] [place] [phone] May, [facility] [address] [facility] [id number] [address] [place] [phone] Apr, IMMUNIZATIONS No Known Immunizations SOCIAL HISTORY Never Assessed REASON FOR VISIT [place] [place]AN OF CARE VITAL SIGNS MEDICATIONS Unknown Medications RESULTS No Results PROCEDURES No Known procedures INSTRUCTIONS MEDICATIONS ADMINISTERED No Known Medications
--- OUTSIDE RECORDS SUMMARY | 2020-01-09 09:40 | XMS REPORT ---
Author Author Chiquita Cook Doctor Organization [facility] Address Unknown Phone Unavailable Care Team Providers Care Medical Delivery Technician Name Role Phone Migration, Doctor Unavailable Unavailable PROBLEMS Unknown Problems ALLERGIES No Information ENCOUNTERS Encounter Location Date Diagnosis [facility] [address] [id number] [address] [place] [phone] Oct, [facility] [address] [id number] [address] [place] [phone] Oct, [facility] [address] [id number] [address] [place] [phone] Mar, [facility] [address] [id number] [address] [place] [phone] Feb, [facility] [address] [id number] [address] [place] [phone] Feb, [facility] [address] [id number] [address] [place] [phone] Oct, [facility] [address] [id number] [address] [place] [address] Aug, [facility] [address] [id number] [address] [place] [phone] Jul, [facility] [address] [id number] [address] [place] [phone] Jun, [facility] [address] [id number] [address] [place] [phone] Jun, [facility] [address] [id number] [address] [place] [phone] May, [facility] [address] [id number] [address] [place] [address] May, [facility] [address] [id number] [address] [place] [address], [place] [address] Apr, [facility] [address] [id number] [address] [place] [address], [place] [address] Apr, [facility] [address] [id number] [address] [place] [address], [place] [address] 17 Mar, 2012 [facility] [address] [id number] [address] [place] [address], [place] [address] Mar, [facility] [address] [id number] [address] [place] [address], [place] [address] Feb, [facility] [address] [id number] [address] [place] [address], [place] [address] Feb, [facility] [address] [id number] [address] [place] [address], [place] [address] Feb, [facility] [address] [id number] [address] [place] [address], [place] [address] Feb, [facility] [address] [id number] [address] [place] [address], [place] [address] Feb, [facility] [address] [id number] [address] [place] [address], [place] [address] Feb, [facility] [address] [id number] [address] [place] [address], [place] [address] November, [facility] [address] [id number] [address] [place] [address], [place] [address] Oct, [facility] [address] [id number] [address] [place] [address], [place] [address] Aug, [facility] [address] [id number] [address] [place] [address], [place] [address] Feb, [facility] [address] [id number] [address] [place] [address], [place] [address] Jun, [facility] [address] [id number] [address] [place] [address], [place] [address] Jun, [facility] [address] [facility] [id number] [address] [place] [phone] May, [facility] [address] [facility] [id number] [address] [place] [address] Apr, IMMUNIZATIONS No Known Immunizations SOCIAL HISTORY Never Assessed REASON FOR VISIT EMR-[facility] [place] PLAN OF CARE VITAL SIGNS MEDICATIONS Unknown Medications RESULTS No Results PROCEDURES No Known procedures INSTRUCTIONS MEDICATIONS ADMINISTERED No Known Medications
--- OUTSIDE RECORDS SUMMARY | 2020-01-09 09:40 | XMS REPORT ---
Author Author Chiquita Cook Doctor Organization [facility] Address Unknown Phone Unavailable Care Team Providers Care Rv Service Technician Name Role Phone Migration, Doctor Unavailable Unavailable PROBLEMS Unknown Problems ALLERGIES No Information ENCOUNTERS Encounter Location Date Diagnosis [facility] [address] [id number] [address] [place] [phone] Oct, [facility] [address] [id number] [address] [place] [phone] Oct, [facility] [address] [id number] [address] [place] [address] Mar, [facility] [address] [id number] [address] [place] [phone] Feb, [facility] [address] [id number] [address] [place] [phone] Feb, [facility] [address] [id number] [address] [place] [phone] Oct, [facility] [address] [id number] [address] [place] [phone] Aug, [facility] [address] [id number] [address] [place] [address] Jul, [facility] [address] [id number] [address] [place] [phone] Jun, [facility] [address] [id number] [address] [place] [phone] Jun, [facility] [address] [id number] [address] [place] [phone] May, [facility] [address] [id number] [address] [place] [phone] May, [facility] [address] [id number] [address] [place] [address], [place] [address] Apr, [facility] [address] [id number] [address] [place] [address], [place] [address] Apr, [facility] [address] [id number] [address] [place] [address], [place] [address] 17 Mar, 2012 [facility] [address] [id number] [address] [place] [address], [place] [address] Mar, [facility] [address] [id number] [address] [place] [address], [place] [address] Feb, [facility] [address] [id number] [address] [place] [address], [place] [address] Feb, [facility] [address] [id number] [address] [place] [address], [place] [address] Feb, [facility] [address] [id number] [address] [place] [address], [place] [address] Feb, [facility] [address] [id number] [address] [place] [address], [place] [address] Feb, [facility] [address] [id number] [address] [place] [address], [place] [address] Feb, [facility] [address] [id number] [address] [place] [address], [place] [address] November, [facility] [address] [id number] [address] [place] [address], [place] [address] Oct, [facility] [address] [id number] [address] [place] [address], [place] [address] Aug, [facility] [address] [id number] [address] [place] [address], [place] [address] Feb, [facility] [address] [id number] [address] [place] [address], [place] [address] Jun, [facility] [address] [id number] [address] [place] [address], [place] [address] Jun, [facility] [address] [facility] [id number] [address] [place] [phone] May, [facility] [address] [facility] [id number] [address] [place] [phone] Apr, IMMUNIZATIONS No Known Immunizations SOCIAL HISTORY Never Assessed REASON FOR VISIT [place] [place] VITAL SIGNS MEDICATIONS Unknown Medications RESULTS No Results PROCEDURES No Known procedures INSTRUCTIONS MEDICATIONS ADMINISTERED No Known Medications
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
--- OUTSIDE RECORDS SUMMARY | 2020-01-09 09:40 | XMS REPORT | Continuity of Care Document ---
Author Author [facility] Organization [facility] Address Unknown Phone Unavailable Care Team Providers Care Talent Development Consultant Name Role Phone KEVAN WARE DO PP Insurance Providers Payer Name Policy Number Subscriber Name Relationship [facility] [id number] Chiquita Cannon 01 Self / Same As Patient Advance Directives Directive Response Recor ded Date Advance Directives Y 3:18pm Organ Donor Y 02/10/13 3 :18pm Problems No Known Problems or Medical conditions. Family History History Response Recorde d Date/Time Hx Family Cancer Y paternal grandmot her (breast) and paternal grandfather (gasteric) 02/10/13 3:11pm Hx Family Cardiac Disorders Y 02/10/13 3:11pm Hx Family Hypertension Y father 02/10/13 3:11pm Social History History Response Recorde d Date/Time Alcohol Use Denies Use 0 02/10/13 3:08pm Recreational Drug Use N 02/10/13 3:08pm Recent Foreign Travel N 02/10/13 3:08pm Recent Infectious Disease Exposure N 02/10/13 3:08pm Hospitalization with Isolation Denies 02/14/13 4:18pm Sexually Transmitted Disease N 02/10/13 3:08pm HIV/AIDS N 02/10/13 3:08 pm Allergies, Adverse Reactions, Alerts Allergen Type Severity Reaction Last Updated No Known Drug Allergies 10/05/10 Medications Medication Dose Units Route Sig Qty Days Cefuroxime Axetil 1 Tab PO BID Rizatriptan Benzoate (Maxalt) 0 PO UD [epitol] 300 Mg PO BID [seasonale] 1 Tab PO HS Lisinopril (Zestril) 20 Mg PO HS Duloxetine HCl (Cymbalta) 60 Mg PO HS Ketorolac Tromethamine (Toradol) 10 Mg PO Q6H PRN 15 Cyclobenzaprine HCl (Cyclobenzaprine Hcl) 1 Each PO Q8HR PRN 15 Carbamazepine (Tegretol) 1 Tab PO BID Response Recorded Date/Time Status not known Unknown Results Test Date Result Interp. Ref. Range Alanine Aminotransferase (ALT/SGPT) February 10, 2013 11:15am 22 U/L L 30-65 Albumin February 10, 2013 11:15am 3.1 G/DL L 3.4-5.0 Alkaline Phosphatase February 10, 2013 11:15am 82 U/L N 50-136 Aspartate Amino Transf (AST/SGOT) Ju 2012 11:15am 15 U/L N 15-37 BUN/Creatinine Ratio February 10, 2013 11:15am 14 - Basophils # (Auto) February 10, 2013 11:15am 0.0 10^3/uL N 0.0-0.1 Basophils % (Manual) February 10, 2013 11:15am 1 % - Basophils (%) (Auto) February 10, 2013 11:15am 0 % N 0-10 Blood Urea Nitrogen February 10, 2013 11:15am 14 MG/DL N 7-18 C-Reactive Protein February 10, 2013 11:15am 26.5 MG/DL H 0.2-0.9 Calcium Level February 10, 2013 11:15am 8.0 MG/DL L 8.5-10.1 Carbon Dioxide Level February 10, 2013 11:15am 26 MMOL/L N 21-32 Chloride Level February 10, 2013 11:15am 98 MMOL/L L 101-110 Creatinine February 10, 2013 11:15am 1.0 MG/DL N 0.6-1.3 Eosinophils # (Auto) February 10, 2013 11:15am 0.0 10^3/uL N 0.0-0.3 Eosinophils (%) (Auto) February 10, 2013 11:15am 0 % N 0-10 Glucose Level February 10, 2013 11:15am 108 MG/DL H 74-106 Hematocrit February 10, 2013 11:15am 36 % N 35-52 Hemoglobin February 10, 2013 11:15am 12.2 G/DL N 11.5-16.0 Lymphocytes # (Auto) February 10, 2013 11:15am 0.8 X 10^3 L 1.0-4.0 Lymphocytes % (Manual) February 10, 2013 11:15am 8 % - Lymphocytes (%) (Auto) February 10, 2013 11:15am 6 % L 12-44 Mean Corpuscular Hemoglobin February 10, 2013 11:15am 31 PG N 25-34 Mean Corpuscular Hemoglobin Concent February 10, 2013 11:15am 34 G/DL N 32-36 Mean Corpuscular Volume February 10, 201 3 11:15am 92 FL N 80-99 Mean Platelet Volume February 10, 2013 11:15am 11.0 FL H 7.4-10.4 Monocytes # (Auto) February 10, 2013 11:15am 1.5 X 10^3 H 0.0-1.0 Monocytes % (Manual) February 10, 2013 11:15am 11 % - Monocytes (%) (Auto) February 10, 2013 11:15am 11 % N 0-12 Neutrophils # (Auto) February 10, 2013 11:15am 10.8 X 10^3 H 1.8-7.8 Neutrophils % (Manual) February 10, 2013 11:15am 80 % - Neutrophils (%) (Auto) February 10, 2013 11:15am 83 % H 42-75 Platelet Count February 10, 2013 11:15am 182 10^3/uL N 130-400 Potassium Level February 10, 2013 11:15am 3.5 MMOL/L L 3.6-5.0 Red Blood Count February 10, 2013 11:15am 3.96 10^6/uL L 4.35-5.85 Red Cell Distribution Width February 10, 2013 11:15am 12.3 % N 10.0-14.5 Sodium Level February 10, 2013 11:15am 133 MMOL/L L 135-145 Total Bilirubin February 10, 2013 11:15am 0.4 MG/DL N 0.0-1.0 Total Protein February 10, 2013 11:15am 7.5 G/DL N 6.4-8.2 Urine Bacteria February 10, 2013 10:32am MODERATE /HPF H - Urine Bilirubin February 10, 2013 10:32am 1+ H - Urine Casts February 10, 2013 10:32am NONE /LPF - Urine Clarity February 10, 2013 10:32am SLIGHTLY CLOUDY - Urine Color February 10, 2013 10:32am YELLOW - Urine Crystals February 10, 2013 10:32am NONE /LPF - Urine Culture Indicated February 10 3 10:32am YES - Urine Glucose (UA) February 10, 2013 10:32am NEGATIVE - Urine Ketones February 10, 2013 10:32am 2+ H - Urine Leukocyte Esterase February 10 10:32am 3+ H - Urine Mucus February 10, 2013 10:32am MODERATE /LPF H - Urine Nitrite February 10, 2013 10:32am POSITIVE H - Urine Protein February 10, 2013 10:32am 3+ H - Urine RBC February 10, 2013 10:32am NONE /HPF - Urine Specific [place] February 10, 2013 10:32am 1.025 H - Urine Squamous Epithelial Cells February 10, 2013 10:32am RARE /HPF - Urine Urobilinogen February 10, 2013 10:32am 4 MG/DL H - Urine WBC February 10, 2013 10:32am 50-100 /HPF H - Urine pH February 10, 2013 10:32am 5 - White Blood Count February 10, 2013 11:15am 13.1 10^3/uL H 4.3-11.0 Estimat Glomerular Filtration Rate J allan 2012 11:15am 60 - Urine RBC (Auto) February 10, 2013 10:32am 4+ H - Encounters Encounter Location Date/ Time Discharged Inpatient [facility] 02/10/13 12:56pm Departed Emergency Room [facility] 10/07/11 4:22am
--- OUTSIDE RECORDS SUMMARY | 2020-01-09 09:40 | XMS REPORT ---
Author Author Chiquita Cook Doctor Organization [facility] Address Unknown Phone Unavailable Care Team Providers Care Director Teen Post Name Role Phone Migration, Doctor Unavailable Unavailable PROBLEMS Unknown Problems ALLERGIES No Information ENCOUNTERS Encounter Location Date Diagnosis [facility] [address] [id number] [address] [place] [id number] Oct, [facility] [address] [id number] [address] [place] [id number] Oct, [facility] [address] [id number] [address] [place] [id number] Mar, [facility] [address] [id number] [address] [place] [phone] Feb, [facility] [address] [id number] [address] [place] [phone] Feb, [facility] [address] [id number] [address] [place] [phone] Oct, [facility] [address] [id number] [address] [place] [phone] Aug, [facility] [address] [id number] [address] [place] [phone] Jul, [facility] [address] [id number] [address] [place] [phone] Jun, [facility] [address] [id number] [address] [place] [phone] Jun, [facility] [address] [id number] [address] [place] [id number] May, [facility] [address] [id number] [address] [place] [phone] May, [facility] [address] [id number] [address] [place] [address], [place] [address] Apr, [facility] [address] [id number] [address] [place] [address], [place] [address] Apr, [facility] [address] [id number] [address] [place] [address], [place] [address] 17 Mar, 2012 [facility] [address] [id number] [address] [place] [address], [place] [address] Mar, [facility] [address] [id number] [address] [place] [address], [place] [address] Feb, [facility] [address] [id number] [address] [place] [address], [place] [address] Feb, [facility] [address] [id number] [address] [place] [address], [place] [address] Feb, [facility] [address] [id number] [address] [place] [address], [place] [address] Feb, [facility] [address] [id number] [address] [place] [address], [place] [address] Feb, [facility] [address] [id number] [address] [place] [address], [place] [address] Feb, [facility] [address] [id number] [address] [place] [address], [place] [address] November, [facility] [address] [id number] [address] [place] [address], [place] [address] Oct, [facility] [address] [id number] [address] [place] [address], [place] [address] Aug, [facility] [address] [id number] [address] [place] [address], [place] [address] Feb, [facility] [address] [id number] [address] [place] [address], [place] [address] Jun, [facility] [address] [id number] [address] [place] [address], [place] [address] Jun, [facility] [address] [facility] [id number] [address] [address] May, [facility] [address] [facility] [id number] [address] [place] [id number] Apr, IMMUNIZATIONS No Known Immunizations SOCIAL HISTORY Never Assessed REASON FOR VISIT EMR-[facility] PLAN OF CARE VITAL SIGNS MEDICATIONS Medication Instructions Dosage Frequency Start Date End Date Duration S tatus Carbamazepine 200 mg 1.5 tablet by Oral route 2 times per day Mar, Active Cymbalta 60 mg 1 capsule by Oral route 1 time per day Oct, Active RESULTS No Results PROCEDURES No Known procedures INSTRUCTIONS MEDICATIONS ADMINISTERED No Known Medications
--- NOTE | 2020-01-09 09:47 | Pre-Op Note & Conscious Sedat ---
Pre-Operative Progress Note H&P Reviewed The H&P was reviewed, patient examined and no changes noted. Date H&P Reviewed: Jan 09, 2020 Time H&P Reviewed: 09:46 Conscious Sedation Pre-Proced ASA Score 2 For ASA 3 and 4: Consider anesthesia and medical clearance. Also, for patients with a history of failed moderate sedation consider anesthesia. Airway Lungs Heart ASA score ASA 1: a normal healthy patient ASA 2: a patient with a mild systemic disease (mid diabetes, controlled hypertension, obesity ASA 3: a patient with a severe systemic disease that limits activity (angina, COPD, prior Myocardial infarction) ASA 4: a patient with an incapacitating disease that is a constant threat to life (CHF, renal failure) ASA 5: a moribund patient not expected to survive 24 hrs. (ruptured aneurysm) ASA 6: a declared brain- patient whose organs are being harvested. For emergent operations, add the letter E after the classification Mallampati Classification Grade 2 Sedation Plan Analgesia, Amnesia, Plan communicated to team members, Discussed options with patient/fam, Discussed risks with patient/fam The patient is an appropriate candidate to undergo the planned procedure, sedation, and anesthesia. The patient immediately re-assessed prior to indication. AMANDA WEBB MD Jan 09, 2020 09:47
[2020-01-09] MEDS ORDERED: MIDAZOLAM 5 MG/5 ML (VERSED) VIAL ONE ×2 (10:56→11:14)
[2020-01-09] MEDS ORDERED: fentaNYL INJECTION 100 MCG/2 ML AMP ONE ×2 (10:56→11:09)
[2020-01-09] MEDS ORDERED: LIDOCAINE JELLY 2% 6 ML SYRINGE ONE (10:56)
[2020-01-09] MEDS: MIDAZOLAM 5 MG/5 ML (VERSED) VIAL IV PRN ×5 (10:59→11:20)
[2020-01-09] MEDS ORDERED: fentaNYL INJECTION 100 MCG/2 ML AMP IVP ONE (11:45)
[2020-01-09] MEDS ORDERED: LIDOCAINE JELLY 2% 6 ML SYRINGE MM PRN (11:45)
--- NOTE | 2020-01-09 19:30 | OPERATIVE REPORT ---
DATE OF SERVICE: COLONOSCOPY SUMMARY INDICATION FOR THE PROCEDURE: Screening colonoscopy. DESCRIPTION OF PROCEDURE: The patient was placed in left lateral decubitus position. Prior to any colonoscopy, digital rectal evaluation was performed. Anal sphincter tone was normal and the perianal reflexes intact. No abnormalities were noted on digital inspection of the anal canal or distal rectal vault. The colonoscope was then inserted into the rectum and under direct visualization advanced to cecum. The cecum was identified by identification of the ileocecal valve and cecal strap. The quality of prep was good. The patient did have an irritable bowel type response to air insufflation and colonic manipulation. FINDINGS: There was no evidence for internal or external hemorrhoids. The rectum, sigmoid colon, descending colon, splenic flexure, transverse colon, hepatic flexure, ascending colon and cecum were unremarkable. No evidence for diverticulum, or neoplasia was identified. ASSESSMENT: Normal colonoscopy to the cecum. We would advocate consideration for repeat screening colonoscopy in 10 years. Job ID: [id number] DocumentID: [id number] Dictated Date: 01/09/2020 11:39:03 Automotive Project Engineer Date: 01/09/2020 19:28:13 Dictated By: AMANDA WEBB MD
--- NOTE | 2020-01-27 13:52 | HISTORY AND PHYSICAL ---
DATE OF SERVICE: HISTORY OF PRESENT ILLNESS: The patient is a 49-year-old white female referred by Dr. Alvarado for her first screening colonoscopy. She is deemed to be of average risk as she is not aware of any family history for colon cancer or colon polyps. She denies any problems with bright red blood per rectum, abdominal pain, change in bowel habit or change in weight. PAST MEDICAL HISTORY: Significant for mild hypertension, intermittent migraine headaches, history of seizures, but none for many years. She had admission in 2013 for pyelonephritis with full recovery. PAST SURGICAL HISTORY: She has had cervical fusion from C3-C7 several years ago. She has had surgery for tendonitis left lateral epicondylar on the right side. Has had breast augmentation and bunion surgery with the latter being in the last year and distant past history of therapeutic laparoscopy for treatment of endometriosis. FAMILY HISTORY: Father is still living at the age of 81. History of hypertension with transient ischemic attacks and pacemaker placement. Mother of urinary tract infection with sepsis with a history of multiple sclerosis. Has one living sister here with no health problems. He has one maternal grandmother and aunt with breast cancer and one paternal grandfather with gastric cancer. 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 She has no past smoking history with occasional social alcohol intake. She exercises on a regular basis. REVIEW OF SYSTEMS: CONSTITUTIONAL: She denies night sweats, chills, fever or change in weight. GASTROINTESTINAL: As noted in the HPI. CARDIOVASCULAR: She denies any history of cardiovascular procedures. Denies chest discomfort, dyspnea on exertion, syncope or presyncope. PULMONARY: She denies any trouble with cough, wheezing or dyspnea on exertion. PHYSICAL EXAMINATION: GENERAL: Reveals a white female, appears to be in no acute distress. VITAL SIGNS: Blood pressure 110/74, weight 135 pounds, BMI 23. HEENT: Unremarkable. Mallampati 2 oropharyngeal configuration. Sclerae nonicteric. CHEST: Clear to auscultation. CARDIOVASCULAR: Reveals a regular rate and rhythm without murmur, S3 or S4. ABDOMEN: Soft, supple without mass, organomegaly or tenderness. EXTREMITIES: Reveal no cyanosis, clubbing or edema. ASSESSMENT: The patient's electronic medical record was reviewed. Questions were answered and prep instructions with the Suprep kit were given. I thank you for the referral of this pleasant lady. Job ID: [id number] DocumentID: [id number] Dictated Date: 12/24/2019 17:17:08 It Compliance Analyst Date: 12/24/2019 18:02:17 Dictated By: AMANDA WEBB MD <Dictated by AMANDA WEBB MD> <Electronically signed by AMANDA WEBB MD> 12/26/19 1103 MTDD
== END 2020-01-09 12:30 | disposition home or self-care (01) ==
LOC: ENDO 09:25
PROVIDERS: ATTEND Internal Medicine
DX: Z12.11 Encounter for screening for malignant neoplasm of colon (principal); I10 Essential (primary) hypertension; Z98.1 Arthrodesis status

== ENCOUNTER → 2020-12-27 | Outpatient (CLI) | payer BC ==
[~2020-12-27] MED LIST changes: -LISI-556 PO; +LISI-729 PO
--- NOTE | 2020-12-27 14:47 | Diagnostic Imaging Report ---
INDICATION: Routine screening. Comparison is made with prior mammogram from 12/24/2019 and 08/15/2010. 2-D and 3-D bilateral screening mammography was performed with CAD. Bilateral breast implants are noted. Implant contours appear smooth. Breast parenchyma is heterogeneously dense, limiting the sensitivity of mammography. There are benign calcifications. No mass or malignant appearing microcalcifications are seen. Axillae are unremarkable. IMPRESSION: BI-RADS Category 2 No mammographic features suspicious for malignancy are identified. ACR BI-RADS Category 2: Benign findings. Result letter will be mailed to the patient. Note: At least 10% of breast cancer is not imaged by mammography. Dictated by: Dictated on workstation # [id number]
== END ==
LOC: RAD 10:06
PROVIDERS: ATTEND Family Medicine
DX: Z12.31 Encounter for screening mammogram for malignant neoplasm of breast (principal)
CPT/HCPCS: 77063; 77067

== ENCOUNTER → 2021-12-28 | Outpatient (CLI) | payer BC ==
[~2021-12-28] MED LIST changes: -LISI-729 PO; +LISI5TAB20 PO
--- NOTE | 2021-12-28 16:15 | Diagnostic Imaging Report ---
INDICATION: Routine screening. Comparison is made with prior mammogram from 12/27/2020 and 12/24/2019. 2-D and 3-D bilateral screening mammography was performed with CAD. Bilateral breast implants are again noted. No definite evidence of extracapsular rupture is seen. Breast parenchymal is heterogeneously dense, limiting the sensitivity of mammography. There are benign calcifications. No mass or malignant-appearing microcalcifications are seen. Axillae are unremarkable. IMPRESSION: No mammographic features suspicious for malignancy are identified. ACR BI-RADS Category 2: Benign findings. Result letter will be mailed to the patient. Note: At least 10% of breast cancer is not imaged by mammography. BI-RADS Category 2 Dictated by: Dictated on workstation # [id number]
== END ==
LOC: RAD 10:00
PROVIDERS: ATTEND Family Medicine
DX: Z12.31 Encounter for screening mammogram for malignant neoplasm of breast (principal)
CPT/HCPCS: 77063; 77067

== ENCOUNTER → 2023-01-01 | Outpatient (CLI) | payer BC ==
[~2023-01-01] MED LIST changes: +RIZA-1 PO
--- NOTE | 2023-01-01 11:37 | Diagnostic Imaging Report ---
INDICATION: Routine screening. COMPARISON: 12/28/2021 and 12/27/2020. TECHNIQUE: 2D and 3D bilateral screening mammography was performed with CAD. FINDINGS: Bilateral breast implants are again noted. The implant contours remain stable. There is no definite evidence of extracapsular rupture. Both breasts are heterogeneously dense, limiting the sensitivity of mammography. The parenchymal pattern is stable. No dominant mass or malignant-appearing microcalcifications are seen. There are occasional benign calcifications. The axillae are unremarkable. IMPRESSION: No mammographic features suspicious for malignancy are identified. ACR BI-RADS Category 2: Benign findings. Result letter will be mailed to the patient. Note: At least 10% of breast cancer is not imaged by mammography. Dictated by: Dictated on workstation # [id number]
== END ==
LOC: RAD 07:52
PROVIDERS: ATTEND Family Medicine
DX: Z12.31 Encounter for screening mammogram for malignant neoplasm of breast (principal)
CPT/HCPCS: 77063; 77067